=== PATIENT | female | born 1965 | race Caucasian/White ===

== ENCOUNTER 2021-01-21 08:14 | Inpatient (IN) | payer OTHER, SELFPAY ==
[2021-01-21] VITALS (15 sets, daily range): BP systolic 80–120; BP diastolic 40–107; PULSE 58–74; RESP 11–18; TEMP 36.5–37.2; O2SAT 92–100; BMI 29.1
--- NOTE | ~2021-01-21 | CT_ITS ---
EXAMINATION: CT abdomen pelvis wo con DATE: 01/22/2021 17:19 INDICATION: Acute renal failure. 1 cm shadowing stone at lower pole of left kidney and 4 cm masslike at the echogenic region of the spleen on 01/21/2021 renal ultrasound examination TECHNIQUE: Computed tomography (CT) of the abdomen and pelvis was performed without intravenous contr ast. Automated exposure control and iterative reconstruction technique were employed. Exam dose: 699 .74 mGy-cm total exam DLP. COMPARISON: None. FINDINGS: There is mild discoid atelectasis and/or scarring in the lower lung zones. There is mild cardiomegaly. No pericardial or pleural effusion. Status post cholecystectomy. No bile duct or pancreatic duct dilatation. The spleen measures 10.7 cm vertical dimension. No adrenal mass lesion. 2 cm probable right renal cyst. 3 cm mildly hyperdense exophytic lesion along the posterolateral aspect of the mid left kidney. Bilateral high density areas within each kidney with associated streak artifact; these may be renal c alculi or possibly metallic foreign bodies. No ureteral calculus or hydroureteronephrosis. There is a Dalton catheter and a small amount of air within the urinary bladder. Status post hysterectomy. Abdominal aortic and iliac arterial and femoral artery calcifications. No intraperitoneal or retroper itoneal or pelvic mass lesion or adenopathy or ascites. No bowel obstruction or pneumatosis or intraperitoneal free air. There is some fat deposition within the wall of the ascending colon. There is severe degenerative disc disease and grade 2 anterolisthesis at L4-5. Degenerative changes a pophyseal joints. IMPRESSION: Mild cardiomegaly Status post cholecystectomy 2 cm probable right renal cyst. 3 cm hyperdense exophytic left renal indeterminate lesion in the lower Additional renal mass lesions cannot be excluded on this limited noncontrast examination. Further sd luation with CT examination with IV contrast material or MR renal examination is recommended unless p rior CT examinations are available for comparison. Reviewed, dictated and finalized at [facility]. Reviewed, dictated and finalized at location [facility]. IMPRESSION: Mild cardiomegaly Status post cholecystectomy 2 cm probable right renal cyst. 3 cm hyperdense exophytic left renal indeterminate lesion in the lower Additional renal mass lesions cannot be excluded on this limited noncontrast ex amination. Further evaluation with CT examination with IV contrast material or MR renal examination is recommended unless prior CT examinations are available for comparison.
--- NOTE | ~2021-01-21 | XR_ITS ---
XR pelvis 1-2V DATE: 01/22/2021 17:40 INDICATION: Fall. Bilateral hip pain. TECHNIQUE: AP pelvis COMPARISON: 01/22/2021 CT abdomen pelvis FINDINGS: No pelvic fracture or bone destruction. The sacroiliac joints are intact. Joint spaces are symmetric and relatively preserved. Prominent degenerative disc disease at L4-5. 3.9 x 12 mm calcification overlying the lateral left true pelvis, which is apparently a calculus with in the distal left ureter based on correlation with a 01/22/2021 CT abdomen pelvis examination. There is associated mild left hydroureteronephrosis. There is a 7 x 12 mm calcification of the lower pole right kidney.. IMPRESSION: No pelvic fracture is evident 7 x 12 mm lower pole right renal calcified calculus 3.9 x 12 mm calcified calculus of the distal left ureter Reviewed, dictated and finalized at location [facility].
--- NOTE | ~2021-01-21 | XR_ITS ---
EXAMINATION: XR retrograde pyelo w/stent RT DATE: 01/25/2021 14:10 INDICATION: Right internal ureteral stent placement TECHNIQUE: Fluoroscopic images from a right internal ureteral stent placement are submitted for caitlin olguin. 25 seconds of fluoroscopy time. FINDINGS: There is a right double-J internal ureteral stent projecting in expected position, with proximal [place]ford loop at the level of the renal pelvis and distal loop in the pelvis within the bladder lumen. There was a pre-existing left internal ureteral stent. IMPRESSION: 1. Right internal ureteral stent placement. Please refer to real-time procedural findings for detai ls. Reviewed, dictated and finalized at location [facility]. IMPRESSION: 1. Right internal ureteral stent placement. Please refer to real-time procedu ral findings for details.
--- NOTE | ~2021-01-21 | XR_ITS ---
XR femur RT min 2V DATE: 01/22/2021 17:40 INDICATION: Fall. Bilateral hip pain. TECHNIQUE: AP and lateral views COMPARISON: None FINDINGS: No fracture or dislocation, periosteal reaction or bone destruction. Normal alignment at th e right hip and knee joints. IMPRESSION: No fracture or dislocation Reviewed, dictated and finalized at location [facility]. IMPRESSION: No fracture or dislocation
--- NOTE | ~2021-01-21 | US_ITS ---
EXAMINATION: US renal BI DATE: 01/21/2021 15:04 INDICATION: Acute renal failure TECHNIQUE: Multiple ultrasound grayscale images of the kidneys were obtained. COMPARISON: None. FINDINGS: The right kidney measures 10.4 x 6.6 x 6.3 cm. The left kidney measures 10.3 x 5.5 x 5.4 cm. The kidn eys demonstrate normal echogenicity. Anechoic cysts are seen at both kidneys measuring up to 1.9 cm i n maximal diameter on the right and 2.2 cm in maximal diameter on the left. There is an approximately 1 cm echogenic and shadowing stone at the lower pole of the left kidney. There is no hydronephrosis in either kidney. The bladder is normal. Approximately 4 cm echogenic region is indicated by the sono grapher in the spleen however the margins appear to result from acoustic shadowing related to the mor e superficial ribs and the masslike appearance is most likely artifactual. IMPRESSION: 1. Approximately 1 cm shadowing stone at the lower pole of the left kidney. No hydronephrosis. 2. 4 cm masslike echogenic region in the spleen. Suspect this is artifactual appearance resulting fro m rib shadowing but would consider further evaluation with contrast-enhanced CT or MRI for more defin itive determination. Reviewed, dictated and finalized at location B. IMPRESSION: 1. Approximately 1 cm shadowing stone at the lower pole of the left kidney. No hydronephrosis. 2. 4 cm masslike echogenic region in the spleen. Suspect this is artifactual ap pearance resulting from rib shadowing but would consider further evaluation wit h contrast-enhanced CT or MRI for more definitive determination.
--- NOTE | ~2021-01-21 | XR_ITS ---
EXAMINATION: XR abdomen obstructive series DATE: 01/24/2021 09:14 INDICATION: Nausea and vomiting. TECHNIQUE: Supine and upright views of the abdomen. FINDINGS: CT dated 01/22/2021 The visualized lung parenchyma is normal.. There is a nonobstructive bowel gas pattern. There is a st one at the L3-4 level, likely a right UPJ stone measuring 0.3 cm. There are bilateral renal stones. T here is a left internal ureteral stent in expected position. Lung bases unremarkable. Moderate lower lumbar spondylosis. Gas and stool are seen throughout the colon to the level of the rectum. There is no free air. IMPRESSION: 1. Probable 1.3 cm right UPJ stone. 2: Bilateral nephrolithiasis with left internal ureteral stent in expected position. Reviewed, dictated and finalized at location A. IMPRESSION: 1. Probable 1.3 cm right UPJ stone. 2: Bilateral nephrolithiasis with left internal ureteral stent in expected pos ition.
--- NOTE | ~2021-01-21 | XR_ITS ---
XR retrograde pyelo w/stent LT DATE: 01/23/2021 08:39 INDICATION: Left stent placement TECHNIQUE: 6 spot C-arm images of abdomen and pelvis during left retrograde pyelogram procedure 555.6 seconds fluoroscopy time 7342.40 radcm2 COMPARISON: 01/22/2021 CT abdomen pelvis 01/22/2021 pelvis FINDINGS: [employer] spot C-arm image confirms a large distal left ureteral calcified calculus. There is subsequent placement of a left internal urinary stent, proximal pigtail overlying the left r enal pelvis, the pubic distal pigtail overlying left base of the urinary bladder. IMPRESSION: Left internal urinary stent placement Reviewed, dictated and finalized at [facility]. Reviewed, dictated and finalized at location A.
--- NOTE | ~2021-01-21 | XR_ITS ---
EXAMINATION: XR chest 2V DATE: 01/21/2021 08:55 INDICATION: Weakness. TECHNIQUE: Frontal and lateral views of the chest were obtained. COMPARISON: None. FINDINGS: There is mild atelectasis in left lower lung zone. No pleural effusion or pneumothorax. Car diomegaly is noted. Surgical clips in the right upper quadrant are likely from cholecystectomy. IMPRESSION: 1. Mild atelectasis in left lower lung zone. 2. Cardiomegaly. Reviewed, dictated and finalized at location A.
--- NOTE | 2021-01-21 08:31 | ED.WEAKNESS ---
HPI - Weakness General Chief complaint: Weakness Stated complaint: WEAKNESS Time Seen by Provider: 01/21/21 08:19 History of Present Illness HPI Narrative: Patient is a 55-year-old female who presents to the ER with weakness. Patient is a very poor historian and most history was obtained from the . Apparently 4 days ago patient became weak to the point that she was stooling and urinating on herself. He contacted PCP who called in Macrobid as they are concerned she had UTI. Patient has 1 pill left and she still is too weak to stand up and walk. Patient has not been having fevers or chills or sweats. No diarrhea. She has no abdominal pain or chest pain or chest pressure. Patient is scheduled for a sleep study tonight but they have concerns that they will not make it given her condition. Additionally patient was on a Holter monitor for the last 2 weeks which they are turning in today. It is unknown why she had to have the Holter monitor performed. She sees Dr. Hernandez at [facility]. Related Data Home Medications Medication Instructions Recorded Confirmed aspirin 81 mg PO DAILY 01/21/21 01/21/21 buspirone 10 mg PO BID PRN 01/21/21 01/21/21 fenofibrate 150 mg PO DAILY 01/21/21 01/21/21 gabapentin 400 mg PO BID 01/21/21 01/21/21 lisinopril 10 mg PO DAILY 01/21/21 01/21/21 morphine 15 mg PO HS 01/21/21 01/21/21 nifedipine 30 mg PO DAILY 01/21/21 01/21/21 pantoprazole 20 mg PO QPM 01/21/21 01/21/21 ranolazine 500 mg PO BID 01/21/21 01/21/21 ropinirole 0.5 mg PO HS 01/21/21 01/21/21 sertraline 200 mg PO HS 01/21/21 01/21/21 tizanidine 2 mg PO Q8H PRN 01/21/21 01/21/21 Allergies Allergy/AdvReac Type Severity Reaction Status Date / Time No Known Allergies Allergy Verified 01/21/21 08:26 Review of Systems Review of Systems: All systems reviewed & are unremarkable except as noted in HPI and below Constitutional: Constitutional: Denies chills, Denies fever(s) and Reports weakness ENT: Denies nasal congestion and Denies sore throat Cardiovascular: Cardiovascular: Denies chest pain, Denies rapid heart rate and Denies radiating jaw, neck or arm pain Respiratory: Respiratory: Denies cough, Denies dyspnea and Denies wheezing Gastrointestinal: Gastrointestinal: Denies abdominal pain, Denies diarrhea, Denies nausea and Denies vomiting Genitourinary: Genitourinary: Reports nocturia, Denies dysuria and Reports urinary incontinence [facility] Past Medical History Medical History (Updated 01/21/21 @ 19:00 by Reid Duggan MD) Anxiety Arthritis Gastroesophageal reflux disease Hyperlipidemia Hypertension Restless leg syndrome Surgical History Surgical History (Updated 01/21/21 @ 13:18 by Kaycee Brush PA-C) History of section History of cholecystectomy History of hernia repair History of hysterectomy Social History Social History (Updated 01/21/21 @ 13:19 by Kaycee Brush PA-C) Social History: Surrogate decision maker: Code status: Full code. Smoking status: Former smoker Tobacco type: e-cigarettes/vaping and smokeless tobacco Alcohol intake: never Substance use: never Additional living arrangements comments: Resides in [place]. Spiritual care concerns: No Exam Narrative: Exam Narrative: GENERAL: Well-appearing, well-nourished, and in no acute distress. HEAD: Normocephalic, atraumatic. EYES: PERRL and EOMI. CHEST: Clear to auscultation. No respiratory distress. HEART: Regular rate and rhythm. Normal peripheral pulses. ABDOMEN: Soft, nontender, nondistended. EXTREMITIES: Normal range of motion. No edema. SKIN: Warm, dry, no rash. NEURO: Alert and oriented x3. PSYCH: Normal mood and affect. Course Course Emergency Course: Admit to the hospitalist service. Patient is in acute renal failure related to her UTI. She received IV ceftriaxone and additional IV fluid. Additionally she is receiving IV potassium for her hypokale
[2021-01-21] MEDS: SODIUM CHLORIDE 0.9% IV 1,000 ML 999 ML IV CONT ×3 (08:46→18:55)
[2021-01-21 09:08] LABS: Add Urine Microscopic? YES; Appearance Urine Turbid (Clear); Bacteria Urine 4+ /hpf; Bilirubin Urine Negative (Negative); Blood Urine 1+ (Negative); Color Urine Amber (Yellow); Glucose Urine UA Negative (Negative); Hyaline Casts Urine 30-49 /lpf; Ketones Urine Negative (Negative); Leukocyte Esterase Ur 2+ LEU/UL (Negative); Mucus Urine Rare /lpf; Nitrate Urine Negative (Negative); Protein Urine 3+ mg/dL (Negative); RBC Urine 21-50 /hpf (0-2); Specific Grav Ur 1.013 (1.001-1.035); WBC Clumps Urine Present /HPF; WBC Urine >75 /hpf
[2021-01-21 09:49] LABS: Basophils Percent Auto 0.3 % (0.2-1.2); Eosinophils Absolute Auto 0.1 K/mm3 (0-0.3); Eosinophils Percent Auto 1.6 % (0-4.4); Hematocrit 26.3 % (37.0-47.0); Hemoglobin 8.9 g/dL (12.0-15.0); Immature Granulocyte Absolute 0.11 K/mm3 (0.00-0.031); Immature Granulocyte Percent A 1.4 % (0-0.5); Lymphocytes Absolute Auto 0.87 K/mm3 (0.9-3.2); Lymphocytes Percent Auto 11.4 % (18.3-44.2); Mean Corpuscular HGB Conc 33.8 g/dl (32-36); Mean Corpuscular Volume 91.6 fl (80-100); Mean Platelet Volume 11.4 fl (7.4-10.4); Monocytes Absolute Auto 0.6 K/mm3 (0.1-0.6); Monocytes Percent Auto 7.4 % (2.6-8.5); Neutrophils Percent Auto 77.9 % (45.5-73.1); Platelet Count Result 200 k/mm3 (150-375); Red Blood Count 2.87 M/mm3 (4.2-5.4); Red Cell Distribution Width 15.4 % (11.5-14.5); White Blood Count 7.7 K/mm3 (4.5-10.0)
[2021-01-21 10:05] LABS: Lactic Acid Reflex 0.5 mmol/L (0.7-2.1)
[2021-01-21 10:08] LABS: Anion Gap 10 mmol/L (8-16); Blood Urea Nitrogen 90 mg/dL (7-17); Calcium 7.2 mg/dL (8.4-10.2); Carbon Dioxide 20 mmol/L (22-30); Chloride 99 mmol/L (98-107); Estimated CRCL calculation 13 ml/min; Estimated Glomerular Filt Rate 11; Glucose 105 mg/dL (65-105); Potassium 2.8 mmol/L (3.4-5.0); Sodium 129 mmol/L (137-145)
[2021-01-21] MEDS: POTASSIUM CHLORIDE 20 MEQ TABLET 40 MEQ PO (10:24)
[2021-01-21] MEDS: SODIUM CHLORIDE 0.45% 1,000 ML 100 ML IV CONT (10:27)
--- NOTE | 2021-01-21 10:31 | PC.NURSE ---
Pt is alert and oriented at this time.
--- NOTE | 2021-01-21 10:58 | ECG_ITS ---
Measurements Intervals [place] Rate: 59 P: 65 ID: [id number] QRS: -51 QRSD: 155 T: 84 QT: 495 QTc: 493 Interpretive Statements SINUS BRADYCARDIA LEFT AXIS DEVIATION LEFT BUNDLE BRANCH BLOCK BASELINE ARTIFACT- I, II, III, AVR, AVL, AVF ABNORMAL ECG Electronically Signed On 01-21-2021 11:13:14 CDT by Raghu Mccloud D.O.
--- NOTE | 2021-01-21 12:20 | PC.NURSE ---
This patient, Eulalia Salvador, was admitted to Intensive Care Unit-7. Patient/family oriented to hospital policies and general routines including ID bracelet, bed and alarms, visiting hours, pain management, procedures, bathroom and other care routines, personal items, smoking policy, room service/diet, and visiting hours. Information on how to activate the Rapid Response Team has been discussed. Patient/Family are encouraged to report perceived risks to care and to ask questions if they do not understand what they are told or what they should do.
[2021-01-21] MEDS: SODIUM CHLORIDE 0.9% IV 1,000 ML 125 ML IV CONT ×2 (12:47→22:07)
--- NOTE | 2021-01-21 13:30 | PM.IMHP ---
H&P: HPI History of Present Illness Date/Time: 01/21/21 13:30 Chief Complaint: Weakness. Narrative: This is a 55-year-old female with hypertension, depression, anxiety, restless leg syndrome, and chronic pain on morphine who presented to the emergency department earlier today via EMS from home with complaints of weakness. She has not been feeling well for about 5 days and she was prescribed Macrobid on 01/17/2021 by her primary care provider as she was having UTI symptoms. Despite taking the antibiotics she has continued to feel worse, and is to the point where she is sleeping much of the time and is not eating or drinking. This morning she apparently could not even stand up and walk on her own. She has been incontinent of urine and stool and her son called EMS and made her come in today. Blood pressures have been running soft but appear to be responsive to IV fluids. She was found to have an acute kidney injury with a BUN and creatinine of 90 and 4.20 respectively and to her knowledge she has no history of chronic kidney disease. At the time my evaluation she is asleep and difficult to arouse, with frequent myoclonic jerks. Once she was awake she tells me that she was supposed to have a sleep study sometime this week due to concerns for sleep apnea. Additionally she was wearing a Holter monitor for the past couple of weeks and with further questioning she tells me it was because she was having chest pain. With further questioning she apparently had a negative stress test done recently per Dr. Hernandez and he wanted to do the Holter monitor but she is not certain as to why. She denies palpitations and feelings of irregular heartbeat. In any event, she is feeling a bit better at the time my evaluation after receiving IV fluids. She does not think she has had a fever and denies chills and sweats. No abdominal pain or vomiting. Review of Systems Review of Systems: Narrative: Twelve systems were reviewed with pertinent positives and negatives as per HPI. She denies headache. No neck ache. No sinus congestion, rhinorrhea, otalgia, or odynophagia. She is on chronic narcotics for chronic pain, it sounds as though in her back. She denies taking more medication than prescribed. Except as documented, all other systems were reviewed and are negative. ON LICENSE OF [facility] Past Medical History Medical History (Updated 01/21/21 @ 22:35 by Kaycee Brush PA-C) Anxiety Arthritis Gastroesophageal reflux disease Hyperlipidemia Hypertension Restless leg syndrome Surgical History Surgical History (Updated 01/21/21 @ 13:18 by Kaycee Brush PA-C) History of section History of cholecystectomy History of hernia repair History of hysterectomy Family History Family History Other Heart disease Social History Social History (Updated 01/21/21 @ 22:24 by Kaycee Brush PA-C) Social History: Surrogate decision maker: Aristeo Salvador, . Code status: Full code. Full code. Smoking status: Former smoker Tobacco type: e-cigarettes/vaping and smokeless tobacco Alcohol intake: never Substance use: never Additional living arrangements comments: Resides in [place] her . They have 2 children. Additional occupation/education comments: Not employed. Spiritual care concerns: No Meds Home Medications and Allergies Home Medications Medication Instructions Recorded Confirmed Type aspirin 81 mg PO DAILY 01/21/21 01/21/21 History buspirone 10 mg PO BID PRN 01/21/21 01/21/21 History fenofibrate 150 mg PO DAILY 01/21/21 01/21/21 History gabapentin 400 mg PO BID 01/21/21 01/21/21 History lisinopril 10 mg PO DAILY 01/21/21 01/21/21 History morphine 15 mg PO HS 01/21/21 01/21/21 History nifedipine 30 mg PO DAILY 01/21/21 01/21/21 History pantoprazole 20 mg PO QPM 01/21/21 01/21/21 History ranolazine 500 mg PO BID 01/21/21 01/21/21 History ropiniro
[2021-01-21 14:48] LABS: Immature Reticulocyte Fraction 9.4 % (3.0-15.9); Reticulocyte Hemoglobin Conten 27.8 pg (28.2-35.7); Reticulocyte Percent 0.65 % (0.7-4.3); Reticulocytes Absolute 0.02 B/L (32.2-175.7)
[2021-01-21 15:01] LABS: Alanine Aminotransferase 20 U/L (4-35); Albumin Level 2.9 g/dL (3.5-5.1); Alkaline Phosphatase 68 U/L (38-126); Anion Gap 8 mmol/L (8-16); Aspartate Amino Transferase 89 U/L (14-36); Bilirubin Direct 0.4 mg/dL (0-0.3); Bilirubin,Total 1.4 mg/dL (0.2-1.3); Blood Urea Nitrogen 82 mg/dL (7-17); Calcium 7.1 mg/dL (8.4-10.2); Carbon Dioxide 19 mmol/L (22-30); Chloride 104 mmol/L (98-107); Creatine Kinase 1356 U/L (30-135); Estimated CRCL calculation 15 ml/min; Estimated Glomerular Filt Rate 13; Glucose 113 mg/dL (65-105); Magnesium 1.6 mg/dL (1.6-2.3); Potassium 3.7 mmol/L (3.4-5.0); Sodium 131 mmol/L (137-145)
[2021-01-21 15:11] LABS: Complement C3 115 mg/dL (88-165)
[2021-01-21 15:22] LABS: Phosphorus 4.7 mg/dL (2.5-4.5)
[2021-01-21 15:37] LABS: Iron 56 ug/dL (37-170)
[2021-01-21 15:47] LABS: Percent Iron Saturation 28 % (20-50)
[2021-01-21 15:48] LABS: CRP 32.2 mg/dL (<1.0)
[2021-01-21 16:07] LABS: Folic Acid 7.4 ng/mL (2.76->20); Thyroid Stimulating Hormone Reflex 0.197 uIU/mL (0.465-4.68)
[2021-01-21 16:33] LABS: Eosinophil Urine None Seen % (None Seen)
[2021-01-21 17:59] LABS: Total Protein Urine Random 165 mg/dL; Ur Ttl Prot Creatinine Ratio 2.66 mg/mg (0-0.20)
[2021-01-21 18:03] LABS: Sodium Urine Random 29 meq/L
[2021-01-21 20:55] LABS: Alveolar/Arterial O2 Gradient 39.8 mmHg; Base Excess ABG -11.6 mEq/l (+/-2.0); Carboxyhemoglobin 0.3 % THb (0-2.0); Fractional Inspired Oxygen 21 %; HCO3 ABG 14.7 mEq/l (22.0-26.0); Methemoglobin ABG 0.5 %THb (0-1.5); Oxygen Saturation ABG 90.8 % (95.0-100.0); Oxyhemoglobin 90.9 % THb (90.0-100.0); PCO2 ABG 34.8 mmHg (35.0-45.0); PO2 ABG 68.3 mmHg (80.0-100.0); PO2 FiO2 Ratio Arterial Blood 3.25 %; Reduced Hemoglobin 8.3 %THb (0-5.0); Total Hemoglobin 9.3 g/dL (12.0-18.0)
[2021-01-21 20:57] LABS: Device ROOM AIR; Modified Allen's Test Pass; Site Drawn RIGHT BRACHIAL; pH ABG 7.244 (7.350-7.450)
[2021-01-21 21:14] LABS: Amphetamine Screen Urine Negative (Negative); Barbiturate Screen Urine Negative (Negative); Benzodiazepines Screen Urine Negative (Negative); Cannabinoid Screen Urine Negative (Negative); Cocaine Screen Urine Negative (Negative); Methadone Screen Urine Negative (Negative); Opiate Screen Urine Positive (Negative); Phencyclidine Screen Urine Negative (Negative)
[2021-01-21 21:15] LABS: Creatine Kinase 1296 U/L (30-135)
[2021-01-21] MEDS: HEPARIN SODIUM 5,000 UNITS/ML VIAL 5000 UNITS SUB-Q (21:57)
[2021-01-21] MEDS: SODIUM BICARBONATE 8.4% 150 MEQ in DEXTROSE 5% 1,000 ML 950 ML 75 MEQ IV CONT (22:58)
[2021-01-21 23:23] LABS: Free T4 Free Thyroxine Reflex 1.68 ng/dL (0.78-2.19)
[2021-01-22] VITALS (16 sets, daily range): BP systolic 102–133; BP diastolic 57–83; PULSE 67–84; RESP 13–20; TEMP 37–38.1; O2SAT 95–100
[2021-01-22 04:35] LABS: Hematocrit 25.2 % (37.0-47.0); Hemoglobin 8.5 g/dL (12.0-15.0); Mean Corpuscular HGB Conc 33.7 g/dl (32-36); Mean Corpuscular Hemoglobin 30.9 pg (26-34); Mean Corpuscular Volume 91.6 fl (80-100); Mean Platelet Volume 11.2 fl (7.4-10.4); Platelet Count Result 259 k/mm3 (150-375); Red Blood Count 2.75 M/mm3 (4.2-5.4); Red Cell Distribution Width 15.9 % (11.5-14.5); White Blood Count 7.7 K/mm3 (4.5-10.0)
[2021-01-22 04:53] LABS: Anion Gap 7 mmol/L (8-16); Blood Urea Nitrogen 73 mg/dL (7-17); Calcium 7.3 mg/dL (8.4-10.2); Carbon Dioxide 18 mmol/L (22-30); Chloride 109 mmol/L (98-107); Creatine Kinase 1013 U/L (30-135); Estimated CRCL calculation 20 ml/min; Estimated Glomerular Filt Rate 18; Glucose 113 mg/dL (65-105); Magnesium 1.6 mg/dL (1.6-2.3); Phosphorus 3.4 mg/dL (2.5-4.5); Potassium 3.9 mmol/L (3.4-5.0); Sodium 134 mmol/L (137-145)
[2021-01-22] MEDS: HEPARIN SODIUM 5,000 UNITS/ML VIAL 5000 UNITS SUB-Q ×2 (08:25→20:48)
[2021-01-22] MEDS: GABAPENTIN 400 MG CAPSULE PO ×2 (08:26→16:24)
[2021-01-22] MEDS: FENOFIBRATE NANOCRYSTALLIZED 145 MG TABLET PO (08:26)
[2021-01-22] MEDS: ASPIRIN 81 MG ENTERIC TABLET PO (08:26)
[2021-01-22 08:41] LABS: Creatine Kinase 838 U/L (30-135)
[2021-01-22] MEDS: SODIUM BICARBONATE 8.4% 150 MEQ in DEXTROSE 5% 1,000 ML 950 ML 75 MEQ IV CONT (15:03)
[2021-01-22 15:18] LABS: Creatine Kinase 615 U/L (30-135)
--- NOTE | 2021-01-22 16:26 | PM.IMPN ---
Progress Note: A&P Assessment and Plan (1) Acute kidney failure: Code(s): N17.9 - Acute kidney failure, unspecified Status: Acute Assessment and Plan: Patient with acute kidney injury with creatinine at 4.2 BUN 90. FENA is low. Most likely related to dehydration and continued ACI use. Renal ultrasound showing 1 cm shadowing stone lower part of the kidney but no hydronephrosis. She also had a 4 cm masslike echogenic region of the spleen. Cr trending down consistent with NARINDER. Total CK elevated related to falls and NARINDER. Improving. (2) Urinary tract infection: Code(s): N39.0 - Urinary tract infection, site not specified Status: Acute Assessment and Plan: UA noted. UCx noted. Continue Rocephin. (3) Electrolyte abnormality: Code(s): E87.8 - Other disorders of electrolyte and fluid balance, not elsewhere classified Status: Acute Assessment and Plan: Including hyponatremia (sodium 129). Signs of improvement. Na back up to 134. Continue IV fluids. Continue close monitoring of volume status. Potassium 2.8 on admission and this has been replaced. Potassium now 3.9. (4) Confusion: Code(s): R41.0 - Disorientation, unspecified Status: Acute Assessment and Plan: Patient alert but confused. Feels this is metabolic encephalopthy from above. BCx NGTD. Monitor mental status. Start PT/OT (5) Hypertension: Code(s): I10 - Essential (primary) hypertension Status: Inactive Assessment and Plan: Patient's blood pressure was reviewed on 01/22. BP as low as 84/40 in emergency department, improved with IV fluids. Blood pressure remains well controlled now. Will continue current medications. (6) Normocytic anemia: Code(s): D64.9 - Anemia, unspecified Status: Acute Assessment and Plan: Hemoglobin 8.9 admission. This roughly the same on recheck. No baseline values to compare. She may very well have underlying chronic anemia. B12 and folate levels are normal. Iron studies consistent with anemia of chronic disease. Will follow. (7) Suspected sleep apnea: Code(s): R29.818 - Other symptoms and signs involving the nervous system Status: Acute Assessment and Plan: Apnea link done here for 6 hours. AHI was 2.1 and RI was 2.3. Patient was supposed to have a sleep study later this week. She has evidence of myoclonic jerking with sleeping. Continue to monitor. (8) DVT prophylaxis: Code(s): Z29.9 - Encounter for prophylactic measures, unspecified Status: Acute Assessment and Plan: Heparin Subjective Date/time seen: 01/22/21 16:26 Interval history: 55yo female with HTN, RLS and chronic pain on chronic narcotics here for weakness. She has been falling at home. Patient is alert but confused. No CP or abd pain. at bedside and he provided some information. Exam Narrative: Exam Narrative: Tm 100.6 98.8 117/64 74 13 100% ra Gen - NARD Chest - CTA bilaterally, nml RR CV - RRR S1/S2; Tele showing no significant dysrhythmias Abd - Soft, NT/ND, Positive BS, fullness in the suprapubic region - Dalton secured draining clear yellow urine Ext - No pedal edema. Pain the right thigh with flexion extension at the knee with nml right hip internal and external rotation; left knee and hip okay Neuro - Alert but confused. No focal weakness. Psych - Nml mood and affect Skin - Warm and dry Objective Data Vital Signs Vital Signs: Vital Signs - 24 hr 01/21/21 18:00 01/21/21 20:00 01/21/21 21:13 Temperature 98.9 F Pulse Rate 74 68 Respiratory Rate 12 Blood Pressure 90/58 L 100/52 L Pulse Oximetry 96 01/21/21 22:00 01/21/21 23:13 01/22/21 00:00 Temperature Pulse Rate 64 67 Respiratory Rate Blood Pressure Pulse Oximetry 94 01/22/21 00:10 01/22/21 02:00 01/22/21 04:00 Temperature 100.0 F H 100.6 F H P
--- NOTE | 2021-01-22 18:31 | PC.NURSE ---
This patient, Eulalia Salvador, was transferred to [facility] on 01/22/21 at 1831. Personal belongings sent with patient. Report given to Dunia THIBODEAUX. Appropriate documentation sent with patient.
[2021-01-22] MEDS: rOPINIRole HCL 0.5 MG TABLET PO (20:48)
[2021-01-22] MEDS: SERTRALINE HCL 50 MG TABLET 200 MG PO (20:48)
[2021-01-22] MEDS: PANTOPRAZOLE SOD SESQUIHYDRATE 20 MG TAB PO (20:48)
[2021-01-23] VITALS (15 sets, daily range): BP systolic 124–149; BP diastolic 64–91; PULSE 61–102; RESP 14–18; TEMP 36.2–36.9; O2SAT 94–100
[2021-01-23 05:28] LABS: Basophils Percent Auto 0.2 % (0.2-1.2); Eosinophils Absolute Auto 0.1 K/mm3 (0-0.3); Eosinophils Percent Auto 0.9 % (0-4.4); Hematocrit 23.4 % (37.0-47.0); Hemoglobin 8.2 g/dL (12.0-15.0); Immature Granulocyte Absolute 0.25 K/mm3 (0.00-0.031); Immature Granulocyte Percent A 3.1 % (0-0.5); Lymphocytes Absolute Auto 1.02 K/mm3 (0.9-3.2); Lymphocytes Percent Auto 12.7 % (18.3-44.2); Mean Corpuscular Hemoglobin 30.8 pg (26-34); Monocytes Absolute Auto 0.5 K/mm3 (0.1-0.6); Monocytes Percent Auto 6.1 % (2.6-8.5); Neutrophils Absolute Auto 6.2 K/mm3 (1.3-6.7); Platelet Count Result 315 k/mm3 (150-375); Red Blood Count 2.66 M/mm3 (4.2-5.4); Red Cell Distribution Width 14.8 % (11.5-14.5)
[2021-01-23 05:53] LABS: Potassium 3.3 mmol/L (3.4-5.0)
[2021-01-23] MEDS: SODIUM BICARBONATE 8.4% 150 MEQ in DEXTROSE 5% 1,000 ML 950 ML 75 MEQ IV CONT (06:07)
[2021-01-23 06:09] LABS: Albumin Level 2.5 g/dL (3.5-5.1); Anion Gap 4 mmol/L (8-16); Blood Urea Nitrogen 43 mg/dL (7-17); Calcium 7.7 mg/dL (8.4-10.2); Carbon Dioxide 28 mmol/L (22-30); Chloride 105 mmol/L (98-107); Estimated CRCL calculation 42 ml/min; Estimated Glomerular Filt Rate 43; Glucose 127 mg/dL (65-105); Magnesium 1.3 mg/dL (1.6-2.3); Phosphorus 1.9 mg/dL (2.5-4.5); Sodium 137 mmol/L (137-145)
--- NOTE | 2021-01-23 06:51 | WPDANESEPP ---
Anes - Eval Pre Procedure Procedure: cysto, stent placement Date/Time: 01/23/21 06:51 Surgeon: Regan Pre Op Diagnosis: UTI, NARINDER, Hypokalemia Patient Data Age: 55 Gender: F Height: 1.57 m Weight: 75.2 kg Last Vital Signs Temp 36.6 C 01/23/21 06:32 Pulse 88 01/23/21 06:32 Resp 18 01/23/21 06:32 BP 149/75 H 01/23/21 06:32 Pulse Ox 96 01/23/21 06:32 Allergies Allergy/AdvReac Type Severity Reaction Status Date / Time No Known Allergies Allergy Verified 01/21/21 08:26 Home Medications Medication Instructions Recorded Confirmed Type aspirin 81 mg PO DAILY 01/21/21 01/21/21 History buspirone 10 mg PO BID PRN 01/21/21 01/21/21 History fenofibrate 150 mg PO DAILY 01/21/21 01/21/21 History gabapentin 400 mg PO BID 01/21/21 01/21/21 History lisinopril 10 mg PO DAILY 01/21/21 01/21/21 History morphine 15 mg PO HS 01/21/21 01/21/21 History nifedipine 30 mg PO DAILY 01/21/21 01/21/21 History pantoprazole 20 mg PO QPM 01/21/21 01/21/21 History ranolazine 500 mg PO BID 01/21/21 01/21/21 History ropinirole 0.5 mg PO HS 01/21/21 01/21/21 History sertraline 200 mg PO HS 01/21/21 01/21/21 History tizanidine 2 mg PO Q8H PRN 01/21/21 01/21/21 History Laboratory Tests 01/22/21 01/22/21 01/23/21 08:12 15:00 04:50 WBC 8.0 K/mm3 K/mm3 (4.5-10.0) RBC 2.66 M/mm3 L M/mm3 (4.2-5.4) Hgb 8.2 g/dL L g/dL (12.0-15.0) Hct 23.4 % L % (37.0-47.0) MCV 88.0 fl fl (80-100) MCH 30.8 pg pg (26-34) MCHC 35.0 g/dl g/dl (32-36) RDW 14.8 % H % (11.5-14.5) Plt Count 315 k/mm3 k/mm3 (150-375) MPV 11.0 fl H fl (7.4-10.4) Immature Gran % (Auto) 3.1 % H % (0-0.5) Neut % (Auto) 77.0 % H % (45.5-73.1) Lymph % (Auto) 12.7 % L % (18.3-44.2) [place] % (Auto) 6.1 % % (2.6-8.5) Eos % (Auto) 0.9 % % (0-4.4) Baso % (Auto) 0.2 % % (0.2-1.2) Lymph # (Auto) 1.02 K/mm3 K/mm3 (0.9-3.2) [place] # (Auto) 0.5 K/mm3 K/mm3 (0.1-0.6) Eos # (Auto) 0.1 K/mm3 K/mm3 (0-0.3) Baso # (Auto) 0.0 K/mm3 K/mm3 (0.0-0.1) Abs Immat Gran (auto) 0.25 K/mm3 H K/mm3 (0.00-0.031) Absolute Neuts (auto) 6.2 K/mm3 K/mm3 (1.3-6.7) Absolute Nucleated RBC 0.0 K/mm3 K/mm3 (0.0-0.012) Nucleated RBC % 0.0 % % (0.0-0.2) Sodium Potassium Chloride Carbon Dioxide Anion Gap BUN Creatinine Estim Creat Clear Calc Estimated GFR Glucose Calcium Phosphorus Magnesium Total Creatine Kinase 838 U/L H U/L 615 U/L H U/L (30-135) (30-135) Albumin 01/23/21 04:50 WBC RBC Hgb Hct MCV MCH MCHC RDW Plt Count MPV Immature Gran % (Auto) Neut % (Auto) Lymph % (Auto) [place] % (Auto) Eos % (Auto) Baso % (Auto) Lymph # (Auto) [place] # (Auto) Eos # (Auto) Baso # (Auto) Abs Immat Gran (auto) Absolute Neuts (auto) Absolute Nucleated RBC Nucleated RBC % Sodium 137 mmol/L mmol/L (137-145) Potassium 3.3 mmol/L L mmol/L (3.4-5.0) Chloride 105 mmol/L mmol/L (98-107) Carbon Dioxide 28 mmol/L mmol/L (22-30) Anion Gap 4 mmol/L L mmol/L (8-16) BUN 43 mg/dL H D mg/dL (7-17) Creatinine 1.30 mg/dL H mg/dL (0.7-1.0) Estim Creat Clear Calc 42 ml/min ml/min Estimated GFR 43 L (59 - ) Glucose 127 mg/dL H mg/dL (65-105) Calcium 7.7 mg/dL L mg/dL (8.4-10.2) Phosphorus 1.9 mg/dL L mg/dL (2.5-4.5) Magnesium 1.3 mg/dL L mg/dL (1.6-2.3) Total Creatine Kinase Albumin 2.5 g/dL L g/dL (3.5-5.1) Patient hx anesthesia problems:
--- NOTE | 2021-01-23 07:08 | WPDURCON ---
Assessment and Plan Assessment and plan (1) Urinary tract infection: Code(s): N39.0 - Urinary tract infection, site not specified Status: Acute Assessment and Plan: continue IV abx, await C and S. when infection has been treated plan for ureteroscopy (2) Ureteral calculus: Code(s): N20.1 - Calculus of ureter Status: Acute Assessment and Plan: Plan for cystoscopy, left retrograde, left ureter stent placement. risks, benefits, alternatives, nature of procedure and complications discussed. risks including but not limited to bleeding, infection, trauma to surrounding structures, inability to place stent, need for PCN tube, need for additional procedures to treat stones, stent related pain, I emphasized temporary nature of stent and need for removal in near future , in addition to anesthesia and positioning complication of heart attack, stroke , blood clots, , disability and other unforeseen complications. she voiced understanding, all ? answered agreeable to proceed Urology Consult Note HPI Date Seen: 01/23/21 Requesting Physician: Michael Benitez MD Primary Care Provider: Alfonso Weiss, Consult Narrative Narrative: Eulalia Salvador is a 55 year old female admitted with UTI, renal failure. She has been placed on IV antibiotics. CT scan of abd/pelvis was performed and reveal left ureter stone with hydronephrosis. CR was 4 on admission and has downtrended to 1.[address] was performed last pm and she was found to have stone. + fever at home with confusion. + flank pain radiating to LLQ. no prior hx of stones. Her pain is controlled. No personal or family hx of stones or malignancy. Review of Systems Constitutional: Constitutional: Reports no additional constitutional complaints, Denies snoring and Denies weakness Eyes: Eyes: Reports no additional eye complaints ENT: Reports system reviewed and no additional complaints, except as documented, Denies dysphagia, Denies dizziness, Denies dry mouth and Denies ear discharge Respiratory: Respiratory: Reports no additional respiratory complaints, Denies hemoptysis, Denies snoring and Denies wheezing Gastrointestinal: Gastrointestinal: Reports as per HPI, Reports no additional gastrointestinal complaints, Denies dysphagia, Denies loose stools and Denies nausea Genitourinary: Genitourinary: Reports no additional female genitourinary complaints and Reports as per HPI Musculoskeletal: Musculoskeletal: Reports no additional musculoskeletal complaints and Reports as per HPI Integumentary/Breasts: Skin/Breast: Reports system reviewed and no additional complaints, except as docu and Reports as per HPI Neurologic: Reports system reviewed and no additional complaints, except as documented, Reports as per HPI, Denies confusion, Denies dizziness, Denies memory loss and Denies weakness Psychiatric: Psychiatric: Reports no additional psychiatric complaints, Reports as per HPI, Denies confusion, Denies memory loss and Denies mood swings Endocrine: Endocrine: Reports no additional endocrine complaints Hematologic/Lymphatic: Hematologic/Lymphatic: Reports no additional hematologic/lymphatic complaints and Reports as per HPI Allergic/Immunologic: Allergic/Immunologic: Reports no additional allergic/immunologic complaints, Reports as per HPI and Denies wheezing PMFSH Past Medical History Medical History (Updated 01/23/21 @ 07:12 by Alton Spears MD) Anxiety Arthritis Gastroesophageal reflux disease Hyperlipidemia Hypertension Restless leg syndrome Surgical History Surgical History (Updated 01/21/21 @ 13:18 by Kaycee Brush PA-C) History of section History of cholecystectomy History of hernia repair History of hysterectomy Family History Family History Other Heart disease Social History Social History (Updated 01/21/21 @ 22:24 by Kaycee Gray
--- NOTE | 2021-01-23 07:39 | WPDANESEFPP ---
Anes - Eval Final PreProcedure Day of Procedure 01/23/21 07:39 Patient weight: obese Heart: regular rate and rhythm Lungs: clear to auscultation and normal air movement Airway: Mallampati scale class II Neurological: alert and oriented Last oral intake: >/= 8 hours ASA classification: III Emergent: no Anesthetic plan: proceed Anesthesia type and monitoring: general GIVS, LMA and ETT Informed Consent: The patient's anesthetic plan and its attendant risks and benefits were discussed with the patient/family/POA. Questions were solicited and answers provided to the satisfaction of the patient/family/POA.
--- NOTE | 2021-01-23 07:41 | WPDHPUPDATE1 ---
History and Physical Update Update Date/Time: 01/23/21 07:41 History and Physical has been reviewed, including an updated exam of the patient. There are NO changes in the patient's condition. Risks, benefits, and alternatives have been discussed and questions answered. Patient agrees to proceed with procedure.
[2021-01-23] MEDS: LACTATED RINGERS 1,000 ML 30 ML IV CONT (08:00)
--- NOTE | 2021-01-23 08:36 | P.OP_ITS ---
Procedure Note - Detailed Date of procedure: 01/23/21 Pre-op diagnosis: UTI, NARINDER, Hypokalemia ureteral stone Procedure performed: cystoscopy left retrograde pyelogram, left ureter stent placement Description of procedure: Description of procedure: Patient was brought back to the operating room and given a general LMA anesthesia. She was prepped and draped in standard fashion in dorsal lithotomy position. She is on broad spectrum IV antibiotics on the floor. SCD boots on and functional for DVT prophylaxis. Care was taken to not hyperflex or hyperextend any extremity, all bony prominences thoroughly padded. After appropriate time-out and films were displayed, 22 Fr cystoscope was inserted into the bladder. Bladder was grossly normal with no evidence of tumor lesion mass or stone. She had single orthotopic ureteral orifices effluxing clear yellow urine. On special agent in charge fluoroscopy stone was seen in the distal left ureter, I placed a bentson wire which would not pass. I then placed 6 fr open ended cather and a angle tipped glide wire. I was able to navigate the wire passed the stone however the catheter was unable to be advanced past the stone, retrograde pyelography was performed and showed the stone was pushed up into the mid ureter with mild hydronephrosis and hydroureter. I was able to use some diluted contrast with 0.9% saline and lube to gently push the stone in a cephalad fashion to once again get the glide wire back into the kidney. I back-loaded the wire over the scope and with some gentle pressure from the scope I was able to get a 4.8 Fr variable length stent past the stone and into the renal pelvis. Good curl was seen fluoroscopically in the kidney and both fluoroscopically and endoscopically in bladder. All instruments and wires were removed. 16 Fr braun was placed. Pt was awoken and transferred to recovery in stable condition. Family was notified. Implants: left 4.8 variable length double J stent Anesthesia: GLMA Surgeon: Alton Spears MD Drains: Yes (16 fr braun) Pathology: none sent Complications: No immediate complications Condition: stable Disposition: PACU
--- NOTE | 2021-01-23 09:25 | SUR.PHASEI ---
[id number] sbar faxed floor notified
--- NOTE | 2021-01-23 09:51 | PCOTNOTE ---
attempted occupational therapy evaluation- pt down for cystoscopy. Will attempt later.
--- NOTE | 2021-01-23 09:59 | PCPTNOTE ---
Attempted eval...patient at a procedure...will see later as able
--- NOTE | 2021-01-23 10:05 | PC.NURSE ---
Patient arrived from surgery. Report received from Saul
[2021-01-23] MEDS: MAGNESIUM SULF 2 GM/WATER 50ML 2 GM/50 ML BAG IVPB (10:12)
[2021-01-23] MEDS: POTASSIUM CHLORIDE 20 MEQ TABLET 40 MEQ PO (10:13)
[2021-01-23] MEDS: HEPARIN SODIUM 5,000 UNITS/ML VIAL 5000 UNITS SUB-Q ×2 (10:13→20:35)
[2021-01-23] MEDS: FENOFIBRATE NANOCRYSTALLIZED 145 MG TABLET PO (10:14)
[2021-01-23] MEDS: ASPIRIN 81 MG ENTERIC TABLET PO (10:14)
[2021-01-23] MEDS: GABAPENTIN 400 MG CAPSULE PO ×2 (10:14→18:04)
[2021-01-23] MEDS: POTASSIUM PHOS,M-BASIC-D-BASIC 20 MMOL in SODIUM CHLORIDE 0.9% IV 250 ML 62.5 MMOL IVPB (10:32)
[2021-01-23] MEDS: LACTATED RINGERS 1,000 ML 70 ML IV CONT (10:40)
--- NOTE | 2021-01-23 11:51 | PM.IMPN ---
Progress Note: A&P Assessment and Plan (1) Ureteral calculus: Code(s): N20.1 - Calculus of ureter Status: Acute Assessment and Plan: Abnormal renal US so we proceeded with CT A/P. CT showing distal left ureteral calculi with mild left hydronephrosis. Urology consulted. Patietn earlier today underwent a cystoscopy with left retrograde pyelogram and left ureter stent placement. Appreciate urology input. (2) Acute kidney failure: Code(s): N17.9 - Acute kidney failure, unspecified Status: Acute Assessment and Plan: Patient with acute kidney injury with creatinine at 4.2 BUN 90. FENA is low. Most likely related to dehydration and continued ACEI use. Renal ultrasound showing 1 cm shadowing stone lower part of the kidney but no hydronephrosis. She also had a 4 cm masslike echogenic region of the spleen. Cr trending down consistent with NARINDER. Cr 1.3 today. Total CK elevated related to falls and NARINDER. Improving. (3) Urinary tract infection: Code(s): N39.0 - Urinary tract infection, site not specified Status: Acute Assessment and Plan: UA noted. UCx growing Klebsiella sensitive to Rocephin. Continue Rocephin. (4) Electrolyte abnormality: Code(s): E87.8 - Other disorders of electrolyte and fluid balance, not elsewhere classified Status: Acute Assessment and Plan: Hyponatremia on admission with sodium 129. Na better and now normal at 137. Potassium 2.8 on admission and this has been replaced. Potassium now 3.3 and replacement ordered. Mag level 1.3 today. Will replace. Phos low at 1.9 possibly related to refeeding syndrome. Replace. Follow electrolytes. Renal function better so will change IV fluids. (5) Confusion: Code(s): R41.0 - Disorientation, unspecified Status: Acute Assessment and Plan: Patient alert but confused. Feels this is metabolic encephalopathy from above. BCx NGTD. Mental status much better. Continue to monitor. Continue PT/OT (6) Hypertension: Code(s): I10 - Essential (primary) hypertension Status: Inactive Assessment and Plan: Patient's blood pressure was reviewed on 01/23 BP as low as 84/40 in emergency department but improved with IV fluids. Blood pressure remains well controlled now. Will continue to monitor. (7) Normocytic anemia: Code(s): D64.9 - Anemia, unspecified Status: Acute Assessment and Plan: Hemoglobin 8.9 admission. Hgb stable in the 8 range. No baseline values to compare. She may very well have underlying chronic anemia. B12 and folate levels are normal. Iron studies consistent with anemia of chronic disease. Will follow. (8) Suspected sleep apnea: Code(s): R29.818 - Other symptoms and signs involving the nervous system Status: Acute Assessment and Plan: Apnea link here for 6 hours. AHI was 2.1 and RI was 2.3. Patient was supposed to have a sleep study later this week. She has evidence of myoclonic jerking with sleeping. Continue to monitor. (9) DVT prophylaxis: Code(s): Z29.9 - Encounter for prophylactic measures, unspecified Status: Acute Assessment and Plan: Heparin Subjective Date/time seen: 01/23/21 11:51 Interval history: 55yo female with HTN, RLS and chronic pain on chronic narcotics here for weakness. Slept poorly last night. Feels tired. Not been out of bed. No CP. Back from cystoscopy. Exam Narrative: Exam Narrative: AF 97.1 141/68 76 16 94% ra Gen - NARD Chest - few basilar crackles o/w clear, nml RR CV - RRR S1/S2; Tele showing one brief episode of ATach, possibly MAT Abd - Soft, NT/ND, Positive BS - Dalton secured draining clear yellow urine Ext - No pedal edema. Neuro - Alert and oriented. No focal weakness. Psych - unhappy mood Skin - Warm and dry Objective Data Vital Signs Vital Signs: Vital Signs - 24 hr
[2021-01-23] MEDS: PANTOPRAZOLE SOD SESQUIHYDRATE 20 MG TAB PO (18:04)
[2021-01-23] MEDS: SERTRALINE HCL 50 MG TABLET 200 MG PO (20:35)
[2021-01-23] MEDS: rOPINIRole HCL 0.5 MG TABLET PO (20:35)
[2021-01-24] VITALS (12 sets, daily range): BP systolic 97–153; BP diastolic 66–84; PULSE 63–91; RESP 16–20; TEMP 35.9–36.9; O2SAT 94–98
[2021-01-24] MEDS: ONDANSETRON INJ 4 MG/2 ML VIAL IV PUSH ×5 (01:27→20:37)
[2021-01-24 05:36] LABS: Hematocrit 25.6 % (37.0-47.0); Hemoglobin 8.9 g/dL (12.0-15.0); Mean Corpuscular HGB Conc 34.8 g/dl (32-36); Mean Corpuscular Hemoglobin 30.4 pg (26-34); Mean Corpuscular Volume 87.4 fl (80-100); Mean Platelet Volume 10.6 fl (7.4-10.4); Platelet Count Result 459 k/mm3 (150-375); Red Blood Count 2.93 M/mm3 (4.2-5.4); Red Cell Distribution Width 15.4 % (11.5-14.5); White Blood Count 12.2 K/mm3 (4.5-10.0)
[2021-01-24 06:03] LABS: Albumin Level 2.6 g/dL (3.5-5.1); Anion Gap 5 mmol/L (8-16); Blood Urea Nitrogen 28 mg/dL (7-17); Calcium 8.4 mg/dL (8.4-10.2); Carbon Dioxide 28 mmol/L (22-30); Chloride 109 mmol/L (98-107); Estimated CRCL calculation 53 ml/min; Estimated Glomerular Filt Rate 58; Glucose 146 mg/dL (65-105); Magnesium 1.5 mg/dL (1.6-2.3); Phosphorus 2.9 mg/dL (2.5-4.5); Potassium 3.8 mmol/L (3.4-5.0); Sodium 142 mmol/L (137-145)
[2021-01-24] MEDS: LACTATED RINGERS 1,000 ML 70 ML IV CONT (06:33)
--- NOTE | 2021-01-24 06:36 | WPDUROPN2 ---
Progress Note: A&P Assessment and Plan (1) Ureteral calculus: Code(s): N20.1 - Calculus of ureter Status: Acute (2) Acute kidney failure: Code(s): N17.9 - Acute kidney failure, unspecified Status: Acute (3) Urinary tract infection: Code(s): N39.0 - Urinary tract infection, site not specified Status: Acute Assessment and Plan: Seems to be tolerating stent. Will get KUB to check stone/stent position. Urine culture: Klebsiella with diverse sensitivities. Await blood cultures. ESWL in 2-3 weeks (after treatment if UTI). Subjective Subjective Date/Time Seen: 01/24/21 06:36 c/o nausea, no abdominal pain Review of Systems Cardiovascular: Cardiovascular: Denies chest pain, Denies lightheadedness, Denies palpitations and Denies dyspnea Respiratory: Respiratory: Denies dyspnea Gastrointestinal: Gastrointestinal: Denies diarrhea, Reports nausea and Denies vomiting Genitourinary: Genitourinary: Denies hematuria and Denies dysuria Endocrine: Endocrine: Denies palpitations Exam Const: General: no acute distress Resp: Effort & Inspection: normal respiratory effort GI: Inspection: non-distended GI Palp: No abdominal tenderness and No Guarding due to palpation present (GI) Auscultation: normal bowel sounds Objective Data Vital Signs Vital Signs: Vital Signs - 24 hr 01/23/21 08:50 01/23/21 09:05 01/23/21 09:19 Temperature 98.2 F Pulse Rate 83 80 78 Respiratory Rate 14 14 14 Blood Pressure 126/91 H 136/68 142/66 H Pulse Oximetry 100 100 95 01/23/21 09:35 01/23/21 10:21 01/23/21 12:00 Temperature 97.1 F L Pulse Rate 75 76 79 Respiratory Rate 16 16 Blood Pressure 141/84 H 141/68 H Pulse Oximetry 95 94 01/23/21 14:00 01/23/21 16:00 01/23/21 20:00 Temperature 97.1 F L Pulse Rate 77 61 69 Respiratory Rate 16 Blood Pressure 148/74 H Pulse Oximetry 97 01/23/21 20:35 01/23/21 20:51 01/24/21 00:00 Temperature 98.4 F 97.6 F Pulse Rate 73 102 H 76 Respiratory Rate 18 14 Blood Pressure 137/71 124/66 Pulse Oximetry 95 97 01/24/21 01:21 01/24/21 04:00 Temperature 98.0 F Pulse Rate 84 85 Respiratory Rate 16 Blood Pressure 153/66 H Pulse Oximetry 94 Intake/Output Intake/Output: Intake & Output 01/21/21 01/22/21 01/23/21 01/24/21 23:59 23:59 23:59 23:59 Intake Total 3795 1150 2746 1000 Output Total 475 2050 2390 Balance 3320 -457 184 5112 Meds/Results Medications: Active Medications Generic Name Dose Route Start Last Admin Trade Name Freq PRN Reason Stop Dose Admin Acetaminophen 650 mg 01/21/21 10:38 Acetaminophen 325 Mg Tablet PO Q4H PRN Mild Pain (1-3) or Fever Aspirin 81 mg 01/22/21 09:00 01/23/21 10:14 Aspirin 81 Mg Enteric Tablet PO 81 mg QAM NEGIN Administration Buspirone HCl 10 mg 01/21/21 22:43 Buspirone Hcl 10 Mg Tablet PO BID PRN Anxiety Fenofibrate 145 mg 01/22/21 09:00 01/23/21 10:14 Fenofibrate Nanocrystallized 145 Mg Tablet PO 145 mg QAM NEGIN Administration Gabapentin 400 mg 01/22/21 09:00 01/23/21 18:04 Gabapentin 400 Mg Capsule PO 400 mg BID NEGIN Administration Heparin Sodium (Porcine) 5,000 units 01/21/21 21:00 01/23/21 20:35 Heparin Sodium 5,000 Units/Ml Vial SUB-Q 5,000 units Q12HR NEGIN Administration Ceftriaxone Sodium/Dextrose 1 gm in 50 mls @ 100 mls/hr 01/22/21 09:00 01/23/21 11:00 Rocephin 1 Gm/D5w 50 Ml IVPB Infused Q24H NEGIN Infusion Lactated Ringer's 1,000 mls @ 70 mls/hr 01/23/21 07:00 01/24/21 06:33 Lr - Lactated Ringers Iv IV CONT 70 mls/hr .[id number] NEGIN Administration Ondansetron HCl 4 mg 01/21/21 10:38 01/24/21 05:26 Ondansetron Inj 4 Mg/2 Ml Vial IV PUSH 4 mg Q4H PRN Administration Nausea Pantoprazole Sodium 20 mg 01/22/21 21:00 01/23/21 18:04 Pantoprazole Sod Sesquihydrate 20 Mg Tab PO 20 mg QPM NEGIN Administration Ropinirole HCl 0.5 mg 01/21/21 23
--- NOTE | 2021-01-24 08:05 | WPDANESPN ---
Anes - Prog Note Post-Op Date/Time: 01/24/21 08:05 Cardiovascular status: normal Respiratory status: normal Airway patency: baseline Mental status: baseline Post-Op hydration status: normal Vital Signs: Last Vital Signs Temp 36.6 C 01/24/21 06:00 Pulse 79 01/24/21 06:00 Resp 20 01/24/21 06:00 BP 144/73 H 01/24/21 06:00 Pulse Ox 97 01/24/21 06:00 Pain Score (VAS): 0 I/O: Intake & Output 01/23/21 01/24/21 01/24/21 23:59 07:59 15:59 Intake Total 120 1150 Output Total 750 400 Balance -630 750 Laboratory Tests 01/24/21 05:01 01/24/21 05:01 01/24/21 01/24/21 05:01 05:01 WBC 12.2 H RBC 2.93 L Hgb 8.9 L Hct 25.6 L MCV 87.4 MCH 30.4 MCHC 34.8 RDW 15.4 H Plt Count 459 H MPV 10.6 H Sodium 142 Potassium 3.8 Chloride 109 H Carbon Dioxide 28 Anion Gap 5 L BUN 28 H D Creatinine 1.00 Estim Creat Clear Calc 53 Estimated GFR 58 L Glucose 146 H Calcium 8.4 Phosphorus 2.9 Magnesium 1.5 L Albumin 2.6 L Microbiology 01/21/21 08:48 Urine Catheterized Urine Culture - Final Klebsiella pnemoniae Post-procedural complaints: none Patient Feedback: Patient satisfied with anesthetic care.
[2021-01-24] MEDS: MAGNESIUM SULF 2 GM/WATER 50ML 2 GM/50 ML BAG IVPB (08:07)
--- NOTE | 2021-01-24 08:16 | PC.NURSE ---
Patient moaning and c/o severe nausea. Holding emesis bag and vomiting small amounts into bag intermittently. Patient states she has been nauseated all night long and has not received any relief from Zofran (last dose given at 0500). Patient denies acute pain. States she is having chronic pain in her neck and back but unable to take scheduled meds - Gabapentin, etc. Patient also states she feels anxious but unable to tolerate prn Buspar due to nausea. Left voice message for Dr. Benitez regarding all of the above.
[2021-01-24] MEDS: busPIRone HCL 10 MG TABLET PO (09:47)
[2021-01-24] MEDS: HEPARIN SODIUM 5,000 UNITS/ML VIAL 5000 UNITS SUB-Q ×2 (09:48→20:37)
--- NOTE | 2021-01-24 10:54 | PCOTNOTE ---
Attempted to see patient for OT, patient feeling nauseated and declined at this time. Will attempt again later today to see for OT.
--- NOTE | 2021-01-24 13:39 | PCOTNOTE ---
Attempted OT treatment, patient declined therapy at this time, reports feeling nauseous and wants to sleept. will follow and attempt OT treatment in morning.
--- NOTE | 2021-01-24 13:39 | PM.IMPN ---
Progress Note: A&P Assessment and Plan (1) Nausea & vomiting: Code(s): R11.2 - Nausea with vomiting, unspecified Status: Acute Assessment and Plan: Patient has developed nausea and vomiting this morning. No ileus noted by xray. WBC slightly elevated but lab work overall looks better. Mag low so will replace. Related to stone? Monitor for now. RN stated symptoms seem to improve with the Buspar. Called by RN. Patient still with n/v and very upset. Will add phenergan suppositories. Place NGT to LWIS. NPO and start IV fluids. Lorazepam added as well. Felling much better with lorazepam and phenergan but having restlessness. Will stop phenergan. Urology to place stent tomorrow. Couldn't place NG tube. (2) Ureteral calculus: Code(s): N20.1 - Calculus of ureter Status: Acute Assessment and Plan: Abnormal renal US so we proceeded with CT A/P. CT showing distal left ureteral calculi with mild left hydronephrosis. Urology consulted. Patient underwent a cystoscopy with left retrograde pyelogram and left ureter stent placement on 01/23/21. Patient developed n/v today and Abd xray showing possible right UPJ stone. Urology made aware. Will defer to urology about further workup. Appreciate urology input. (3) Acute kidney failure: Code(s): N17.9 - Acute kidney failure, unspecified Status: Acute Assessment and Plan: Patient with acute kidney injury with creatinine at 4.2 BUN 90. FENA is low. Most likely related to dehydration and continued ACEI use. Renal ultrasound showing 1 cm shadowing stone lower part of the kidney but no hydronephrosis. She also had a 4 cm masslike echogenic region of the spleen. Cr trended down consistent with NARINDER. Cr normal 1.0 today. IV fluids stopped but resumed today due to her n/v and NPO status. Total CK elevated related to falls and NARINDER. Improving. (4) Urinary tract infection: Code(s): N39.0 - Urinary tract infection, site not specified Status: Acute Assessment and Plan: UA noted. UCx growing Klebsiella sensitive to Rocephin. Continue Rocephin. (5) Electrolyte abnormality: Code(s): E87.8 - Other disorders of electrolyte and fluid balance, not elsewhere classified Status: Acute Assessment and Plan: Hyponatremia on admission with sodium 129. Na better and now normal at 142. [place] realted to severe dehydration. Potassium 2.8 on admission and this has been replaced. Potassium now 3.8 today. Mag level 1.5 today. Will replace again. Phos was low at 1.9 possibly related to refeeding syndrome. Replaced and Phos better at 2.9. Follow electrolytes. Renal function back to normal (6) Confusion: Code(s): R41.0 - Disorientation, unspecified Status: Acute Assessment and Plan: Patient was alert but confused. Feels this is metabolic encephalopathy from above. BCx NGTD. Mental status much better. Continue to monitor. Continue PT/OT (7) Hypertension: Qualifiers: Hypertension type: essential hypertension Qualified Code(s): I10 - Essential (primary) hypertension Code(s): I10 - Essential (primary) hypertension Status: Inactive Assessment and Plan: Patient's blood pressure was reviewed on 01/24 BP as low as 84/40 in emergency department but improved with IV fluids. Blood pressure remains well controlled now. Will continue to monitor. (8) Normocytic anemia: Code(s): D64.9 - Anemia, unspecified Status: Acute Assessment and Plan: Hemoglobin 8.9 admission. Hgb stable in the 8 range. No baseline values to compare. She may very well have underlying chronic anemia. B12 and folate levels are normal. Iron studies consistent with anemia of chronic disease. Will follow. (9) Suspected sleep apnea: Code(s): R29.818 - Other symptoms and signs involving the nervous system Status: Acute Assessment an
--- NOTE | 2021-01-24 14:40 | PC.NURSE ---
Patient continues to cry and c/o nausea and abdominal pain. Also c/o anxiety. Unable to keep her meds down. Left message at urology office earlier that patient has right sided kidney stone and per office, urologist will be coming to see patient but procedure would most likely not be done until tomorrow if needed. Left voice message for Dr. Benitez regarding continued c/o pain, nausea and anxiety. Awaiting return call.
[2021-01-24] MEDS: SODIUM CHLORIDE 0.9% IV 1,000 ML 100 ML IV CONT (16:50)
[2021-01-24] MEDS: PROMETHAZINE HCL 12.5 MG SUPP.RECT RECTAL (16:51)
[2021-01-24] MEDS: LORazepam INJ (*CRX) 2 MG/ML VIAL 0.5 MG IV PUSH ×2 (16:51→23:52)
--- NOTE | 2021-01-24 18:33 | PC.NURSE ---
Attempted to place NGT. Patient cooperative at first but pulled at tube as soon as it reached her throat. After several attempts by myself and Jodi Lovett RN, patient refused further attempts. Called Dr. Benitez and notified him of same.
[2021-01-24] MEDS: PANTOPRAZOLE SODIUM IV 40 MG VIAL IV PUSH (20:37)
[2021-01-24] MEDS: ACETAMINOPHEN 325 MG TABLET 650 MG PO (21:01)
[2021-01-25] VITALS (20 sets, daily range): BP systolic 99–157; BP diastolic 55–87; PULSE 60–91; RESP 14–20; TEMP 36–37; O2SAT 95–100
[2021-01-25] MEDS: ONDANSETRON INJ 4 MG/2 ML VIAL IV PUSH ×2 (01:36→09:47)
[2021-01-25] MEDS: ACETAMINOPHEN 325 MG TABLET 650 MG PO (01:36)
[2021-01-25] MEDS: SODIUM CHLORIDE 0.9% IV 1,000 ML 100 ML IV CONT ×2 (02:52→17:39)
[2021-01-25] MEDS: MORPHINE SULFATE (*CRX) 2 MG/ML INJ IV PUSH ×2 (04:06→11:51)
[2021-01-25 05:22] LABS: Hematocrit 26.2 % (37.0-47.0); Hemoglobin 8.7 g/dL (12.0-15.0); Mean Corpuscular HGB Conc 33.2 g/dl (32-36); Mean Corpuscular Hemoglobin 30.4 pg (26-34); Mean Corpuscular Volume 91.6 fl (80-100); Mean Platelet Volume 10.6 fl (7.4-10.4); Platelet Count Result 444 k/mm3 (150-375); Red Blood Count 2.86 M/mm3 (4.2-5.4); Red Cell Distribution Width 15.5 % (11.5-14.5); White Blood Count 11.4 K/mm3 (4.5-10.0)
[2021-01-25 05:46] LABS: Alanine Aminotransferase 17 U/L (4-35); Albumin Level 2.6 g/dL (3.5-5.1); Alkaline Phosphatase 49 U/L (38-126); Anion Gap 7 mmol/L (8-16); Aspartate Amino Transferase 43 U/L (14-36); Bilirubin,Total 1.1 mg/dL (0.2-1.3); Blood Urea Nitrogen 24 mg/dL (7-17); Carbon Dioxide 25 mmol/L (22-30); Chloride 109 mmol/L (98-107); Estimated CRCL calculation 59 ml/min; Estimated Glomerular Filt Rate > 60; Glucose 92 mg/dL (65-105); Magnesium 1.6 mg/dL (1.6-2.3); Phosphorus 2.8 mg/dL (2.5-4.5); Potassium 3.5 mmol/L (3.4-5.0); Sodium 141 mmol/L (137-145)
--- NOTE | 2021-01-25 06:38 | WPDUROPN2 ---
Progress Note: A&P Assessment and Plan (1) Ureteral calculus: Code(s): N20.1 - Calculus of ureter Status: Acute Assessment and Plan: Right kidney stone that had been in lower pole calyx/non-obstructing at admission now in right UPJ. Will plan cystoscopy, right stent placement today. Will then need bilat. ESWL [id number]. Subjective Subjective Date/Time Seen: 01/25/21 06:38 Persistent n/v Review of Systems Cardiovascular: Cardiovascular: Denies chest pain, Denies lightheadedness, Denies palpitations and Denies dyspnea Respiratory: Respiratory: Denies dyspnea Gastrointestinal: Gastrointestinal: Denies diarrhea, Reports nausea and Denies vomiting Genitourinary: Genitourinary: Denies hematuria and Denies dysuria Endocrine: Endocrine: Denies palpitations Exam Const: General: no acute distress Resp: Effort & Inspection: normal respiratory effort GI: Inspection: non-distended GI Palp: No abdominal tenderness and No Guarding due to palpation present (GI) Auscultation: normal bowel sounds Objective Data Vital Signs Vital Signs: Vital Signs - 24 hr 01/24/21 08:00 01/24/21 10:00 01/24/21 12:00 Temperature 97.3 F L Pulse Rate 83 78 76 Respiratory Rate 16 Blood Pressure 142/73 H Pulse Oximetry 97 01/24/21 14:00 01/24/21 16:00 01/24/21 18:00 Temperature 96.7 F L 98.5 F Pulse Rate 67 77 91 Respiratory Rate 18 18 Blood Pressure 151/67 H 97/84 L Pulse Oximetry 97 97 01/24/21 20:00 01/24/21 21:17 01/25/21 00:00 Temperature 98.3 F Pulse Rate 63 89 89 Respiratory Rate 16 Blood Pressure 103/81 Pulse Oximetry 98 01/25/21 02:00 01/25/21 04:00 01/25/21 04:15 Temperature 98.1 F 98.1 F Pulse Rate 91 90 Respiratory Rate 18 20 Blood Pressure 99/85 L 129/71 Pulse Oximetry 97 96 Intake/Output Intake/Output: Intake & Output 01/22/21 01/23/21 01/24/21 01/25/21 23:59 23:59 23:59 23:59 Intake Total 1150 2746 1250 1000 Output Total 2049 2390 1150 350 Balance -900 356 100 650 Meds/Results Medications: Active Medications Generic Name Dose Route Start Last Admin Trade Name Freq PRN Reason Stop Dose Admin Acetaminophen 650 mg 01/21/21 10:38 01/25/21 01:36 Acetaminophen 325 Mg Tablet PO 650 mg Q4H PRN Administration Mild Pain (1-3) or Fever Aspirin 81 mg 01/22/21 09:00 01/24/21 09:47 Aspirin 81 Mg Enteric Tablet PO Not Given QAM NEGIN Buspirone HCl 10 mg 01/21/21 22:43 01/24/21 09:47 Buspirone Hcl 10 Mg Tablet PO 10 mg BID PRN Administration Anxiety Fenofibrate 145 mg 01/22/21 09:00 01/24/21 09:48 Fenofibrate Nanocrystallized 145 Mg Tablet PO Not Given QAM NEGIN Gabapentin 400 mg 01/22/21 09:00 01/24/21 09:48 Gabapentin 400 Mg Capsule PO Not Given BID NEGIN Heparin Sodium (Porcine) 5,000 units 01/21/21 21:00 01/24/21 20:37 Heparin Sodium 5,000 Units/Ml Vial SUB-Q 5,000 units Q12HR NEGIN Administration Ceftriaxone Sodium/Dextrose 1 gm in 50 mls @ 100 mls/hr 01/22/21 09:00 01/24/21 10:17 Rocephin 1 Gm/D5w 50 Ml IVPB Infused Q24H NEGIN Infusion Sodium Chloride 1,000 mls @ 100 mls/hr 01/24/21 16:25 01/25/21 02:52 Normal Saline Iv IV CONT 100 mls/hr .Q10H NEGIN Administration Lorazepam 0.5 mg 01/24/21 16:25 01/24/21 23:52 Lorazepam Inj (*Crx) 2 Mg/Ml Vial IV PUSH 0.5 mg Q6H PRN Administration Anxiety Ondansetron HCl 4 mg 01/21/21 10:38 01/25/21 01:36 Ondansetron Inj 4 Mg/2 Ml Vial IV PUSH 4 mg Q4H PRN Administration Nausea Pantoprazole Sodium 20 mg 01/22/21 21:00 01/23/21 18:04 Pantoprazole Sod Sesquihydrate 20 Mg Tab PO 20 mg QPM NEGIN Administration Pantoprazole Sodium 40 mg 01/24/21 21:00 01/24/21 20:37 Pantoprazole Sodium Iv 40 Mg Vial IV PUSH 40 mg Q12HR NEGIN Administration Ropinirole HCl 0.5 mg 01/21/21 23:00 01/23/21 20:35 Ropinirole Hcl 0.5 Mg Tablet PO 0.5 mg HS NEGIN Administration Sert
[2021-01-25] MEDS: PANTOPRAZOLE SODIUM IV 40 MG VIAL IV PUSH ×2 (09:46→20:18)
[2021-01-25] MEDS: LORazepam INJ (*CRX) 2 MG/ML VIAL 0.5 MG IV PUSH ×2 (09:47→17:39)
--- NOTE | 2021-01-25 11:33 | PCOTNOTE ---
Per RN, patient having pain and patient finally sleeping. RN asked JENNINGS to wait to see patient after her kidney stone removal procedure if she is up for it. Will attempt later if appropriate.
--- NOTE | 2021-01-25 11:59 | PM.IMPN ---
Progress Note: A&P Assessment and Plan (1) Nausea & vomiting: Code(s): R11.2 - Nausea with vomiting, unspecified Status: Resolved Assessment and Plan: No nausea and vomiting today. Urology to place stent today, yesterday nausea possibly stone related . (2) Ureteral calculus: Code(s): N20.1 - Calculus of ureter Status: Acute Assessment and Plan: Interval history ;Abnormal renal US, CT showing distal left ureteral calculi with mild left hydronephrosis. Urology consulted. Patient underwent a cystoscopy with left retrograde pyelogram and left ureter stent placement on 01/23/21. Patient developed n/v today and Abd xray showing possible right UPJ stone. Stent placement due today. (3) Acute kidney failure: Code(s): N17.9 - Acute kidney failure, unspecified Status: Acute Assessment and Plan: Patient with acute kidney injury with creatinine at 4.2 BUN 90. CReat is normal now after fluid hydration.Renal ultrasound showing 1 cm shadowing stone lower part of the kidney but no hydronephrosis. She also had a 4 cm masslike echogenic region of the spleen. (4) Urinary tract infection: Code(s): N39.0 - Urinary tract infection, site not specified Status: Acute Assessment and Plan: UA noted. UCx growing Klebsiella sensitive to Rocephin. Continue Rocephin. (5) Electrolyte abnormality: Code(s): E87.8 - Other disorders of electrolyte and fluid balance, not elsewhere classified Status: Acute Assessment and Plan: Hyponatremia on admission with sodium 129. Sodium now 141. (6) Confusion: Code(s): R41.0 - Disorientation, unspecified Status: Acute Assessment and Plan: Pleasantly confused appears to be improving. Possibly due to metabolic encephalopathy (7) Hypertension: Qualifiers: Hypertension type: essential hypertension Qualified Code(s): I10 - Essential (primary) hypertension Code(s): I10 - Essential (primary) hypertension Status: Inactive Assessment and Plan: Bp is 140/65 (8) Normocytic anemia: Code(s): D64.9 - Anemia, unspecified Status: Acute Assessment and Plan: Hemoglobin 8.7. Iron studies consistent with anemia of chronic disease. (9) Suspected sleep apnea: Code(s): R29.818 - Other symptoms and signs involving the nervous system Status: Acute Assessment and Plan: Apnea link here for 6 hours. AHI was 2.1 and RI was 2.3. (10) DVT prophylaxis: Code(s): Z29.9 - Encounter for prophylactic measures, unspecified Status: Acute Assessment and Plan: Heparin Subjective Date/time seen: 01/25/21 11:59 Interval history: 55-year-old female with hypertension, depression, anxiety, restless leg syndrome, and chronic pain on morphine who presented to the emergency department earlier today via EMS from home with complaints of weakness. Ongoing complaints of right lower abdominal pain pt is going for stent placement today. Review of Systems Review of Systems: All systems reviewed & are unremarkable except as noted in HPI and below Exam Narrative: Exam Narrative: Vital Signs Temp Pulse Resp BP Pulse Ox 01/25/21 10:30 36.0 C L 77 16 140/65 100 01/25/21 08:00 73 01/25/21 04:15 36.7 C 96 01/25/21 04:00 90 20 129/71 01/25/21 02:00 36.7 C 91 18 99/85 L 97 01/25/21 00:00 89 01/24/21
--- NOTE | 2021-01-25 12:21 | PC.NURSE ---
To OR via stretcher with OR staff. Rings removed and sent home with .
[2021-01-25] MEDS: LACTATED RINGERS 1,000 ML 30 ML IV CONT (12:40)
--- NOTE | 2021-01-25 13:36 | WPDANESEPPF ---
Anes - Initial Pre Proc Eval Procedure: Operation Date: 01/23/21 07:30 Proposed Procedures p Cysto, RPG, Stone Ext, Stent Placement - Alton Spears MD Operation Date: 01/25/21 13:30 Proposed Procedures p Cystoscopy, Right Stent Placement - Jason Jordan MD Date/Time: 01/25/21 13:36 Surgeon: Michael Benitez MD Pre Op Diagnosis: UTI, NARINDER, Hypokalemia Patient Data Age: 55 Gender: F Height: 5 ft 2 in Weight: 74.9 kg Last Vital Signs Temp 98.6 F 01/25/21 12:28 Pulse 71 01/25/21 12:28 Resp 16 01/25/21 12:28 BP 154/78 H 01/25/21 12:28 Pulse Ox 100 01/25/21 12:28 Allergies Allergy/AdvReac Type Severity Reaction Status Date / Time No Known Allergies Allergy Verified 01/25/21 12:24 Home Medications Medication Instructions Recorded Confirmed Type aspirin 81 mg PO DAILY 01/21/21 01/21/21 History buspirone 10 mg PO BID PRN 01/21/21 01/21/21 History fenofibrate 150 mg PO DAILY 01/21/21 01/21/21 History gabapentin 400 mg PO BID 01/21/21 01/21/21 History lisinopril 10 mg PO DAILY 01/21/21 01/21/21 History morphine 15 mg PO HS 01/21/21 01/21/21 History nifedipine 30 mg PO DAILY 01/21/21 01/21/21 History pantoprazole 20 mg PO QPM 01/21/21 01/21/21 History ranolazine 500 mg PO BID 01/21/21 01/21/21 History ropinirole 0.5 mg PO HS 01/21/21 01/21/21 History sertraline 200 mg PO HS 01/21/21 01/21/21 History tizanidine 2 mg PO Q8H PRN 01/21/21 01/21/21 History Laboratory Tests 01/25/21 01/25/21 05:00 05:00 WBC 11.4 K/mm3 H K/mm3 (4.5-10.0) RBC 2.86 M/mm3 L M/mm3 (4.2-5.4) Hgb 8.7 g/dL L g/dL (12.0-15.0) Hct 26.2 % L % (37.0-47.0) MCV 91.6 fl fl (80-100) MCH 30.4 pg pg (26-34) MCHC 33.2 g/dl g/dl (32-36) RDW 15.5 % H % (11.5-14.5) Plt Count 444 k/mm3 H k/mm3 (150-375) MPV 10.6 fl H fl (7.4-10.4) Sodium 141 mmol/L mmol/L (137-145) Potassium 3.5 mmol/L mmol/L (3.4-5.0) Chloride 109 mmol/L H mmol/L (98-107) Carbon Dioxide 25 mmol/L mmol/L (22-30) Anion Gap 7 mmol/L L mmol/L (8-16) BUN 24 mg/dL H mg/dL (7-17) Creatinine 0.90 mg/dL mg/dL (0.7-1.0) Estim Creat Clear Calc 59 ml/min ml/min Estimated GFR > 60 (59 - ) Glucose 92 mg/dL mg/dL (65-105) Calcium 8.0 mg/dL L mg/dL (8.4-10.2) Phosphorus 2.8 mg/dL mg/dL (2.5-4.5) Magnesium 1.6 mg/dL mg/dL (1.6-2.3) Total Bilirubin 1.1 mg/dL mg/dL (0.2-1.3) AST 43 U/L H U/L (14-36) ALT 17 U/L U/L (4-35) Alkaline Phosphatase 49 U/L U/L (38-126) Total Protein 6.0 g/dL L g/dL (6.3-8.2) Albumin 2.6 g/dL L g/dL (3.5-5.1) Patient hx anesthesia problems: none Family hx anesthesia problems: none PMFSH Past Medical History Medical History (Updated 01/25/21 @ 12:03 by Padma Mckeon MD) Anxiety Arthritis Gastroesophageal reflux disease Hyperlipidemia Hypertension Restless leg syndrome Surgical History Surgical History (Updated 01/21/21 @ 13:18 by Kaycee Brush PA-C) History of section History of cholecystectomy History of hernia repair History of hysterectomy Family History Family History Other Heart disease Social History Social History (Updated 01/21/21 @ 22:24 by Kaycee Brush PA-C) Social History: Surrogate decision maker: Aristeo Salvador, . Code status: Full code. Full code. Smoking status: Former smoker Tobacco type: e-cigarettes/vaping and smokeless tobacco Alcohol intake: never Substance use: never Additional living arrangements comments: Resides in [place] her . They have 2 children. Additional occupation/education comments: Not employed. Spiritual care concerns: No Anes - Eval Final PreProcedure Day of Procedure 01/25/21 13:36 Marly
--- NOTE | 2021-01-25 14:07 | PM.PROC ---
Procedure Note - Detailed Date of procedure: 01/25/21 Pre-op diagnosis: Right ureteral calculus Post-op diagnosis: other (Right renal calculus) Procedure performed: Cystoscopy, right retrograde pyelography, right ureteral stent placement Description of procedure: Patient is brought to the operative suite where she was prepped and draped in routine sterile fashion while in a dorsal lithotomy position. Cystoscopy is undertaken with a 19 F rigid cystoscope. She is an indwelling left ureteral stent and otherwise endoscopically normal bladder. 0.035 in glidewire is advanced into the right renal pelvis under fluoroscopy. Retrograde pyelography is undertaken with the angiographic catheter to outline the collecting system a 4.8 F double-J ureteral stent was positioned with the proximal coil in the renal pelvis and distal coil in the bladder. Scopes and wires were removed she was taken recovery room good condition Anesthesia: GLMA Surgeon: Jason Jordan MD Drains: Yes Packing: No Pathology: none sent Complications: No immediate complications
--- NOTE | 2021-01-25 14:25 | PCPTNOTE ---
The PT treatment was unable to be completed today due to patient out of room in procedure. Will continue per Plan of Care frequency and duration.
--- NOTE | 2021-01-25 15:02 | PCOTNOTE ---
Patient still in surgery to remove kidney stone and unavailable to be seen for OT. Will continue OT plan of care tomorrow, 01/26/21.
--- NOTE | 2021-01-25 15:24 | PC.NURSE ---
Patient returned from OR via stretcher. Transferred to bed. No c/o pain. No distress noted. at bedside.
[2021-01-25] MEDS: MORPHINE SULFATE (*CRX) 15 MG TABCR PO (20:18)
[2021-01-25] MEDS: HEPARIN SODIUM 5,000 UNITS/ML VIAL 5000 UNITS SUB-Q (20:18)
[2021-01-26] VITALS (7 sets, daily range): BP systolic 136–153; BP diastolic 52–78; PULSE 68–109; RESP 16–18; TEMP 36.2–36.9; O2SAT 95–99
[2021-01-26] MEDS: SODIUM CHLORIDE 0.9% IV 1,000 ML 100 ML IV CONT (03:53)
--- NOTE | 2021-01-26 07:43 | WPDANESPN ---
Anes - Prog Note Post-Op Date/Time: 01/26/21 07:43 Cardiovascular status: normal Respiratory status: normal Airway patency: baseline Mental status: baseline Post-Op hydration status: normal Vital Signs: Last Vital Signs Temp 97.6 F 01/26/21 06:00 Pulse 86 01/26/21 06:00 Resp 16 01/26/21 06:00 BP 142/75 H 01/26/21 06:00 Pulse Ox 97 01/26/21 06:00 Pain Score (VAS): 0/10 I/O: Intake & Output 01/25/21 01/25/21 01/26/21 15:59 23:59 07:59 Intake Total 1100 1000 Output Total 1250 950 Balance 1100 -1250 50 Laboratory Tests 01/25/21 05:00 01/25/21 05:00 Post-procedural complaints: none Patient Feedback: Patient satisfied with anesthetic care.
[2021-01-26] MEDS: HEPARIN SODIUM 5,000 UNITS/ML VIAL 5000 UNITS SUB-Q ×2 (08:08→21:52)
[2021-01-26] MEDS: PANTOPRAZOLE SODIUM IV 40 MG VIAL IV PUSH ×2 (08:08→21:11)
[2021-01-26] MEDS: NIFEdipine 30 MG TAB.ER.24 PO (08:08)
--- NOTE | 2021-01-26 11:06 | WPDUROPN2 ---
Progress Note: A&P Assessment and Plan (1) Ureteral calculus: Code(s): N20.1 - Calculus of ureter Status: Acute (2) Urinary tract infection: Code(s): N39.0 - Urinary tract infection, site not specified Status: Acute Assessment and Plan: Culture grew Klebsiella on 01/21/2021, sensitive to Rocephin which she remains on. (3) Acute kidney failure: Code(s): N17.9 - Acute kidney failure, unspecified Status: Acute Assessment and Plan: Improved from 01/23/2021 which was 1.30 and is now 0.90 as of yesterday. (4) Renal calculi: Code(s): N20.0 - Calculus of kidney Status: Acute Assessment and Plan: Will plan to do an ESWL bilaterally on different dates for her, then remove stents down the road. No further evaluation at this time. Subjective Subjective Date/Time Seen: 01/26/21 11:06 POD #1 Cystoscopy, right ureteroscopy with stent placement, retrograde pyelogram. POD #3 Cystoscopy, left ureteroscopy with stent placement, retrograde pyelogram. Patient is asymptomatic for pain and urine is clear and draining to gravity in her braun catheter bag. Review of Systems Cardiovascular: Cardiovascular: Denies chest pain Respiratory: Respiratory: Reports no additional respiratory complaints Gastrointestinal: Gastrointestinal: Denies abdominal pain, Denies nausea and Denies vomiting Genitourinary: Genitourinary: Denies hematuria and Denies flank pain Exam Resp: Effort & Inspection: normal respiratory effort Cardio: Rate: regular rate GI: GI Palp: Yes Soft to palpation and No Tenderness to palpation present (GI) : General: Yes no CVA tenderness Urinary Catheter: Urinary Catheter: patent and draining and urine clear Extrem: General: no edema Objective Data Vital Signs Vital Signs: Vital Signs - 24 hr 01/25/21 12:00 01/25/21 12:28 01/25/21 14:10 Temperature 98.6 F 98 F Pulse Rate 75 71 82 Respiratory Rate 16 18 Blood Pressure 154/78 H 157/72 H Pulse Oximetry 100 100 01/25/21 14:20 01/25/21 14:30 01/25/21 14:45 Temperature Pulse Rate 60 61 62 Respiratory Rate 16 16 14 Blood Pressure 137/62 136/55 L 125/76 Pulse Oximetry 100 100 98 01/25/21 14:55 01/25/21 15:05 01/25/21 15:10 Temperature 97.7 F Pulse Rate 61 69 72 Respiratory Rate 14 16 16 Blood Pressure 141/75 H 117/83 139/60 Pulse Oximetry 97 95 100 01/25/21 15:30 01/25/21 15:45 01/25/21 17:10 Temperature 97.8 F 97.3 F L 97.5 F L Pulse Rate 70 70 76 Respiratory Rate 16 16 16 Blood Pressure 132/62 137/62 122/62 Pulse Oximetry 100 100 98 01/25/21 18:00 01/25/21 21:57 01/26/21 02:00 Temperature 97.5 F L 97.7 F 97.5 F L Pulse Rate 76 81 79 Respiratory Rate 16 16 18 Blood Pressure 150/87 H 156/81 H 152/78 H Pulse Oximetry 98 99 98 01/26/21 06:00 01/26/21 10:00 Temperature 97.6 F 98.4 F Pulse Rate 86 68 Respiratory Rate 16 16 Blood Pressure 142/75 H 138/70 Pulse Oximetry 97 99 Intake/Output Intake/Output: Intake & Output 01/23/21 01/24/21 01/25/21 01/26/21 23:59 23:59 23:59 23:59 Intake Total 2746 1250 2100 1260 Output Total 2390 1150 1600 950 Balance 356 100 500 310 Meds/Results Medications: Active Medications Generic Name Dose Route Start Last Admin Trade Name Freq PRN Reason Stop Dose Admin Acetaminophen 650 mg 01/21/21 10:38 01/25/21 01:36 Acetaminophen 325 Mg Tablet PO 650 mg Q4H PRN Administration Mild Pain (1-3) or Fever Fentanyl Citrate 25 mcg 01/25/21 13:37 Fentanyl Citrate Inj (*Crx) 100 Mcg/2 Ml Vial IV PUSH Q2M PRN Pain Heparin Sodium (Porcine) 5,000 units 01/21/21 21:00 01/26/21 08:08 Heparin Sodium 5,000 Units/Ml Vial SUB-Q 5,000 units Q12HR NEGIN Administration Ceftriaxone Sodium/Dextrose 1 gm in 50 mls @ 100 mls/hr 01/22/21 09:00 01/26/21 08:37 Rocephin 1 Gm/D5w 50 Ml IVPB Infused Q24H NEGIN Infusion Sodium Chloride 1,000 mls @ 100 mls/hr 01/24/21 16:25 01/26/21 03:5
--- NOTE | 2021-01-26 11:12 | PCNFU ---
Nutrition Follow-Up Complete: Predicted suboptimal oral intake related to decreased appetite as evidenced by reported intakes less than usual for the past few days. Patient to consume 75% of meals/supplements or greater. Progressing towards goal. We will continue current goal. Pt current nutrition is clear liquids. Last recorded weight is 70.7 kg, down from 72.3 kg on admit. Bowel Motility:+BM reported / Labs Reviewed:BUN 24,Alb 2.6,Hct 26.2,Hgb 8.7 Meds Noted: Ativan,Procardia,Rocephin,Zofran,Heparin. Additional Notes: Nutrition follow up today. Patient is currently on a clear liquid diet POD #3 Cystoscopy. Recommend advancing diet as tolerated per MD orders. Monitoring: weight, labs, oral intake 5 days.
--- NOTE | 2021-01-26 11:19 | PM.IMPN ---
Progress Note: A&P Assessment and Plan (1) Nausea & vomiting: Code(s): R11.2 - Nausea with vomiting, unspecified Status: Resolved Assessment and Plan: No nausea and vomiting today. Urology to placed stent yesterday. (2) Ureteral calculus: Code(s): N20.1 - Calculus of ureter Status: Acute Assessment and Plan: Interval history ;Abnormal renal US, CT showing distal left ureteral calculi with mild left hydronephrosis. Urology consulted. Patient underwent a cystoscopy with left retrograde pyelogram and left ureter stent placement on 01/23/21. Patient developed n/v today and Abd xray showing possible right UPJ stone. Stent placement yesterday. (3) Acute kidney failure: Code(s): N17.9 - Acute kidney failure, unspecified Status: Resolved Assessment and Plan: Patient with acute kidney injury resolved. Creat is normal now after fluid hydration.Renal ultrasound showing 1 cm shadowing stone lower part of the kidney but no hydronephrosis. She also had a 4 cm masslike echogenic region of the spleen. (4) Urinary tract infection: Code(s): N39.0 - Urinary tract infection, site not specified Status: Acute Assessment and Plan: UA noted. UCx growing Klebsiella sensitive to Rocephin. Continue Rocephin. Wcc improving, hopeful Dc amadeo. (5) Electrolyte abnormality: Code(s): E87.8 - Other disorders of electrolyte and fluid balance, not elsewhere classified Status: Acute Assessment and Plan: Hyponatremia on admission with sodium 129. Sodium now 141. (6) Confusion: Code(s): R41.0 - Disorientation, unspecified Status: Resolved Assessment and Plan: Pt appears less confused. Possibly due to metabolic encephalopathy (7) Hypertension: Qualifiers: Hypertension type: essential hypertension Qualified Code(s): I10 - Essential (primary) hypertension Code(s): I10 - Essential (primary) hypertension Status: Inactive Assessment and Plan: Bp is 138/70 (8) Normocytic anemia: Code(s): D64.9 - Anemia, unspecified Status: Acute Assessment and Plan: Hemoglobin 8.7. Iron studies consistent with anemia of chronic disease. (9) Suspected sleep apnea: Code(s): R29.818 - Other symptoms and signs involving the nervous system Status: Acute Assessment and Plan: Apnea link here for 6 hours. AHI was 2.1 and RI was 2.3. (10) DVT prophylaxis: Code(s): Z29.9 - Encounter for prophylactic measures, unspecified Status: Acute Assessment and Plan: Heparin Subjective Date/time seen: 01/26/21 11:19 Interval history: 55-year-old female with hypertension, depression, anxiety, restless leg syndrome, and chronic pain on morphine who presented to the emergency department earlier today via EMS from home with complaints of weakness. Ongoing complaints of right lower abdominal pain sp stent, pt being treated for K pneumonia UTI. Review of Systems Review of Systems: All systems reviewed & are unremarkable except as noted in HPI and below Exam Narrative: Exam Narrative: Vital Signs Temp Pulse Resp BP Pulse Ox 01/25/21 10:30 36.0 C L 77 16 140/65 100 01/25/21 08:00 73 01/25/21 04:15 36.7 C 96 01/25/21 04:00 90 20 129/71 01/25/21 02:00 36.7 C 91 18 99/85 L 97 01/25/21 00:00 89 01/24/21 21:17 36.8 C 89
[2021-01-26] MEDS: WATER FOR IRRIGATION, STERILE 1,000 ML BOTTLE 1000 ML (12:26)
[2021-01-26] MEDS: ONDANSETRON INJ 4 MG/2 ML VIAL IV PUSH (21:15)
[2021-01-26] MEDS: MORPHINE SULFATE (*CRX) 15 MG TABCR PO (21:52)
[2021-01-27 02:00] VITALS: BP 152/77; PULSE 104; RESP 16; TEMP 36.7; O2SAT 97
[2021-01-27 06:00] VITALS: BP 147/68; PULSE 79; RESP 16; TEMP 36.5; O2SAT 96
--- NOTE | 2021-01-27 09:09 | PM.DS ---
DS: Admitting Diagnosis Admitting Diagnosis Admitting Diagnosis: Weakness. DS: Discharge Diagnosis Discharge Diagnosis (1) Nausea & vomiting: Code(s): R11.2 - Nausea with vomiting, unspecified Status: Resolved Assessment and Plan: No nausea and vomiting today. Urology to placed stent while in hospital. (2) Ureteral calculus: Code(s): N20.1 - Calculus of ureter Status: Acute Assessment and Plan: Interval history ;Abnormal renal US, CT showing distal left ureteral calculi with mild left hydronephrosis. Urology consulted. Patient underwent a cystoscopy with left retrograde pyelogram and left ureter stent placement on 01/23/21. Patient developed n/v today and Abd xray showing possible right UPJ stone. Sp stent placement (3) Acute kidney failure: Code(s): N17.9 - Acute kidney failure, unspecified Status: Resolved Assessment and Plan: Patient with acute kidney injury resolved. Creat is normal now after fluid hydration.Renal ultrasound showing 1 cm shadowing stone lower part of the kidney but no hydronephrosis. She also had a 4 cm masslike echogenic region of the spleen. (4) Urinary tract infection: Code(s): N39.0 - Urinary tract infection, site not specified Status: Acute Assessment and Plan: UA noted. UCx growing Klebsiella sensitive to Rocephin. Continue Rocephin. Wcc improving, discharge on ciprofloxacin orally. (5) Electrolyte abnormality: Code(s): E87.8 - Other disorders of electrolyte and fluid balance, not elsewhere classified Status: Acute Assessment and Plan: Hyponatremia on admission with sodium 129. Sodium now 141. (6) Confusion: Code(s): R41.0 - Disorientation, unspecified Status: Resolved Assessment and Plan: Pt appears less confused. Possibly due to metabolic encephalopathy (7) Hypertension: Qualifiers: Hypertension type: essential hypertension Qualified Code(s): I10 - Essential (primary) hypertension Code(s): I10 - Essential (primary) hypertension Status: Inactive Assessment and Plan: Bp is 147/68 (8) Normocytic anemia: Code(s): D64.9 - Anemia, unspecified Status: Acute Assessment and Plan: Hemoglobin 8.7. Iron studies consistent with anemia of chronic disease. (9) Suspected sleep apnea: Code(s): R29.818 - Other symptoms and signs involving the nervous system Status: Acute Assessment and Plan: Apnea link here for 6 hours. AHI was 2.1 and RI was 2.3. DS: Summary Hospital Course Hospital Course: 55-year-old female with hypertension, depression, anxiety, restless leg syndrome, and chronic pain on morphine who presented to the emergency department earlier today via EMS from home with complaints of weakness. Abdominal pain is better sp stent, pt being treated for K pneumonia UTI. Time Spent with Patient Time attestation: Total time spent providing and/or coordinating discharge services: 40 minutes on day of discharge Exam Narrative: Exam Narrative: Vital Signs Temp Pulse Resp BP Pulse Ox 01/25/21 10:30 36.0 C L 77 16 140/65 100 01/25/21 08:00 73 01/25/21 04:15 36.7 C 96 01/25/21 04:00 90 20 129/71 01/25/21 02:00 36.7 C 91 18 99/85 L 97 01/25/21 00:00 89 01/24/21 21:17 36.8 C 89 16 103/81 98 01/24/21
[2021-01-27] MEDS: PANTOPRAZOLE SODIUM IV 40 MG VIAL IV PUSH (09:37)
[2021-01-27] MEDS: NIFEdipine 30 MG TAB.ER.24 PO (09:37)
[2021-01-27] MEDS: ONDANSETRON INJ 4 MG/2 ML VIAL IV PUSH (09:37)
[2021-01-27] MEDS: HEPARIN SODIUM 5,000 UNITS/ML VIAL 5000 UNITS SUB-Q (09:37)
--- NOTE | 2021-01-27 09:50 | PCOTNOTE ---
Attempted to see patient at this time for skilled OT session. Patient's RN present in room and patient tearful and moaning due to back pain. Patient refused participation at this time stating, I just want to go home. OT practitioner encouraged patient that she wants to help get her back home and that participation will help the process. Patient declined. Will attempt to see patient again this date.
[2021-01-27 10:00] VITALS: BP 144/93; PULSE 80; RESP 16; TEMP 36.6; O2SAT 96
[2021-01-27] MEDS: TIZANIDINE HCL 2 MG TABLET PO (10:57)
[2021-01-27] MEDS: ACETAMINOPHEN 325 MG TABLET 650 MG PO (10:58)
--- NOTE | 2021-01-27 11:45 | PC.NURSE ---
On 01/27/21, the student, [Igor Jacobo ], provided care and completed [facility] documentation on this patient. I have reviewed the student's documentation and agree with the findings.
== END 2021-01-27 11:20 | disposition home or self-care (01) | DRG 659 ==
LOC: ANHED 10:41 → ANHICU 13:16 → ANH2MED 01-24 11:17 → ANHICU 01-28 14:50
PROVIDERS: Physician Assistant; Urology; Admitting Provider Internal Medicine; Emergency Provider Emergency Medicine; PCP Internal Medicine; Visit Provider Family Medicine
PROC: 0T778DZ Dilation of Left Ureter with Intraluminal Device, Via Natural or Artificial Opening Endoscopic (ICD-10-PCS; CPT 52352; principal; 2021-01-23 07:30)
PROC: 0T768DZ Dilation of Right Ureter with Intraluminal Device, Via Natural or Artificial Opening Endoscopic (ICD-10-PCS; CPT 52352; principal; 2021-01-25 13:30)
DX: N13.6 Pyonephrosis (principal); G93.41 Metabolic encephalopathy; E87.1 Hypo-osmolality and hyponatremia; B96.1 Klebsiella pneumoniae [K. pneumoniae] as the cause of diseases classified elsewhere; N17.9 Acute kidney failure, unspecified; D63.8 Anemia in other chronic diseases classified elsewhere; G47.30 Sleep apnea, unspecified; E87.6 Hypokalemia; E86.0 Dehydration; K21.9 Gastro-esophageal reflux disease without esophagitis; M19.90 Unspecified osteoarthritis, unspecified site; I10 Essential (primary) hypertension; G25.81 Restless legs syndrome; F41.8 Other specified anxiety disorders; E78.5 Hyperlipidemia, unspecified; Z90.49 Acquired absence of other specified parts of digestive tract; Z90.710 Acquired absence of both cervix and uterus; Z87.891 Personal history of nicotine dependence; G89.29 Other chronic pain
CPT/HCPCS: 36415; 36600; 51701; 71046; 72170; 73552; 74019; 74176; 74420; 76775; 80048; 80053; 80069; 80076; 80307; 81001; 82375; 82533; 82550; 82570; 82607; 82728; 82746; 82805; 83050; 83540; 83550; 83605; 83735; 84100; 84156; 84300; 84439; 84443; 84480; 85025; 85027; 85046; 85999; 86140; 86160; 87040; 87077; 87086; 87088; 87186; 93005; 94762; 96361; 96365; 96375; 97110; 97116; 97161; 97165; 97530; 97535; 99285; A9270; C1758; C1769; C1887; C2617; C9113; J0696; J1100; J1644; J2060; J2250; J2270; J2405; J2704; J3010; J3475; J3480; J7030; J7050; J7070; J7120; Q9966

== ENCOUNTER 2021-02-06 17:25 | Inpatient (IN) | payer OTHER, SELFPAY ==
[2021-02-06] VITALS (25 sets, daily range): BP systolic 79–161; BP diastolic 43–132; PULSE 53–80; RESP 11–18; TEMP 36–37.2; O2SAT 90–97; BMI 30.4
--- NOTE | ~2021-02-06 | CT_ITS ---
EXAMINATION: CT brain wo con DATE: 02/06/2021 20:26 INDICATION: Confusion. TECHNIQUE: Computed tomography (CT) of the head was performed without intravenous contrast. The mA wa s adjusted according to patient size. Iterative reconstruction technique was employed. The dose-lengt h product was 605.33 mGy-cm. COMPARISON: None FINDINGS: There are scattered areas of low attenuation in the cerebral white matter. There is no intr acranial hemorrhage, acute infarction, or abnormal intracranial mass lesion. The ventricles are beto l in size. The orbits are normal. There is mild mucosal thickening in the ethmoid sinuses. The mastoi d air cells are normal. IMPRESSION: 1. Mild nonspecific cerebral white matter disease, which likely represents chronic small vessel ische paulina disease. Reviewed, dictated and finalized at location A. IMPRESSION: 1. Mild nonspecific cerebral white matter disease, which likely represents chronic specialist rica small vessel ischemic disease.
--- NOTE | ~2021-02-06 | XR_ITS ---
EXAMINATION: XR foot RT min 3V DATE: 02/06/2021 22:29 INDICATION: Right foot pain. Fall. TECHNIQUE: 4 views of right foot were obtained. COMPARISON: None. FINDINGS: There is a comminuted fracture of head and neck of second metatarsal. There is a transverse fracture of neck of third metatarsal with impaction. There are old healed fractures of the necks of the fourth and fifth metatarsals. There is an acute intra-articular oblique fracture of base of fifth metatarsal in near-anatomic alignment. Osteopenia is noted. Joint spaces are normal. There is an ent hesophyte at plantar aspect of calcaneal tuberosity. IMPRESSION: 1. Acute intra-articular oblique fracture of base of fifth metatarsal. 2. Age-indeterminate fractures of distal second and third metatarsals, most likely chronic given the old healed fractures of the necks of fourth and fifth metatarsals. Reviewed, dictated and finalized at location A. IMPRESSION: 1. Acute intra-articular oblique fracture of base of fifth metatarsal. 2. Age-indeterminate fractures of distal second and third metatarsals, most lik deion chronic given the old healed fractures of the necks of fourth and fifth met atarsals.
--- NOTE | ~2021-02-06 | US_ITS ---
EXAMINATION: US retroperitoneal comp DATE: 02/07/2021 09:38 INDICATION: Obstructive uropathy TECHNIQUE: Multiple ultrasound grayscale images of the kidneys were obtained. COMPARISON: CT dated 01/22/2021 and ultrasound dated 01/21/2021. FINDINGS: The right kidney measures 12.9 x 6.7 x 6.3 cm. The left kidney measures 10.0 x 4.5 x 5.9 cm. 1.1 cm e chogenic shadowing stone at the lower pole of the right kidney. There are couple anechoic right renal cysts measuring 2.0 cm and 1.6 mm in maximal diameter. There are couple additional 8-10 mm echogenic and shadowing stones at the lower pole of the left kidney. There is a 3.1 cm hypoechoic lesion at th e mid left kidney without evident internal flow on color Doppler which is nonetheless equivocal for c omplex cyst versus solid neoplasm. There is no hydronephrosis in either kidney. No stones identified . The bladder is is nonvisualized, likely decompressed.. IMPRESSION: 1. Bilateral nonobstructing nephrolithiasis with no hydronephrosis. 2. Indeterminate 3.1 cm hypoechoic lesion at the mid left kidney which demonstrated indeterminate sof t tissue density on prior CT. Differential includes complex hemorrhagic/proteinaceous cyst or solid n eoplasm including renal cell carcinoma. Recommend further evaluation with pre and postcontrast MRI or CT . Reviewed, dictated and finalized at location B. IMPRESSION: 1. Bilateral nonobstructing nephrolithiasis with no hydronephrosis. 2. Indeterminate 3.1 cm hypoechoic lesion at the mid left kidney which demonstr ated indeterminate soft tissue density on prior CT. Differential includes compl ex hemorrhagic/proteinaceous cyst or solid neoplasm including renal cell carcin gary. Recommend further evaluation with pre and postcontrast MRI or CT .
--- NOTE | 2021-02-06 17:28 | ECG_ITS ---
Measurements Intervals [place] Rate: 60 P: 49 MI: 125 QRS: -37 QRSD: 145 T: 127 QT: 460 QTc: 461 Interpretive Statements SINUS RHYTHM ATRIAL PREMATURE COMPLEX LEFT AXIS DEVIATION LEFT BUNDLE BRANCH BLOCK BASELINE ARTIFACT- I, II, III, AVR, AVL, AVF, V4-V6 ABNORMAL ECG Electronically Signed On 02-06-2021 20:02:27 CDT by Raghu Mccloud D.O.
[2021-02-06 17:53] LABS: Basophils Absolute Auto 0.1 K/mm3 (0.0-0.1); Basophils Percent Auto 0.7 % (0.2-1.2); Eosinophils Absolute Auto 0.2 K/mm3 (0-0.3); Eosinophils Percent Auto 2.2 % (0-4.4); Hemoglobin 7.8 g/dL (12.0-15.0); Immature Granulocyte Absolute 0.04 K/mm3 (0.00-0.031); Immature Granulocyte Percent A 0.5 % (0-0.5); Lymphocytes Absolute Auto 0.93 K/mm3 (0.9-3.2); Lymphocytes Percent Auto 12.3 % (18.3-44.2); Mean Corpuscular HGB Conc 32.5 g/dl (32-36); Mean Corpuscular Hemoglobin 30.8 pg (26-34); Mean Corpuscular Volume 94.9 fl (80-100); Mean Platelet Volume 10.7 fl (7.4-10.4); Monocytes Absolute Auto 0.6 K/mm3 (0.1-0.6); Monocytes Percent Auto 7.7 % (2.6-8.5); Neutrophils Absolute Auto 5.8 K/mm3 (1.3-6.7); Neutrophils Percent Auto 76.6 % (45.5-73.1); Platelet Count Result 359 k/mm3 (150-375); Red Blood Count 2.53 M/mm3 (4.2-5.4); Red Cell Distribution Width 15.5 % (11.5-14.5); White Blood Count 7.6 K/mm3 (4.5-10.0)
[2021-02-06 18:05] LABS: Alanine Aminotransferase 12 U/L (4-35); Albumin Level 2.8 g/dL (3.5-5.1); Alkaline Phosphatase 45 U/L (38-126); Anion Gap 6 mmol/L (8-16); Aspartate Amino Transferase 34 U/L (14-36); Blood Urea Nitrogen 37 mg/dL (7-17); Carbon Dioxide 30 mmol/L (22-30); Chloride 97 mmol/L (98-107); Estimated CRCL calculation 13 ml/min; Estimated Glomerular Filt Rate 13; Glucose 122 mg/dL (65-105); Potassium 3.2 mmol/L (3.4-5.0); Sodium 133 mmol/L (137-145)
--- NOTE | 2021-02-06 20:17 | PC.NURSE ---
Patient taken to CT.
--- NOTE | 2021-02-06 20:17 | ED.AMS ---
HPI - Altered Mental Status General Chief Complaint: Altered Mental Status Stated Complaint: ams, uti Time Seen by Provider: 02/06/21 19:56 Source: patient and family Mode of arrival: wheelchair Limitations: altered mental status History of Present Illness HPI narrative: Patient is a 55-year-old female brought in by due to altered mental status, described as confusion, talking out of her head which he states started last week when she was diagnosed with urinary tract infection and kidney stones. states that she had 2 stents placed. Patient denies any headache, dizziness, speech or visual disturbance, focal weakness or numbness, chest pain, shortness of breath, abdominal pain, nausea, vomiting, diarrhea, fever or chills. Related Data Home Medications Medication Instructions Recorded Confirmed aspirin 81 mg PO DAILY 01/21/21 01/21/21 buspirone 10 mg PO BID PRN 01/21/21 01/21/21 fenofibrate 150 mg PO DAILY 01/21/21 01/21/21 gabapentin 400 mg PO BID 01/21/21 01/21/21 lisinopril 10 mg PO DAILY 01/21/21 01/21/21 nifedipine 30 mg PO DAILY 01/21/21 01/21/21 pantoprazole 20 mg PO QPM 01/21/21 01/21/21 ranolazine 500 mg PO BID 01/21/21 01/21/21 ropinirole 0.5 mg PO HS 01/21/21 01/21/21 sertraline 200 mg PO HS 01/21/21 01/21/21 tizanidine 2 mg PO Q8H PRN 01/21/21 01/21/21 Allergies Allergy/AdvReac Type Severity Reaction Status Date / Time No Known Allergies Allergy Verified 01/25/21 12:24 Review of Systems Review of Systems: All systems reviewed & are unremarkable except as noted in HPI and below Constitutional: Constitutional: Denies body ache(s), Denies chills, Denies excessive sweating, Denies fatigue, Denies fever(s), Denies headache(s), Denies lethargy, Denies malaise, Denies weakness and Denies weight loss Eyes: Eyes: Denies blurry vision, Denies change in vision and Denies loss of vision ENT: Denies dizziness, Denies ear discharge, Denies headache(s), Denies lip swelling, Denies epistaxis, Denies nasal congestion, Denies neck pain, Denies throat swelling and Denies tongue swelling Cardiovascular: Cardiovascular: Denies chest pain, Denies chest pain at rest, Denies chest pain with activity, Denies diaphoresis, Denies rapid heart rate, Denies edema, Denies irregular heart rhythm, Denies lightheadedness, Denies palpitations, Denies dyspnea and Denies dyspnea on exertion Respiratory: Respiratory: Denies chest congestion, Denies cough, Denies hemoptysis, Denies dyspnea and Denies dyspnea on exertion Gastrointestinal: Gastrointestinal: Denies abdominal pain, Denies melena, Denies hematochezia, Denies diarrhea, Denies nausea, Denies vomiting and Denies hematemesis Musculoskeletal: Musculoskeletal: Denies joint swelling, Denies neck pain and Denies numbness Comments: Right foot pain Neurologic: Denies Abnormal speech present, Denies dizziness, Denies headache(s), Denies focal weakness, Denies loss of vision, Denies numbness, Denies Other visual disturbances, Denies Sensory deficit (Neuro) and Denies weakness Psychiatric: Psychiatric: Denies confusion, Denies depression, Denies auditory hallucinations, Denies homicidal ideation and Denies suicidal ideation Endocrine: Endocrine: Denies cold intolerance, Denies excessive sweating, Denies fatigue, Denies heat intolerance and Denies palpitations Hematologic/Lymphatic: Hematologic/Lymphatic: Denies easy bleeding and Denies easy bruising Allergic/Immunologic: Allergic/Immunologic: Denies lip swelling, Denies throat swelling and Denies tongue swelling PMFSH Past Medical History Medical History Anxiety Arthritis Gastroesophageal reflux disease Hyperlipidemia Hypertension Restless leg syndrome Surgical History Surgical History History of section History of cholecystectomy History of hernia repair History of hysterectomy Family History Family His
[2021-02-06] MEDS: SODIUM CHLORIDE 0.9% IV 1,000 ML 999 ML IV CONT ×2 (20:40→22:29)
[2021-02-06 21:00] LABS: Add Urine Microscopic? YES; Appearance Urine Cloudy (Clear); Bacteria Urine 1+ /hpf; Bilirubin Urine Negative (Negative); Blood Urine 3+ (Negative); Color Urine Amber (Yellow); Glucose Urine UA Negative (Negative); Ketones Urine Negative (Negative); Leukocyte Esterase Ur 3+ LEU/UL (Negative); Nitrate Urine Negative (Negative); Protein Urine 2+ mg/dL (Negative); RBC Urine >75 /hpf (0-2); Specific Grav Ur 1.012 (1.001-1.035); Squamous Epithelial Cell Urine Rare /hpf (Few); Urobilinogen Urine Negative mg/dL (<2.0); WBC Urine >75 /hpf
[2021-02-06 21:25] LABS: Lactic Acid Reflex 1.1 mmol/L (0.7-2.1)
[2021-02-06] MEDS: POTASSIUM CHLORIDE 20 MEQ PACKET (FOR LIQUID) PO (22:48)
--- NOTE | 2021-02-06 23:12 | PM.IMHP ---
H&P: HPI History of Present Illness Date/Time: 02/06/21 23:12 Chief Complaint: Acute altered mental status Narrative: This is a 55-year-old female with hypertension, depression, anxiety, restless leg syndrome, and chronic pain on morphine who was just discharged from our hospitalist service approximately 1 week ago after she was treated for a renal stone, acute renal failure, and confusion. Rowdy her brought her back to the hospital secondary to worsening confusion. He reports that since she has been discharged she has had ongoing confusion which has only worsened. He describes that she is saying things that do not make any sense. He denies that the patient has had any significant head injuries, syncope, or seizure-like activity. He does report that she has been significantly weak and is known to normally walk with a walker. She has suffered various falls at home recently. Rowdy he was very concerned as it seems that she use just to sick as she was the last time she was in the hospital. On my encounter with the patient delfinajulianne she is alert and oriented to person and place. She denies any pain, fevers, chills, shortness of breath, chest pain, palpitations, abdominal pain, nausea, vomiting, diarrhea, or focal neurological deficits. The patient does appear somewhat confused as she will sporadically say things that do not seem to make sense. Her does report that she has not been drinking fluids as much as normal. She has not been taking any kind of NSAIDs recently. She was evaluated in the emergency room this evening and found to have a grossly abnormal urinalysis and acute renal failure with a creatinine of 3.60. It looks like her baseline creatinine is normally 0.9-1.0. The patient has also been significantly hypotensive in the emergency room rowdy and has received 3 L of normal saline IV bolus. ER provider has assured me that the patient's blood pressure is now stable and the patient is appropriate to be admitted to the medical floor. Her last urine culture grew out a pansensitive Klebsiella species. She has no other complaints at this time we been asked to admit the patient to the hospital for further care. The patient arrived to the floor hypotensive and nursing staff rechecked her blood pressure several times. The patient was given a 500 cc IV bolus and stat labs were obtained which demonstrated an acute worsening of her H&H with a hemoglobin now of 6.9 down from 7.8 earlier this evening. Review of Systems Review of Systems: All systems reviewed & are unremarkable except as noted in HPI and below PMFSH Past Medical History Medical History Anxiety Arthritis Gastroesophageal reflux disease Hyperlipidemia Hypertension Restless leg syndrome Surgical History Surgical History History of section History of cholecystectomy History of hernia repair History of hysterectomy Family History Family History Other Heart disease Social History Social History Social History: Surrogate decision maker: Aristeo Salvador, . Code status: Full code. Full code. Smoking status: Current every day smoker Tobacco type: e-cigarettes/vaping Alcohol intake: unknown Substance use: unknown Additional living arrangements comments: Resides in [place] her . They have 2 children. Additional occupation/education comments: Not employed. Gender identity (if verbalized by the patient): Female Sexual Orientation (if Verbalized by the Patient): Straight or Heterosexual Spiritual care concerns: No Meds Home Medications and Allergies Home Medications Medication Instructions Recorded Confirmed Type aspirin 81 mg PO DAILY 01/21/21 02/06/21 History buspirone 10 mg PO BID P
--- NOTE | 2021-02-06 23:32 | PC.NURSE ---
Dr. Calabrese notified on the admitting blood pressure as Dr. Calabrese had called and requested to be notified. Current BP is 91/71. Patient being placed on telemetry. ABG and HH ordered. Notify Dr. Calabrese of results. Recheck blood pressure in 30mins.
--- NOTE | 2021-02-06 23:38 | ADMGEN ---
This patient, Eulalia Salvador, was admitted to 3 [facility] Surg Room 322-01. Patient/family oriented to hospital policies and general routines including ID bracelet, bed and alarms, visiting hours, pain management, procedures, bathroom and other care routines, personal items, smoking policy, room service/diet, and visiting hours. Information on how to activate the Rapid Response Team has been discussed. Patient/Family are encouraged to report perceived risks to care and to ask questions if they do not understand what they are told or what they should do.
[2021-02-06 23:43] LABS: Alveolar/Arterial O2 Gradient 48.5 mmHg; Base Excess ABG 1.4 mEq/l (+/-2.0); Fractional Inspired Oxygen 32 %; HCO3 ABG 26.1 mEq/l (22.0-26.0); Oxygen Content ABG 11.1 %vol (16.0-22.0); Oxygen Saturation ABG 98.7 % (95.0-100.0); Oxyhemoglobin 97.1 % THb (90.0-100.0); PCO2 ABG 41.3 mmHg (35.0-45.0); PO2 ABG 131.3 mmHg (80.0-100.0); pH ABG 7.418 (7.350-7.450)
[2021-02-06 23:45] LABS: Device NASAL CANNULA; Modified Allen's Test Pass; Site Drawn RIGHT RADIAL; Total Hemoglobin 7.9 g/dL (12.0-18.0)
[2021-02-06 23:55] LABS: Hemoglobin 6.9 g/dL (12.0-15.0)
[2021-02-07] VITALS (23 sets, daily range): BP systolic 73–128; BP diastolic 37–97; PULSE 48–74; RESP 10–17; TEMP 36.2–37.2; O2SAT 91–100; BMI 25.9
--- NOTE | 2021-02-07 00:03 | PC.NURSE ---
Spoke with Dr. Calabrese regarding blood pressure and current ABG and HH result. Dr. Calabrese to speak with ICU doctor and request transfer.
[2021-02-07] MEDS: SODIUM CHLORIDE 0.9% IV 500 ML 999 ML IV CONT (00:15)
--- NOTE | 2021-02-07 01:16 | PC.NURSE ---
4-5-21 [id number] patient arrived to ICU 2.
--- NOTE | 2021-02-07 01:27 | WPDPROCEDUR ---
Procedures Central Line Placement Right Femoral: Central Line Date: 02/07/21 Central Line Time: 01:15 Discussed w/ the patient/family/POA,the placement of a central venous catheter, including its clinical necessity/indication & associated potential risks, benifits and alternatives.: Yes Time Out Performed: Yes Patient Position: supine Patient placed on monitor/pulse ox: Yes Provider Prep: mask, sterile gown, sterile gloves, Max. sterile barrier precautions, cap and hand hygiene with conventional soap/water or alcohol based hand rub Central line prep: 2% Chlorhexidine scrub Local anesthesia used: lidocaine 2% Amount of anesthesia used (ml): 4 Sterile US Technique with sterile gel/sterile probe covers: Yes Central line lumen inserted: triple Tunisian: 7 Length (cm): 20 Depth of Insertion (cm): 20 Post Procedure: sutured in place, good blood return, all ports aspirated, flushed, capped, transparent dressing, securement product and aseptic technique maintained throughout procedure Patient tolerated procedure: well Complications: none Additional comments: Date of service was February 07, 2021 at approximately 1:15 a.m.
[2021-02-07] MEDS: SODIUM CHLORIDE 0.9% IV 250 ML 30 ML IV CONT (01:50)
--- NOTE | 2021-02-07 02:11 | PC.NURSE ---
addendum to transfer note: patient arrived to ICU 3 at 0042. Report received at 1451
[2021-02-07] MEDS: NOREPINEPHRINE 8 MG/D5W 250 ML 8 MG/250 ML BAG 9.38 MG IV CONT (04:52)
[2021-02-07] MEDS: LACTATED RINGERS 1,000 ML 125 ML IV CONT ×3 (05:42→20:57)
[2021-02-07 07:08] LABS: Basophils Percent Auto 0.4 % (0.2-1.2); Eosinophils Absolute Auto 0.2 K/mm3 (0-0.3); Eosinophils Percent Auto 2.1 % (0-4.4); Hematocrit 26.5 % (37.0-47.0); Hemoglobin 8.8 g/dL (12.0-15.0); Immature Granulocyte Absolute 0.05 K/mm3 (0.00-0.031); Immature Granulocyte Percent A 0.6 % (0-0.5); Lymphocytes Absolute Auto 0.75 K/mm3 (0.9-3.2); Lymphocytes Percent Auto 9.7 % (18.3-44.2); Mean Corpuscular HGB Conc 33.2 g/dl (32-36); Mean Corpuscular Hemoglobin 31.4 pg (26-34); Mean Corpuscular Volume 94.6 fl (80-100); Mean Platelet Volume 10.3 fl (7.4-10.4); Monocytes Absolute Auto 0.6 K/mm3 (0.1-0.6); Monocytes Percent Auto 7.9 % (2.6-8.5); Neutrophils Absolute Auto 6.2 K/mm3 (1.3-6.7); Neutrophils Percent Auto 79.3 % (45.5-73.1); Platelet Count Result 269 k/mm3 (150-375); Red Cell Distribution Width 14.6 % (11.5-14.5); White Blood Count 7.8 K/mm3 (4.5-10.0)
[2021-02-07 07:19] LABS: Anion Gap 3 mmol/L (8-16); Blood Urea Nitrogen 31 mg/dL (7-17); Calcium 7.2 mg/dL (8.4-10.2); Carbon Dioxide 26 mmol/L (22-30); Chloride 107 mmol/L (98-107); Estimated CRCL calculation 16 ml/min; Estimated Glomerular Filt Rate 16; Glucose 102 mg/dL (65-105); Magnesium 1.1 mg/dL (1.6-2.3); Potassium 3.5 mmol/L (3.4-5.0); Sodium 136 mmol/L (137-145)
[2021-02-07] MEDS: PANTOPRAZOLE SODIUM IV 40 MG VIAL IV PUSH (09:00)
--- NOTE | 2021-02-07 09:23 | WPDCNINT ---
Assessment and Plan Assessment and plan (1) Complicated UTI (urinary tract infection): Code(s): N39.0 - Urinary tract infection, site not specified Status: Acute Assessment and Plan: Continue ceftriaxone. Follow cultures. She grew Klebsiella on urine culture during her recent admission which was sensitive to ceftriaxone. Ultrasound of kidney ureter bladder has been ordered. (2) Altered mental status: Qualifiers: Altered mental status type: unspecified Qualified Code(s): R41.82 - Altered mental status, unspecified Code(s): R41.82 - Altered mental status, unspecified Status: Acute Assessment and Plan: She was confused at the time of my evaluation but not agitated. Continue to monitor. Delirium precaution. (3) Acute renal failure: Qualifiers: Acute renal failure type: unspecified Qualified Code(s): N17.9 - Acute kidney failure, unspecified Code(s): N17.9 - Acute kidney failure, unspecified Status: Acute Assessment and Plan: Improvement in renal parameters from creatinine of 3.6 to 3.1 today. Urology will be consulted. She had recent bilateral ureteric stent placed for hydronephrosis and kidney stones. (4) Shock: Code(s): R57.9 - Shock, unspecified Status: Acute Assessment and Plan: She is currently on Levophed of 2 micro Gram. Wean pressors if tolerated. Continue monitor hemodynamics closely. Lactate is within normal range. (5) Renal calculi: Code(s): N20.0 - Calculus of kidney Status: Acute Assessment and Plan: Status post left and right ureter placement in January 2021 because of kidney stone. (6) Anemia: Code(s): D64.9 - Anemia, unspecified Status: Acute Assessment and Plan: Her hemoglobin at the time of presentation was 7.8 which decreases to 6.9 after repeat H&H testing in few hours when she became hypotensive. She was given 1 unit of PRBC transfusion and her hemoglobin went up to 8.8. I think that the H&H check of 6.9 was lab error. No obvious source of bleeding other than microscopic hematuria. Check stool guaiac. Continue pantoprazole for now. Additional Plan Full code DVT prophylaxis with SCD boot and heparin GI prophylaxis with pantoprazole NPO for now. Critical care time spent 34 minutes Due to a high probability of clinically significant, life threatening deterioration, the patient required my highest level of preparedness to intervene emergently and I personally spent this critical care time directly and personally managing the patient. This critical care time included obtaining a history; examining the patient; pulse oximetry; ordering and review of studies; arranging urgent treatment with development of a management plan; evaluation of patient's response to treatment; frequent reassessment; and discussions with other providers. It was exclusive of separately billable procedures and treating other patients and teaching time. Please see Assessment and Plan section and the rest of the note for further information on patient assessment and treatment. [employer] Consult Note Consult date: 02/07/21 Time Seen: 10:31 HPI: Eulalia Salvador is a 55 year old female of hypertension, anxiety/depression, restless leg syndrome, chronic pain syndrome who was brought in here to the hospital with altered mental status and confusion. She was also complaining of generalized weakness and had multiple falls at home. She was recently admitted about a week ago for renal stone acute kidney injury and confusion. She was treated with antibiotics. She grew Klebsiella in urine culture. Workup in the emergency department showed acute kidney injury and a drop in H&H. She was given 1 unit of transfusion. She was hypotensive and had to be started on pressors because of blood pressure not improving with IV fluids resuscitation. She has been started on IV antib
[2021-02-07] MEDS: CALCIUM CHLOR 1,000MG/100ML NS 1,000 MG/100 ML BAG 100 MG IVPB (09:51)
[2021-02-07] MEDS: HEPARIN SODIUM 5,000 UNITS/ML VIAL 5000 UNITS SUB-Q ×2 (09:54→20:56)
[2021-02-07] MEDS: MAGNESIUM SULF 2 GM/WATER 50ML 2 GM/50 ML BAG IVPB (09:55)
[2021-02-07] MEDS: MAGNESIUM SULF 4 GM/WATER100ML 4 GM/100 ML BAG IVPB (09:55)
[2021-02-07] MEDS: POTASSIUM CHLORIDE 20 MEQ PACKET (FOR LIQUID) 40 MEQ PO (11:51)
--- NOTE | 2021-02-07 12:27 | WPDURCON ---
Assessment and Plan Assessment and plan (1) Bilateral ureteral calculi: Code(s): N20.1 - Calculus of ureter Status: Acute Assessment and Plan: Bilateral stents were placed last admission. Her renal ultrasound shows no hydronephrosis. Will need definitive stone management with the acute situation resolves (2) Complicated UTI (urinary tract infection): Code(s): N39.0 - Urinary tract infection, site not specified Status: Acute Assessment and Plan: Klebsiella in the past. She is on broad-spectrum antibiotics. Mariaa based on culture. Should probably be on antibiotics such as Bactrim until she has her definitive stone procedure (3) Acute kidney failure: Code(s): N17.9 - Acute kidney failure, unspecified Status: Resolved Assessment and Plan: No hydronephrosis. Has bilateral ureteral stents in place Urology Consult Note HPI Date Seen: 02/07/21 Requesting Physician: Henrique Calabrese MD Primary Care Provider: Alfonso Weiss, Consult Narrative Narrative: Eulalia Salvador is a 55 year old female with history of nephrolithiasis. She was admitted to the hospital several weeks ago with a ureteral stone. A stent was placed. She then unfortunately developed a obstructing stone on the contralateral side. Another stent was placed. Of the time her urine culture was positive for Klebsiella. He states she has had 3 urinary tract infections in the last 6 months. This may be related to the nephrolithiasis. She is now back in the hospital for lethargy and urosepsis. She is admitted to the ICU. Her states she is continue have some mental status changes. She is on broad-spectrum antibiotics. She will still need definitive stone management once the acute situation resolves. Review of Systems Review of Systems: Narrative: I spoke with her . Review of Systems is unable to be obtained as the patient is resting comfortably. All systems reviewed & are unremarkable except as noted in HPI and below PMFSH Past Medical History Medical History Anxiety Arthritis Gastroesophageal reflux disease Hyperlipidemia Hypertension Restless leg syndrome Surgical History Surgical History History of section History of cholecystectomy History of hernia repair History of hysterectomy Family History Family History Other Heart disease Social History Social History Social History: Surrogate decision maker: Aristeo Salvador, . Code status: Full code. Full code. Smoking status: Current every day smoker Tobacco type: e-cigarettes/vaping Alcohol intake: unknown Substance use: unknown Additional living arrangements comments: Resides in [place] her . They have 2 children. Additional occupation/education comments: Not employed. Gender identity (if verbalized by the patient): Female Sexual Orientation (if Verbalized by the Patient): Straight or Heterosexual Spiritual care concerns: No Meds Home Medications and Allergies Home Medications Medication Instructions Recorded Confirmed Type aspirin 81 mg PO DAILY 01/21/21 02/06/21 History buspirone 10 mg PO BID PRN 01/21/21 02/06/21 History fenofibrate 150 mg PO DAILY 01/21/21 02/06/21 History gabapentin 400 mg PO BID 01/21/21 02/06/21 History lisinopril 10 mg PO DAILY 01/21/21 02/06/21 History nifedipine 30 mg PO DAILY 01/21/21 02/06/21 History pantoprazole 20 mg PO QPM 01/21/21 02/06/21 History ranolazine 500 mg PO BID 01/21/21 02/06/21 History ropinirole 0.5 mg PO HS 01/21/21 02/06/21 History sertraline 200 mg PO HS 01/21/21 02/06/21 History tizanidine 2 mg PO Q8H PRN 01/21/21 02/06/21 History morphine 15 mg PO HS 02/06/21 02/06/21 History metoprolol succinate 25 m
--- NOTE | 2021-02-07 13:46 | PM.IMPN ---
Progress Note: A&P Assessment and Plan (1) Complicated UTI (urinary tract infection): Code(s): N39.0 - Urinary tract infection, site not specified Status: Acute Assessment and Plan: The patient has been admitted to the medical floor although we will transfer her to ICU giving her shock. Continue IV antibiotics. Urine culture pending. 02/07/21 13:46 Patient is a 55-year-old female with history of recurrent nephrolithiasis and was recently had bilateral ureteral stones and states as well as UTI with Klebsiella pneumonia pansensitive and was treated with Rocephin however patient was brought emergency depart with a complaint weakness, fatigue, confused and was found to have hypotension patient was given close to 4 L of fluid however her blood pressure was low patient was started on vesopressor and transferred to ICU, patient baseline creatinine is 0.9 on 01/25/21 upon arrival BUN/creatinine was 37/3.6 there is some improved with hydration, kidney ultrasound showed: Bilateral nonobstructing nephrolithiasis with no hydronephrosis. 2. Indeterminate 3.1 cm hypoechoic lesion at the mid left kidney which demonstrated indeterminate soft tissue density on prior CT. Differential includes complex hemorrhagic/proteinaceous cyst or solid neoplasm including renal cell carcinoma. Recommend further evaluation with pre and postcontrast MRI or CT. Patient seen urologist recommended CT scan to further evaluate once patient creatinine is more close to normal, patient urine again showed leukocytosis and concern for UTI however patient denies any complaint dysuria or frequency of urination patient is started Rocephin will follow-up on the culture and further recommendation to follow (2) Shock: Code(s): R57.9 - Shock, unspecified Status: Acute Assessment and Plan: With severely low blood pressure despite adequate IV fluid boluses. Rule out hemorrhagic versus septic shock. The patient will be transferred to the ICU at this time. We will plan to place a central line and start vasopressors to maintain a mean arterial pressure of 65 mm Hg. We will also transfuse 1 unit of packed red blood cells. Blood cultures and urine cultures are pending. I have consulted and discussed the case in detail with our family partner, Dr. Reyes. (3) Normocytic anemia: Code(s): D64.9 - Anemia, unspecified Status: Acute Assessment and Plan: Patient has worsening anemia which is likely secondary to acute blood loss. Source of bleeding may be urinary versus GI. We will check an occult blood stool. Patient's urinalysis showed many red blood cells. The patient will be transfused 1 unit packed red blood cells. Monitor H&H, transfuse p.r.n.. (4) Acute renal failure: Qualifiers: Acute renal failure type: unspecified Qualified Code(s): N17.9 - Acute kidney failure, unspecified Code(s): N17.9 - Acute kidney failure, unspecified Status: Acute Assessment and Plan: Likely pre renal from hypoperfusion. Continue IV fluid challenge. Monitor renal function and urine output. Avoid nephrotoxin agents, renally dose medications. Consider Nephrology consultation in a.m. (5) Acute hypokalemia: Code(s): E87.6 - Hypokalemia Status: Acute Assessment and Plan: Patient has been treated with potassium in the ER (6) Acute encephalopathy: Code(s): G93.40 - Encephalopathy, unspecified Status: Acute Assessment and Plan: Likely metabolic versus infectious. Neuro checks. Continue to treat urinary tract infection. Continue to treat shock. Consider MRI brain and Neurology consultation in a.m.. (7) Hypertension: Qualifiers: Hypertension type: essential hypertension Qualified Code(s): I10 - Essential (primary) hypertension Code(s): I10 - Essential (primary) hypertension Status: Chronic Assessment and Plan: We will hold all antihypertensives as the patient has be
[2021-02-07] MEDS: CENTRAL LINE FLUSH 10 ML IV PUSH ×3 (13:52→20:58)
--- NOTE | 2021-02-07 13:59 | PCOTNOTE ---
OT evaluation attempted. Patient with central line in place at this time. Will attempt OT evaluation when central line is discontinued.
--- NOTE | 2021-02-07 13:59 | PCPTNOTE ---
Attempted PT evaluation completed this date, unable to see today central line still in place.
--- NOTE | 2021-02-07 14:33 | PCSTNOTE ---
Please refer to the Bedside Swallow Evaluation in the EMR. Please note, silent aspiration cannot be ruled out at bedside.
--- NOTE | 2021-02-07 16:18 | PM.CNOR ---
Assessment and Plan Assessment and plan (1) Fracture of fifth metatarsal bone: Qualifiers: Encounter type: initial encounter Fracture type: closed Fracture alignment: displaced Laterality: right Qualified Code(s): S92.351A - Displaced fracture of fifth metatarsal bone, right foot, initial encounter for closed fracture Code(s): S92.353A - Displaced fracture of fifth metatarsal bone, unspecified foot, initial encounter for closed fracture Status: Acute Assessment and Plan: Orthopedic consultation for this 55-year-old female with a history of right foot pain. She has a history of multiple falls, altered mental status and complicated UTI. Radiographs of the right foot as ordered by the primary service reveal an acute intra-articular oblique fracture of base of fifth metatarsal. Radiographs also reveal old fractures of distal second and third metatarsals and necks of fourth and fifth metatarsals. Attempted to discuss fracture type and condition however given patient's altered mental status we are unable to go over the risks and benefits of non operative vs operative treatment. Given patient's current medical condition, recommended non operative treatment at this time. Recommended fitting patient with a fracture boot. She may be protected weight-bearing of the right lower extremity with fracture boot on to mobilize her to a chair when medically stable. Ice, elevation recommended. Pain control. Patient may require surgical intervention in the future if a nonunion occurs. We will continue to monitor patient. We will also follow up with the patient as an outpatient pending medical stability and discharge to monitor radiographs. Thank you for allowing us to assist in the care of this patient. History of Present Illness HPI Consult date: 02/07/21 Requesting physician: Faustina Reyes MD Consult reason: fracture (Right Foot Fracture ) Chief complaint: SEPSIS Narrative: 55-year-old female admitted with altered mental status and UTI with complaints of multiple falls at home. Patient with complaints of right foot pain and radiographs were obtained. Radiographs of the right foot reveal an acute intra-articular oblique fracture of base of fifth metatarsal. Radiographs also reveal old fractures of distal second and third metatarsals and necks of fourth and fifth metatarsals. Patient is a poor historian and mildly confused. She cannot recount how she broke her right foot at this time. Review of Systems Review of Systems: All systems reviewed & are unremarkable except as noted in HPI and below [facility] Past Medical History Medical History (Updated 02/07/21 @ 16:31 by LORRAINE Brady) Anxiety Arthritis Fracture of fifth metatarsal bone Gastroesophageal reflux disease Hyperlipidemia Hypertension Multiple falls Restless leg syndrome Surgical History Surgical History History of section History of cholecystectomy History of hernia repair History of hysterectomy Family History Family History Other Heart disease Social History Social History Social History: Surrogate decision maker: Aristeo Salvador, . Code status: Full code. Full code. Smoking status: Current every day smoker Tobacco type: e-cigarettes/vaping Alcohol intake: unknown Substance use: unknown Additional living arrangements comments: Resides in [place] her . They have 2 children. Additional occupation/education comments: Not employed. Gender identity (if verbalized by the patient): Female Sexual Orientation (if Verbalized by the Patient): Straight or Heterosexual Spiritual care concerns: No Meds Home Medications and Allergies Home Medications Medication Instructions Recorded Confirmed Type aspirin 81 mg PO DAILY 01/21/21
[2021-02-07 16:40] LABS: Hematocrit 25.3 % (37.0-47.0); Hemoglobin 8.3 g/dL (12.0-15.0)
[2021-02-08] VITALS (14 sets, daily range): BP systolic 89–140; BP diastolic 53–99; PULSE 55–80; RESP 10–20; TEMP 36.5–37.2; O2SAT 92–100
[2021-02-08] MEDS: LACTATED RINGERS 1,000 ML 125 ML IV CONT (03:58)
[2021-02-08 04:44] LABS: Hematocrit 25.8 % (37.0-47.0); Hemoglobin 8.5 g/dL (12.0-15.0); Mean Corpuscular HGB Conc 32.9 g/dl (32-36); Mean Corpuscular Volume 94.2 fl (80-100); Platelet Count Result 242 k/mm3 (150-375); Red Blood Count 2.74 M/mm3 (4.2-5.4); Red Cell Distribution Width 15.5 % (11.5-14.5); White Blood Count 5.1 K/mm3 (4.5-10.0)
[2021-02-08 04:57] LABS: Anion Gap 2 mmol/L (8-16); Blood Urea Nitrogen 25 mg/dL (7-17); Calcium 7.8 mg/dL (8.4-10.2); Carbon Dioxide 27 mmol/L (22-30); Chloride 108 mmol/L (98-107); Estimated CRCL calculation 19 ml/min; Estimated Glomerular Filt Rate 19; Glucose 86 mg/dL (65-105); Magnesium 2.5 mg/dL (1.6-2.3); Phosphorus 3.1 mg/dL (2.5-4.5); Potassium 3.6 mmol/L (3.4-5.0); Sodium 137 mmol/L (137-145)
[2021-02-08] MEDS: CENTRAL LINE FLUSH 10 ML IV PUSH (06:05)
--- NOTE | 2021-02-08 06:39 | WPDUROPN2 ---
Progress Note: A&P Assessment and Plan (1) Bilateral ureteral calculi: Code(s): N20.1 - Calculus of ureter Status: Acute Assessment and Plan: Bilateral stents were placed last admission. Her renal ultrasound shows no hydronephrosis. Will need definitive stone management with the acute situation resolves (likely with bilat. ESWL) (2) Complicated UTI (urinary tract infection): Code(s): N39.0 - Urinary tract infection, site not specified Status: Acute Assessment and Plan: Klebsiella in the past. She is on broad-spectrum antibiotics. Mariaa based on culture. Should probably be on antibiotics such as Bactrim until she has her definitive stone procedure. (3) Acute kidney failure: Code(s): N17.9 - Acute kidney failure, unspecified Status: Resolved Assessment and Plan: No hydronephrosis. Has bilateral ureteral stents in place. Creat. slowly improving. Subjective Subjective Date/Time Seen: 02/08/21 06:39 Comfortable Review of Systems Review of Systems: ROS unobtainable: Yes unobtainable due to medical condition and unobtainable due to mental status Exam Const: General: no acute distress Resp: Effort & Inspection: normal respiratory effort GI: Inspection: non-distended GI Palp: No abdominal tenderness and No Guarding due to palpation present (GI) Auscultation: normal bowel sounds Objective Data Vital Signs Vital Signs: Vital Signs - 24 hr 02/07/21 06:45 02/07/21 08:00 02/07/21 09:00 Temperature 98.7 F Pulse Rate 69 64 64 Respiratory Rate 14 Blood Pressure 96/84 L 128/56 L 123/57 L Pulse Oximetry 98 02/07/21 09:50 02/07/21 10:00 02/07/21 12:00 Temperature 98.4 F Pulse Rate 66 62 56 L Respiratory Rate 12 12 Blood Pressure 120/87 113/53 L 100/63 Pulse Oximetry 100 98 02/07/21 14:00 02/07/21 16:00 02/07/21 18:00 Temperature 98.9 F Pulse Rate 51 L 53 L 58 L Respiratory Rate 10 L 12 17 Blood Pressure 90/50 L 106/55 L 110/49 L Pulse Oximetry 93 95 96 02/07/21 20:00 02/07/21 22:00 02/08/21 00:00 Temperature 98.5 F 97.9 F Pulse Rate 54 L 53 L 59 L Respiratory Rate 12 13 14 Blood Pressure 121/71 114/55 L 101/67 Pulse Oximetry 91 95 98 02/08/21 02:00 02/08/21 04:00 02/08/21 06:00 Temperature 98.9 F 98.5 F Pulse Rate 55 L 57 L 58 L Respiratory Rate 12 11 L 10 L Blood Pressure 112/55 L 132/74 120/99 H Pulse Oximetry 98 95 95 Intake/Output Intake/Output: Intake & Output 02/05/21 02/06/21 02/07/21 02/08/21 23:59 23:59 23:59 23:59 Intake Total 1050 3288 1200 Output Total 200 1800 1120 Balance 850 1488 80 Meds/Results Medications: Active Medications Generic Name Dose Route Start Last Admin Trade Name Freq PRN Reason Stop Dose Admin Acetaminophen 650 mg 02/06/21 23:21 Acetaminophen 325 Mg Tablet PO Q4H PRN Mild Pain (1-3) or Fever Heparin Sodium (Porcine) 5,000 units 02/07/21 09:00 02/07/21 20:56 Heparin Sodium 5,000 Units/Ml Vial SUB-Q 5,000 units Q12HR NEGIN Administration Lactated Ringer's 1,000 mls @ 125 mls/hr 02/06/21 22:20 02/08/21 03:58 Lr - Lactated Ringers Iv IV CONT 125 mls/hr .Q8H NEGIN Administration Ceftriaxone Sodium/Dextrose 1 gm in 50 mls @ 100 mls/hr 02/07/21 21:00 02/07/21 20:57 Rocephin 1 Gm/D5w 50 Ml IVPB 100 mls/hr Q24H NEGIN Administration Norepinephrine Bitartrate 8 mg in 250 mls @ 0 mls/hr 02/07/21 01:00 02/07/21 17:27 Levophed 8 Mg/D5w 250 Ml IV CONT 0 mcg/min .Q0M NEGIN 0 mls/hr Titration Protocol Pantoprazole Sodium 40 mg 02/07/21 09:00 02/07/21 09:00 Pantoprazole Sodium Iv 40 Mg Vial IV PUSH 40 mg QAM NEGIN Administration Sodium Chloride 10 ml 02/07/21 14:00 02/08/21 06:05 Central Line Flush IV PUSH 10 ml Q8HR NEGIN Administration Sodium Chloride 10 ml 02/07/21 18:00 02/07/21 16:33 Central Line Flush IV PUSH 10 ml DAILY@1800 NEGIN Administration Sodium Chloride 20 ml 02/07/21
--- NOTE | 2021-02-08 08:36 | PCPTNOTE ---
Continue to hold this AM for PT evaluation secondary to central line still in place, will check back this afternoon.
[2021-02-08] MEDS: KCL 20 MEQ/0.45% NS 1,000 ML 75 ML IV CONT (09:05)
[2021-02-08] MEDS: CALCIUM GLUC 2,000 MG/NS 100ML 2,000 MG/100 ML BAG 100 MG IVPB (09:06)
[2021-02-08] MEDS: HEPARIN SODIUM 5,000 UNITS/ML VIAL 5000 UNITS SUB-Q ×2 (09:06→20:18)
[2021-02-08] MEDS: PANTOPRAZOLE SODIUM IV 40 MG VIAL IV PUSH (09:06)
[2021-02-08] MEDS: POTASSIUM CHLORIDE 20 MEQ PACKET (FOR LIQUID) PO (09:20)
--- NOTE | 2021-02-08 10:43 | WPDINTPN ---
Progress Note: A&P Assessment and Plan (1) Complicated UTI (urinary tract infection): Code(s): N39.0 - Urinary tract infection, site not specified Status: Acute Assessment and Plan: Continue ceftriaxone. Follow cultures which are negative as of now She grew Klebsiella on urine culture during her recent admission which was sensitive to ceftriaxone. Ultrasound of kidney ureter bladder has been ordered. (2) Altered mental status: Qualifiers: Altered mental status type: unspecified Qualified Code(s): R41.82 - Altered mental status, unspecified Code(s): R41.82 - Altered mental status, unspecified Status: Acute Assessment and Plan: Likely toxic metabolic encephalopathy which has improved and patient is not alert oriented x3 Continue to monitor. Delirium precaution. (3) Acute renal failure: Qualifiers: Acute renal failure type: unspecified Qualified Code(s): N17.9 - Acute kidney failure, unspecified Code(s): N17.9 - Acute kidney failure, unspecified Status: Acute Assessment and Plan: Improvement in renal parameters from creatinine to 2.6 today Acceptable urine output Ultrasound showed IMPRESSION: 1. Bilateral nonobstructing nephrolithiasis with no hydronephrosis. 2. Indeterminate 3.1 cm hypoechoic lesion at the mid left kidney which demonstrated indeterminate soft tissue density on prior CT. Differential includes complex hemorrhagic/proteinaceous cyst or solid neoplasm including renal cell carcinoma. Recommend further evaluation with pre and postcontrast MRI or CT . Urology following. She had recent bilateral ureteric stent placed for hydronephrosis and kidney stones. I discussed finding of 3 cm renal mass on her ultrasound and are CT that was done in January of this year with the patient. Patient will need further evaluation which can be done as an outpatient. At this time due to acute kidney injury, for CT examination with contrast will not be possible without further risking her kidneys or she may need MRI. I recommended discussing with her urologist as patient will need definitive treatment for her kidney stones anyways (4) Shock: Code(s): R57.9 - Shock, unspecified Status: Acute Assessment and Plan: Resolved as patient has been off of Levophed Decrease IV fluids (5) Renal calculi: Code(s): N20.0 - Calculus of kidney Status: Acute Assessment and Plan: Status post left and right ureter placement in January 2021 because of kidney stone. Definitive management as per Urology will probably likely be done as an outpatient (6) Anemia: Code(s): D64.9 - Anemia, unspecified Status: Acute Assessment and Plan: Her hemoglobin at the time of presentation was 7.8 which decreases to 6.9 after repeat H&H testing in few hours when she became hypotensive. She was given 1 unit of PRBC transfusion and her hemoglobin went up to 8.8. Hemoglobin now stable and no obvious source of bleeding other than microscopic hematuria. Continue pantoprazole for now. (7) Fracture of fifth metatarsal bone: Qualifiers: Encounter type: initial encounter Fracture type: closed Fracture alignment: displaced Laterality: right Qualified Code(s): S92.351A - Displaced fracture of fifth metatarsal bone, right foot, initial encounter for closed fracture Code(s): S92.353A - Displaced fracture of fifth metatarsal bone, unspecified foot, initial encounter for closed fracture Status: Acute Assessment and Plan: IMPRESSION: 1. Acute intra-articular oblique fracture of base of fifth metatarsal. 2. Age-indeterminate fractures of distal second and third metatarsals, most likely chronic given the old healed fractures of the necks of fourth and fifth metatarsals. Management per orthopedics Additional Plan Full code, PT OT, incentive spirometry, up in chair DVT prophylaxis with SCD boot a
--- NOTE | 2021-02-08 11:57 | PC.NURSE ---
This patient, Eulalia Salvador, was received from [ IMU] on 02/08/21 at 1154. Patient/family oriented to unit policies and routines
--- NOTE | 2021-02-08 12:05 | PC.NURSE ---
This patient, Eulalia Salvador, was transferred to [facility] via bed on 02/08/21 at 1150 with RN and spouse at bedside. Personal belongings sent with patient. Report given to Adam Lim. Appropriate documentation sent with patient.
--- NOTE | 2021-02-08 13:43 | PM.IMPN ---
Progress Note: A&P Assessment and Plan (1) Complicated UTI (urinary tract infection): Code(s): N39.0 - Urinary tract infection, site not specified Status: Acute Assessment and Plan: The patient has been admitted to the medical floor although we will transfer her to ICU giving her shock. Continue IV antibiotics. Urine culture pending. 02/08/21 13:43 Patient is a 55-year-old female with history of recurrent nephrolithiasis and was recently had bilateral ureteral stones and states as well as UTI with Klebsiella pneumonia pansensitive and was treated with Rocephin however patient was brought emergency depart with a complaint weakness, fatigue, confused and was found to have hypotension patient was given close to 4 L of fluid however her blood pressure was low patient was started on vesopressor and transferred to ICU, patient baseline creatinine is 0.9 on 01/25/21 upon arrival BUN/creatinine was 37/3.6 there is some improved with hydration, kidney ultrasound showed: Bilateral nonobstructing nephrolithiasis with no hydronephrosis. 2. Indeterminate 3.1 cm hypoechoic lesion at the mid left kidney which demonstrated indeterminate soft tissue density on prior CT. Differential includes complex hemorrhagic/proteinaceous cyst or solid neoplasm including renal cell carcinoma. Recommend further evaluation with pre and postcontrast MRI or CT. Patient seen urologist recommended CT scan to further evaluate once patient creatinine is more close to normal, patient urine again showed leukocytosis and concern for UTI however patient denies any complaint dysuria or frequency of urination patient is started Rocephin will follow-up on the culture and further recommendation to follow, 02/08 today patient states feeling better, denies any abdominal pain nausea or vomiting fever or chills, denies any dysuria or frequency of urination, patient blood pressure is trending up, urine and blood culture no growth so far, will transfer patient out of ICU to medical floor, will have a PT OT evaluate the patient and further recommendation to follow. (2) Shock: Code(s): R57.9 - Shock, unspecified Status: Acute Assessment and Plan: With severely low blood pressure despite adequate IV fluid boluses. Rule out hemorrhagic versus septic shock. The patient will be transferred to the ICU at this time. We will plan to place a central line and start vasopressors to maintain a mean arterial pressure of 65 mm Hg. We will also transfuse 1 unit of packed red blood cells. Blood cultures and urine cultures are pending. I have consulted and discussed the case in detail with our marketing underwriter, Dr. Reyes. (3) Normocytic anemia: Code(s): D64.9 - Anemia, unspecified Status: Acute Assessment and Plan: Patient has worsening anemia which is likely secondary to acute blood loss. Source of bleeding may be urinary versus GI. We will check an occult blood stool. Patient's urinalysis showed many red blood cells. The patient will be transfused 1 unit packed red blood cells. Monitor H&H, transfuse p.r.n.. (4) Acute renal failure: Qualifiers: Acute renal failure type: unspecified Qualified Code(s): N17.9 - Acute kidney failure, unspecified Code(s): N17.9 - Acute kidney failure, unspecified Status: Acute Assessment and Plan: Likely pre renal from hypoperfusion. Continue IV fluid challenge. Monitor renal function and urine output. Avoid nephrotoxin agents, renally dose medications. Consider Nephrology consultation in a.m. (5) Acute hypokalemia: Code(s): E87.6 - Hypokalemia Status: Acute Assessment and Plan: Patient has been treated with potassium in the ER (6) Acute encephalopathy: Code(s): G93.40 - Encephalopathy, unspecified Status: Acute Assessment and Plan: Likely metabolic versus infectious. Neuro checks. Continue to treat urinary tract infection. Continue to treat shock. C
[2021-02-08 15:15] LABS: IFOB Positive Control Positive; Immunochemical Fecal Occult Bl Negative (N)
--- NOTE | 2021-02-08 15:56 | PM.PNORT ---
Progress Note: A&P Assessment and Plan (1) Fracture of fifth metatarsal bone: Qualifiers: Encounter type: subsequent encounter Fracture type: closed Fracture alignment: displaced Laterality: right Fracture healing: with routine healing Qualified Code(s): S92.351D - Displaced fracture of fifth metatarsal bone, right foot, subsequent encounter for fracture with routine healing Code(s): S92.353A - Displaced fracture of fifth metatarsal bone, unspecified foot, initial encounter for closed fracture Status: Acute Assessment and Plan: Right foot 5th metatarsal fracture, base. Fracture appears to be acute. She has swelling and is tender to palpation there. She also has evidence of previous fractures of the metatarsals on radiographs put patient is unaware of any previous injury. She has fracture boot in place for protected weight-bearing. She can be weight-bearing as tolerated. May be discharged from an orthopedic standpoint with follow-up in the orthopedic office in 4 weeks. Fracture boot may be removed when she is not up or ambulatory. Continue with edema control with ice and elevation. Subjective Subjective Date/Time Seen: 02/08/21 15:56 Patient transferred from intensive care unit to the floor. Patient seen and examined. Patient awake and alert. Mild complaints of right lateral foot pain. She has been fitted with a fracture boot. Exam Const: General: comfortable Nutritional Appearance: average body habitus Orientation/consciousness: oriented to person, oriented to place, No oriented to time and confusion Limitations: altered mental status HENMT: Head: normal to inspection Ears: hearing grossly normal bilaterally General nose exam: Normal external nose present Mouth: Yes Normal oral and palatal mucosa present and Yes other (no teeth ) Eyes: Pupils: Equal, round and reactive pupils present EOM: EOMs intact bilaterally Neck: Neck: normal visual inspection Chest: Chest palpation & inspection: normal inspection of the chest Resp: Effort & Inspection: normal respiratory effort, able to speak in complete sentences and other (NC O2 ) Cardio: Jugular venous distension: no JVD Extrem: Right lower extremity: ankle ( positive ankle dorsiflexion, plantar flexion, inversion and eversion.) and foot Details: normal capillary refill, abnormal to inspection Details: joint swelling ( lateral midfoot), tenderness ( lateral midfoot), abnormal ROM of toe Details: pain with passive ROM Location: of the 5th digit; not of the 2nd digit, not of the 3rd digit and not of the 4th digit, edema Location: at the base of the 5th metatarsal, ecchymosis ( base of the 5th metatarsal) and vascular exam Details: dorsalis pedis pulse present and normal capillary refill Objective Data Vital Signs Vital Signs: Vital Signs - 24 hr 02/07/21 16:00 02/07/21 18:00 02/07/21 20:00 Temperature 98.9 F Pulse Rate 53 L 58 L 54 L Respiratory Rate 12 17 12 Blood Pressure 106/55 L 110/49 L 121/71 Pulse Oximetry 95 96 91 02/07/21 22:00 02/08/21 00:00 02/08/21 02:00 Temperature 98.5 F 97.9 F 98.9 F Pulse Rate 53 L 59 L 55 L Respiratory Rate 13 14 12 Blood Pressure 114/55 L 101/67 112/55 L Pulse Oximetry 95 98 98 02/08/21 04:00 02/08/21 06:00 02/08/21 07:41 Temperature 98.5 F Pulse Rate 57 L 58 L Respiratory Rate 11 L 10 L Blood Pressure 132/74 120/99 H Pulse Oximetry 95 95 98 02/08/21 08:00 02/08/21 10:00 02/08/21 10:46 Temperature 98.0 F Pulse Rate 61 67 Respiratory Rate 14 13 Blood Pressure 140/62 89/53 L Pulse Oximetry 94 99 98 02/08/21 11:02 02/08/21 12:00 02/08/21 14:00 Temperature 98.1 F 97.7 F Pulse Rate 68 65 66 Respiratory Rate 12 20 20 Blood Pressure 92/64 L 133/77 135/71 Pulse Oximetry 100 94 97 Intake/Output Intake/Output: Intake & Output 02/05/21 02/06/21 02/07/21 02/08/21 23:59 23:59 23:59 23:59 Intake Total 1050 3288 2625 Output Total 200 1800 1770 Balance 850 1
[2021-02-09 05:44] VITALS: BP 143/75; PULSE 83; RESP 16; TEMP 36.2; O2SAT 94
--- NOTE | 2021-02-09 06:18 | P.CDI_ITS ---
CDI Query Clarification Request -UTI has been documented -Bilateral ureteral stents has been documented Please clarify if the UTI is: * Due to/ associated with the indwelling ureteral stents * Not due to/associated with the indwelling ureteral stents * Unable to determine
--- NOTE | 2021-02-09 06:18 | WPDCDIQUERY2 ---
CDI Query Clarification Request -UTI has been documented -Bilateral ureteral stents has been documented Please clarify if the UTI is: Due to/ associated with the indwelling ureteral stents Not due to/associated with the indwelling ureteral stents Unable to determine
[2021-02-09 06:21] LABS: Hematocrit 29.4 % (37.0-47.0); Hemoglobin 9.9 g/dL (12.0-15.0); Mean Corpuscular HGB Conc 33.7 g/dl (32-36); Mean Corpuscular Hemoglobin 31.1 pg (26-34); Mean Corpuscular Volume 92.5 fl (80-100); Mean Platelet Volume 10.8 fl (7.4-10.4); Platelet Count Result 301 k/mm3 (150-375); Red Blood Count 3.18 M/mm3 (4.2-5.4); Red Cell Distribution Width 15.4 % (11.5-14.5); White Blood Count 6.3 K/mm3 (4.5-10.0)
[2021-02-09 06:31] LABS: Anion Gap 5 mmol/L (8-16); Blood Urea Nitrogen 24 mg/dL (7-17); Calcium 7.8 mg/dL (8.4-10.2); Carbon Dioxide 24 mmol/L (22-30); Chloride 108 mmol/L (98-107); Estimated CRCL calculation 26 ml/min; Estimated Glomerular Filt Rate 24; Glucose 90 mg/dL (65-105); Magnesium 1.7 mg/dL (1.6-2.3); Phosphorus 2.6 mg/dL (2.5-4.5); Sodium 137 mmol/L (137-145)
[2021-02-09 08:00] VITALS: PULSE 83; RESP 16; O2SAT 94
[2021-02-09] MEDS: PANTOPRAZOLE SODIUM IV 40 MG VIAL IV PUSH (09:52)
[2021-02-09] MEDS: HEPARIN SODIUM 5,000 UNITS/ML VIAL 5000 UNITS SUB-Q ×2 (09:52→21:27)
[2021-02-09] MEDS: ACETAMINOPHEN 325 MG TABLET 650 MG PO (10:01)
[2021-02-09 14:00] VITALS: BP 130/74; PULSE 88; RESP 16; TEMP 36.6; O2SAT 97
[2021-02-09] MEDS: KCL 20 MEQ/0.45% NS 1,000 ML 75 ML IV CONT (18:59)
[2021-02-09 19:00] LABS: Add Urine Microscopic? YES; Appearance Urine Cloudy (Clear); Bacteria Urine Trace /hpf; Bilirubin Urine Negative (Negative); Blood Urine 3+ (Negative); Color Urine Yellow (Yellow); Glucose Urine UA 1+ mg/dL (Negative); Ketones Urine Negative (Negative); Leukocyte Esterase Ur 3+ LEU/UL (Negative); Nitrate Urine Negative (Negative); Protein Urine 1+ mg/dL (Negative); RBC Urine >75 /hpf (0-2); Specific Grav Ur 1.006 (1.001-1.035); Squamous Epithelial Cell Urine Rare /hpf (Few); Transitional Epi Cells Urine Rare /hpf (None Seen); Urobilinogen Urine Negative mg/dL (<2.0); WBC Urine 21-30 /hpf
--- NOTE | 2021-02-09 19:05 | PM.IMPN ---
Progress Note: A&P Assessment and Plan (1) Opiate abuse, episodic: Code(s): F11.10 - Opioid abuse, uncomplicated Status: Acute Assessment and Plan: Patient admitted with acute opiate intoxication which has resolved (2) Anemia: Code(s): D64.9 - Anemia, unspecified Status: Acute Assessment and Plan: Patient with hemoglobin of 6.7 requiring 1 PRBC (3) Bilateral ureteral calculi: Code(s): N20.1 - Calculus of ureter Status: Acute Assessment and Plan: Bilateral ureteral calculi seen by urology recommended discharge home on antibiotic therapy until follow-up for treatment Repeat UA negative for active infection (4) Fracture of fifth metatarsal bone: Qualifiers: Encounter type: subsequent encounter Fracture type: closed Fracture alignment: displaced Laterality: right Fracture healing: with routine healing Qualified Code(s): S92.351D - Displaced fracture of fifth metatarsal bone, right foot, subsequent encounter for fracture with routine healing Code(s): S92.353A - Displaced fracture of fifth metatarsal bone, unspecified foot, initial encounter for closed fracture Status: Acute Assessment and Plan: Seen by orthopedist for fracture 5th metatarsal she has been advised to wear a postop shoe and can weightbear as tolerated. (5) Chronic pain syndrome: Code(s): G89.4 - Chronic pain syndrome Status: Chronic Assessment and Plan: Patient advised to follow-up with pain management and to avoid overuse of opiates (6) Hyperlipidemia: Qualifiers: Hyperlipidemia type: unspecified Qualified Code(s): E78.5 - Hyperlipidemia, unspecified Code(s): E78.5 - Hyperlipidemia, unspecified Status: Chronic Assessment and Plan: Continue home medications (7) Hypertension: Qualifiers: Hypertension type: essential hypertension Qualified Code(s): I10 - Essential (primary) hypertension Code(s): I10 - Essential (primary) hypertension Status: Chronic Assessment and Plan: Continue home medication (8) Acute encephalopathy: Code(s): G93.40 - Encephalopathy, unspecified Status: Acute Assessment and Plan: Acute toxic encephalopathy secondary to use of Zanaflex with morphine now resolved Subjective Date/time seen: 02/09/21 19:05 Patient doing okay sitting up in chair bedside request we going home. She is alert and oriented x3. We agreed to repeat her UA and follow up in the morning if she still has clear mentation she will be able to go home. Patient in agreement Exam Narrative: Exam Narrative: GEN: NAD, AAOx3, cooperative HEENT: NCAT, MMM, EOMI Neck: no JVD Heart: S1S2 RRR Lungs: CTA B/l Abd: soft, NT, ND, bowel sounds normoactive Ext: moves all, no cyanosis, no clubbing, no edema Psych: mood and affect congruent Objective Data Vital Signs Vital Signs: Vital Signs - 24 hr 02/08/21 20:00 02/08/21 21:31 02/08/21 22:00 Temperature 98.2 F Pulse Rate 66 80 Respiratory Rate 20 20 Blood Pressure 133/73 Pulse Oximetry 97 97 92 02/09/21 05:44 02/09/21 08:00 02/09/21 14:00 Temperature 97.2 F L 97.9 F Pulse Rate 83 83 88 Respiratory Rate 16 16 16 Blood Pressure 143/75 H 130/74 Pulse Oximetry 94 94 97 Intake/Output Intake/Output: Intake & Output 02/06/21 02/07/21 02/08/21 02/09/21 23:59 23:59 23:59 23:59 Intake Total 1050 3288 4065 1040 Output Total 200 1800 2620 3950 Balance 850 1488 1445 -2910 Meds/Results Medications: Active Medications Generic Name Dose Route Start Last Admin Trade Name Freq PRN Reason Stop Dose Admin Acetaminophen 650 mg 02/06/21 23:21 02/09/21 10:01 Acetaminophen 325 Mg Tablet PO 650 mg Q4H PRN Administration Mild Pain (1-3) or Fever Heparin Sodium (Porcine) 5,000 units 02/07/21 09:00 02/09/21 09:52 Heparin Sodium 5,000 Units/Ml Vial SUB-Q 5,000 units Q12HR FORMER[facility], 1928–1983 Administrat
[2021-02-09 21:56] VITALS: BP 137/78; PULSE 89; RESP 16; TEMP 36.4; O2SAT 98
[2021-02-10 05:58] VITALS: BP 124/74; PULSE 95; RESP 20; TEMP 36.4; O2SAT 96
[2021-02-10 06:28] LABS: Hemoglobin 10.5 g/dL (12.0-15.0); Mean Corpuscular HGB Conc 33.9 g/dl (32-36); Mean Corpuscular Volume 91.4 fl (80-100); Mean Platelet Volume 10.8 fl (7.4-10.4); Platelet Count Result 317 k/mm3 (150-375); Red Blood Count 3.39 M/mm3 (4.2-5.4); Red Cell Distribution Width 15.7 % (11.5-14.5); White Blood Count 7.1 K/mm3 (4.5-10.0)
[2021-02-10 06:37] LABS: Anion Gap 7 mmol/L (8-16); Blood Urea Nitrogen 20 mg/dL (7-17); Calcium 7.6 mg/dL (8.4-10.2); Carbon Dioxide 23 mmol/L (22-30); Chloride 108 mmol/L (98-107); Estimated CRCL calculation 30 ml/min; Estimated Glomerular Filt Rate 29; Glucose 98 mg/dL (65-105); Magnesium 1.4 mg/dL (1.6-2.3); Phosphorus 2.7 mg/dL (2.5-4.5); Potassium 3.6 mmol/L (3.4-5.0); Sodium 138 mmol/L (137-145)
--- NOTE | 2021-02-10 09:15 | PM.PNORT ---
Progress Note: A&P Assessment and Plan (1) Fracture of fifth metatarsal bone: Qualifiers: Encounter type: subsequent encounter Fracture type: closed Fracture alignment: displaced Laterality: right Fracture healing: with routine healing Qualified Code(s): S92.351D - Displaced fracture of fifth metatarsal bone, right foot, subsequent encounter for fracture with routine healing Code(s): S92.353A - Displaced fracture of fifth metatarsal bone, unspecified foot, initial encounter for closed fracture Status: Acute Assessment and Plan: Continue WBAT with Fracture Boot RLE. May remove fracture boot when in bed. Elevate RLE on pillows. Ice. Pain control. May be discharged from an orthopedic standpoint when medically stable. Follow up appt arranged. Patient aware. Subjective Subjective Date/Time Seen: 02/10/21 09:15 Complaints of stomach issues overnight. Foot pain well controlled. Hopeful to go home today. Review of Systems Review of Systems: All systems reviewed & are unremarkable except as noted in HPI and below Exam Const: General: comfortable Nutritional Appearance: average body habitus Orientation/consciousness: oriented to person, oriented to place, No oriented to time and confusion Limitations: altered mental status HENMT: Head: normal to inspection Ears: hearing grossly normal bilaterally General nose exam: Normal external nose present Mouth: Yes Normal oral and palatal mucosa present and Yes other (no teeth ) Eyes: Pupils: Equal, round and reactive pupils present EOM: EOMs intact bilaterally Neck: Neck: normal visual inspection Chest: Chest palpation & inspection: normal inspection of the chest Resp: Effort & Inspection: normal respiratory effort and able to speak in complete sentences Cardio: Jugular venous distension: no JVD Rate: regular rate Rhythm: regular rhythm Extrem: Right lower extremity: ankle ( positive ankle dorsiflexion, plantar flexion, inversion and eversion.) Details: no edema and normal ROM; no tenderness and no swelling and foot Details: normal capillary refill, abnormal to inspection Details: joint swelling ( lateral midfoot), tenderness ( lateral midfoot), abnormal ROM of toe Details: pain with passive ROM Location: of the 5th digit; not of the 2nd digit, not of the 3rd digit and not of the 4th digit, edema Location: at the base of the 5th metatarsal, ecchymosis ( base of the 5th metatarsal- improved ) and vascular exam Details: dorsalis pedis pulse present and normal capillary refill Objective Data Vital Signs Vital Signs: Vital Signs - 24 hr 02/09/21 14:00 02/09/21 21:56 02/10/21 05:58 Temperature 36.6 C 36.4 C 36.4 C Pulse Rate 88 89 95 Respiratory Rate 16 16 20 Blood Pressure 130/74 137/78 124/74 Pulse Oximetry 97 98 96 Intake/Output Intake/Output: Intake & Output 02/07/21 02/08/21 02/09/21 02/10/21 23:59 23:59 23:59 23:59 Intake Total 3288 4115 1040 200 Output Total 1800 2620 3950 200 Balance 1488 1495 -2910 0 Meds/Results Medications: Active Medications Generic Name Dose Route Start Last Admin Trade Name Freq PRN Reason Stop Dose Admin Acetaminophen 650 mg 02/06/21 23:21 02/09/21 10:01 Acetaminophen 325 Mg Tablet PO 650 mg Q4H PRN Administration Mild Pain (1-3) or Fever Heparin Sodium (Porcine) 5,000 units 02/07/21 09:00 02/09/21 21:27 Heparin Sodium 5,000 Units/Ml Vial SUB-Q 5,000 units Q12HR NEGIN Administration Ceftriaxone Sodium/Dextrose 1 gm in 50 mls @ 100 mls/hr 02/07/21 21:00 02/09/21 21:26 Rocephin 1 Gm/D5w 50 Ml IVPB 100 mls/hr Q24H NEGIN Administration Potassium Chloride/Sodium Chloride 1,000 mls @ 75 mls/hr 02/08/21 08:30 02/09/21 18:59 Kcl 20 Meq/0.45% Ns IV CONT 75 mls/hr .[id number] NEGIN Administration Pantoprazole Sodium 40 mg 02/07/21 09:00 02/09/21 09:52 Pantoprazole Sodium Iv 40 Mg Vial IV PUSH 40 mg QAM NEGIN Administration Sodium Chloride 20 m
[2021-02-10] MEDS: KCL 20 MEQ/0.45% NS 1,000 ML 75 ML IV CONT (09:22)
[2021-02-10] MEDS: HEPARIN SODIUM 5,000 UNITS/ML VIAL 5000 UNITS SUB-Q (09:31)
[2021-02-10] MEDS: PANTOPRAZOLE SODIUM IV 40 MG VIAL IV PUSH (09:31)
--- NOTE | 2021-02-10 15:53 | PM.DS ---
DS: Admitting Diagnosis Admitting Diagnosis Admitting Diagnosis: Acute toxic encephalopathy Opiate overdose DS: Discharge Diagnosis Discharge Diagnosis (1) Fracture of fifth metatarsal bone: Qualifiers: Encounter type: subsequent encounter Fracture alignment: displaced Fracture healing: with routine healing Fracture type: closed Laterality: right Qualified Code(s): S92.351D - Displaced fracture of fifth metatarsal bone, right foot, subsequent encounter for fracture with routine healing Code(s): S92.353A - Displaced fracture of fifth metatarsal bone, unspecified foot, initial encounter for closed fracture Status: Acute (2) Bilateral ureteral calculi: Code(s): N20.1 - Calculus of ureter Status: Acute (3) Anemia: Code(s): D64.9 - Anemia, unspecified Status: Acute (4) Chronic pain syndrome: Code(s): G89.4 - Chronic pain syndrome Status: Chronic (5) Hyperlipidemia: Qualifiers: Hyperlipidemia type: unspecified Qualified Code(s): E78.5 - Hyperlipidemia, unspecified Code(s): E78.5 - Hyperlipidemia, unspecified Status: Chronic (6) Hypertension: Qualifiers: Hypertension type: essential hypertension Qualified Code(s): I10 - Essential (primary) hypertension Code(s): I10 - Essential (primary) hypertension Status: Chronic (7) Normocytic anemia: Code(s): D64.9 - Anemia, unspecified Status: Acute (8) Acute encephalopathy: Code(s): G93.40 - Encephalopathy, unspecified Status: Acute (9) Opiate abuse, episodic: Code(s): F11.10 - Opioid abuse, uncomplicated Status: Acute DS: Summary Hospital Course Reason for hospitalization: Encephalopathy Hospital Course: 55-year-old female with multiple comorbidities admitted with acute altered mental status secondary to overuse misuse of morphine and Zanaflex. Additionally, she was treated for UTI for possible contributing etiology with Rocephin and urology was consulted which recommended her to be discharged home on antibiotic therapy until she could have definitive treatment in the outpatient setting. Patient was found to have a metatarsal fracture and the orthopedist was consulted who recommended her to wear fx boot and weight-bearing as tolerated. Patient counseled extensively on misuse of opiate and muscle relaxers and advised not to take them at the same time. She is discharged home in stable condition with indications to follow up with her primary care physician and Urology after discharge. She has been placed on ciprofloxacin 250 b.i.d. prophylactically until seen by Urology. Repeat urine culture was ordered prior to discharge final results are still pending. Status at Discharge Functional status at discharge: uses cane/walker Time Spent with Patient Time attestation: Total time spent providing and/or coordinating discharge services: 45 minutes Time spent: Greater than 30 minutes Exam Narrative: Exam Narrative: GEN: NAD, AAOx3, cooperative HEENT: NCAT, MMM, EOMI Neck: no JVD Heart: S1S2 RRR Lungs: CTA B/l Abd: soft, NT, ND, bowel sounds normoactive Ext: moves all, no cyanosis, no clubbing, no edema DS: Data Data Completed and Pending Labs on day of discharge: Labs from last 24 hours 02/10/21 02/10/21 02/09/21 05:54 05:54 18:32 WBC 7.1 RBC 3.39 L Hgb 10.5 L Hct 31.0 L MCV 91.4 MCH 31.0 MCHC 33.9 RDW 15.7 H Plt Count 317 MPV 10.8 H Sodium 138 Potassium 3.6 Chloride 108 H Carbon Dioxide 23 Anion Gap 7 L BUN 20 H Creatinine 1.80 H Estim Creat Clear Calc 30 Estimated GFR 29 L Glucose 98 Calcium 7.6 L Phosphorus 2.7 Magnesium 1.4 L Urine Color Yellow Urine Appearance Cloudy H Urine pH 7.0 Ur Specific [place] 1.006 Urine Protein 1+ H Urine Glucose (UA) 1+ H Urine Ketones Negative Ur Blood (Man) 3+ H Urine Nitrate
== END 2021-02-10 12:28 | disposition home health service (06) | DRG 917 ==
LOC: ANHED 22:20 → ANH3MEDSUR 23:51 → ANHICU 02-07 13:03 → ANH3MEDSUR 02-08 14:54 → ANHICU 02-15 12:21
PROVIDERS: Emergency Medicine; Emergency Medicine Emergency Medical Services; Internal Medicine Critical Care Medicine; Admitting Provider Family Medicine; Emergency Provider Emergency Medicine; PCP Internal Medicine; Visit Provider Hospitalist
DX: T42.8X1A Poisoning by antiparkinsonism drugs and other central muscle-tone depressants, accidental (unintentional), initial encounter (principal); G92 Toxic encephalopathy; N39.0 Urinary tract infection, site not specified; N20.1 Calculus of ureter; N17.9 Acute kidney failure, unspecified; R57.9 Shock, unspecified; D62 Acute posthemorrhagic anemia; T40.2X1A Poisoning by other opioids, accidental (unintentional), initial encounter; F11.129 Opioid abuse with intoxication, unspecified; S92.331A Displaced fracture of third metatarsal bone, right foot, initial encounter for closed fracture; S92.351A Displaced fracture of fifth metatarsal bone, right foot, initial encounter for closed fracture; W19.XXXA Unspecified fall, initial encounter; K21.9 Gastro-esophageal reflux disease without esophagitis; M19.90 Unspecified osteoarthritis, unspecified site; E78.5 Hyperlipidemia, unspecified; I10 Essential (primary) hypertension; G25.81 Restless legs syndrome; F17.290 Nicotine dependence, other tobacco product, uncomplicated; E87.6 Hypokalemia; D64.9 Anemia, unspecified; F41.8 Other specified anxiety disorders; G89.4 Chronic pain syndrome; Z90.49 Acquired absence of other specified parts of digestive tract; Z90.710 Acquired absence of both cervix and uterus; Z91.81 History of falling
CPT/HCPCS: 36415; 36430; 36600; 51701; 70450; 73630; 76770; 80048; 80053; 81001; 82274; 82805; 83605; 83735; 84100; 85014; 85018; 85025; 85027; 86140; 86850; 86900; 86901; 86923; 87040; 87086; 92610; 93005; 96360; 97110; 97116; 97161; 97165; 97530; 97535; 99285; A9270; C1751; C9113; J0610; J0696; J1644; J3475; J7030; J7040; J7050; J7120; L2116; P9016

== ENCOUNTER 2021-02-17 10:00 | Outpatient (CLI) | payer OTHER, SELFPAY ==
[2021-02-17 10:37] LABS: INR 1.3; Partial Thromboplastin Time 30.7 SECONDS (22.3-36.8); Prothrombin Time 16.3 Seconds (11.1-14.7)
== END 2021-02-17 10:01 | disposition home or self-care (01) ==
LOC: ANHSURGERY 10:04
PROVIDERS: PCP Internal Medicine; Visit Provider Urology
DX: N20.1 Calculus of ureter (principal)
CPT/HCPCS: 36415; 85610; 85730; 87086; 87088

== ENCOUNTER → 2021-02-22 03:18 | Outpatient (CLI) | payer OTHER, SELFPAY ==
[2021-02-22 20:31] LABS: SARS-CoV-2 RNA PCR Negative
== END ==
PROVIDERS: PCP Internal Medicine; Visit Provider Urology
DX: Z01.812 Encounter for preprocedural laboratory examination (principal); Z20.822 Contact with and (suspected) exposure to COVID-19
CPT/HCPCS: C9803; U0003; U0005

== ENCOUNTER 2021-02-25 01:46 | Day surgery (SDC) | payer OTHER, SELFPAY ==
[2021-02-15 12:16] VITALS: BMI 26.0
--- NOTE | 2021-02-17 08:19 | PM.HPGS ---
History of Present Illness History of Present Illness Consent: Risks, benefits, and alternatives have been discussed and questions answered. Patient agrees to proceed with procedure. Chief complaint: Left Ureteral Stones Narrative: Eulalia Salvador is a 55 year old female who recently presented with an obstructing large left distal ureteral calculus with urinary tract infection. A left ureteral stent was placed in arrangements were being made for left ESWL well treating her infection. Within several days, however, a 13 mm right stone that had been in her kidney dropped into her ureteropelvic junction and caused acute obstruction on the right. She subsequently underwent right ureteral stent placement. She is tolerating stents were reasonably well and presents now for left ESWL. She is aware the risk of this procedure including, but not limited to, adverse cardiopulmonary events, persistent stone fragments retroperitoneal hematoma. Review of Systems Cardiovascular: Cardiovascular: Denies chest pain, Denies lightheadedness, Denies palpitations and Denies dyspnea Respiratory: Respiratory: Denies dyspnea Gastrointestinal: Gastrointestinal: Denies diarrhea, Denies nausea and Denies vomiting Genitourinary: Genitourinary: Denies hematuria and Denies dysuria Endocrine: Endocrine: Denies palpitations [facility] Past Medical History Medical History Anxiety Arthritis Fracture of fifth metatarsal bone Gastroesophageal reflux disease Hyperlipidemia Hypertension Multiple falls Restless leg syndrome Surgical History Surgical History History of section History of cholecystectomy History of hernia repair History of hysterectomy Family History Family History Other Heart disease Social History Social History Social History: Surrogate decision maker: Aristeo Salvador, . Code status: Full code. Full code. Smoking status: Current every day smoker Tobacco type: e-cigarettes/vaping Alcohol intake: never Substance use: never Substance use type: does not use Additional living arrangements comments: Resides in [place] her . They have 2 children. Additional occupation/education comments: Not employed. Gender identity (if verbalized by the patient): Female Spiritual care concerns: No Meds Home Medications and Allergies Home Medications Medication Instructions Recorded Confirmed Type aspirin 81 mg PO DAILY 01/21/21 02/15/21 History buspirone 10 mg PO BID PRN 01/21/21 02/15/21 History fenofibrate 150 mg PO DAILY 01/21/21 02/15/21 History gabapentin 400 mg PO BID 01/21/21 02/15/21 History lisinopril 10 mg PO DAILY 01/21/21 02/15/21 History nifedipine 30 mg PO DAILY 01/21/21 02/15/21 History pantoprazole 20 mg PO QPM 01/21/21 02/15/21 History ranolazine 500 mg PO BID 01/21/21 02/15/21 History ropinirole 0.5 mg PO HS 01/21/21 02/15/21 History sertraline 200 mg PO HS 01/21/21 02/15/21 History metoprolol succinate 25 mg PO DAILY 02/07/21 02/15/21 History morphine 15 mg immediate release 15 mg PO HS #30 tablet MDD pain 02/09/21 02/15/21 Rx tablet ciprofloxacin HCl 250 mg PO BID #30 tablet 02/10/21 02/15/21 Rx cholecalciferol (vitamin D3) 25 mcg PO DAILY 02/15/21 02/15/21 History [Vitamin D3] Allergies Allergy/AdvReac Type Severity Reaction Status Date / Time No Known Allergies Allergy Verified 02/15/21 12:40 Exam Const: General: no acute distress Resp: Effort & Inspection: normal respiratory effort GI: Inspection: non-distended GI Palp: No abdominal tenderness and No Guarding due to palpation present (GI) Auscultation: normal bowel sounds Assessment and Plan Assessment and plan (1) Bilateral ureteral calculi: Code(s): N20.1 - Calculu
--- NOTE | 2021-02-24 10:46 | WPDANESEPPF ---
Anes - Initial Pre Proc Eval Procedure: Operation Date: 02/25/21 14:30 Proposed Procedures p Left Extracorporeal Shock Wave Lithotripsy - Jason Jordan MD Date/Time: 02/24/21 10:46 Surgeon: Jason Jordan MD Pre Op Diagnosis: Left Ureteral Stones Patient Data Age: 55 Gender: F Height: 1.6 m Weight: 66.68 kg Allergies Allergy/AdvReac Type Severity Reaction Status Date / Time No Known Allergies Allergy Verified 02/15/21 12:40 Home Medications Medication Instructions Recorded Confirmed Type aspirin 81 mg PO DAILY 01/21/21 02/15/21 History buspirone 10 mg PO BID PRN 01/21/21 02/15/21 History fenofibrate 150 mg PO DAILY 01/21/21 02/15/21 History gabapentin 400 mg PO BID 01/21/21 02/15/21 History lisinopril 10 mg PO DAILY 01/21/21 02/15/21 History nifedipine 30 mg PO DAILY 01/21/21 02/15/21 History pantoprazole 20 mg PO QPM 01/21/21 02/15/21 History ranolazine 500 mg PO BID 01/21/21 02/15/21 History ropinirole 0.5 mg PO HS 01/21/21 02/15/21 History sertraline 200 mg PO HS 01/21/21 02/15/21 History metoprolol succinate 25 mg PO DAILY 02/07/21 02/15/21 History morphine 15 mg immediate release 15 mg PO HS #30 tablet MDD pain 02/09/21 02/15/21 Rx tablet ciprofloxacin HCl 250 mg PO BID #30 tablet 02/10/21 02/15/21 Rx cholecalciferol (vitamin D3) 25 mcg PO DAILY 02/15/21 02/15/21 History [Vitamin D3] Patient hx anesthesia problems: none Family hx anesthesia problems: none PMFSH Past Medical History Medical History (Updated 02/24/21 @ 10:48 by Titus Cruz MD) Anemia Anxiety Arthritis Chronic narcotic use Chronic pain syndrome COPD (chronic obstructive pulmonary disease) Depression Fracture of fifth metatarsal bone Gastroesophageal reflux disease Hyperlipidemia Hypertension Multiple falls Opiate abuse, episodic DAYNA (obstructive sleep apnea) Renal calculi Restless leg syndrome Surgical History Surgical History History of section History of cholecystectomy History of hernia repair History of hysterectomy Family History Family History Other Heart disease Social History Social History Social History: Surrogate decision maker: Aristeo Salvador, . Code status: Full code. Full code. Smoking status: Current every day smoker Tobacco type: e-cigarettes/vaping Alcohol intake: never Substance use: never Substance use type: does not use Living arrangements: with family Additional living arrangements comments: Resides in [place] her . They have 2 children. Additional occupation/education comments: Not employed. Gender identity (if verbalized by the patient): Female Spiritual care concerns: No Anes - Eval Final PreProcedure Day of Procedure 02/24/21 10:46 Patient weight: overweight Heart: regular rate and rhythm Lungs: clear to auscultation and normal air movement Airway: Mallampati scale class II Neurological: alert and oriented Last oral intake: >/= 8 hours ASA classification: III Emergent: no Anesthetic plan: proceed Anesthesia type and monitoring: general LMA Informed Consent: The patient's anesthetic plan and its attendant risks and benefits were discussed with the patient/family/POA. Questions were solicited and answers provided to the satisfaction of the patient/family/POA.
[2021-02-25] VITALS (7 sets, daily range): BP systolic 107–141; BP diastolic 65–75; PULSE 69–91; RESP 10–20; TEMP 36.3–36.6; O2SAT 100
--- NOTE | ~2021-02-25 | XR_ITS ---
XR abdomen/kub 1V DATE: 02/25/2021 13:07 INDICATION: Lithotripsy TECHNIQUE: AP projection COMPARISON: 01/25/2021 right retrograde pyelogram with stent placement 01/24/2021 obstructive series 01/22/[address] abdomen pelvis FINDINGS: Bilateral internal urinary stents are present in expected position. There are bilateral low er pole nonobstructing left renal calcified calculi. There is a 1.4 cm calcification overlying the left midabdomen which is situated in the anterior abdom inal cavity outside the urinary tract as demonstrated on 01/22/2021 CT abdomen pelvis. Nonspecific bowel gas pattern without evidence of obstruction. Status post cholecystectomy. IMPRESSION: Bilateral internal urinary stents Bilateral lower pole nonobstructive nephrolithiasis Reviewed, dictated and finalized at [facility]. Reviewed, dictated and finalized at [facility].
--- NOTE | 2021-02-25 07:02 | WPDHPUPDATE1 ---
History and Physical Update Update Date/Time: 02/25/21 07:02 History and Physical has been reviewed, including an updated exam of the patient. There are NO changes in the patient's condition. Risks, benefits, and alternatives have been discussed and questions answered. Patient agrees to proceed with procedure.
[2021-02-25] MEDS: LACTATED RINGERS 1,000 ML 30 ML IV CONT (13:45)
[2021-02-25 14:04] LABS: INR 1.2; Prothrombin Time 15.4 Seconds (11.1-14.7)
[2021-02-25] MEDS: ceFAZolin 2 GM/D5W 50 ML 2 GM/50 ML BAG IVPB (14:10)
--- NOTE | 2021-02-25 14:39 | PM.PROC ---
Procedure Note - Detailed Date of procedure: 02/25/21 Pre-op diagnosis: Left Ureteral Stones Post-op diagnosis: same Procedure performed: Left ESWL Description of procedure: The patient was brought to the operative suite where she was placed in the supine position on the Dornier lithotripsy table. The focal point of the lithotripter was placed at a 5x12mm left mid-ureteral calculus. A total of 3000 shocks were delivered at a power setting of 5. There appeared to be good fragmentation of the stone. The patient tolerated the procedure well and was taken to the recovery room in good condition. Anesthesia: GLMA Surgeon: Jason Jordan MD Estimated blood loss (mL): 0 Drains: No Packing: No Pathology: none sent Complications: No immediate complications Condition: stable Disposition: PACU
== END 2021-02-25 16:20 | disposition home or self-care (01) ==
PROVIDERS: PCP Internal Medicine; Visit Provider Urology
PROC: (CPT 50590; principal; 2021-02-25 14:30)
DX: N20.1 Calculus of ureter (principal); M19.90 Unspecified osteoarthritis, unspecified site; E78.5 Hyperlipidemia, unspecified; G25.81 Restless legs syndrome; F17.290 Nicotine dependence, other tobacco product, uncomplicated; Z79.82 Long term (current) use of aspirin; K21.9 Gastro-esophageal reflux disease without esophagitis; F41.8 Other specified anxiety disorders; J44.9 Chronic obstructive pulmonary disease, unspecified; G47.33 Obstructive sleep apnea (adult) (pediatric); I10 Essential (primary) hypertension
CPT/HCPCS: 50590; 36415; 74018; 85610; C9803; J0690; J1100; J2405; J2704; J7120; U0003; U0005

== ENCOUNTER 2021-03-03 05:34 | Emergency (ER) | payer OTHER, SELFPAY ==
--- NOTE | ~2021-03-03 | XR_ITS ---
EXAMINATION: XR chest 1V DATE: 03/03/2021 07:40 INDICATION: Confusion. TECHNIQUE: A single frontal view of the chest was obtained. COMPARISON: Chest 2 views 01/21/2021 FINDINGS: The chest demonstrates clear lungs without pneumonia, pleural effusion, or pneumothorax. Th e heart size is normal. IMPRESSION: 1. No acute cardiopulmonary disease. Reviewed, dictated and finalized at location [facility].
--- NOTE | ~2021-03-03 | CT_ITS ---
EXAMINATION: CT brain wo con DATE: 03/03/2021 07:33 INDICATION: Confusion. TECHNIQUE: Computed tomography (CT) of the head was performed without intravenous contrast. The mA wa s adjusted according to patient size. Iterative reconstruction technique was employed. The dose-lengt h product was 605.33 mGy-cm. COMPARISON: Head CT 02/06/2021 FINDINGS: There are scattered areas of low attenuation in the cerebral white matter. There is no intr acranial hemorrhage, acute infarction, or abnormal intracranial mass lesion. The ventricles are beto l in size. The orbits are normal. The paranasal sinuses are clear. The mastoid air cells are normal. IMPRESSION: 1. Stable mild nonspecific cerebral white matter disease, which likely represents chronic small vesse l ischemic disease. Reviewed, dictated and finalized at location [facility]. IMPRESSION: 1. Stable mild nonspecific cerebral white matter disease, which likely represen ts chronic small vessel ischemic disease.
[2021-03-03 05:51] VITALS: BP 107/74; PULSE 95; RESP 18; TEMP 36; O2SAT 100
--- NOTE | 2021-03-03 07:13 | ECG_ITS ---
Measurements Intervals [place] Rate: 88 P: 75 CO: 127 QRS: -45 QRSD: 137 T: 128 QT: 405 QTc: 492 Interpretive Statements SINUS RHYTHM LEFT AXIS DEVIATION LEFT BUNDLE BRANCH BLOCK ABNORMAL ECG Electronically Signed On 03-03-2021 9:06:30 CDT by Raghu Mccloud D.O.
--- NOTE | 2021-03-03 07:13 | PC.NURSE ---
report to shae hamilton rn
--- NOTE | 2021-03-03 07:31 | ED.GENADULT ---
HPI - General Adult General Chief complaint: Urogenital-Female Stated complaint: Low back pain/nausea/recent UTI Time Seen by Provider: 03/03/21 07:00 Source: patient and family Mode of arrival: ambulatory History of Present Illness HPI narrative: This is a 55 year old female with history of frequent UTIs , chronic back pain who presents for evaluation of change in behavior with her . Her states patient has been intermittently confused for 6 months. He states she normally has a UTI. He states yesterday and today she is acting like she has a UTI. He states she seems to be confused at night. He reports she will wake up screaming sometimes. He also states yesterday she ate very little. She denies nausea, vomiting, fever or urinary symptoms. She reports intermittent lower abdominal pain since her stent placement last week but she denies pain currently. She reports her lower back pain is chronic and it is not different from her previous pain. She states she takes alot of medication and it is includes morphine for pain. She takes her morphine at night. Related Data Home Medications Medication Instructions Recorded Confirmed aspirin 81 mg PO DAILY 01/21/21 02/25/21 buspirone 10 mg PO BID PRN 01/21/21 02/25/21 fenofibrate 150 mg PO DAILY 01/21/21 02/25/21 gabapentin 400 mg PO BID 01/21/21 02/25/21 lisinopril 10 mg PO DAILY 01/21/21 02/25/21 nifedipine 30 mg PO DAILY 01/21/21 02/25/21 pantoprazole 20 mg PO QPM 01/21/21 02/25/21 ranolazine 500 mg PO BID 01/21/21 02/25/21 ropinirole 0.5 mg PO HS 01/21/21 02/25/21 sertraline 200 mg PO HS 01/21/21 02/25/21 metoprolol succinate 25 mg PO DAILY 02/07/21 02/25/21 cholecalciferol (vitamin D3) 25 mcg PO DAILY 02/15/21 02/25/21 [Vitamin D3] Allergies Allergy/AdvReac Type Severity Reaction Status Date / Time No Known Allergies Allergy Verified 03/03/21 05:38 Review of Systems Review of Systems: All systems reviewed & are unremarkable except as noted in HPI and below PMFSH Past Medical History Medical History Anemia Anxiety Arthritis Chronic narcotic use Chronic pain syndrome COPD (chronic obstructive pulmonary disease) Depression Fracture of fifth metatarsal bone Gastroesophageal reflux disease Hyperlipidemia Hypertension Multiple falls Opiate abuse, episodic DAYNA (obstructive sleep apnea) Renal calculi Restless leg syndrome Surgical History Surgical History History of section History of cholecystectomy History of hernia repair History of hysterectomy Family History Family History Other Heart disease Social History Social History Social History: Surrogate decision maker: Aristeo Salvador, . Code status: Full code. Full code. Smoking status: Current every day smoker Tobacco type: e-cigarettes/vaping Alcohol intake: never Substance use: never Substance use type: does not use Additional living arrangements comments: Resides in [place] her . They have 2 children. Additional occupation/education comments: Not employed. Gender identity (if verbalized by the patient): Female Spiritual care concerns: No Exam Const: General: no acute distress and alert Orientation/consciousness: patient oriented x3 HENMT: Head: normocephalic and atraumatic Face and sinus: face symmetric Mouth: Yes Normal oral and palatal mucosa present, Yes lip normal, Yes oropharynx normal and Yes moist mucous membranes Eyes: EOM: EOMs intact bilaterally Resp: Effort & Inspection: normal respiratory effort and no retractions Auscultation: clear to auscultation bilaterally Cardio: Rate: regular rate Rhythm: regular rhythm Heart sounds: no murmurs GI: GI Palp: Yes Soft to palpation, No Tenderne
[2021-03-03] MEDS: LACTATED RINGERS 1,000 ML 999 ML IV CONT (07:47)
[2021-03-03 07:53] VITALS: BP 137/83; PULSE 97; RESP 17; O2SAT 100
[2021-03-03 08:09] LABS: Add Urine Microscopic? YES; Appearance Urine Cloudy (Clear); Bacteria Urine Trace /hpf; Bilirubin Urine Negative (Negative); Blood Urine 2+ (Negative); Color Urine Amber (Yellow); Glucose Urine UA Negative (Negative); Ketones Urine Trace mg/dL (Negative); Leukocyte Esterase Ur 3+ LEU/UL (Negative); Mucus Urine Rare /lpf; Nitrate Urine Negative (Negative); Protein Urine 2+ mg/dL (Negative); RBC Urine >75 /hpf (0-2); Specific Grav Ur 1.016 (1.001-1.035); Urobilinogen Urine Negative mg/dL (<2.0); WBC Urine >75 /hpf
[2021-03-03 08:38] LABS: Basophils Percent Auto 0.3 % (0.2-1.2); Eosinophils Absolute Auto 0.1 K/mm3 (0-0.3); Eosinophils Percent Auto 0.8 % (0-4.4); Hematocrit 31.7 % (37.0-47.0); Hemoglobin 10.2 g/dL (12.0-15.0); Immature Granulocyte Absolute 0.06 K/mm3 (0.00-0.031); Immature Granulocyte Percent A 0.9 % (0-0.5); Lymphocytes Absolute Auto 0.65 K/mm3 (0.9-3.2); Lymphocytes Percent Auto 10.2 % (18.3-44.2); Mean Corpuscular HGB Conc 32.2 g/dl (32-36); Mean Corpuscular Hemoglobin 31.1 pg (26-34); Mean Corpuscular Volume 96.6 fl (80-100); Monocytes Absolute Auto 0.4 K/mm3 (0.1-0.6); Neutrophils Absolute Auto 5.2 K/mm3 (1.3-6.7); Neutrophils Percent Auto 81.8 % (45.5-73.1); Platelet Count Result 258 k/mm3 (150-375); Red Blood Count 3.28 M/mm3 (4.2-5.4); Red Cell Distribution Width 14.5 % (11.5-14.5); White Blood Count 6.4 K/mm3 (4.5-10.0)
[2021-03-03 08:50] LABS: Alanine Aminotransferase 10 U/L (4-35); Albumin Level 2.9 g/dL (3.5-5.1); Alkaline Phosphatase 60 U/L (38-126); Anion Gap 7 mmol/L (8-16); Aspartate Amino Transferase 35 U/L (14-36); Bilirubin,Total 0.6 mg/dL (0.2-1.3); Blood Urea Nitrogen 14 mg/dL (7-17); Calcium 8.4 mg/dL (8.4-10.2); Carbon Dioxide 23 mmol/L (22-30); Chloride 105 mmol/L (98-107); Estimated CRCL calculation 39 ml/min; Estimated Glomerular Filt Rate 47; Glucose 109 mg/dL (65-105); Potassium 3.3 mmol/L (3.4-5.0); Sodium 135 mmol/L (137-145)
[2021-03-03] MEDS: POTASSIUM CHLORIDE 20 MEQ TABLET 40 MEQ PO (09:14)
[2021-03-03 09:53] VITALS: BP 125/82; PULSE 85; RESP 19; O2SAT 100
== END 2021-03-03 09:57 | disposition home or self-care (01) ==
PROVIDERS: Emergency Provider General Practice; PCP Internal Medicine
DX: N39.0 Urinary tract infection, site not specified (principal); E87.6 Hypokalemia; J44.9 Chronic obstructive pulmonary disease, unspecified; F41.9 Anxiety disorder, unspecified; M19.90 Unspecified osteoarthritis, unspecified site; F32.9 Major depressive disorder, single episode, unspecified; K21.9 Gastro-esophageal reflux disease without esophagitis; E78.5 Hyperlipidemia, unspecified; I10 Essential (primary) hypertension; G47.33 Obstructive sleep apnea (adult) (pediatric); G25.81 Restless legs syndrome; D64.9 Anemia, unspecified; Z87.442 Personal history of urinary calculi; Z79.82 Long term (current) use of aspirin; I44.7 Left bundle-branch block, unspecified; F17.290 Nicotine dependence, other tobacco product, uncomplicated
CPT/HCPCS: 36415; 51701; 70450; 71045; 80053; 81001; 85025; 87086; 93005; 96361; 96365; 99284; A9270; J0696; J7120

== ENCOUNTER 2021-03-15 08:40 | Outpatient (CLI) | payer OTHER, SELFPAY ==
--- NOTE | ~2021-03-15 | XR_ITS ---
EXAMINATION: XR abdomen/kub 1V DATE: 03/15/2021 09:02 INDICATION: Bilateral renal stones TECHNIQUE: A supine view of the abdomen on 2 radiographs was obtained. COMPARISON: KUB dated 02/25/[address] dated 01/22/2021 FINDINGS: Bilateral internal ureteral stents remain in expected positions with loops formed of the regions of t he bilateral renal pelvises sees and the bladder. 9 mm stone at the lower pole of the right kidney. N o other right-sided urolithiasis. There is a 12 x 6 mm cluster of smaller stones, the largest measuri ng up to 5 mm at a lower pole calyx of the left kidney. There appears to be a cluster of about 2 5 ad ditional 2-4 mm stones along side the left internal ureteral stent in the region of the left ureterov esicular junction. 1.5 similar paravertebral density along the right side of the L3 vertebral body wh ich appears to correspond to retained contrast within the transverse colon diverticulum on prior CT. Otherwise unremarkable bowel gas pattern. Cholecystectomy clips in right upper quadrant. Severe spond ylosis at L4-L5. Right femoral head bone island. IMPRESSION: 1. Bilateral nephrolithiasis and bilateral internal ureteral stents with cluster of several small sto mike along side the left internal ureteral stent in the region of the left ureterovesicular junction. Reviewed, dictated and finalized at location [facility]. IMPRESSION: 1. Bilateral nephrolithiasis and bilateral internal ureteral stents with cluste r of several small stones along side the left internal ureteral stent in the re gion of the left ureterovesicular junction.
== END 2021-03-15 08:41 | disposition home or self-care (01) ==
LOC: ANHIMG 08:44
PROVIDERS: PCP Internal Medicine; Visit Provider Urology
DX: N20.0 Calculus of kidney (principal)
CPT/HCPCS: 74018

== ENCOUNTER 2021-03-18 10:06 | Outpatient (CLI) | payer OTHER, SELFPAY ==
[2021-03-18 10:41] LABS: INR 1.1; Prothrombin Time 14.6 Seconds (11.1-14.7)
[2021-03-18 10:42] LABS: Partial Thromboplastin Time 33.9 SECONDS (22.3-36.8)
== END 2021-03-18 10:07 | disposition home or self-care (01) ==
PROVIDERS: PCP Internal Medicine; Visit Provider Urology
DX: N20.0 Calculus of kidney (principal); Z01.818 Encounter for other preprocedural examination
CPT/HCPCS: 36415; 85610; 85730; 87086

== ENCOUNTER → 2021-03-22 04:23 | Outpatient (CLI) | payer OTHER, SELFPAY ==
[2021-03-22 20:06] LABS: SARS-CoV-2 RNA PCR Negative
== END ==
PROVIDERS: PCP Internal Medicine; Visit Provider Urology
DX: Z01.812 Encounter for preprocedural laboratory examination (principal); Z20.822 Contact with and (suspected) exposure to COVID-19
CPT/HCPCS: C9803; U0003; U0005

== ENCOUNTER 2021-03-25 04:01 | Day surgery (SDC) | payer OTHER, SELFPAY ==
[2021-03-17 12:53] VITALS: BMI 26.0
--- NOTE | 2021-03-24 12:37 | WPDANESEPPF ---
Anes - Initial Pre Proc Eval Procedure: Operation Date: 03/25/21 13:30 Proposed Procedures p Cystoscopy, Bilateral Stent Removal, Possible Left Ureterscopy With Stone Extraction, - Jason Jordan MD s Right Extracorporeal Shock Wave Lithotripsy - Jason Jordan MD Date/Time: 03/24/21 12:37 Surgeon: Jason Jordan MD Pre Op Diagnosis: bilateral kidney stones, Kidney CA Patient Data Age: 55 Gender: F Height: 1.6 m Weight: 66.68 kg Allergies Allergy/AdvReac Type Severity Reaction Status Date / Time No Known Allergies Allergy Verified 03/25/21 12:00 Home Medications Medication Instructions Recorded Confirmed Type aspirin 81 mg PO DAILY 01/21/21 03/25/21 History buspirone 10 mg PO BID PRN 01/21/21 03/25/21 History fenofibrate 150 mg PO DAILY 01/21/21 03/25/21 History gabapentin 400 mg PO BID 01/21/21 03/25/21 History lisinopril 10 mg PO DAILY 01/21/21 03/25/21 History nifedipine 30 mg PO DAILY 01/21/21 03/25/21 History pantoprazole 20 mg PO DAILY 01/21/21 03/25/21 History ranolazine 500 mg PO BID 01/21/21 03/25/21 History ropinirole 0.5 mg PO HS 01/21/21 03/25/21 History sertraline 200 mg PO HS 01/21/21 03/25/21 History cholecalciferol (vitamin D3) 25 mcg PO DAILY 02/15/21 03/25/21 History [Vitamin D3] cephalexin 500 mg PO DAILY 03/17/21 03/25/21 History morphine 15 mg PO Q12H PRN MDD pain 03/17/21 03/25/21 History Patient hx anesthesia problems: none Family hx anesthesia problems: none PMFSH Past Medical History Medical History (Updated 03/08/21 @ 13:06 by LORRAINE Brady) Anemia Anxiety Arthritis Chronic narcotic use Chronic pain syndrome COPD (chronic obstructive pulmonary disease) Depression Fracture of 4th metatarsal Fracture of 5th metatarsal Fracture of fifth metatarsal bone Gastroesophageal reflux disease Hyperlipidemia Hypertension Multiple falls Opiate abuse, episodic DAYNA (obstructive sleep apnea) Renal calculi Restless leg syndrome Surgical History Surgical History History of section History of cholecystectomy History of hernia repair History of hysterectomy Family History Family History Other Heart disease Social History Social History Social History: Surrogate decision maker: Aristeo Salvador, . Code status: Full code. Full code. Smoking status: Current every day smoker Tobacco type: e-cigarettes/vaping Alcohol intake: never Substance use: never Substance use type: does not use Living arrangements: with family Additional living arrangements comments: Resides in [place] her . They have 2 children. Additional occupation/education comments: Not employed. Gender identity (if verbalized by the patient): Female Spiritual care concerns: No Anes - Eval Final PreProcedure Day of Procedure 03/24/21 12:37 Patient weight: overweight Heart: regular rate and rhythm Lungs: clear to auscultation and normal air movement Airway: Mallampati scale class II Neurological: alert and oriented Last oral intake: >/= 8 hours ASA classification: III Emergent: no Anesthetic plan: proceed Anesthesia type and monitoring: general LMA and standard monitoring Informed Consent: The patient's anesthetic plan and its attendant risks and benefits were discussed with the patient/family/POA. Questions were solicited and answers provided to the satisfaction of the patient/family/POA.
[2021-03-25] VITALS (7 sets, daily range): BP systolic 101–137; BP diastolic 61–94; PULSE 77–87; RESP 12–20; TEMP 36.1–37.5; O2SAT 96–100
--- NOTE | ~2021-03-25 | XR_ITS ---
EXAMINATION: XR abdomen/kub 1V DATE: 03/25/2021 11:52 INDICATION: Kidney stone. Right abdominal pain. TECHNIQUE: A supine view of the abdomen on 2 radiographs was obtained. COMPARISON: Abdomen radiographs 03/15/2021, CT abdomen and pelvis 01/22/2021 FINDINGS: There are no dilated loops of bowel. There are are bilateral internal ureteral stents in ex pected position. There are surgical clips in right abdomen. There is a 10 mm stone in right kidney lo wer pole. There is a cluster of stones in left kidney lower pole with the largest stone measuring 6 m m. A 15 mm calcification overlying the proximal left ureteral stent correlates with an area of chroni c fat necrosis in the peritoneum on the prior CT. There are multiple stones in distal left ureter keyur suring up to 3 mm. IMPRESSION: 1. Stones in the kidneys and distal left ureter with bilateral internal ureteral stents in expected p osition. Reviewed, dictated and finalized at location [facility]. IMPRESSION: 1. Stones in the kidneys and distal left ureter with bilateral internal uretera l stents in expected position.
--- NOTE | 2021-03-25 07:14 | WPDHPUPDATE1 ---
History and Physical Update Update Date/Time: 03/25/21 07:14 History and Physical has been reviewed, including an updated exam of the patient. There are NO changes in the patient's condition. Risks, benefits, and alternatives have been discussed and questions answered. Patient agrees to proceed with procedure.
[2021-03-25] MEDS: LACTATED RINGERS 1,000 ML 30 ML IV CONT (12:30)
[2021-03-25] MEDS: ceFAZolin 2 GM/D5W 50 ML 2 GM/50 ML BAG IVPB (14:33)
--- NOTE | 2021-03-25 15:13 | P.OP_ITS ---
Procedure Note - Detailed Date of procedure: 03/25/21 Pre-op diagnosis: bilateral kidney stones, Kidney CA Post-op diagnosis: same Procedure performed: 1. Cystoscopy with bilateral ureteral stent removal 2. Left ureteroscopy with stone extraction 3. Right retrograde pyelogram 4. Right ESWL Description of procedure: patient brought to the operative suite she has prepped draped in routine sterile fashion while dorsal lithotomy position after the uneventful induction of a general LMA anesthetic. Cystoscopy is undertaken with a 16 F flexible cystoscope. The tip of the indwelling left ureteral stent is grasped and it is removed with ease. A 0.035 in glidewire was advanced in the left renal pelvis and the distal ureter was dilated with an 8 F 10 F dilator. Left ureteroscopy was undertaken with a short tapered semi-rigid ureteral scope. A total of 6 small stone fragments removed from the left distal and mid ureter. Ureteroscopy is undertaken to the ureteropelvic junction and noted no additional stones identified. There is minimal ureteral edema and I opted not to replace the stent. I removed the right ureteral stent performed a right retrograde pyelogram. Patient's us 6-7 mm right renal calculus is in a lower pole calyx. The patient is insistent on stent removal and I opted not to replace on this side either. Right shockwave lithotripsy was undertaken via 2000 shocks at a power setting of 4. There appeared to be good fragmentation. The patient tolerated the procedure well. Anesthesia: GLMA Surgeon: Jason Jordan MD Home Office Claims Examiner: None Drains: No Packing: No Pathology: yes Complications: No immediate complications Condition: stable Disposition: PACU
--- NOTE | 2021-03-25 17:05 | SUR.PHASEII ---
DR GUZMAN WANTS HER TO TAKE ABX 3X A DAY AND THEN GO BACK TO ONCE A DAY.
== END 2021-03-25 17:00 | disposition home or self-care (01) ==
PROVIDERS: PCP Internal Medicine; Visit Provider Urology
PROC: (CPT 52352; principal; 2021-03-25 13:30)
PROC: (CPT 50590; 2021-03-25 13:30)
DX: N20.2 Calculus of kidney with calculus of ureter (principal); I10 Essential (primary) hypertension; E78.5 Hyperlipidemia, unspecified; J44.9 Chronic obstructive pulmonary disease, unspecified; K21.9 Gastro-esophageal reflux disease without esophagitis; D64.9 Anemia, unspecified; F41.8 Other specified anxiety disorders; G89.4 Chronic pain syndrome; G25.81 Restless legs syndrome; Z79.82 Long term (current) use of aspirin; Z79.891 Long term (current) use of opiate analgesic; F17.290 Nicotine dependence, other tobacco product, uncomplicated
CPT/HCPCS: 50590; 52352; 36415; 74018; 82365; 85610; 85730; 87086; 88300; A9270; C1769; C9803; J0690; J1100; J2250; J2370; J2405; J3010; J7120; Q9966; U0003; U0005

== ENCOUNTER 2021-04-12 11:32 | Outpatient (CLI) | payer OTHER, SELFPAY ==
--- NOTE | ~2021-04-12 | XR_ITS ---
XR abdomen/kub 1V 04/12/2021 11:56 Indication: Bilateral kidney stones. Previous lithotripsy. Procedure: KUB Comparison: 03/25/2021 Findings: There are bilateral renal stones, largest in the right kidney measuring up to 11 mm. Status post cholecystectomy. Bowel gas pattern nonobstructive. Moderate colonic fecal loading. There is a r ounded calcification overlying the L3 vertebra, indeterminate. Lung bases unremarkable. Interval dell ed of ureteral stents. Impression: 1: Bilateral nephrolithiasis. Reviewed, dictated and finalized at location [facility]. Impression: 1: Bilateral nephrolithiasis.
== END 2021-04-12 11:33 | disposition home or self-care (01) ==
LOC: ANHIMG 11:34
PROVIDERS: PCP Internal Medicine; Visit Provider Urology
DX: N20.0 Calculus of kidney (principal)
CPT/HCPCS: 74018

== ENCOUNTER 2023-06-27 11:21 | Inpatient (IN) | payer OTHER, SELFPAY ==
--- NOTE | ~2023-06-27 | XR_ITS ---
EXAMINATION: XR hip LT min 2V DATE: 06/28/2023 16:20 INDICATION: Left bipolar hip arthroplasty TECHNIQUE: 2 views left hip FINDINGS: There is a left bipolar hip arthroplasty in expected position. Subcutaneous gas with soft tissue swelling are consistent with recent surgery. Skin genia are noted. IMPRESSION: 1. Recent left bipolar hip arthroplasty. Reviewed, dictated and finalized at location L.
--- NOTE | ~2023-06-27 | XR_ITS ---
XR hip LT 2V w AP pelvis 06/27/2023 12:54 Indication: Left hip pain. Procedure: 3 views left hip including AP pelvis Comparison: 01/22/2021 Findings: There is a mildly displaced left femoral neck fracture. There is osteoarthritis of the hips . Pelvic rings are intact. There is atherosclerosis. Impression: 1: Mildly displaced left femoral neck fracture. Reviewed, dictated and finalized at location B. Impression: 1: Mildly displaced left femoral neck fracture.
[2023-06-27 11:21] VITALS: BP 116/74; PULSE 80; RESP 19; TEMP 37.1; O2SAT 94
[2023-06-27] MEDS: MORPHINE SULFATE (*CRX) 4 MG/ML INJ IV PUSH ×2 (11:40→17:02)
[2023-06-27 12:25] VITALS: BP 108/65; PULSE 68; RESP 16; O2SAT 91
[2023-06-27 12:31] LABS: Basophils Percent Auto 0.1 % (0.2-1.2); Eosinophils Percent Auto 0.1 % (0-4.4); Hematocrit 37.5 % (37.0-47.0); Hemoglobin 12.3 g/dL (12.0-15.0); Immature Granulocyte Absolute 0.05 K/mm3 (0.00-0.031); Immature Granulocyte Percent A 0.7 % (0-0.5); Immature Platelet Fraction Pct 3.5 % (0.9-11.2); Lymphocytes Absolute Auto 0.39 K/mm3 (0.9-3.2); Lymphocytes Percent Auto 5.1 % (18.3-44.2); Mean Corpuscular HGB Conc 32.8 g/dl (32-36); Mean Corpuscular Hemoglobin 31.1 pg (26-34); Mean Corpuscular Volume 94.7 fl (80-100); Monocytes Absolute Auto 0.5 K/mm3 (0.1-0.6); Monocytes Percent Auto 6.5 % (2.6-8.5); Neutrophils Absolute Auto 6.7 K/mm3 (1.3-6.7); Neutrophils Percent Auto 87.5 % (45.5-73.1); Platelet Count Result 130 k/mm3 (150-375); Red Blood Count 3.96 M/mm3 (4.2-5.4); Red Cell Distribution Width 13.7 % (11.5-14.5); White Blood Count 7.7 K/mm3 (4.5-10.0)
[2023-06-27 12:39] LABS: Alanine Aminotransferase 26 U/L (6-35); Albumin Level 3.7 g/dL (3.5-5.1); Alkaline Phosphatase 63 U/L (38-126); Anion Gap 8 mmol/L (8-16); Aspartate Amino Transferase 34 U/L (14-36); Blood Urea Nitrogen 14 mg/dL (7-17); Calcium 8.5 mg/dL (8.4-10.2); Carbon Dioxide 25 mmol/L (22-30); Chloride 99 mmol/L (98-107); Estimated CRCL calculation 53 ml/min; Estimated Glomerular Filt Rate > 60; Glucose 111 mg/dL (65-110); Potassium 3.8 mmol/L (3.4-5.0); Sodium 132 mmol/L (137-145)
[2023-06-27 12:40] LABS: INR 1.1; Prothrombin Time 14.8 Seconds (11.1-14.7)
[2023-06-27 12:41] LABS: Partial Thromboplastin Time 27.3 SECONDS (22.3-36.8)
[2023-06-27 13:09] VITALS: BP 109/61; PULSE 69; RESP 16; O2SAT 91
--- NOTE | 2023-06-27 13:25 | PC.NURSE ---
Pt gave verbal consent for son, Hero, to receive updates on her care. Spoke with son, Hero, regarding pt status. Son requested to be updated on plan of care. Hero: [phone]
--- NOTE | 2023-06-27 13:42 | ED.FALL ---
HPI - Fall General Chief Complaint: Fall Stated Complaint: fall - hip injury Time Seen by Provider: 06/27/23 11:24 History of Present Illness HPI Narrative: Patient is a 57-year-old female with history of neuropathy and debility who presents to the ER after a fall at home. She landed on her left side and had sudden onset pain in her left hip. Unable to get back up. Did not strike head or lose consciousness. No numbness or tingling to the lower extremity. Related Data Home Medications Medication Instructions Recorded Confirmed aspirin 81 mg tablet 81 mg PO DAILY 01/21/21 06/02/21 buspirone 10 mg tablet 10 mg PO BID PRN Anxiety 01/21/21 06/02/21 fenofibrate 150 mg capsule 150 mg PO DAILY 01/21/21 06/02/21 lisinopril 10 mg tablet 10 mg PO DAILY 01/21/21 06/02/21 nifedipine 30 mg tablet,extended 30 mg PO DAILY 01/21/21 06/02/21 release pantoprazole 20 mg tablet,delayed 20 mg PO DAILY 01/21/21 06/02/21 release ranolazine 500 mg tablet,extended 500 mg PO BID 01/21/21 06/02/21 release,12 hr sertraline 100 mg tablet 200 mg PO HS 01/21/21 06/02/21 cholecalciferol (vitamin D3) 25 25 mcg PO DAILY 02/15/21 06/02/21 mcg (1,000 unit) tablet (Vitamin D3) cephalexin 500 mg capsule 500 mg PO DAILY 03/17/21 06/02/21 Allergies Allergy/AdvReac Type Severity Reaction Status Date / Time No Known Allergies Allergy Verified 06/27/23 15:09 Review of Systems Review of Systems: All systems reviewed & are unremarkable except as noted in HPI and below Constitutional: Constitutional: Denies chills, Denies fatigue and Denies fever(s) Cardiovascular: Cardiovascular: Reports no additional cardiovascular complaints Respiratory: Respiratory: Reports no additional respiratory complaints Gastrointestinal: Gastrointestinal: Reports no additional gastrointestinal complaints Musculoskeletal: Musculoskeletal: Denies back pain, Reports arthralgias and Denies joint swelling Neurologic: Reports system reviewed and no additional complaints, except as documented PMFSH Past Medical History Medical History (Updated 06/27/23 @ 18:09 by Reid Duggan MD) Anemia Anxiety Arthritis Chronic narcotic use Chronic pain syndrome COPD (chronic obstructive pulmonary disease) Depression Fracture of 4th metatarsal Fracture of 5th metatarsal Fracture of fifth metatarsal bone Gastroesophageal reflux disease Hyperlipidemia Hypertension Left displaced femoral neck fracture Multiple falls Opiate abuse, episodic DAYNA (obstructive sleep apnea) Renal calculi Restless leg syndrome Surgical History Surgical History History of section History of cholecystectomy History of hernia repair History of hysterectomy Family History Family History Other Heart disease Social History Social History Social History: Surrogate decision maker: Aristeo Salvador, . Code status: Full code. Full code. Smoking status: Former smoker Tobacco type: cigarettes Alcohol intake: never Substance use: never Substance use type: does not use Lack of Transportation: No Lack of Food: Never True Current Housing: I Have Housing Concerned About Future Housing: No Difficulty Paying Gas/Electric Bills: No Difficulty Paying for Meds: No Currently Unemployed: No Education: Don't Know Difficulty w/ Childcare or Family Care: No Living arrangements: with family Additional living arrangements comments: Resides in [place] her . They have 2 children. Additional occupation/education comments: Not employed. Gender identity (if verbalized by the patient): Female Sexual Orientation (if Verbalized by the Patient): Straight or Heterosexual Spiritual care concerns: No Exam Narrative: GENERAL: Well-appearing, well-nourished, and in no acute distre
--- NOTE | 2023-06-27 14:03 | PC.NURSE ---
Spoke with Son, Hero ([phone]) regarding pt gave update about the pt being admitted to the hospital
[2023-06-27 14:43] VITALS: BP 106/64; PULSE 63; RESP 20; TEMP 36.1; O2SAT 92
--- NOTE | 2023-06-27 14:50 | ADMGEN ---
This patient, Eulalia Salvador, was admitted to [facility] Surg Room 328-01. Patient/family oriented to hospital policies and general routines including ID bracelet, bed and alarms, visiting hours, pain management, procedures, bathroom and other care routines, personal items, smoking policy, room service/diet, and visiting hours. Information on how to activate the Rapid Response Team has been discussed. Patient/Family are encouraged to report perceived risks to care and to ask questions if they do not understand what they are told or what they should do.
--- NOTE | 2023-06-27 16:22 | PM.IMHP ---
H&P: HPI History of Present Illness Date/Time: 06/27/23 16:22 Chief Complaint: Fall Narrative: This is a 57-year-old female patient has a history of neuropathy and debility who came to the emergency room after she sustained a fall. The patient stated that she had been sitting in her chair and got up out of her chair and was starting to grab for her walker. She stated everything happened so quickly she could not recall what happened and what caused her to fall. She stated that she did not pass out or lose consciousness. She did not hit her head. She denied any presyncopal symptoms. She had no dizziness. No fever no chills no nausea vomiting. She had no complaints of chest pain. The patient stated that she landed on her left side and had sudden onset of left hip pain patient was not able to get back up off the floor. Hip and pelvis CT was read as mildly displaced left femoral neck fracture. The left leg did not appear to be shortened or externally rotated. A Dalton catheter was placed in the emergency room for the patient's comfort. She was given morphine Tylenol Toradol and Zofran in the emergency room. Ortho has been consulted. The patient is being admitted for observation status on the date of service of 06/27/2023. Review of Systems Review of Systems: All systems reviewed & are unremarkable except as noted in HPI and below Constitutional: Constitutional: Reports as per HPI and Reports no additional constitutional complaints Eyes: Eyes: Reports as per HPI and Reports no additional eye complaints ENT: Reports system reviewed and no additional complaints, except as documented and Reports Normal hearing present Cardiovascular: Cardiovascular: Reports no additional cardiovascular complaints Respiratory: Respiratory: Reports no additional respiratory complaints and Reports no additional respiratory complaints Gastrointestinal: Gastrointestinal: Reports as per HPI and Reports no additional gastrointestinal complaints Musculoskeletal: Musculoskeletal: Reports no additional musculoskeletal complaints Integumentary/Breasts: Skin/Breast: Reports system reviewed and no additional complaints, except as docu and Reports as per HPI Neurologic: Reports system reviewed and no additional complaints, except as documented, Reports as per HPI and Reports Normal hearing present Psychiatric: Psychiatric: Reports no additional psychiatric complaints and Reports as per HPI Endocrine: Endocrine: Reports no additional endocrine complaints Hematologic/Lymphatic: Hematologic/Lymphatic: Reports no additional hematologic/lymphatic complaints Allergic/Immunologic: Allergic/Immunologic: Reports no additional allergic/immunologic complaints [facility] Past Medical History Medical History (Updated 06/28/23 @ 00:04 by Christi Sutherland NP) Anemia Anxiety Arthritis Chronic narcotic use Chronic pain syndrome COPD (chronic obstructive pulmonary disease) Depression Fracture of 4th metatarsal Fracture of 5th metatarsal Fracture of fifth metatarsal bone Gastroesophageal reflux disease Hyperlipidemia Hypertension Left displaced femoral neck fracture Low left ventricular ejection fraction Echo from outside facility on 11/03/2022 was read as an ejection fraction of 35%. Multiple falls Opiate abuse, episodic DAYNA (obstructive sleep apnea) Pacemaker Renal calculi Restless leg syndrome Surgical History Surgical History History of section History of cholecystectomy History of hernia repair History of hysterectomy Family History Family History Other Heart disease Social History Social History (Updated 06/27/23 @ 23:45 by Christi Sutherland NP) Social History: . She lives home alone and is . She has 2 children. She uses a walker to ambulate and is disabled. She still continues to vape. She denies any alcohol or illicit
--- NOTE | 2023-06-27 16:50 | PM.CNOR ---
Assessment and Plan Assessment and plan (1) Left displaced femoral neck fracture: Code(s): S72.002A - Fracture of unspecified part of neck of left femur, initial encounter for closed fracture Status: Acute Assessment and Plan: New patient evaluation for chief complaint left hip fracture. History, physical exam and radiographs reviewed with the patient. Discussed the condition, nature, etiology and course of natural history with the patient. Treatment options including surgical and nonoperative treatment were reviewed. Risks and benefits of each as well as alternatives reviewed. The patient's questions were answered. Conservative treatment ice , pain control, mechanical DVT prophylaxis. patient desires operative treatment. Discussed nonoperative and operative treatment options with the patient. Risks and benefits of each as well as alternatives were reviewed. All of the patient's questions were answered. The risks of surgery reviewed including but not limited to: Neurovascular damage, wound complication, infection, blood clot, pulmonary embolus, stroke, myocardial infarction, and anesthetic risks up to and including . Continued pain and possible dysfunction were explained. Specific risks of the procedure including later recurrence of deformity. No guarantees were offered. If hardware used, discussed risk of failure/ breakage and possible need for removal. If complications occur, the patient understands the need for further treatment, possible further surgery. Patient verbalizes understanding and wishes to proceed. PLAN: Left hip bipolar hemiarthroplasty (2) Lumbar spondylolysis: Code(s): M43.06 - Spondylolysis, lumbar region Status: Acute Assessment and Plan: Previously saw neurologist. C/O low back pain, stable for now. Will reevaluate after surgery. History of Present Illness HPI Consult date: 06/28/23 Requesting physician: Ried Duggan MD Chief complaint: left femoral neck fracture Narrative: 57-year-old woman who lost her balance and fell when trying to get up from a seated position today. Fell onto her left side. Pain in the left hip in difficulty with bearing weight. Presented to the emergency room where radiographs show a femoral neck fracture. Admitted for further care. Review of Systems Constitutional: Constitutional: Denies fever(s) Eyes: Eyes: Denies blurry vision ENT: Reports Normal hearing present Cardiovascular: Cardiovascular: Denies chest pain and Denies dyspnea Respiratory: Respiratory: Denies dyspnea and Denies wheezing Gastrointestinal: Gastrointestinal: Denies abdominal pain Genitourinary: Genitourinary: Denies urinary urgency Musculoskeletal: Musculoskeletal: Reports as per HPI and Denies numbness Integumentary/Breasts: Skin/Breast: Denies changing lesions and Denies sores Neurologic: Reports Normal hearing present, Denies behavioral changes, Denies confusion, Denies numbness and Denies convulsions Psychiatric: Psychiatric: Denies behavioral changes, Denies confusion and Denies hallucinations Endocrine: Endocrine: Denies heat intolerance Hematologic/Lymphatic: Hematologic/Lymphatic: Denies easy bleeding Allergic/Immunologic: Allergic/Immunologic: Denies wheezing PMFSH Past Medical History Medical History (Updated 06/28/23 @ 09:13 by Maximino Olmedo MD) Anemia Anxiety Arthritis Chronic narcotic use Chronic pain syndrome COPD (chronic obstructive pulmonary disease) Depression Fracture of 4th metatarsal Fracture of 5th metatarsal Fracture of fifth metatarsal bone Gastroesophageal reflux disease Hyperlipidemia Hypertension Left displaced femoral neck fracture Low left ventricular ejection fraction Echo from outside facility on 11/03/2022 was read as an ejection fraction of 35%. Lumbar spondylolysis Multiple falls Opiate abuse, episodic DAYNA (obstructive sleep apnea) Pacemaker Renal calculi Restless leg syndrome Surg
[2023-06-27 20:00] VITALS: PULSE 63; RESP 20; O2SAT 92
[2023-06-27] MEDS: ONDANSETRON INJ 4 MG/2 ML VIAL IV PUSH (21:48)
[2023-06-27 22:00] VITALS: BP 110/71; PULSE 67; RESP 18; TEMP 36.3; O2SAT 91
[2023-06-28] VITALS (14 sets, daily range): BP systolic 84–109; BP diastolic 43–79; PULSE 56–88; RESP 11–18; TEMP 36.1–37.1; O2SAT 91–100; BMI 20.5
--- NOTE | 2023-06-28 | ECG_ITS ---
Measurements Intervals [place] Rate: 65 P: 71 DC: 134 QRS: -42 QRSD: 131 T: 125 QT: 456 QTc: 477 Interpretive Statements SINUS RHYTHM MARKED LEFT AXIS DEVIATION [QRS AXIS < -30] LEFT BUNDLE BRANCH BLOCK [120+ ms QRS DURATION, 80+ ms Q/S IN V1/V2, 85+ ms R IN I/aVL/V5/V6] COMPARED TO ECG 03/03/2021 07:53:20 NO SIGNIFICANT CHANGES Electronically Signed On 06-28-2023 11:00:48 CDT by Robert Yeager M.D.
--- NOTE | 2023-06-28 06:26 | PC.NURSE ---
Reported to Dr. Camacho that patient's braun emptied this morning and urine was foul smelling with a lot of sediment. New order received for UA.
[2023-06-28 06:27] LABS: Basophils Percent Auto 0.1 % (0.2-1.2); Hemoglobin 12.4 g/dL (12.0-15.0); Immature Granulocyte Absolute 0.06 K/mm3 (0.00-0.031); Immature Granulocyte Percent A 0.6 % (0-0.5); Lymphocytes Absolute Auto 0.65 K/mm3 (0.9-3.2); Mean Corpuscular HGB Conc 32.6 g/dl (32-36); Mean Corpuscular Hemoglobin 31.2 pg (26-34); Mean Corpuscular Volume 95.7 fl (80-100); Mean Platelet Volume 10.8 fl (7.4-10.4); Monocytes Absolute Auto 0.7 K/mm3 (0.1-0.6); Monocytes Percent Auto 6.8 % (2.6-8.5); Neutrophils Absolute Auto 9.4 K/mm3 (1.3-6.7); Neutrophils Percent Auto 86.5 % (45.5-73.1); Platelet Count Result 136 k/mm3 (150-375); Red Blood Count 3.97 M/mm3 (4.2-5.4); Red Cell Distribution Width 13.7 % (11.5-14.5); White Blood Count 10.9 K/mm3 (4.5-10.0)
[2023-06-28 06:42] LABS: Alanine Aminotransferase 35 U/L (6-35); Albumin Level 3.5 g/dL (3.5-5.1); Alkaline Phosphatase 75 U/L (38-126); Anion Gap 3 mmol/L (8-16); Aspartate Amino Transferase 46 U/L (14-36); Bilirubin,Total 0.6 mg/dL (0.2-1.3); Blood Urea Nitrogen 26 mg/dL (7-17); Calcium 8.6 mg/dL (8.4-10.2); Carbon Dioxide 26 mmol/L (22-30); Chloride 101 mmol/L (98-107); Estimated CRCL calculation 34 ml/min; Estimated Glomerular Filt Rate 42; Glucose 140 mg/dL (65-110); Magnesium 1.8 mg/dL (1.6-2.3); Potassium 3.8 mmol/L (3.4-5.0); Sodium 130 mmol/L (137-145)
[2023-06-28 07:19] LABS: Thyroid Stimulating Hormone Reflex 0.391 uIU/mL (0.465-4.68)
[2023-06-28] MEDS: MORPHINE SULFATE (*CRX) 4 MG/ML INJ IV PUSH ×2 (08:46→12:53)
[2023-06-28] MEDS: NIFEdipine 30 MG TAB.ER.24 PO (08:47)
[2023-06-28] MEDS: lisinopriL 10 MG TABLET PO (08:47)
[2023-06-28] MEDS: PANTOPRAZOLE SOD SESQUIHYDRATE 20 MG TAB PO (08:48)
[2023-06-28] MEDS: RANOLAZINE 500 MG TAB.ER.12H PO ×2 (08:49→20:55)
[2023-06-28 09:03] LABS: Free T4 Free Thyroxine Reflex 1.22 ng/dL (0.78-2.19)
--- NOTE | 2023-06-28 09:15 | WPDHPUPDATE1 ---
History and Physical Update Update Date/Time: 06/28/23 09:15 History and Physical has been reviewed, including an updated exam of the patient. There are NO changes in the patient's condition. Risks, benefits, and alternatives have been discussed and questions answered. Patient agrees to proceed with procedure.
[2023-06-28 10:29] LABS: Total Triiodothyronine (T3) 0.68 NG/ML (0.97-1.69)
[2023-06-28 11:07] LABS: Appearance Urine Turbid (Clear); Bacteria Urine 4+ /hpf; Bilirubin Urine Negative (Negative); Blood Urine 3+ (Negative); Color Urine Dark Yellow (Yellow); Glucose Urine UA Negative (Negative); Hyaline Casts Urine Present /lpf; Ketones Urine Negative (Negative); Leukocyte Esterase Ur 3+ LEU/UL (Negative); Need Manual Microscopic Reviewed; Nitrate Urine Negative (Negative); Non Pathogenic Casts >20; Protein Urine 3+ mg/dL (Negative); RBC Urine 0-2 /hpf (0-2); Specific Grav Ur 1.013 (1.001-1.035); Squamous Epithelial Cell Urine Moderate /hpf (Few); WBC Urine >100 /hpf; pH Urine 5.5 (5.0-9.0)
[2023-06-28 11:08] LABS: Add Urine Microscopic? YES
--- NOTE | 2023-06-28 11:41 | PM.IMPN ---
Progress Note: A&P Assessment and Plan (1) Left displaced femoral neck fracture: Code(s): S72.002A - Fracture of unspecified part of neck of left femur, initial encounter for closed fracture Status: Acute Assessment and Plan: Ortho has been consulted. Patient is agreeable to being a full code while she has surgery, but would like to be a DNR after she has recovered. Left hip bipolar hemiarthroplasty planned 06/28 (2) DAYNA (obstructive sleep apnea): Code(s): G47.33 - Obstructive sleep apnea (adult) (pediatric) Status: Acute Assessment and Plan: Continue with home settings for CPAP. (3) Depression: Code(s): F32.9 - Major depressive disorder, single episode, unspecified Status: Acute Assessment and Plan: Continue with Zoloft and BuSpar (4) COPD (chronic obstructive pulmonary disease): Code(s): J44.9 - Chronic obstructive pulmonary disease, unspecified Status: Acute Assessment and Plan: Encourage incentive spirometer. (5) Hyperlipidemia: Qualifiers: Hyperlipidemia type: unspecified Qualified Code(s): E78.5 - Hyperlipidemia, unspecified Code(s): E78.5 - Hyperlipidemia, unspecified Status: Chronic Assessment and Plan: Continue fenofibrate and atorvastatin (6) Hypertension: Qualifiers: Hypertension type: essential hypertension Qualified Code(s): I10 - Essential (primary) hypertension Code(s): I10 - Essential (primary) hypertension Status: Chronic Assessment and Plan: Continue with lisinopril (7) Low left ventricular ejection fraction: Code(s): R94.30 - Abnormal result of cardiovascular function study, unspecified Status: Acute Assessment and Plan: Last echo 08/01/2022 EF was read as 35% Plan DVT prophylaxis with SCDs GI prophylaxis not indicated Code status full code Subjective Date/time seen: 06/28/23 11:41 Interval history: No overnight events noted. No chest pain or shortness of breath. No nausea, vomiting or diarrhea. No fevers or chills. Review of Systems Review of Systems: 12 point review of systems was assessed and was negative except as noted in the HPI Exam Narrative: General: No acute distress, alert and oriented per baseline HEENT: Atraumatic, normocephalic, mucous membranes moist CV: Regular rate and rhythm, S1, S2 Lungs: Clear to auscultation bilaterally, no rales or crackles noted, no wheezes, good air entry Abdomen: Soft, nontender, nondistended Extremities: Normal to inspection Skin: No rashes noted, no lesions or wounds seen Psych: Euthymic, normal affect Objective Data Vital Signs Vital Signs: Vital Signs - 24 hr 06/27/23 12:25 06/27/23 13:09 06/27/23 14:43 Temperature 96.9 F L Pulse Rate 68 69 63 Respiratory Rate 16 16 20 Blood Pressure 108/65 109/61 106/64 Pulse Oximetry 91 91 92 Oxygen Delivery 06/27/23 20:00 06/27/23 22:00 06/28/23 06:00 Temperature 97.4 F L 97.2 F L Pulse Rate 63 67 68 Respiratory Rate 20 18 18 Blood Pressure 110/71 109/63 Pulse Oximetry 92 91 93 Oxygen Delivery Room Air Intake/Output Intake/Output: Intake & Output 06/25/23 06/26/23 06/27/23 06/28/23 23:59 23:59 23:59 23:59 Intake Total 590 Output Total 450 Balance 590 -450 Meds/Results Medications: Active Medications Generic Name Dose Route Start Last Admin Trade Name Freq PRN Reason Stop Dose Admin Acetaminophen 650 mg 06/27/23 13:47 Acetaminophen 325 Mg Tablet PO Q4H PRN Mild Pain (1-3) or Fever Hydrocodone Bitart/Acetaminophen 1 tab 06/27/23 13:47 Hydrocodone/Acetaminophen (*Crx) 5-325 Mg Tablet PO Q4H PRN Pain Rated 4-6 Albuterol 2.5 mg 06/28/23 00:02 Albuterol Sulfate Neb 2.5 Mg/3 Ml Inh INHALATION Q4HRT PRN Shortness Of Breath Aspirin 81 mg 06/28/23 08:00 06/28/23 10:37 Aspirin 81 Mg [place]
[2023-06-28] MEDS: LACTATED RINGERS 1,000 ML 30 ML IV CONT ×2 (12:35→16:04)
[2023-06-28] MEDS: KETOROLAC 15 MG/ML VIAL (*BKC) IV PUSH (12:37)
[2023-06-28] MEDS: ACETAMINOPHEN 500 MG TABLET 1000 MG PO (12:37)
--- NOTE | 2023-06-28 12:41 | PC.NURSE ---
To OR per bed, IV 1230. Report given to MORELIA Pagan.
--- NOTE | 2023-06-28 13:16 | WPDANESEPPF ---
Anes - Initial Pre Proc Eval Procedure: Operation Date: 06/28/23 12:30 Proposed Procedures p Left Bipolar Hip Replacement - Maximino Olmedo MD Date/Time: 06/28/23 13:16 Surgeon: Mckenzie Fowler DO Pre Op Diagnosis: left femoral neck fracture Patient Data Age: 57 Gender: F Height: 1.57 m Weight: 50.8 kg Last Vital Signs Temp 36.2 C L 06/28/23 06:00 Pulse 68 06/28/23 06:00 Resp 18 06/28/23 06:00 BP 109/63 06/28/23 06:00 Pulse Ox 93 06/28/23 06:00 O2 Del Method Room Air 06/27/23 20:00 Allergies Allergy/AdvReac Type Severity Reaction Status Date / Time No Known Allergies Allergy Verified 06/27/23 15:09 Home Medications Medication Instructions Recorded Confirmed Type aspirin 81 mg tablet 81 mg PO DAILY 01/21/21 06/27/23 History buspirone 10 mg tablet 10 mg PO BID PRN Anxiety 01/21/21 06/27/23 History fenofibrate 150 mg capsule 145 mg PO DAILY 01/21/21 06/27/23 History lisinopril 10 mg tablet 10 mg PO DAILY 01/21/21 06/27/23 History nifedipine 30 mg tablet,extended 30 mg PO DAILY 01/21/21 06/27/23 History release pantoprazole 20 mg tablet,delayed 20 mg PO DAILY 01/21/21 06/27/23 History release ranolazine 500 mg tablet,extended 500 mg PO BID 01/21/21 06/27/23 History release,12 hr sertraline 100 mg tablet 200 mg PO HS 01/21/21 06/27/23 History cholecalciferol (vitamin D3) 25 25 mcg PO DAILY 02/15/21 06/27/23 History mcg (1,000 unit) tablet (Vitamin D3) atorvastatin 10 mg tablet 10 mg PO DAILY 06/27/23 06/27/23 History gabapentin 400 mg capsule 600 mg PO TID 06/27/23 06/27/23 History magnesium oxide 400 mg PO BID 06/27/23 06/27/23 History trazodone 50 mg tablet 50 mg PO DAILY PRN Insomnia 06/27/23 06/27/23 History Laboratory Tests 06/28/23 06/28/2323 00:50 06:15 10:41 WBC 10.9 H K/mm3 (4.5-10.0) RBC 3.97 L M/mm3 (4.2-5.4) Hgb 12.4 g/dL (12.0-15.0) Hct 38.0 % (37.0-47.0) MCV 95.7 fl (80-100) MCH 31.2 pg (26-34) MCHC 32.6 g/dl (32-36) RDW 13.7 % (11.5-14.5) Plt Count 136 L k/mm3 (150-375) MPV 10.8 H fl (7.4-10.4) Immature Gran % (Auto) 0.6 H % (0-0.5) Neut % (Auto) 86.5 H % (45.5-73.1) Lymph % (Auto) 6.0 L % (18.3-44.2) [place] % (Auto) 6.8 % (2.6-8.5) Eos % (Auto) 0.0 % (0-4.4) Baso % (Auto) 0.1 L % (0.2-1.2) Lymph # (Auto) 0.65 L K/mm3 (0.9-3.2) [place] # (Auto) 0.7 H K/mm3 (0.1-0.6) Eos # (Auto) 0.0 K/mm3 (0-0.3) Baso # (Auto) 0.0 K/mm3 (0.0-0.1) Abs Immat Gran (auto) 0.06 H K/mm3 (0.00-0.031) Absolute Neuts (auto) 9.4 H K/mm3 (1.3-6.7) Absolute Nucleated RBC 0.0 K/mm3 (0.0-0.012) Nucleated RBC % 0.0 % (0.0-0.2) Sodium 130 L mmol/L (137-145) Potassium 3.8 mmol/L (3.4-5.0) Chloride 101 mmol/L (98-107) Carbon Dioxide 26 mmol/L (22-30) Anion Gap 3 L mmol/L (8-16) BUN 26 H D mg/dL (7-17) Creatinine 1.30 H mg/dL (0.7-1.0) Estim Creat Clear Calc 34 ml/min Estimated GFR 42 L (59 - ) Glucose 140 H mg/dL (65-110) Lactic Acid 1.0 mmol/L (0.7-2.0) Calcium 8.6 mg/dL (8.4-10.2) Magnesium 1.8 mg/dL (1.6-2.3) Total Bilirubin 0.6 mg/dL (0.2-1.3) AST 46 H U/L (14-36) ALT 35 U/L (6-35) Alkaline Phosphatase 75 U/L (38-126) Total Protein 6.0 L g/dL (6.3-8.2) Albumin 3.5 g/dL (3.5-5.1) TSH (Reflex) 0.391 L uIU/mL (0.465-4.68) Free T4 1.22 ng/dL (0.78-2.19) Total T3 0.68 L NG/ML (0.97-1.69) Urine Color Dark yellow (Yellow) Urine Appearance Turbid H (Clear) Urine pH 5.5 (5.0-9.0) Ur Specific
--- NOTE | 2023-06-28 14:16 | W.PM.PROC2 ---
Procedure Note - Detailed Date of Procedure 06/28/23 Pre-op Diagnosis left femoral neck fracture Post-op Diagnosis Same Procedure Performed LT hip biopolar Surgeon Maximino Olmedo MD Employment Advisor FA Anesthesia General Indications 57yo woman fell and has left hip fracture. Indicated for bipolar. Desires operastive treatment. Description of Procedure After informed consent was given, the operative extremity was marked in the preoperative holding area. The patient received intravenous antibiotics. Patient was brought to the operating room where they underwent a general anesthetic. Positioned in thelateral decubitus position nonop side down and the operative hip up. The left hip was then prepped and draped in the usual sterile surgical fashion using ChloraPrep skin solution. Time-out performed confirming the patient, side of the surgery, and the plan. A longitudinal incision was then made over the lateral side of the hip with the 10-blade knife. Hemostasis was controlled with electrocautery. Dissection was carried down through the fascia, which was incised in line with the skin incision. Subfascial retractor was placed. The abductor musculature was then elevated off the lateral side of the femur leaving a cuff of tissue for repair. The short abductor musculature was then elevated off the capsule and retention sutures were placed at the corner. The capsule was then incised in line with the femoralneck and T'd at the base. This allowed exposure of the fracture. The fracture hematoma was evacuated. Proximal femoral cutting guide was used to make a femoral neck cut at 2 cm above the lesser trochanter. This bone was removed with a rongeur. We then removed the head with a corkscrew. This was measured on the back table. Trialing of the acetabulum was done and a size 44 mm had excellent fit. The acetabulum was thoroughly irrigated and suctioned. Part of the fovea was removed with cautery. The rest of the acetabulum was inspected and noted to be with minimal degenerative changes. The proximal femur was then prepared. A posterior femoral retractor elevator was placed and a box cutting chisel was used to enter the femoral canal. We then used the canal finder. Broaching was then performed sequentially in 1 mm increments from a size 4 up to a size 14. This was noted to have excellent fit. We then trialed the hip. Excellent fit, stability with external and internal rotation at full extension and flexion of his hip and leg shuck were noted. The trial components were then removed. There was thorough irrigation with antibiotic solution of the proximal femur, acetabulum, and the wound. The femoral stem was then impacted into place. Good fit was noted. Trialing was once again performed and a - stem with a mm acetabular cup had excellent stability and range of motion. The trial components were removed and the 28 mm head and 44mm acetabular cup were then impacted onto the femoral stem. The hip was then reduced once again, taken through full range of motion and noted to be stable with the leg extended in full external and internal rotation with the hip flexed to 90 degrees with internal and external rotation. There was equal leg length noted. Wound was thoroughly irrigated with antibiotic solution. The capsule was repaired with #1 Vicryl interrupted suture. The abductors were repaired back with #1 Vicryl interrupted suture. The fascia was repaired with 0 Vicryl running suture. Subcutaneous tissue was repaired in layers with 2-0 Vicryl interrupted suture. Skin repaired with genia. A sterile dressing was placed. A hip abduction pillow was applied. The patient was then returned supine, extubated after awakening from anesthesia, and taken to the recovery room in stable condition. All sponge and instrument counts were correct at the end of the case. Implants [employer] taperlok size 14 , +0 44mm head Estimated Blood Loss 100 Urine Output 450 Drains No Packin
[2023-06-28] MEDS: ceFAZolin 2 GM/D5W 50 ML 2 GM/50 ML BAG IVPB (14:23)
[2023-06-28] MEDS: TRANEXAMIC ACID 1,000MG/ISO100 1,000 MG/100 ML BAG 200 MG IVPB (14:43)
[2023-06-28] MEDS: BUPIVACAINE/EPINEPHRINE 0.5% 50 ML VIAL 20 ML INFILTRATE (14:55)
--- NOTE | 2023-06-28 16:56 | SUR.PHASEI ---
Anesthesia aware of soft BP. No treatment at this time.
--- NOTE | 2023-06-28 17:28 | SUR.PHASEI ---
1721: RN tried to call floor RN and she has to call back.
[2023-06-28] MEDS: SENNA/DOCUSATE SODIUM TABLET 2 TAB PO (18:41)
[2023-06-28] MEDS: GABAPENTIN 300 MG CAPSULE 600 MG PO (18:41)
[2023-06-28] MEDS: MAGNESIUM OXIDE 400 MG TABLET PO (18:42)
[2023-06-28] MEDS: KCL 20 MEQ/D5/0.45% SOD CHL 1,000 ML 80 ML IV CONT (18:42)
--- NOTE | 2023-06-28 20:01 | PC.NURSE ---
Returned from OR per bed at 1740. Report received from MORELIA Varner.
[2023-06-28] MEDS: HYDROcodone/acetaminophen (*CRX) 5-325 MG TABLET 1 TAB PO (20:55)
[2023-06-28] MEDS: SERTRALINE HCL 50 MG TABLET 200 MG PO (20:55)
[2023-06-28] MEDS: ceFAZolin 1 GM/NS 50 ML 1 GM/50 ML BAG IVPB (20:56)
[2023-06-28] MEDS: traZODone HCL 50 MG TABLET PO (21:06)
[2023-06-29] VITALS (10 sets, daily range): BP systolic 78–126; BP diastolic 40–67; PULSE 77–84; RESP 16–18; TEMP 36.4–38.3; O2SAT 90–100; BMI 10.0
[2023-06-29] MEDS: ceFAZolin 1 GM/NS 50 ML 1 GM/50 ML BAG IVPB ×2 (04:59→11:27)
[2023-06-29] MEDS: KCL 20 MEQ/D5/0.45% SOD CHL 1,000 ML 80 ML IV CONT (05:50)
[2023-06-29] MEDS: ACETAMINOPHEN 325 MG TABLET 650 MG PO ×2 (05:51→23:30)
--- NOTE | 2023-06-29 06:06 | PC.NURSE ---
Spoke with Dr. Camacho r/t patient having elevated temp of 100.4. MD says to give PRN tylenol. Then called back to tell MD that patient UO 250 ml for this shift per braun and BP 80's/40's. New order received for NS 1000 ml bolus x1.
[2023-06-29 06:13] LABS: Basophils Percent Auto 0.2 % (0.2-1.2); Eosinophils Absolute Auto 0.1 K/mm3 (0-0.3); Eosinophils Percent Auto 1.3 % (0-4.4); Hematocrit 30.5 % (37.0-47.0); Hemoglobin 10.1 g/dL (12.0-15.0); Immature Granulocyte Absolute 0.04 K/mm3 (0.00-0.031); Immature Granulocyte Percent A 0.9 % (0-0.5); Lymphocytes Absolute Auto 0.33 K/mm3 (0.9-3.2); Lymphocytes Percent Auto 7.3 % (18.3-44.2); Mean Corpuscular HGB Conc 33.1 g/dl (32-36); Mean Corpuscular Hemoglobin 31.8 pg (26-34); Mean Corpuscular Volume 95.9 fl (80-100); Mean Platelet Volume 11.5 fl (7.4-10.4); Monocytes Absolute Auto 0.5 K/mm3 (0.1-0.6); Monocytes Percent Auto 10.5 % (2.6-8.5); Neutrophils Absolute Auto 3.6 K/mm3 (1.3-6.7); Neutrophils Percent Auto 79.8 % (45.5-73.1); Platelet Count Result 100 k/mm3 (150-375); Red Blood Count 3.18 M/mm3 (4.2-5.4); Red Cell Distribution Width 13.9 % (11.5-14.5); White Blood Count 4.6 K/mm3 (4.5-10.0)
[2023-06-29] MEDS: SODIUM CHLORIDE 0.9% IV 1,000 ML 999 ML IV CONT ×3 (06:18→16:12)
[2023-06-29 06:27] LABS: Alanine Aminotransferase 23 U/L (6-35); Albumin Level 2.6 g/dL (3.5-5.1); Alkaline Phosphatase 65 U/L (38-126); Anion Gap 2 mmol/L (8-16); Aspartate Amino Transferase 54 U/L (14-36); Bilirubin,Total 0.5 mg/dL (0.2-1.3); Blood Urea Nitrogen 32 mg/dL (7-17); Calcium 7.4 mg/dL (8.4-10.2); Carbon Dioxide 25 mmol/L (22-30); Chloride 99 mmol/L (98-107); Estimated CRCL calculation 32 ml/min; Estimated Glomerular Filt Rate 39; Glucose 124 mg/dL (65-110); Potassium 3.8 mmol/L (3.4-5.0); Sodium 126 mmol/L (137-145)
[2023-06-29] MEDS: SENNA/DOCUSATE SODIUM TABLET 2 TAB PO (09:08)
[2023-06-29] MEDS: PANTOPRAZOLE SOD SESQUIHYDRATE 20 MG TAB PO (09:09)
[2023-06-29] MEDS: polyethylene glycoL 3350 17 GM POWD.PACK PO (09:09)
[2023-06-29] MEDS: ATORVASTATIN 10 MG TABLET PO (09:10)
[2023-06-29] MEDS: FENOFIBRATE NANOCRYSTALLIZED 145 MG TABLET PO (09:10)
[2023-06-29] MEDS: GABAPENTIN 300 MG CAPSULE 600 MG PO ×3 (09:10→16:13)
[2023-06-29] MEDS: MAGNESIUM OXIDE 400 MG TABLET PO ×2 (09:14→16:13)
[2023-06-29] MEDS: FONDAPARINUX SODIUM 2.5 MG/0.5 ML SYRINGE SUB-Q (09:15)
[2023-06-29] MEDS: ASPIRIN 81 MG CHEWABLE TABLET PO (09:15)
[2023-06-29] MEDS: CHOLECALCIFEROL 1,000 UNITS TABLET 1000 UNITS PO (09:15)
--- NOTE | 2023-06-29 09:41 | PM.PNORT ---
Progress Note: A&P Assessment and Plan (1) Femoral neck fracture: Qualifiers: Encounter type: subsequent encounter Fracture type: closed Laterality: left Fracture healing: with routine healing Qualified Code(s): S72.002D - Fracture of unspecified part of neck of left femur, subsequent encounter for closed fracture with routine healing Code(s): S72.009A - Fracture of unspecified part of neck of unspecified femur, initial encounter for closed fracture Status: Acute Assessment and Plan: postoperative day 1 left hip bipolar. Recovery and rehab may be affected by lumbar spondylosis and peripheral neuropathy. Loose stools this a.m.. Labs reviewed. Mild renal impairment. Will continue to follow. PT/OT with weight-bearing as tolerated. Pain control. DVT prophylaxis with Arixtra. May switch to aspirin at discharge. Subjective Subjective Date/Time Seen: 06/29/23 09:41 Post Op day: 1 Principal diagnosis: Left femoral neck fracture Interval history: patient awake. Episode of loose stool this morning. Complains of left hip pain. Exam Const: General: comfortable; No acute distress Resp: Effort & Inspection: normal respiratory effort and no audible wheezes Extrem: Right lower extremity: lower leg ( Negative Homans sign), ankle Details: normal ROM ( dorsiflexion and plantar flexion intact) and foot Details: vascular exam Details: dorsalis pedis pulse present and normal capillary refill, tendon exam Details: active flexion normal and active extension normal and motor-sensory exam Details: light-touch normal Location: in all toes; no edema Left lower extremity: normal to inspection, ankle Details: normal ROM and foot Details: vascular exam Details: dorsalis pedis pulse present and normal capillary refill and motor-sensory exam light-touch normal in all toes; no edema Other: Left hip dressing clean and dry. Objective Data Vital Signs Vital Signs: Vital Signs - 24 hr 06/28/23 12:45 06/28/23 16:04 06/28/23 16:20 Temperature 98.4 F 98.7 F Pulse Rate 63 88 78 Respiratory Rate 16 14 11 L Blood Pressure 98/51 L 96/58 L 94/54 L Pulse Oximetry 93 100 100 Oxygen Delivery Room Air Simple Face Mask Simple Face Mask Oxygen Flow Rate 8 8 06/28/23 16:35 06/28/23 16:50 06/28/23 17:05 Temperature Pulse Rate 69 66 71 Respiratory Rate 14 12 16 Blood Pressure 94/53 L 85/43 L 84/50 L Pulse Oximetry 100 100 98 Oxygen Delivery Simple Face Mask Room Air Room Air Oxygen Flow Rate 8 06/28/23 17:20 06/28/23 17:33 06/28/23 17:36 Temperature 96.9 F L Pulse Rate 63 61 59 L Respiratory Rate 12 13 14 Blood Pressure 102/79 87/53 L 88/44 L Pulse Oximetry 92 93 93 Oxygen Delivery Room Air Room Air Oxygen Flow Rate 06/28/23 18:06 06/28/23 18:48 06/28/23 20:00 Temperature 96.9 F L 97.7 F Pulse Rate 59 L 56 L Respiratory Rate 14 16 Blood Pressure 106/74 98/62 L Pulse Oximetry 93 91 Oxygen Delivery Room Air Oxygen Flow Rate 06/28/23 19:21 06/28/23 23:21 06/29/23 05:51 Temperature 97.3 F L 97.1 F L 100.4 F H Pulse Rate 61 63 Respiratory Rate 16 16 Blood Pressure 101/59 L 99/54 L Pulse Oximetry 96 97 Oxygen Delivery Oxygen Flow Rate 06/29/23 03:21 06/29/23 08:10 06/29/23 07:10 Temperature 100.4 F H 98.3 F Pulse Rate 79 Respiratory Rate 16 Blood Pressure 84/40 L Pulse Oximetry 96 Oxygen Delivery Room Air Oxygen Flow Rate Intake/Output Intake/Output: Intake & Output 06/26/23 06/27/23 06/28/23 06/29/23 23:59 23:59 23:59 23:59 Intake Total 215 02 8772 Output Total 1225 250 Balance 590 -1174 800 Meds/Results Medications: Active Medications Generic Name Dose Route Start Last Admin Trade Name Freq PRN Reason Stop Dose Admin Acetaminophen 650 mg 06/27/23 13:47 06/29/23 05:51 Acetaminophen 325 Mg Tablet PO 650 mg Q4H PRN Administration Mild Pain (1-3) or Fever Acetaminophen 650 mg 06/28/23
--- NOTE | 2023-06-29 12:48 | PM.IMPN ---
Progress Note: A&P Assessment and Plan (1) Left displaced femoral neck fracture: Code(s): S72.002A - Fracture of unspecified part of neck of left femur, initial encounter for closed fracture Status: Acute Assessment and Plan: Ortho has been consulted. Patient is agreeable to being a full code while she has surgery, but would like to be a DNR after she has recovered. Left hip bipolar hemiarthroplasty 06/28 06/29: POD 1 left hip, pain controlled, PT/OT (2) DAYNA (obstructive sleep apnea): Code(s): G47.33 - Obstructive sleep apnea (adult) (pediatric) Status: Acute Assessment and Plan: Continue with home settings for CPAP (3) Depression: Code(s): F32.9 - Major depressive disorder, single episode, unspecified Status: Acute Assessment and Plan: Continue with Zoloft and BuSpar (4) COPD (chronic obstructive pulmonary disease): Code(s): J44.9 - Chronic obstructive pulmonary disease, unspecified Status: Acute Assessment and Plan: Encourage incentive spirometer. (5) Hyperlipidemia: Qualifiers: Hyperlipidemia type: unspecified Qualified Code(s): E78.5 - Hyperlipidemia, unspecified Code(s): E78.5 - Hyperlipidemia, unspecified Status: Chronic Assessment and Plan: Continue fenofibrate and atorvastatin (6) Hypertension: Qualifiers: Hypertension type: essential hypertension Qualified Code(s): I10 - Essential (primary) hypertension Code(s): I10 - Essential (primary) hypertension Status: Chronic Assessment and Plan: Continue with lisinopril (7) Low left ventricular ejection fraction: Code(s): R94.30 - Abnormal result of cardiovascular function study, unspecified Status: Acute Assessment and Plan: Last echo 08/01/2022 EF was read as 35% Plan DVT prophylaxis with arixtra GI prophylaxis with PPI Code status full code Subjective Date/time seen: 06/29/23 12:48 Interval history: No overnight events noted. No chest pain or shortness of breath. No nausea, vomiting or diarrhea. No fevers or chills. pain controlled. no complaints. POD1 hip, doing well. No BM. Review of Systems Review of Systems: 12 point review of systems was assessed and was negative except as noted in the HPI Exam Narrative: General: No acute distress, alert and oriented per baseline HEENT: Atraumatic, normocephalic, mucous membranes moist CV: Regular rate and rhythm, S1, S2 Lungs: Clear to auscultation bilaterally, no rales or crackles noted, no wheezes, good air entry Abdomen: Soft, nontender, nondistended Extremities: Normal to inspection Skin: No rashes noted, no lesions or wounds seen Psych: Euthymic, normal affect Objective Data Vital Signs Vital Signs: Vital Signs - 24 hr 06/28/23 16:04 06/28/23 16:20 06/28/23 16:35 Temperature 98.7 F Pulse Rate 88 78 69 Respiratory Rate 14 11 L 14 Blood Pressure 96/58 L 94/54 L 94/53 L Pulse Oximetry 100 100 100 Oxygen Delivery Simple Face Mask Simple Face Mask Simple Face Mask Oxygen Flow Rate 8 8 8 06/28/23 16:50 06/28/23 17:05 06/28/23 17:20 Temperature Pulse Rate 66 71 63 Respiratory Rate 12 16 12 Blood Pressure 85/43 L 84/50 L 102/79 Pulse Oximetry 100 98 92 Oxygen Delivery Room Air Room Air Room Air Oxygen Flow Rate 06/28/23 17:33 06/28/23 17:36 06/28/23 18:06 Temperature 96.9 F L 96.9 F L Pulse Rate 61 59 L 59 L Respiratory Rate 13 14 14 Blood Pressure 87/53 L 88/44 L 106/74 Pulse Oximetry 93 93 93 Oxygen Delivery Room Air Oxygen Flow Rate 06/28/23 18:48 06/28/23 20:00 06/28/23 19:21 Temperature 97.7 F 97.3 F L Pulse Rate 56 L 61 Respiratory Rate 16 16 Blood Pressure 98/62 L 101/59 L Pulse Oximetry 91 96 Oxygen Delivery Room Air Oxygen Flow Rate 06/28/23 23:21 06/29/23 05:51 06/29/23 03:21 Temperature 97.1 F L 100.4 F H 100.4 F H Puls
--- NOTE | 2023-06-29 13:42 | WPDANESPN ---
Anes - Prog Note Post-Op Date/Time: 06/29/23 13:42 Cardiovascular status: normal Respiratory status: normal Airway patency: baseline Mental status: baseline Post-Op hydration status: normal Vital Signs: Last Vital Signs Temp 98.3 F 06/29/23 07:10 Pulse 79 06/29/23 03:21 Resp 16 06/29/23 03:21 BP 84/40 L 06/29/23 03:21 Pulse Ox 96 06/29/23 03:21 O2 Del Method Room Air 06/29/23 08:10 O2 Flow Rate 8 06/28/23 16:35 Pain Score (VAS): 6 at rest I/O: Intake & Output 06/28/23 06/29/23 06/29/23 23:59 07:59 15:59 Intake Total 50 1050 1000 Output Total 325 250 Balance -326 236 4079 Laboratory Tests 06/29/23 05:35 06/29/23 05:35 06/29/23 05:35 WBC 4.6 RBC 3.18 L Hgb 10.1 L Hct 30.5 L MCV 95.9 MCH 31.8 MCHC 33.1 RDW 13.9 Plt Count 100 L MPV 11.5 H Immature Gran % (Auto) 0.9 H Neut % (Auto) 79.8 H Lymph % (Auto) 7.3 L [place] % (Auto) 10.5 H Eos % (Auto) 1.3 Baso % (Auto) 0.2 Lymph # (Auto) 0.33 L [place] # (Auto) 0.5 Eos # (Auto) 0.1 Baso # (Auto) 0.0 Abs Immat Gran (auto) 0.04 H Absolute Neuts (auto) 3.6 Absolute Nucleated RBC 0.0 Nucleated RBC % 0.0 Sodium 126 L Potassium 3.8 Chloride 99 Carbon Dioxide 25 Anion Gap 2 L BUN 32 H Creatinine 1.40 H Estim Creat Clear Calc 32 Estimated GFR 39 L Glucose 124 H Calcium 7.4 L Total Bilirubin 0.5 AST 54 H ALT 23 Alkaline Phosphatase 65 Total Protein 5.0 L Albumin 2.6 L Post-procedural complaints: none Patient Feedback: Patient satisfied with anesthetic care.
[2023-06-29] MEDS: traZODone HCL 50 MG TABLET PO (21:42)
[2023-06-29] MEDS: RANOLAZINE 500 MG TAB.ER.12H PO (21:42)
[2023-06-29] MEDS: SERTRALINE HCL 50 MG TABLET 200 MG PO (21:42)
--- NOTE | 2023-06-29 23:14 | PC.NURSE ---
Spoke with Dr. Camacho at this time r/t patient elevated temp of 101 orally and Urine culture Gram -bacilli. Instructed to give tylenol and Dr. Camacho would look in chart to give further orders.
[2023-06-30 01:00] VITALS: TEMP 39.3
[2023-06-30 02:22] VITALS: TEMP 38.8
[2023-06-30 05:59] LABS: Basophils Percent Auto 0.2 % (0.2-1.2); Eosinophils Absolute Auto 0.1 K/mm3 (0-0.3); Eosinophils Percent Auto 1.2 % (0-4.4); Hematocrit 28.5 % (37.0-47.0); Hemoglobin 9.2 g/dL (12.0-15.0); Immature Granulocyte Absolute 0.05 K/mm3 (0.00-0.031); Lymphocytes Absolute Auto 0.62 K/mm3 (0.9-3.2); Lymphocytes Percent Auto 12.3 % (18.3-44.2); Mean Corpuscular HGB Conc 32.3 g/dl (32-36); Mean Corpuscular Hemoglobin 31.6 pg (26-34); Mean Corpuscular Volume 97.9 fl (80-100); Mean Platelet Volume 10.9 fl (7.4-10.4); Monocytes Absolute Auto 0.5 K/mm3 (0.1-0.6); Monocytes Percent Auto 10.5 % (2.6-8.5); Neutrophils Absolute Auto 3.8 K/mm3 (1.3-6.7); Neutrophils Percent Auto 74.8 % (45.5-73.1); Platelet Count Result 112 k/mm3 (150-375); Red Blood Count 2.91 M/mm3 (4.2-5.4); Red Cell Distribution Width 14.1 % (11.5-14.5); White Blood Count 5.1 K/mm3 (4.5-10.0)
[2023-06-30 06:09] LABS: Alanine Aminotransferase 10 U/L (6-35); Albumin Level 2.4 g/dL (3.5-5.1); Alkaline Phosphatase 58 U/L (38-126); Anion Gap 0 mmol/L (8-16); Aspartate Amino Transferase 49 U/L (14-36); Bilirubin,Total 0.3 mg/dL (0.2-1.3); Blood Urea Nitrogen 29 mg/dL (7-17); Calcium 7.2 mg/dL (8.4-10.2); Carbon Dioxide 22 mmol/L (22-30); Chloride 104 mmol/L (98-107); Estimated CRCL calculation 37 ml/min; Estimated Glomerular Filt Rate 46; Glucose 133 mg/dL (65-110); Potassium 3.5 mmol/L (3.4-5.0); Sodium 126 mmol/L (137-145)
[2023-06-30] MEDS: FONDAPARINUX SODIUM 2.5 MG/0.5 ML SYRINGE SUB-Q (09:30)
[2023-06-30] MEDS: FENOFIBRATE NANOCRYSTALLIZED 145 MG TABLET PO (09:31)
[2023-06-30] MEDS: RANOLAZINE 500 MG TAB.ER.12H PO ×2 (09:31→21:38)
[2023-06-30] MEDS: GABAPENTIN 300 MG CAPSULE 600 MG PO ×3 (09:31→16:59)
[2023-06-30] MEDS: MAGNESIUM OXIDE 400 MG TABLET PO ×2 (09:31→16:59)
[2023-06-30] MEDS: ASPIRIN 81 MG CHEWABLE TABLET PO (09:31)
[2023-06-30] MEDS: NIFEdipine 30 MG TAB.ER.24 PO (09:31)
[2023-06-30] MEDS: CHOLECALCIFEROL 1,000 UNITS TABLET 1000 UNITS PO (09:31)
[2023-06-30] MEDS: ATORVASTATIN 10 MG TABLET PO (09:31)
[2023-06-30] MEDS: PANTOPRAZOLE SOD SESQUIHYDRATE 20 MG TAB PO (09:31)
[2023-06-30] MEDS: lisinopriL 10 MG TABLET PO (09:31)
--- NOTE | 2023-06-30 10:29 | PM.PNORT ---
Progress Note: A&P Assessment and Plan (1) Femoral neck fracture: Qualifiers: Encounter type: subsequent encounter Fracture healing: with routine healing Fracture type: closed Laterality: left Qualified Code(s): S72.002D - Fracture of unspecified part of neck of left femur, subsequent encounter for closed fracture with routine healing Code(s): S72.009A - Fracture of unspecified part of neck of unspecified femur, initial encounter for closed fracture Status: Acute Assessment and Plan: postoperative day 2 left hip bipolar. Recovery and rehab may be affected by lumbar spondylosis and peripheral neuropathy. Labs reviewed. Renal function mildly improved. Will continue to follow. PT/OT with weight-bearing as tolerated. Discontinue hip pillow due to soiling. Pain control. DVT prophylaxis with Arixtra. May switch to aspirin at discharge. Subjective Subjective Date/Time Seen: 06/30/23 10:29 Post Op day: 2 Principal diagnosis: Left femoral neck fracture Interval history: No overnight events noted. No chest pain or shortness of breath. No nausea. Exam Const: General: comfortable; No acute distress or confusion Orientation/consciousness: No confusion Chest: Chest palpation & inspection: normal inspection of the chest Resp: Effort & Inspection: normal respiratory effort and no audible wheezes Cardio: Rate: regular rate Rhythm: regular rhythm Extrem: General: capillary refill normal Right upper extremity: normal to inspection Left upper extremity: normal to inspection Right lower extremity: normal to inspection, hip/thigh Details: normal to inspection and normal ROM; no tenderness and no swelling, knee Details: no tenderness and no swelling, lower leg ( Negative Homans sign), ankle Details: normal ROM ( dorsiflexion and plantar flexion intact) and foot Details: vascular exam Details: dorsalis pedis pulse present and normal capillary refill, tendon exam Details: active flexion normal and active extension normal and motor-sensory exam Details: light-touch normal Location: in all toes; no edema Left lower extremity: normal to inspection, hip/thigh Details: tenderness Location: of the hip Location: laterally and anteriorly, swelling Location: of the hip and abnormal ROM Details: pain with passive ROM (Full motion deferred secondary to fracture) Details: with flexion, with internal rotation and with external rotation, ankle Details: normal ROM and foot Details: vascular exam Details: dorsalis pedis pulse present and normal capillary refill and motor-sensory exam light-touch normal in all toes; no edema Other: Left hip dressing clean and dry. Objective Data Vital Signs Vital Signs: Vital Signs - 24 hr 06/29/23 11:21 06/29/23 15:21 06/29/23 19:21 Temperature 97.6 F 97.7 F Pulse Rate 84 78 Respiratory Rate 16 16 Blood Pressure 93/58 L 95/45 L 107/67 Pulse Oximetry 100 92 Oxygen Delivery 06/29/23 20:00 06/29/23 23:30 06/29/23 22:00 Temperature 101 F H 101 F H Pulse Rate 80 Respiratory Rate 18 Blood Pressure 126/50 L Pulse Oximetry 96 Oxygen Delivery Room Air 06/30/23 01:00 06/30/23 02:22 Temperature 102.8 F H 102 F H Pulse Rate Respiratory Rate Blood Pressure Pulse Oximetry Oxygen Delivery Intake/Output Intake/Output: Intake & Output 06/27/23 06/28/23 06/29/23 06/30/23 23:59 23:59 23:59 23:59 Intake Total 103 19 4308 400 Output Total 1225 250 Balance 590 -1175 3760 400 Meds/Results Medications: Active Medications Generic Name Dose Route Start Last Admin Trade Name Freq PRN Reason Stop Dose Admin Acetaminophen 650 mg 06/27/23 13:47 06/29/23 23:30 Acetaminophen 325 Mg Tablet PO 650 mg Q4H PRN Administration Mild Pain (1-3) or Fever Acetaminophen 650 mg 06/28/23 17:36 Acetaminophen 325 Mg Tablet PO Q6H PRN Mild Pain (1-3) or Fever Hydrocodone Bitart/Acetaminophen 1 tab 06/27/23
--- NOTE | 2023-06-30 11:41 | PM.IMPN ---
Progress Note: A&P Assessment and Plan (1) Left displaced femoral neck fracture: Code(s): S72.002A - Fracture of unspecified part of neck of left femur, initial encounter for closed fracture Status: Acute Assessment and Plan: Ortho has been consulted. Patient is agreeable to being a full code while she has surgery, but would like to be a DNR after she has recovered. Left hip bipolar hemiarthroplasty 06/28 06/29: POD 1 left hip, pain controlled, PT/OT 06/30: POD 2, doing well, braun placed overnight for urinary retention, pull catheter today and do voiding trials, start flomax (2) DAYNA (obstructive sleep apnea): Code(s): G47.33 - Obstructive sleep apnea (adult) (pediatric) Status: Acute Assessment and Plan: Continue with home settings for CPAP (3) Depression: Code(s): F32.9 - Major depressive disorder, single episode, unspecified Status: Acute Assessment and Plan: Continue with Zoloft and BuSpar (4) COPD (chronic obstructive pulmonary disease): Code(s): J44.9 - Chronic obstructive pulmonary disease, unspecified Status: Acute Assessment and Plan: Encourage incentive spirometer. (5) Hyperlipidemia: Qualifiers: Hyperlipidemia type: unspecified Qualified Code(s): E78.5 - Hyperlipidemia, unspecified Code(s): E78.5 - Hyperlipidemia, unspecified Status: Chronic Assessment and Plan: Continue fenofibrate and atorvastatin (6) Hypertension: Qualifiers: Hypertension type: essential hypertension Qualified Code(s): I10 - Essential (primary) hypertension Code(s): I10 - Essential (primary) hypertension Status: Chronic Assessment and Plan: Continue with lisinopril (7) Low left ventricular ejection fraction: Code(s): R94.30 - Abnormal result of cardiovascular function study, unspecified Status: Acute Assessment and Plan: Last echo 08/01/2022 EF was read as 35% (8) UTI (urinary tract infection): Code(s): N39.0 - Urinary tract infection, site not specified Status: Acute Assessment and Plan: Urine culture from 06/28 shows de dios sens e coli > 100K CFU, start rocephin Plan DVT prophylaxis with arixtra GI prophylaxis with PPI Code status full code Subjective Date/time seen: 06/30/23 11:41 Interval history: Braun placed overnight for urinary retention. Also noted to have fevers overnight. Tmax 102.2. No chest pain or shortness of breath. No nausea, vomiting or diarrhea. No fevers or chills. Pain controlled. + BM. Review of Systems Review of Systems: 12 point review of systems was assessed and was negative except as noted in the HPI Exam Narrative: General: No acute distress, alert and oriented per baseline HEENT: Atraumatic, normocephalic, mucous membranes moist CV: Regular rate and rhythm, S1, S2 Lungs: Clear to auscultation bilaterally, no rales or crackles noted, no wheezes, good air entry Abdomen: Soft, nontender, nondistended Extremities: Normal to inspection Skin: No rashes noted, no lesions or wounds seen Psych: Euthymic, normal affect Objective Data Vital Signs Vital Signs: Vital Signs - 24 hr 06/29/23 15:21 06/29/23 19:21 06/29/23 20:00 Temperature 97.7 F Pulse Rate 78 Respiratory Rate 16 Blood Pressure 95/45 L 107/67 Pulse Oximetry 92 Oxygen Delivery Room Air 06/29/23 23:30 06/29/23 22:00 06/30/23 01:00 Temperature 101 F H 101 F H 102.8 F H Pulse Rate 80 Respiratory Rate 18 Blood Pressure 126/50 L Pulse Oximetry 96 Oxygen Delivery 06/30/23 02:22 Temperature 102 F H Pulse Rate Respiratory Rate Blood Pressure Pulse Oximetry Oxygen Delivery Intake/Output Intake/Output: Intake & Output 06/27/23 06/28/23 06/29/23 06/30/23 23:59 23:59 23:59 23:59 Intake Total 328 57 4848 520 Output Total 1225 250 Balance 590 -3477 3010 520
[2023-06-30 12:00] VITALS: BP 131/63; PULSE 66; RESP 16; TEMP 37.2; O2SAT 98
[2023-06-30 16:00] VITALS: BP 132/64; PULSE 68; RESP 16; TEMP 37.1; O2SAT 98
--- NOTE | 2023-06-30 19:00 | PC.NURSE ---
On 06/30/23, the RESEARCH DEVELOPMENT MANAGER, Citlaly, provided care and completed [employer] documentation on this patient. I have reviewed the RESEARCH DEVELOPMENT MANAGER's documentation and agree with the findings.
[2023-06-30 20:00] VITALS: BP 99/66; PULSE 70; RESP 16; TEMP 37.1; O2SAT 100
[2023-06-30] MEDS: SERTRALINE HCL 50 MG TABLET 200 MG PO (21:38)
[2023-07-01] VITALS: BP 108/40; PULSE 72; RESP 16; TEMP 37.1; O2SAT 95
[2023-07-01 04:00] VITALS: BP 121/65; PULSE 71; RESP 16; TEMP 37.3; O2SAT 91
--- NOTE | 2023-07-01 04:41 | ADMGEN ---
This patient, Eulalia Salvador, was admitted to [facility] Surg Room 328-01. Patient/family oriented to hospital policies and general routines including ID bracelet, bed and alarms, visiting hours, pain management, procedures, bathroom and other care routines, personal items, smoking policy, room service/diet, and visiting hours. Information on how to activate the Rapid Response Team has been discussed. Patient/Family are encouraged to report perceived risks to care and to ask questions if they do not understand what they are told or what they should do.
[2023-07-01 05:59] LABS: Basophils Percent Auto 0.1 % (0.2-1.2); Eosinophils Absolute Auto 0.1 K/mm3 (0-0.3); Eosinophils Percent Auto 1.3 % (0-4.4); Hematocrit 27.4 % (37.0-47.0); Hemoglobin 9.1 g/dL (12.0-15.0); Immature Granulocyte Absolute 0.06 K/mm3 (0.00-0.031); Immature Granulocyte Percent A 0.9 % (0-0.5); Lymphocytes Percent Auto 11.7 % (18.3-44.2); Mean Corpuscular HGB Conc 33.2 g/dl (32-36); Mean Corpuscular Hemoglobin 31.4 pg (26-34); Mean Corpuscular Volume 94.5 fl (80-100); Mean Platelet Volume 11.3 fl (7.4-10.4); Monocytes Absolute Auto 0.6 K/mm3 (0.1-0.6); Monocytes Percent Auto 8.2 % (2.6-8.5); Neutrophils Absolute Auto 5.3 K/mm3 (1.3-6.7); Neutrophils Percent Auto 77.8 % (45.5-73.1); Platelet Count Result 147 k/mm3 (150-375); Red Cell Distribution Width 14.1 % (11.5-14.5); White Blood Count 6.8 K/mm3 (4.5-10.0)
[2023-07-01 06:10] LABS: Alanine Aminotransferase 10 U/L (6-35); Albumin Level 2.4 g/dL (3.5-5.1); Alkaline Phosphatase 58 U/L (38-126); Anion Gap 0 mmol/L (8-16); Aspartate Amino Transferase 56 U/L (14-36); Bilirubin,Total 0.4 mg/dL (0.2-1.3); Blood Urea Nitrogen 27 mg/dL (7-17); Calcium 7.6 mg/dL (8.4-10.2); Carbon Dioxide 24 mmol/L (22-30); Chloride 104 mmol/L (98-107); Estimated CRCL calculation 43 ml/min; Estimated Glomerular Filt Rate 57; Glucose 110 mg/dL (65-110); Sodium 128 mmol/L (137-145)
[2023-07-01 08:00] VITALS: BP 131/78; PULSE 80; RESP 14; TEMP 37.3; O2SAT 95
--- NOTE | 2023-07-01 08:04 | PM.DS ---
DS: Admitting Diagnosis Discharge Date 07/01/23 Admitting Diagnosis femoral fracture DS: Discharge Diagnosis Discharge Diagnosis (1) Left displaced femoral neck fracture: Code(s): S72.002A - Fracture of unspecified part of neck of left femur, initial encounter for closed fracture Status: Acute Assessment and Plan: Ortho has been consulted. Patient is agreeable to being a full code while she has surgery, but would like to be a DNR after she has recovered. Left hip bipolar hemiarthroplasty 06/28 06/29: POD 1 left hip, pain controlled, PT/OT 06/30: POD 2, doing well, braun placed overnight for urinary retention, pull catheter today and do voiding trials, start flomax (2) DAYNA (obstructive sleep apnea): Code(s): G47.33 - Obstructive sleep apnea (adult) (pediatric) Status: Acute Assessment and Plan: Continue with home settings for CPAP (3) Depression: Code(s): F32.9 - Major depressive disorder, single episode, unspecified Status: Acute Assessment and Plan: Continue with Zoloft and BuSpar (4) COPD (chronic obstructive pulmonary disease): Code(s): J44.9 - Chronic obstructive pulmonary disease, unspecified Status: Acute Assessment and Plan: Encourage incentive spirometer. (5) Hyperlipidemia: Qualifiers: Hyperlipidemia type: unspecified Qualified Code(s): E78.5 - Hyperlipidemia, unspecified Code(s): E78.5 - Hyperlipidemia, unspecified Status: Chronic Assessment and Plan: Continue fenofibrate and atorvastatin (6) Hypertension: Qualifiers: Hypertension type: essential hypertension Qualified Code(s): I10 - Essential (primary) hypertension Code(s): I10 - Essential (primary) hypertension Status: Chronic Assessment and Plan: Continue with lisinopril (7) Low left ventricular ejection fraction: Code(s): R94.30 - Abnormal result of cardiovascular function study, unspecified Status: Acute Assessment and Plan: Last echo 08/01/2022 EF was read as 35% (8) UTI (urinary tract infection): Code(s): N39.0 - Urinary tract infection, site not specified Status: Acute Assessment and Plan: Urine culture from 06/28 shows de dios sens e coli > 100K CFU, start rocephin Plan DVT prophylaxis with arixtra GI prophylaxis with PPI Code status full code DS: Summary Hospital Course Hospital Course: 57-year-old female here with displaced femoral neck fracture status post left hip bipolar hemiarthroplasty 06/28. Did quite well. Postoperatively, had minimal hyponatremia with acute kidney injury that resolved with IV fluid administration. She also had an episode of urinary retention. Flomax was initiated and symptoms resolved. Please see above and med rec for details. Time Spent with Patient Time attestation: Total time spent providing and/or coordinating discharge services: Exam Narrative: General: No acute distress, alert and oriented per baseline HEENT: Atraumatic, normocephalic, mucous membranes moist CV: Regular rate and rhythm, S1, S2 Lungs: Clear to auscultation bilaterally, no rales or crackles noted, no wheezes, good air entry Abdomen: Soft, nontender, nondistended Extremities: Normal to inspection Skin: No rashes noted, no lesions or wounds seen Psych: Euthymic, normal affect DS: Data Data Completed and Pending Labs on day of discharge: Labs from last 24 hours 07/01/23 05:28 WBC 6.8 RBC 2.90 L Hgb 9.1 L Hct 27.4 L MCV 94.5 MCH 31.4 MCHC 33.2 RDW 14.1 Plt Count 147 L MPV 11.3 H Immature Gran % (Auto) 0.9 H Neut % (Auto) 77.8 H Lymph % (Auto) 11.7 L [place] % (Auto) 8.2 Eos % (Auto) 1.3 Baso % (Auto) 0.1 L Lymph # (Auto) 0.80 L [place] # (Auto) 0.6 Eos # (Auto) 0.1 Baso # (Auto) 0.0 Abs Immat Gran (auto) 0.06 H Absolute Neuts (auto) 5.3 Absolute Nucleated RBC 0.0 Nucleated RBC
[2023-07-01] MEDS: HYDROcodone/acetaminophen (*CRX) 5-325 MG TABLET 1 TAB PO ×2 (09:03→20:45)
[2023-07-01] MEDS: TAMSULOSIN HCL 0.4 MG CAPSULE PO (09:04)
[2023-07-01] MEDS: FONDAPARINUX SODIUM 2.5 MG/0.5 ML SYRINGE SUB-Q (09:04)
[2023-07-01] MEDS: ASPIRIN 81 MG CHEWABLE TABLET PO (09:05)
[2023-07-01] MEDS: FENOFIBRATE NANOCRYSTALLIZED 145 MG TABLET PO (09:05)
[2023-07-01] MEDS: NIFEdipine 30 MG TAB.ER.24 PO (09:05)
[2023-07-01] MEDS: PANTOPRAZOLE SOD SESQUIHYDRATE 20 MG TAB PO (09:05)
[2023-07-01] MEDS: lisinopriL 10 MG TABLET PO (09:05)
[2023-07-01] MEDS: GABAPENTIN 300 MG CAPSULE 600 MG PO ×3 (09:05→17:37)
[2023-07-01] MEDS: ATORVASTATIN 10 MG TABLET PO (09:05)
[2023-07-01] MEDS: MAGNESIUM OXIDE 400 MG TABLET PO ×2 (09:06→17:37)
[2023-07-01] MEDS: CHOLECALCIFEROL 1,000 UNITS TABLET 1000 UNITS PO (09:06)
[2023-07-01] MEDS: RANOLAZINE 500 MG TAB.ER.12H PO ×2 (10:54→20:46)
[2023-07-01 16:00] VITALS: BP 78/44; PULSE 60; RESP 14; TEMP 36.1; O2SAT 99
[2023-07-01] MEDS: SERTRALINE HCL 50 MG TABLET 200 MG PO (20:46)
[2023-07-01 21:28] VITALS: BP 90/72; PULSE 63; RESP 22; TEMP 36.7; O2SAT 98
[2023-07-02 06:00] VITALS: BP 95/53; PULSE 64; RESP 20; TEMP 37.4; O2SAT 96
[2023-07-02 06:34] LABS: Basophils Percent Auto 0.3 % (0.2-1.2); Eosinophils Absolute Auto 0.2 K/mm3 (0-0.3); Eosinophils Percent Auto 3.5 % (0-4.4); Hematocrit 28.2 % (37.0-47.0); Hemoglobin 9.3 g/dL (12.0-15.0); Immature Granulocyte Absolute 0.11 K/mm3 (0.00-0.031); Immature Granulocyte Percent A 1.8 % (0-0.5); Lymphocytes Absolute Auto 1.08 K/mm3 (0.9-3.2); Lymphocytes Percent Auto 17.9 % (18.3-44.2); Mean Corpuscular Hemoglobin 31.4 pg (26-34); Mean Corpuscular Volume 95.3 fl (80-100); Mean Platelet Volume 10.7 fl (7.4-10.4); Monocytes Absolute Auto 0.6 K/mm3 (0.1-0.6); Monocytes Percent Auto 9.3 % (2.6-8.5); Neutrophils Absolute Auto 4.1 K/mm3 (1.3-6.7); Neutrophils Percent Auto 67.2 % (45.5-73.1); Platelet Count Result 171 k/mm3 (150-375); Red Blood Count 2.96 M/mm3 (4.2-5.4); Red Cell Distribution Width 14.2 % (11.5-14.5); White Blood Count 6.1 K/mm3 (4.5-10.0)
[2023-07-02 06:46] LABS: Alanine Aminotransferase 12 U/L (6-35); Albumin Level 2.5 g/dL (3.5-5.1); Alkaline Phosphatase 55 U/L (38-126); Anion Gap 1 mmol/L (8-16); Aspartate Amino Transferase 56 U/L (14-36); Bilirubin,Total 0.4 mg/dL (0.2-1.3); Blood Urea Nitrogen 26 mg/dL (7-17); Calcium 7.9 mg/dL (8.4-10.2); Carbon Dioxide 26 mmol/L (22-30); Chloride 104 mmol/L (98-107); Estimated CRCL calculation 48 ml/min; Estimated Glomerular Filt Rate > 60; Glucose 90 mg/dL (65-110); Sodium 131 mmol/L (137-145)
--- NOTE | 2023-07-02 08:51 | PM.IMPN ---
Progress Note: A&P Assessment and Plan (1) Left displaced femoral neck fracture: Code(s): S72.002A - Fracture of unspecified part of neck of left femur, initial encounter for closed fracture Status: Acute Assessment and Plan: Ortho has been consulted. Patient is agreeable to being a full code while she has surgery, but would like to be a DNR after she has recovered. Left hip bipolar hemiarthroplasty 06/28 06/29: POD 1 left hip, pain controlled, PT/OT 06/30: POD 2, doing well, braun placed overnight for urinary retention, pull catheter today and do voiding trials, start flomax (2) DAYNA (obstructive sleep apnea): Code(s): G47.33 - Obstructive sleep apnea (adult) (pediatric) Status: Acute Assessment and Plan: Continue with home settings for CPAP (3) Depression: Code(s): F32.9 - Major depressive disorder, single episode, unspecified Status: Acute Assessment and Plan: Continue with Zoloft and BuSpar (4) COPD (chronic obstructive pulmonary disease): Code(s): J44.9 - Chronic obstructive pulmonary disease, unspecified Status: Acute Assessment and Plan: Encourage incentive spirometer. (5) Hyperlipidemia: Qualifiers: Hyperlipidemia type: unspecified Qualified Code(s): E78.5 - Hyperlipidemia, unspecified Code(s): E78.5 - Hyperlipidemia, unspecified Status: Chronic Assessment and Plan: Continue fenofibrate and atorvastatin (6) Hypertension: Qualifiers: Hypertension type: essential hypertension Qualified Code(s): I10 - Essential (primary) hypertension Code(s): I10 - Essential (primary) hypertension Status: Chronic Assessment and Plan: Blood pressure reviewed 07/02, still on the low side, discontinue lisinopril (7) Low left ventricular ejection fraction: Code(s): R94.30 - Abnormal result of cardiovascular function study, unspecified Status: Acute Assessment and Plan: Last echo 08/01/2022 EF was read as 35% Appears to be euvolemic, consider repeat echo as an outpatient (8) UTI (urinary tract infection): Code(s): N39.0 - Urinary tract infection, site not specified Status: Acute Assessment and Plan: Urine culture from 06/28 shows de dios sens e coli > 100K CFU, start rocephin 06/30, end date 07/06 Plan DVT prophylaxis with arixtra GI prophylaxis with PPI Code status full code Subjective Date/time seen: 07/02/23 08:51 Interval history: Braun placed overnight for urinary retention. Also noted to have fevers overnight. Tmax 102.2. No chest pain or shortness of breath. No nausea, vomiting or diarrhea. No fevers or chills. Pain controlled. + BM. Review of Systems Review of Systems: 12 point review of systems was assessed and was negative except as noted in the HPI Exam Narrative: General: No acute distress, alert and oriented per baseline HEENT: Atraumatic, normocephalic, mucous membranes moist CV: Regular rate and rhythm, S1, S2 Lungs: Clear to auscultation bilaterally, no rales or crackles noted, no wheezes, good air entry Abdomen: Soft, nontender, nondistended Extremities: Normal to inspection Skin: No rashes noted, no lesions or wounds seen Psych: Euthymic, normal affect Objective Data Vital Signs Vital Signs: Vital Signs - 24 hr 07/01/23 09:05 07/01/23 16:00 07/01/23 21:28 Temperature 97.0 F L 98.1 F Pulse Rate 60 63 Respiratory Rate 14 22 H Blood Pressure 78/44 L 90/72 L Pulse Oximetry 99 98 Oxygen Delivery Room Air 07/02/23 06:00 Temperature 99.4 F Pulse Rate 64 Respiratory Rate 20 Blood Pressure 95/53 L Pulse Oximetry 96 Oxygen Delivery Intake/Output Intake/Output: Intake & Output 06/29/23 06/30/23 07/01/23 07/02/23 23:59 23:59 23:59 23:59 Intake Total 4010 2640 1730 100 Output Total 471 042 9552 Balance 3760 2040 330 100 Meds/Results Medications:
[2023-07-02] MEDS: HYDROcodone/acetaminophen (*CRX) 5-325 MG TABLET 1 TAB PO (09:14)
[2023-07-02] MEDS: FENOFIBRATE NANOCRYSTALLIZED 145 MG TABLET PO (09:15)
[2023-07-02] MEDS: GABAPENTIN 300 MG CAPSULE 600 MG PO ×2 (09:15→12:17)
[2023-07-02] MEDS: MAGNESIUM OXIDE 400 MG TABLET PO (09:15)
[2023-07-02] MEDS: CHOLECALCIFEROL 1,000 UNITS TABLET 1000 UNITS PO (09:15)
[2023-07-02] MEDS: PANTOPRAZOLE SOD SESQUIHYDRATE 20 MG TAB PO (09:15)
[2023-07-02] MEDS: RANOLAZINE 500 MG TAB.ER.12H PO (09:15)
[2023-07-02] MEDS: ATORVASTATIN 10 MG TABLET PO (09:15)
[2023-07-02] MEDS: NIFEdipine 30 MG TAB.ER.24 PO (09:15)
[2023-07-02] MEDS: ASPIRIN 81 MG CHEWABLE TABLET PO (09:16)
[2023-07-02] MEDS: FONDAPARINUX SODIUM 2.5 MG/0.5 ML SYRINGE SUB-Q (09:20)
--- NOTE | 2023-07-02 10:13 | P.CDI_ITS ---
CDI Query Clarification Request BMI 20.5 Nutritional Diagnostic Statement Moderate protein calorie malnutrition related to inadequate energy intake as evidenced by self reported with loss x 1 year of -20%, inadequate po intake for greater than 1 month. Please refer to the comprehensive nutrition assessment for further information. Please clarify severity of protein calorie malnutrition if known: * Mild * Moderate * Severe * Other/Unspecified <Linnea Garcia RN - Last Filed: 07/02/23 10:18> Clarified Diagnosis Clarified Diagnosis: moderate <Mckenzie Fowler DO - Last Filed: 07/02/23 11:00>
--- NOTE | 2023-07-02 11:48 | PCOTNOTE ---
The patient treatment was not able to be completed prior to lunch patient unavailable. Will follow up after lunch. Communicated with patient on time frame. Will plan to continue treatment per plan of care.
[2023-07-02 13:11] LABS: SARS-CoV-2 RNA PCR Negative (Negative)
[2023-07-02 14:00] VITALS: BP 95/47; PULSE 64; RESP 16; TEMP 36.4; O2SAT 98
== END 2023-07-02 15:50 | DRG 323 ==
LOC: ANHED 13:58 → ANH3MEDSUR 14:08
PROVIDERS: Nurse Practitioner; Orthopaedic Surgery; Admitting Provider Student in an Organized Health Care Education/Training Program; Emergency Provider Emergency Medicine; PCP Internal Medicine; Visit Provider Student in an Organized Health Care Education/Training Program
PROC: 0SRS01A Replacement of Left Hip Joint, Femoral Surface with Metal Synthetic Substitute, Uncemented, Open Approach (ICD-10-PCS; CPT 27125; principal; 2023-06-28 12:30)
DX: S72.002A Fracture of unspecified part of neck of left femur, initial encounter for closed fracture (principal); N17.8 Other acute kidney failure; E44.0 Moderate protein-calorie malnutrition; E87.1 Hypo-osmolality and hyponatremia; N39.0 Urinary tract infection, site not specified; B96.20 Unspecified Escherichia coli [E. coli] as the cause of diseases classified elsewhere; D64.9 Anemia, unspecified; G25.81 Restless legs syndrome; Z20.822 Contact with and (suspected) exposure to COVID-19; M19.90 Unspecified osteoarthritis, unspecified site; J44.9 Chronic obstructive pulmonary disease, unspecified; W19.XXXA Unspecified fall, initial encounter; F32.A Depression, unspecified; K21.9 Gastro-esophageal reflux disease without esophagitis; E78.5 Hyperlipidemia, unspecified; I10 Essential (primary) hypertension; F41.9 Anxiety disorder, unspecified; F32.9 Major depressive disorder, single episode, unspecified; M43.06 Spondylolysis, lumbar region; R94.30 Abnormal result of cardiovascular function study, unspecified; G47.33 Obstructive sleep apnea (adult) (pediatric); G62.9 Polyneuropathy, unspecified; Z66 Do not resuscitate; R33.8 Other retention of urine; Z90.49 Acquired absence of other specified parts of digestive tract; Z90.710 Acquired absence of both cervix and uterus; Z87.891 Personal history of nicotine dependence; Z79.82 Long term (current) use of aspirin; Z68.20 Body mass index [BMI] 20.0-20.9, adult
CPT/HCPCS: 36415; 73502; 80053; 81001; 83605; 83735; 84439; 84443; 84480; 85025; 85055; 85610; 85730; 86850; 86900; 86901; 87077; 87086; 87088; 87186; 87635; 93005; 96374; 96375; 97110; 97116; 97161; 97166; 97530; 97535; 99285; A9270; C1776; G0378; J0690; J0696; J1170; J1652; J1885; J2250; J2270; J2371; J2405; J2704; J3010; J3480; J7030; J7120

== ENCOUNTER 2025-05-02 10:12 | Emergency (ER) | payer MEDICAID, SELFPAY ==
[2025-05-02 10:14] VITALS: BP 130/82; PULSE 67; RESP 16; TEMP 36.8; O2SAT 98
--- NOTE | 2025-05-02 11:10 | PC.NURSE ---
patient reports that the wait time looks to be too long and that they are going to Urgent Care. patient left ED without difficulty and in no distress at this time.
== END 2025-05-02 11:10 | disposition left against medical advice (07) ==
PROVIDERS: PCP Internal Medicine
DX: H92.01 Otalgia, right ear (principal)
CPT/HCPCS: 99199

== ENCOUNTER 2025-05-22 16:01 | Emergency (ER) | payer MEDICARE, MEDICAID, SELFPAY ==
[2025-05-22 16:02] VITALS: BP 103/63; PULSE 62; RESP 16; TEMP 36.7; O2SAT 92
--- OUTSIDE RECORDS SUMMARY | 2025-05-22 16:04 | XMS_ITS | Continuity of Care Document ---
Author Organization [place] - [facility] [employer], [facility] Internal Med [facility] Address [address] [facility] [place] [address] Assessment No assessment recorded. Plan of Treatment Reminders Order Date Submit Date Provider Last Modified By Organization Details Last Modified Time Details Appointments Any 2024 10:30A M ETIENNE Richards Not available Not available Not available Any 15 2024 03:15P M Alfonso Weiss MD Not available Not available Not available Lab None recorded. Referral None recorded. Procedures None recorded. Surgeries None recorded. Imaging None recorded. Medication Orders amoxicill in 875 mg-potass ium clavulana te 125 mg tablet 2024 025 [facility]/Pharmacy #[id number], [address], [place], [address], 05/22/2025 11:32:00 Patient TargetsNo targets recorded. Patient Instructions Encounter Date Encounter Id Patient Instructions Last Modified By Organization Details Last Modified Time 05/22/2025 [id number] Discussed the importance of antibiotic therapy compliance. Patient needs to take medication as prescribed, including completing entire course even if symptoms improve/resolve. Discussed possible side effects of medication. Instructed patient to take medication with food to prevent stomach upset and increase daily water intake. Patient will follow up in 3-4 days if symptoms are not improving or worsen while taking antibiotics. [email or web address] Not available 05/22/2025 11:42:11 Reason for Referral None Reported. Problems Name Problem SNOMED Code Status Onset Date Resolution Date Notes Provider Name and Address Organization Details Recorded Time Chronic back pain 039026510 Active pain manageme nt Not Available [facility] 4 10:19:21 Liver enzymes outside referenc e range 084995677 Completed Not Available [facility] 3 04:53:17 Chronic depressi on 364492983 Active Not Available [facility] 4 10:19:21 Chronic diarrhea 130652902 Active Not Available [facility] 4 10:19:21 Menopaus e present 904228085 Completed Not Available [facility] 3 04:53:18 Hypertri glycerid emia 320937488 Active Not Available [facility] 4 10:19:21 Vitamin D deficien cy 61073106 Active Not Available [facility] 4 10:19:21 Depressi ve disorder 04489260 Completed Not Available [facility] 3 04:53:19 Anxiety 79153592 Active Not Available [facility] 4 10:19:21 Essentia l hyperten gus 37030763 Active Not Available [facility] 4 10:19:22 Female stress incontin ence 45476318 Active s/p surgery Not Available [facility] 4 10:19:22 Liver enzymes outside referenc e range 718014327 Completed 201604/12/2018 Not Available [facility] 3 04:53:17 Overacti ve urinary bladder 911031754 Active 2019 Not Available [facility] 4 10:19:22 Ureteric stone 32050112 Active 2020 Not Available [facility] 4 10:19:21 Kidney stone 55097039 Active 2020 Not Available [facility] 4 10:19:22 Otalgia of right ear 8809755328 Completed 202107/12/2022 Not Available [facility] 3 04:53:17 Ventricu lar prematur e beats 63167495 Active 2021 Not Available [facility] 4 10:19:21 Urinary symptoms 569489238 Completed 202107/12/2022 Delmi mcqueen, RMA null, [place] [facility] 4 11:56:56 Peripher al vascular disease 653700803 Active 2021 Not Available [facility] 4 10:19:21 Acute urinary tract infectio n 710479948 Completed 202107/12/2022 Alfonso Weiss MD [address] [facility] [address], [place], [address] , [facility] 4 10:50:22 Urinary symptoms 688056593 Completed 202111/08/2022 Delmi mcqueen, RMA null, [place] [facility] 4 11:56:56 Restless legs 90286969 Active 2021 Not Available [facility] 4 10:19:21 Syncope 370618801 Active 2021 Not Available [facility] 4 10:19:21 Chest pain 01817117 Active 2021 Not Available [facility] 4 10:19:21 Acute upper respirat ory infectio n 28056358 Completed 202211/08/2022 Not Available [facility] 3 04:53:19 Nonische paulina congesti ve cardiomy opathy 15027110526 4 Active 2022 Not Available [facility] 4 10:19:21 Bronchit is 84133735 Active 2022 Not Available [facility] 4 10:19:21 Hyperlip idemia 90261619 Active 2022 Not Available [facility] 4 10:19:21 Upper respirat ory infectio n 62524562 Active 2022 Not Available [facility] 4 10:19:21 Rhinitis 16404899 Active 2022 Not Available [facility] 4 10:19:22 Insomnia 145723780 Active 2022 Not Available [facility] 4 10:19:21 Fracture of femur 74015496 Active 2022 Not Available [facility] 4 10:19:22 Neuropat hy 056741953 Active 2022 Not Available [facility] 4 10:19:21 Osteopor osis 91846701 Active 2023 Salina Tsai LPN null, [place] [facility] 4 10:17:41 Dysuria 82604821 Active 2023 Tatum Avila MA null, [place] [facility] 4 16:03:37 Low back pain 574682979 Active 2023 Delmi mcqueen RMA null, [facility] 4 10:38:47 Acute urinary tract infectio n 735145982 Active 2023 Alfonso Weiss MD [address], [address], [place], [address] , [facility] 4 10:50:22 Urinary symptoms 022198051 Active 2023 Delmi mcqueen RMA null, [facility] 4 11:56:56 Acute otitis externa 97791665 Active 2023 Alfonso Weiss MD [address], [address], [place], [address] , [facility] 4 15:46:31 Cardiomy opathy 50177716 Active 2023 Alfonso Weiss MD [address], [address], [place], [address] , [facility] 4 11:29:24 Impairme nt of balance 907844698 Active 2023 Alfonso Weiss MD [address], [address], [place], [address] , [facility] 4 11:30:37 Platelet count outside referenc e range 625602106 Active 2023 Salina Tsai LPN null, [place] [facility] 4 14:26:54 Microsco pic hematuri a 509538973 Active 2024 Tatum Avila MA null, [facility] 5 16:32:26 Infectio n of right ear 93712757859 50807 Active 2024 ETIENNE Richards [address], [place], [address] , [facility] 5 11:29:51 Problem Notes None recorded. 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 Procedure Notes None recorded. Medical Equipment None Reported. Allergies Allergen ID Allergen Name Allergen Category Reaction Reaction Severity Criticality Documentation Date Start Date Code Code System Note Provider Name and Address Organization Details Recorded Time 8538 codeine medicatio n Not available Not available Not available 01/03/2023 2670 RxNorm Not Available [facility] 05:05:21 Medications Name Sig Start Date Stop Date Status Note LastModified by Organization Details LastModified Time nifedipin e ER 30 mg tablet,ex tended release 24 hr TAKE 1 TABLET BY MOUTH ONCE DAILY 06/28 completed Not Available Not Available Not Available amoxicill in 500 mg capsule Take 1 capsule 3 times a day by oral route for 7 days. 03/13 completed Not Available Not Available Not Available neomycin- polymyxin -hydrocor t 3.5 mg/mL-10, 000 unit/mL-1 % ear solution INSTILL 4 DROPS INTO AFFECTED EAR(S) BY OTIC ROUTE 3 TIMES PER DAY 06/17 completed Not Available Not Available Not Available carvedilo l 6.25 mg tablet TAKE 1 TABLET BY MOUTH TWICE DAILY active Not Available Not Available No t Available gabapenti n 600 mg tablet TAKE 1 TABLET BY MOUTH THREE TIMES DAILY active Not Available Not Available No t Available trazodone 50 mg tablet TAKE 1 TABLET BY MOUTH ONCE DAILY NEEDED active Not Available Not Available No t Available atorvasta tin 10 mg tablet TAKE 1 TABLET BY MOUTH ONCE DAILY active Not Available Not Available No t Available cefpodoxi me 200 mg tablet TAKE 1 TABLET BY MOUTH TWICE DAILY WITH FOOD 03/18 completed Not Available Not Available Not Available cephalexi n 250 mg capsule TAKE 1 CAPSULE BY MOUTH THREE TIMES DAILY 10/16 completed Not Available Not Available Not Available meloxicam 15 mg tablet Take 1 tablet twice a day by oral route. 2012 active Not Available Not Available Not Avai lable lisinopri l 20 mg tablet TAKE 1 TABLET BY MOUTH ONCE DAILY 2023 active Not Available Not Available Not Avai lable ondansetr on HCl 4 mg tablet Take 1 tablet 4 times a day by oral route as needed. 11/08 completed Not Available Not Available Not Available Medrol (Eliel) 4 mg tablets in a dose pack take as directed on the package 03/13 completed Not Available Not Available Not Available isosorbid e mononitra te ER 30 mg tablet,ex tended release 24 hr TAKE 1 TABLET BY MOUTH ONCE DAILY active Not Available Not Available No t Available alendrona te 70 mg tablet Take 1 tablet every week by oral route. 2023 active Not Available Not Available Not Avai lable gabapenti n 400 mg capsule TAKE 1 CAPSULE BY MOUTH THREE TIMES DAILY active Not Available Not Available No t Available sertralin e 100 mg tablet TAKE 2 TABLETS BY MOUTH AT BEDTIME active Not Available Not Available No t Available ciproflox acin 500 mg tablet TAKE 1 TABLET BY MOUTH EVERY 12 HOURS 03/18 completed Not Available Not Available Not Available oxycodone 15 mg tablet TK 1 T PO Q 8 H PRN active Not Available Not Available No t Available pantopraz ole 20 mg tablet,de layed release TAKE 1 TABLET BY MOUTH ONCE DAILY 02/18 completed Not Available Not Available Not Available Macrobid 100 mg capsule Take 1 capsule twice a day by oral route for 5 days. 02/17 completed Not Available Not Available Not Available meloxicam 7.5 mg tablet TAKE 1 TABLET BY MOUTH TWICE DAILY IN THE MORNING AND AT BEDTIME 02/18 completed Not Available Not Available Not Available magnesium oxide 400 mg (241.3 mg magnesium ) tablet TAKE 1 TABLET BY MOUTH TWICE DAILY 03/08 completed Not Available Not Available Not Available estradiol 1 mg tablet Take 1 tablet every day by oral route. 10/07 completed Not Available Not Available Not Available cephalexi n 500 mg capsule TAKE 1 CAPSULE BY MOUTH ONCE DAILY 06/02 completed Not Available Not Available Not Available ropinirol e 0.5 mg tablet TAKE 1 TABLET BY MOUTH IN THE EVENING AND AT BEDTIME active Not Available Not Available No t Available buspirone 10 mg tablet TAKE 1 TABLET BY MOUTH EVERY 12 HOURS NEEDED active Not Available Not Available No t Available lisinopri l 10 mg tablet TAKE 1 TABLET BY MOUTH ONCE DAILY 02/18 completed increase d to 20 mg Not Available Not Available Not Available flecainid e 50 mg tablet TAKE 1 TABLET BY MOUTH TWICE DAILY 07/14 completed Not Available Not Available Not Available flecainid e 100 mg tablet TAKE 1 TABLET BY MOUTH TWICE DAILY 03/08 completed Not Available Not Available Not Available metoprolo l tartrate 50 mg tablet TAKE ONE TABLET BY MOUTH TWICE DAILY 11/08 completed Not Available Not Available Not Available gabapenti n 300 mg capsule Take 1 capsule 3 times a day by oral route. 2012 active Not Available Not Available Not Avai lable monteluka st 10 mg tablet Take 1 tablet every day by oral route. 03/26 completed Not Available Not Available Not Available morphine ER 15 mg tablet,ex tended release TAKE 1 TABLET BY MOUTH EVERY 12 HOURS NEEDED FOR PAIN 02/27 completed Not Available Not Available Not Available hydrocodo ne 5 mg-acetam inophen 500 mg tablet Take 1 tablet twice a day by oral route. 01/21 completed Not Available Not Available Not Available lisinopri l 5 mg tablet 07/23 completed Not Available Not Available Not Available estradiol 0.5 mg tablet TAKE ONE TABLET BY MOUTH ONCE DAILY 05/25 completed Not Available Not Available Not Available metoprolo l succinate ER 25 mg tablet,ex tended release 24 hr 02/18 completed Not Available Not Available Not Available ergocalci ferol (vitamin D2) 1,250 mcg (50,000 unit) capsule Take 1 capsule every week by oral route for 90 days. 02/17 completed Not Available Not Available Not Available Requip 0.25 mg tablet Take 1 tablet every day by oral route. 2013 active Not Available Not Available Not Avai lable Cipro 250 mg tablet Take 1 tablet twice a day by oral route for 5 days. 02/18 completed Not Available Not Available Not Available morphine 15 mg immediate release tablet TAKE 1 TABLET BY MOUTH AT BEDTIME FOR PAIN 04/15 completed Not Available Not Available Not Available fluticaso ne propionat e 50 mcg/actua tion nasal spray,jessica pension USE 1 SPRAY(S) IN EACH NOSTRIL ONCE DAILY active Not Available Not Available No t Available amoxicill in 875 mg-potass ium clavulana te 125 mg tablet TAKE 1 TABLET BY MOUTH EVERY 12 HOURS FOR 10 DAYS 2024 active Not Available Not Available Not Avai lable ciproflox acin 0.3 %-dexamet hasone 0.1 % ear drops,jessica pension INSTILL 4 DROPS INTO AFFECTED EAR 2 TIMES DAILY FOR 7 DAYS. active Not Available Not Available No t Available metoprolo l tartrate 25 mg tablet 11/08 completed Not Available Not Available Not Available tizanidin e 2 mg capsule TAKE 1 CAPSULE BY MOUTH EVERY 8 HOURS 02/18 completed Not Available Not Available Not Available Aspir-81 QD 2012 active Not Available Not Available Not Avai lable ranolazin e ER 500 mg tablet,ex tended release,1 2 hr TAKE 1 TABLET BY MOUTH TWICE DAILY active Not Available Not Available No t Available fenofibra te nanocryst allized 145 mg tablet Take 1 tablet by mouth once daily 02/26/ 2024 active Not Available Not Available Not Avai lable Vitamin D2 2021 active Not Available Not Available Not Avai lable magnesium 400 mg (as magnesium oxide) capsule Take 1 capsule twice a day by oral route. active Not Available Not Available No t Available Eliquis 5 mg tablet TAKE 1 TABLET BY MOUTH TWICE DAILY DIRECTED 03/08 completed Not Available Not Available Not Available Fluvirin 45 mcg (15 mcg x 3)/0.5 mL intramusc ular suspensio n ADM 0.5ML UTD 05/27 completed Not Available Not Available Not Available Entresto 24 mg-26 mg tablet TAKE 1 TABLET BY MOUTH TWICE DAILY active Not Available Not Available No t Available magnesium 400 mg (as magnesium oxide) tablet TAKE 1 TABLET BY MOUTH TWICE DAILY active Not Available Not Available No t Available Afluria Qd (36 mos up)(PF)60 mcg (15 mcg x4)/0.5 mL IM syringe ADM 0.5ML IM UTD 10/20 completed Not Available Not Available Not Available Vitals Date Recorded Body height Body mass index (BMI) Body weight Body temperature Heart rate Respiratory rate Oxygen saturation Oxygen saturation in Arterial blood by Pulse oximetry Systolic And Diastolic Provider Name and Address Organization Details Last Updated DateTime 5 160.02 cm 23.6 kg/m2 46822.7 9 g 97.8 [degF] 88 /min 16 /min 93 % 93 % 136/82 mm[Hg] Tatum Avila MA [facility] 5 11:24:04 Social History Question Answer Notes LastModified by Organizat ion Details LastModified Time Tobacco Smoking Status Former Smoker Laura Rothman RN null, [facility] 10/16/2024 10:40:36 Do You Have An Advance Directive? No [id number] Information not available 01/03/2023 Do You Wear A Helmet When Biking? No MIGRATION.97409 [id number] Information not available 01/03/2023 What Is Your Level Of Caffeine Consumption? Occasional MIGRATION.09272 [id number] Information not available 01/03/2023 How Much Tobacco Do You Chew? None MIGRATION.58061 71713 Information not available 01/03/2023 What Type Of Diet Are You Following? REGULAR MIGRATION.04006 [id number] Information not available 01/03/2023 Which Illicit Or Recreational Drugs Have You Used? None MIGRATION.95967 [id number] Information not available 01/03/2023 What Is The Highest Grade Or Level Of School You Have Completed Or The Highest Degree You Have Received? [id number] MIGRATION.32941 90801 Information not available 01/03/2023 Have There Been Any Changes To Your Family Or Social Situation? No MIGRATION.52083 84480 Information not available 01/03/2023 What Is The Fluoride Status Of Your Home? Fluoridated [email or web address] Information not available 10/16/2024 When Did You Quit Smoking? 1-5yearssincelastci pradeep Quit 06/2023 [email or web address] Information not available 10/16/2024 Are There Any Guns Present In Your Home? No [email or web address] Information not available 10/16/2024 Do You Use Insect Repellent Routinely? Yes [email or web address] Information not available 10/16/2024 Where Do You Live? [place] MIGRATION.32347 [id number] Information not available 01/03/2023 Do You Have A Medical Power Of Transcription Specialist? Yes [email or web address] Information not available 10/16/2024 What Was The Date Of Your Most Recent Tobacco Screening? 10/16/2024 [email or web address] Information not available 10/16/2024 How Many Children Do You Have? 2 [email or web address] Information not available 10/16/2024 Do You Have Any Pets? Yes MIGRATION.91779 62379 Information not available 01/03/2023 What Is Your Relationship Status? [email or web address] Information not available 10/16/2024 Do You Use Your Seat Belt Or Car Seat Routinely? Yes MIGRATION.99208 31231 Information not available 01/03/2023 Do You Have Smoke And Carbon Monoxide Detectors In Your Home? Yes MIGRATION.49089 43476 Information not available 01/03/2023 At What Age Did You Start Smoking Tobacco? 16 MIGRATION.50855 76333 Information not available 01/03/2023 Are You Passively Exposed To Smoke? No MIGRATION.36013 07205 Information not available 01/03/2023 Are There Any Smokers In Your House? No MIGRATION.85059 93230 Information not available 01/03/2023 How Much Tobacco Do You Smoke? 1 PPD [email or web address] Information not available 10/16/2024 Do You Use Sunscreen Routinely? No MIGRATION.98689 88083 Information not available 01/03/2023 How Many Years Have You Smoked Tobacco? 42 [email or web address] Information not available 10/16/2024 Have You Recently Traveled Abroad? No MIGRATION.01042 91211 Information not available 01/03/2023 Do You Have Any Dietary Restrictions? No MIGRATION.34698 90993 Information not available 01/03/2023 How Many Years Have You Used E-cigarettes Or Vape? 5 [email or web address] Information not available 10/16/2024 Sex: Female Functional Status Question Answer Note LastModified by [employer] Details LastModified Time Do you use any illicit or recreational drugs? No [email or web address] Information not available 10/16/2024 Do you or have you ever used any other forms of tobacco or nicotine? Yes [email or web address] Information not available 10/16/2024 What is your level of alcohol consumption? None MIGRATION.451576 9733 Information not available 01/03/2023 Are you currently employed? No [email or web address] Information not available 10/16/2024 What is your occupation? DISABLED MIGRATION.195504 9221 Information not available 01/03/2023 Do you or have you ever used e-cigarettes or vape? Former user of electronic cigarettes [email or web address] Information not available 10/16/2024 What is your exercise level? None MIGRATION.308080 0325 Information not available 01/03/2023 Mental Status Question Answer Note LastModified by [employer] ion Details LastModified Time Do you feel stressed (tense, restless, nervous, or anxious, or unable to sleep at night)? [id number] MIGRATION.[id number] Information not available 01/03/2023 Family History Relationship Description Onset Age of this Age Resolved Age Notes LastModified by Organization Details LastModified Time Paternal Grandfather Malignant neoplasm of prostate [id number] Not available 01/03/2023 04:42:57 Father Diabetes mellitus [id number] [id number] Not available 01/03/2023 04:42:57 Maternal Grandfather Leukemia MIGRATION.[id number] Not available 01/03/2023 04:42:57 Mother Essential hypertension [id number] Not available 01/03/2023 04:42:57 Medical History Condition Response HYPERTENSION Y Gynecological HistoryNo gynecological history recorded. Obstetrics History GPAL:G 0 P 0 0 0 0 Immunizations Vaccine Type Date Status Note Provider Nam e and Address Organization Details Recorded Time SARS-COV-2 (COVID-19) vaccine, UNSPECIFIED 1 completed Not Available [facility] 11/13/2023 10:19:23 SARS-COV-2 (COVID-19) vaccine, UNSPECIFIED 1 completed Not Available [facility] 11/13/2023 10:19:23 Influenza, split virus, quadrivalent, preservative 0 completed Not Available [facility] 11/13/2023 10:19:23 Influenza, high-dose, trivalent, PF 4 completed Not Available [facility] 11/13/2023 10:19:23 Influenza, high-dose, trivalent, PF 3 completed Not Available [facility] 11/13/2023 10:19:23 Influenza, split virus, quadrivalent, preservative 6 completed Not Available [facility] 11/13/2023 10:19:23 Influenza, split virus, quadrivalent, preservative 9 completed Not Available [facility] 11/13/2023 10:19:23 Influenza, split virus, trivalent, preservative 5 completed Not Available [facility] 11/13/2023 10:19:23 Influenza, high-dose, quadrivalent, PF 3 completed SEVERIANO Paredes, [facility] 08/28/2023 09:00:15 pneumococcal polysaccharide PPV23 4 completed Alfonso Weiss MD [address], [address], [place], [address], [facility] 06/17/2024 16:16:15 Influenza, high-dose, trivalent, PF 4 completed Alfonso Weiss MD [address], [address], [place], [address], [facility] 10/22/2024 17:19:25 Past Encounters Encounter ID Performer Location Encounter Start Date Encounter Closed Date Diagnosis/Indication Diagnosis SNOMED-CT Code Diagnosis ICD10 Code Diagnosis Note [id number] Alfonso Weiss MD [facility] [address] [place] [address] 05/22/2025 11:14:29 05/22/2025 11:35:51 Infection of right ear 1123035407 134514 H66.91 Health Concerns Section Related Observation LastModified by Organization Detai ls LastModified Time None Recorded Concern Status LastModified by Organization Details LastModified Time None Recorded Payers Encounter Date Sequence Insurance Name Policy Number Policy Rodriguez Covered Member ID Rodriguez Member ID Guarantor Name 05/22/2025 2 [place] [facility] Eulalia Salvador [id number] Eulalia Salvador 05/22/2025 1 [place] Eulalia Salvador [id number] Eulalia Salvador Notes Date Note Type Note Provider Name and Address Organization Details Recorded Time 05/22/2025 text/html Patient is a 59y /o female who is here for right ear pain. She reports she had gone to urgent care two weeks ago and was treated with amoxicillin and drops. She states that it has gotten worse with no improvements. She denies fever, oral pain, discharge, headaches, blurred vision or recent illness. Madeline Costa, LORRAINE-C [address], [place], [address], [facility] 05/22/2025 11:42:28 OBGyn Episode No OBEpisode recorded.
--- OUTSIDE RECORDS SUMMARY | 2025-05-22 16:04 | XMS_ITS | Clinical Summary ---
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 Name Role Phone Alfonso Weiss MD Primary Care Provider [phone] Social History Tobacco Use Types Packs/Day Years Used Date Smoking Tobacco: Never Assessed Comments Unknown Sex and Gender Information Value Date Recorded Sex Assigned at Not on file Legal Sex Female 8:05 PM CDT Gender Identity Not on file Sexual Orientation Not on file Plan of Treatment Health Maintenance Due Date Last Done Comments Cervical Cancer Screening Pa p Smear (Age 30 to 64) Every 3 Years 1965 Colorectal Cancer Screening Colonoscopy (10 Years) 1965 Annual Physical 1968 Hepatitis C 1983 DTaP, Tdap and Td Vaccines ( 1 - Tdap) 1984 Cervical Cancer Screening Pa p with HPV Testing (Age 30 to 64) Every 5 Years 1995 Cervical Cancer Screening with HPV 1995 Mammogram Screening 2005 Pneumococcal Vaccine: 50+ Ye ars (1 of 1 - PCV) 2015 Zoster Vaccines (1 of 2) 2015 COVID-19 Vaccine (2023-2 5 season) 2024 Meningococcal B Vaccine Aged Out No l onger eligible based on patient's age to complete this topic Meningococcal Vaccine Aged Out No diana saira eligible based on patient's age to complete this topic RSV Immunizations Under 20 Months Aged Out No longer eligible based on patient's age to complete this topic Care Teams 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
--- OUTSIDE RECORDS SUMMARY | 2025-05-22 16:05 | XMS_ITS | Data Portability ---
Author Organization [place] [facility], Main Office Address [address] [place] [address] Assessment No assessment recorded. Plan of Treatment Reminders Order Date Submit Date Provider Last Modified By Organization Details Last Modified Time Details Appointments Any 30 2024 10:30A ETIENNE Cheng Not available Not available Not available Any 15 2024 03:15P M Alfonso Weiss MD Not available Not available Not available Lab lipid panel, serum 2023 024 [facility], [address] [place], [address], 10/16/2024 20:17:59 vitamin D, 25-hydrox y, total, serum [address], [address] [place] [address], [address], 10/23/2024 08:10:10 CBC w/ auto diff 2023 024 [facility], [address] [place], [address], 10/16/2024 19:43:35 vitamin D, 25-hydrox y, total, serum [address], [address] [place], [address], 10/23/2024 08:09:54 urinalysi s, complete [address], [address] [place], [address], 10/23/2024 08:10:04 CMP, serum or plasma 2023 024 [facility], [address] [place] [address], [address], 10/16/2024 20:17:56 lipid panel, serum [address], [address] [place] [address], [address], 07/08/2024 10:00:23 CBC w/ auto diff [address], [address] [place] [address], [address], 07/08/2024 10:00:24 vitamin D, 25-hydrox y, total, serum [address], [address] [place] [address], [address], 07/08/2024 10:00:23 CMP, serum or plasma [address], [address] [place] [address], [address], 07/08/2024 10:00:23 Referral None recorded. Procedures None recorded. Surgeries None recorded. Imaging None recorded. Medication Orders amoxicill in 875 mg-potass ium clavulana te 125 mg tablet 2024 025 [facility][id number], [address], [place], [address], 05/22/2025 11:32:00 buspirone 10 mg tablet 2023 024 [facility], [address] [facility], [place], [address], 06/17/2024 11:31:43 ropinirol e 0.5 mg tablet 2023 024 [facility], [address] [place] [address], [address], 06/17/2024 11:31:41 lisinopri l 20 mg tablet 2023 024 [facility], [address] [place] [address], [address], 06/17/2024 11:31:46 neomycin- polymyxin -hydrocor t 3.5 mg/mL-10, 000 unit/mL-1 % ear solution 2023 024 [email or web address] [facility], [address] [place] [address], [address], 06/17/2024 10:43:23 Patient TargetsNo targets recorded. Patient Instructions Encounter Date Encounter Id Patient Instructions Last Modified By Organization Details Last Modified Time 10/16/2024 [id number] dementia rating scale-2* Not available 10/22/2024 17:19:24 alcohol misuse* Not available 10/22/2024 17:19:24 depression screening* Not available 10/22/2024 17:19:24 multi-dimensiona l health assessment questionnaire* Not available 10/22/2024 17:19:25 advance directiv es: care instructions Not available 10/22/2024 17:19:24 advance care planning: care instructions Not available 10/22/2024 17:19:25 [place] Advance Directives Not available 10/22/2024 17:19:24 Personalized [facility] lt Plan and Screening Recommendations Advance Directives - Do you have one? No I recommend consulting with an Cfd Engineer, family member, or friend to assist you. Advance Directives - Do we have your advance directive on file in your health record? No, please bring in a copy at your earliest convenience Primary Prevention/Interven tion (prevents or decreases the chance of common diseases from occurring) Smoking Risk: Non Smoker Alcohol Misuse Screening: Negative Weight: Appropriate Physical activity: Appropriate physical activity Nutrition: Average Fall Risk (screened today): Intermediate Recommend regular use of cane or walker Vaccines Pneumococcal: Your next one in 2024 Influenza: Your next one in the fall of 2024 Chronic Disease Risks Stroke: Intermediate Risk Active diagnosis, Continue current treatment plan Heart Attack: Intermediate Risk Active diagnosis, Continue current treatment plan Clogging of the Arteries: Intermediate Risk Active diagnosis, Continue current treatment plan Diabetes: Low Risk I have no recommendations Secondary Prevention/Interven tion (detects treatable diseases before they may cause symptoms, disability, or ) Breast Cancer Screening with mammogram: Recommended today, but you have declined Cervical/Uterine/Ov barbara Cancer Screening: Recommended today, but you have declined Osteoporosis Screening: Your next DEXA in 2024 Date Screening Last Performed: 2023_ Colon Cancer Screening: Recommended today, but you have declined Date Screening Last Performed: Eye Disease Screening: Your next exam in: Dementia Risk: Low I have no recommendations Depression Screening: Positive Recommend follow appointment to further evaluate [email or web address] Not available 10/16/2024 14:02:49 05/22/2025 [id number] Discussed the importance of antibiotic therapy compliance. Patient needs to take medication as prescribed, including completing entire course even if symptoms improve/resolve. Discussed possible side effects of medication. Instructed patient to take medication with food to prevent stomach upset and increase daily water intake. Patient will follow up in 3-4 days if symptoms are not improving or worsen while taking antibiotics. [email or web address] Not available 05/22/2025 11:42:11 Reason for Referral None Reported. Results Created Date Observation Date Name Description Value Unit Range Abnormal Flag Note LastModifiedBy Organization Detail LastModifiedTime 10/16/20 24 10/16/2024 CBC/C OMPLE TE BLD COUNT W/DIF F white blood cells 5.0 x10'3 /uL 4.2-10 .8 Not Available [facility] (Lab) [address] [place], [address], 10/16/2024 19:43:35 10/16/20 24 10/16/2024 CBC/C OMPLE TE BLD COUNT W/DIF F red blood cells 4.22 x10'6 /uL 3.80-5 .20 Not Available [facility] (Lab) [address] [place], [address], 10/16/2024 19:43:35 10/16/20 24 10/16/2024 CBC/C OMPLE TE BLD COUNT W/DIF F hemoglobin 13.3 g/dL 12.0-1 5.6 Not Available [facility] (Lab) [address] [place], [address], 10/16/2024 19:43:35 10/16/20 24 10/16/2024 CBC/C OMPLE TE BLD COUNT W/DIF F hematocrit 40.9 % 35.7-4 5.7 Not Available [facility] (Lab) [address] [place], [address], 10/16/2024 19:43:35 10/16/20 24 10/16/2024 CBC/C OMPLE TE BLD COUNT W/DIF F mean red cell volume 96.9 fL 82.0-9 9.0 Not Available [facility] (Lab) [address] [place], [address], 10/16/2024 19:43:35 10/16/20 24 10/16/2024 CBC/C OMPLE TE BLD COUNT W/DIF F mean red cell hemoglobin 31.5 pg 27.0-3 3.0 Not Available [facility] (Lab) [address] [place], [address], 10/16/2024 19:43:35 10/16/20 24 10/16/2024 CBC/C OMPLE TE BLD COUNT W/DIF F mean RBC HGB concentratio n 32.5 g/dL 31.0-3 6.0 Not Available [facility] (Lab) [address] [place], [address], 10/16/2024 19:43:35 10/16/20 24 10/16/2024 CBC/C OMPLE TE BLD COUNT W/DIF F red cell distribution width 13.8 % 11.8-1 5.5 Not Available [facility] (Lab) [address] [place], [address], 10/16/2024 19:43:35 10/16/20 24 10/16/2024 CBC/C OMPLE TE BLD COUNT W/DIF F platelets 123 x10'3 /uL 150-40 0 low Not Available [facility] (Lab) [address] [place], [address], 10/16/2024 19:43:35 10/16/20 24 10/16/2024 CBC/C OMPLE TE BLD COUNT W/DIF F mean platelet volume 11.5 fL 9.0-12 .4 Not Available [facility] (Lab) [address] [place], [address], 10/16/2024 19:43:35 10/16/20 24 10/16/2024 CBC/C OMPLE TE BLD COUNT W/DIF F neutrophils 76.3 % 39.0-7 2.0 high Not Available [facility] (Lab) [address] [place], [address], 10/16/2024 19:43:35 10/16/20 24 10/16/2024 CBC/C OMPLE TE BLD COUNT W/DIF F lymphocytes 16.5 % 16.0-4 7.0 Not Available [facility] (Lab) [address] [place], [address], 10/16/2024 19:43:35 10/16/20 24 10/16/2024 CBC/C OMPLE TE BLD COUNT W/DIF F monocytes 5.8 % 5.0-12 .0 Not Available [facility] (Lab) [address] [place], [address], 10/16/2024 19:43:35 10/16/20 24 10/16/2024 CBC/C OMPLE TE BLD COUNT W/DIF F eosinophils 0.6 % 1.0-7. 0 low Not Available [facility] (Lab) [address] [place], [address], 10/16/2024 19:43:35 10/16/20 24 10/16/2024 CBC/C OMPLE TE BLD COUNT W/DIF F basophils 0.4 % 0.0-2. 0 Not Available [facility] (Lab) [address] [place], [address], 10/16/2024 19:43:35 10/16/20 24 10/16/2024 CBC/C OMPLE TE BLD COUNT W/DIF F immature granulocytes 0.4 % 0.00-0 .50 Not Available [facility] (Lab) [address] [place], [address], 10/16/2024 19:43:35 10/16/20 24 10/16/2024 CBC/C OMPLE TE BLD COUNT W/DIF F neutrophils, absolute count 3.84 x10'3 /uL 1.5-8. 0 Not Available [facility] (Lab) [address] [place], [address], 10/16/2024 19:43:35 10/16/20 24 10/16/2024 CBC/C OMPLE TE BLD COUNT W/DIF F lymphocytes, absolute count 0.83 x10'3 /uL 1.07-3 .43 low Not Available [facility] (Lab) [address] [place], [address], 10/16/2024 19:43:35 10/16/20 24 10/16/2024 CBC/C OMPLE TE BLD COUNT W/DIF F monocytes, absolute count 0.29 x10'3 /uL 0.29-0 .99 Not Available [facility] (Lab) [address] [place], [address], 10/16/2024 19:43:35 10/16/20 24 10/16/2024 CBC/C OMPLE TE BLD COUNT W/DIF F eosinophils, absolute count 0.03 x10'3 /uL 0.02-0 .53 Not Available [facility] (Lab) [address] [place], [address], 10/16/2024 19:43:35 10/16/20 24 10/16/2024 CBC/C OMPLE TE BLD COUNT W/DIF F basophils, absolute count 0.02 x10'3 /uL 0.01-0 .08 Not Available [facility] (Lab) [address] [place], [address], 10/16/2024 19:43:35 10/16/20 24 10/16/2024 CBC/C OMPLE TE BLD COUNT W/DIF F immature granulocytes ,absolute 0.02 x10'3 /uL 0.00-0 .05 Not Available [facility] (Lab) [address] [place], [address], 10/16/2024 19:43:35 10/16/20 24 10/16/2024 CBC/C OMPLE TE BLD COUNT W/DIF F nucleated red blood cells 0.0 % -0 Not Available [facility] (Lab) [address] [place], [address], 10/16/2024 19:43:35 10/16/20 24 10/16/2024 CBC/C OMPLE TE BLD COUNT W/DIF F NRBC# 0.00 x10'3 /uL Not Available [facility] (Lab) [address] [place], [address], 10/16/2024 19:43:35 10/16/20 24 10/16/2024 URINA LYSIS COMPL ETE, IRIS color YELLOW Not Available [facility] (Lab) [address] [place], [address], 10/16/2024 19:50:57 10/16/20 24 10/16/2024 URINA LYSIS COMPL ETE, IRIS appear EXTRA TURBID abnormal Not Available [facility] (Lab) [address] [place], [address], 10/16/2024 19:50:57 10/16/20 24 10/16/2024 URINA LYSIS COMPL ETE, IRIS specific gravity 1.012 1.001- 1.030 Not Available [facility] (Lab) [address] [place], [address], 10/16/2024 19:50:57 10/16/20 24 10/16/2024 URINA LYSIS COMPL ETE, IRIS pH 6.5 pH_un its 5.0-9. 0 Not Available [facility] (Lab) [address] [place], [address], 10/16/2024 19:50:57 10/16/20 24 10/16/2024 URINA LYSIS COMPL ETE, IRIS leukocytes >/=500 anthony/u L negati ve- abnormal Not Available [facility] (Lab) [address] [place], [address], 10/16/2024 19:50:57 10/16/20 24 10/16/2024 URINA LYSIS COMPL ETE, IRIS nitrite NEGATI VE negati ve- Not Available [facility] (Lab) [address] [place], [address], 10/16/2024 19:50:57 10/16/20 24 10/16/2024 URINA LYSIS COMPL ETE, IRIS protein 50 mg/dL negati ve- abnormal Not Available [facility] (Lab) [address] [place], [address], 10/16/2024 19:50:57 10/16/20 24 10/16/2024 URINA LYSIS COMPL ETE, IRIS glucose NORMAL mg/dL normal - Not Available [facility] (Lab) [address] [place], [address], 10/16/2024 19:50:57 10/16/20 24 10/16/2024 URINA LYSIS COMPL ETE, IRIS ketones NEGATI VE mg/dL negati ve- Not Available [facility] (Lab) [address] [place], [address], 10/16/2024 19:50:57 10/16/20 24 10/16/2024 URINA LYSIS COMPL ETE, IRIS urobilinogen NORMAL mg/dL normal - Not Available [facility] (Lab) [address] [place], [address], 10/16/2024 19:50:57 10/16/20 24 10/16/2024 URINA LYSIS COMPL ETE, IRIS bilirubin NEGATI VE mg/dL negati ve- Not Available [facility] (Lab) [address] [place], [address], 10/16/2024 19:50:57 10/16/20 24 10/16/2024 URINA LYSIS COMPL ETE, IRIS blood 0.06 mg/dL negati ve- abnormal Not Available [facility] (Lab) [address] [place], [address], 10/16/2024 19:50:57 10/16/20 24 10/16/2024 URINA LYSIS COMPL ETE, IRIS white blood cells >100 /i??h pfi?? 0-8 abnormal Not Available [facility] (Lab) [address] [place], [address], 10/16/2024 19:50:57 10/16/20 24 10/16/2024 URINA LYSIS COMPL ETE, IRIS white blood cell clumps PACKED FIELD /i??h pfi?? none seen- abnormal Not Available [facility] (Lab) [address] [place], [address], 10/16/2024 19:50:57 10/16/20 24 10/16/2024 URINA LYSIS COMPL ETE, IRIS red blood cells 5-10 /i??h pfi?? 0-4 abnormal Not Available [facility] (Lab) [address] [place], [address], 10/16/2024 19:50:57 10/16/20 24 10/16/2024 URINA LYSIS COMPL ETE, IRIS bacteria OCCASI ONAL abnormal Not Available [facility] (Lab) [address] [place], [address], 10/16/2024 19:50:57 10/16/20 24 10/16/2024 URINA LYSIS COMPL ETE, IRIS mucous OCCASI ONAL /i??l pfi?? abnormal Not Available [facility] (Lab) [address] [place], [address], 10/16/2024 19:50:57 10/16/20 24 10/16/2024 URINA LYSIS COMPL ETE, IRIS squamous epithelial MANY /i??l pfi?? abnormal Not Available [facility] [address] [facility] [place], [address], 10/16/2024 19:50:57 10/16/20 24 10/16/2024 URINA LYSIS COMPL ETE, IRIS calcium oxalate crystal FEW /i??h pfi?? none seen- abnormal Not Available [facility] (Lab) [address] [place], [address], 10/16/2024 19:50:57 10/16/20 24 10/16/2024 COMPR EHENS PADMINI METAB OLIC PANEL sodium 137 mmol/ L 137-14 5 Not Available [facility] [address] [facility] [place], [address], 10/16/2024 23:50:22 10/16/20 24 10/16/2024 COMPR EHENS PADMINI METAB OLIC PANEL potassium 4.1 mmol/ L 3.5-5. 1 Not Available [facility] (Lab) [address] [place], [address], 10/16/2024 23:50:22 10/16/20 24 10/16/2024 COMPR EHENS PADMINI METAB OLIC PANEL chloride 107 mmol/ L 98-107 Not Available [facility] (Lab) [address] [place], [address], 10/16/2024 23:50:22 10/16/20 24 10/16/2024 COMPR EHENS PADMINI METAB OLIC PANEL carbon dioxide 29 mmol/ L 22-30 Not Available [facility] (Lab) [address] [place], [address], 10/16/2024 23:50:22 10/16/20 24 10/16/2024 COMPR EHENS PADMINI METAB OLIC PANEL anion gap 5.1 mmol/ L 14-22 low Not Available [facility] (Lab) [address] [place], [address], 10/16/2024 23:50:22 10/16/20 24 10/16/2024 COMPR EHENS PADMINI METAB OLIC PANEL glucose 90 mg/dL 70-99 Not Available [facility] (Lab) [address] [place], [address], 10/16/2024 23:50:22 10/16/20 24 10/16/2024 COMPR EHENS PADMINI METAB OLIC PANEL BUN 16 mg/dL 8-19 Not Available [facility] (Lab) [address] [place], [address], 10/16/2024 23:50:22 10/16/20 24 10/16/2024 COMPR EHENS PADMINI METAB OLIC PANEL creatinine 0.97 mg/dL 0.66-1 .25 Not Available [facility] (Lab) [address] [place], [address], 10/16/2024 23:50:22 10/16/20 24 10/16/2024 COMPR EHENS PADMINI METAB OLIC PANEL GFR 59 Refer ence Range : [place] ge GFR Healt hy Adult : >60 mL/mi n/1.7 3 m2 Chron ic Kidne y Disea se: 15-60 mL/mi n/1.7 3 m2 Kidne y Failu re: <15/m L/min /1.73 m2 www.n iddk. nih.g ov The MDRD study equat ion has not been valid ated in child shelly <18 years of age; pregn ant women ; the elder ly >85 years of age; or in some racia l or ethni c subgr oups, such as Hispa nics. Outsi de the valid ated alison eters , estim ated GFR is less accur ate, requi ring clini marcelo judgm ent on a case- by-ca se basis . Clini marcelo inter preta tion for other races and ages must be made by the clini jahaira. The MDRD study equat ion has not been valid ated for the evalu ation of serum creat inine relat ed to nutri erika l statu s or medic ation usage . For perso ns <18 years of age, a pedia tric GFR calcu lator is avail able on the [facility] websi te: https ://jerrica blanco.roberto shipman/fran clark s/quano qi/gf r_cal culat or Not Available [facility] (Lab) [address] [place], [address], 10/16/2024 23:50:22 10/16/20 24 10/16/2024 COMPR EHENS PADMINI METAB OLIC PANEL alkaline phosphatase 90 U/L 38-126 Not Available [facility] (Lab) [address] [place], [address], 10/16/2024 23:50:22 10/16/20 24 10/16/2024 COMPR EHENS PADMINI METAB OLIC PANEL alanine aminotransfe rase 21 U/L 0-35 Not Available [facility] (Lab) [address] [place], [address], 10/16/2024 23:50:22 10/16/20 24 10/16/2024 COMPR EHENS PADMINI METAB OLIC PANEL aspartate aminotransfe rase 35 U/L 15-37 Not Available [facility] (Lab) [address] [place], [address], 10/16/2024 23:50:22 10/16/20 24 10/16/2024 COMPR EHENS PADMINI METAB OLIC PANEL bilirubin, total 0.90 mg/dL 0.20-1 .30 Not Available [facility] (Lab) [address] [place], [address], 10/16/2024 23:50:22 10/16/20 24 10/16/2024 COMPR EHENS PADMINI METAB OLIC PANEL calcium 9.1 mg/dL 8.4-10 .2 Not Available [facility] (Lab) [address] [place], [address], 10/16/2024 23:50:22 10/16/20 24 10/16/2024 COMPR EHENS PADMINI METAB OLIC PANEL total protein 6.8 g/dL 6.3-8. 2 Not Available [facility] (Lab) [address] [place], [address], 10/16/2024 23:50:22 10/16/20 24 10/16/2024 COMPR EHENS PADMINI METAB OLIC PANEL albumin 3.7 g/dL 3.4-5. 0 Not Available [facility] (Lab) [address] [place], [address], 10/16/2024 23:50:22 10/16/20 24 10/16/2024 COMPR EHENS PADMINI METAB OLIC PANEL globulin 3.1 g/dL 2.6-4. 2 Not Available [facility] (Lab) [address] [place], [address], 10/16/2024 23:50:22 10/16/20 24 10/16/2024 COMPR EHENS PADMINI METAB OLIC PANEL A/G ratio 1.2 ratio 1.0-2. 0 Not Available [facility] (Lab) [address] [place], [address], 10/16/2024 23:50:22 10/16/20 24 10/16/2024 LIPID PANEL cholesterol 141 mg/dL 140-19 9 NIH CHEL NSUS RECOM MENDA TION FOR DESIRE STERO L: ADULT CHILD LOW RISK: <200 <170 BORDE RLINE : <200- 239 ----- HIGH RISK: >240 >200 Not Available [facility] (Lab) [address] [place] [address], [address], 10/16/2024 21:20:05 10/16/20 24 10/16/2024 LIPID PANEL triglyceride s 126 mg/dL 0-150 NIH CHEL NSUS REPOR T RECOM MENDA TION FOR TRIGL YCERI MARIOLA: ADULT CHILD LOW RISK: <150 ----- BODER LINE: 150-1 99 ----- HIGH RISK: >200 ----- Not Available [facility] (Lab) [address] [place] [address], [address], 10/16/2024 21:20:05 10/16/20 24 10/16/2024 LIPID PANEL HDL cholesterol 67 mg/dL 40- Not Available [facility] (Lab) [address] [place] [address], [address], 10/16/2024 21:20:05 10/16/20 24 10/16/2024 LIPID PANEL LDL cholesterol, calculated 49 mg/dL 0-130 NIH CHEL NSUS REPOR T RECOM MENDA TIONS FOR LDL: ADULT CHILD LOW RISK <130 <110 (OPTI MAL LDL) <100 ----- BORDE RLINE : 130-1 59 ----- HIGH RISK: >160 >130 A TRIGL YCERI DE RESUL T >400 INVAL IDATE S THE CALCU LATIO N FOR LDL FRACT IONAT ION - THE LDL RESUL T WILL NOT BE REPOR ANMOL. Not Available [facility] (Lab) [address] [place], [address], 10/16/2024 21:20:05 10/16/20 24 10/16/2024 VITAM IN D 25-HY DROXY [id number] 16.3 NG/mL 30-100 low Vitam in D Statu s: Defic ient: <20 ng/mL Insuf ficie nt: 20-29 ng/mL Suffi cient : 30-10 0 ng/mL Not Available [facility] (Lab) [address] [place], [address], 10/16/2024 20:27:04 01/30/20 25 01/29/2025 CBC/C OMPLE TE BLD COUNT W/DIF F white blood cells 5.6 x10'3 /uL 4.2-10 .8 Not Available [facility] (Lab) [address] [place], [address], 01/29/2025 19:05:05 01/30/20 25 01/29/2025 CBC/C OMPLE TE BLD COUNT W/DIF F red blood cells 4.43 x10'6 /uL 3.80-5 .20 Not Available [facility] (Lab) [address] [place], [address], 01/29/2025 19:05:05 01/30/20 25 01/29/2025 CBC/C OMPLE TE BLD COUNT W/DIF F hemoglobin 13.9 g/dL 12.0-1 5.6 Not Available [facility] (Lab) [address] [place], [address], 01/29/2025 19:05:05 01/30/20 25 01/29/2025 CBC/C OMPLE TE BLD COUNT W/DIF F hematocrit 43.4 % 35.7-4 5.7 Not Available [facility] (Lab) [address] [place], [address], 01/29/2025 19:05:05 01/30/20 25 01/29/2025 CBC/C OMPLE TE BLD COUNT W/DIF F mean red cell volume 98.0 fL 82.0-9 9.0 Not Available [facility] (Lab) [address] [place], [address], 01/29/2025 19:05:05 01/30/20 25 01/29/2025 CBC/C OMPLE TE BLD COUNT W/DIF F mean red cell hemoglobin 31.4 pg 27.0-3 3.0 Not Available [facility] (Lab) [address] [place], [address], 01/29/2025 19:05:05 01/30/20 25 01/29/2025 CBC/C OMPLE TE BLD COUNT W/DIF F mean RBC HGB concentratio n 32.0 g/dL 31.0-3 6.0 Not Available [facility] (Lab) [address] [place], [address], 01/29/2025 19:05:05 01/30/20 25 01/29/2025 CBC/C OMPLE TE BLD COUNT W/DIF F red cell distribution width 14.5 % 11.8-1 5.5 Not Available [facility] (Lab) [address] [place], [address], 01/29/2025 19:05:05 01/30/20 25 01/29/2025 CBC/C OMPLE TE BLD COUNT W/DIF F platelets 162 x10'3 /uL 150-40 0 Not Available [facility] (Lab) [address] [place], [address], 01/29/2025 19:05:05 01/30/20 25 01/29/2025 CBC/C OMPLE TE BLD COUNT W/DIF F mean platelet volume 12.1 fL 9.0-12 .4 Not Available [facility] (Lab) [address] [place], [address], 01/29/2025 19:05:05 01/30/20 25 01/29/2025 CBC/C OMPLE TE BLD COUNT W/DIF F neutrophils 62.2 % 39.0-7 2.0 Not Available [facility] (Lab) [address] [place], [address], 01/29/2025 19:05:05 01/30/20 25 01/29/2025 CBC/C OMPLE TE BLD COUNT W/DIF F lymphocytes 29.2 % 16.0-4 7.0 Not Available [facility] (Lab) [address] [place], [address], 01/29/2025 19:05:05 01/30/20 25 01/29/2025 CBC/C OMPLE TE BLD COUNT W/DIF F monocytes 6.7 % 5.0-12 .0 Not Available [facility] (Lab) [address] [place], [address], 01/29/2025 19:05:05 01/30/2001/29/2025 CBC/C OMPLE TE BLD COUNT W/DIF F eosinophils 1.3 % 1.0-7. 0 Not Available [facility] (Lab) [address] [place], [address], 01/29/2025 19:05:05 01/30/20 25 01/29/2025 CBC/C OMPLE TE BLD COUNT W/DIF F basophils 0.4 % 0.0-2. 0 Not Available [facility] (Lab) [address] [place], [address], 01/29/2025 19:05:05 01/30/2001/29/2025 CBC/C OMPLE TE BLD COUNT W/DIF F immature granulocytes 0.2 % 0.00-0 .50 Not Available [facility] (Lab) [address] [place], [address], 01/29/2025 19:05:05 01/30/20 25 01/29/2025 CBC/C OMPLE TE BLD COUNT W/DIF F neutrophils, absolute count 3.46 x10'3 /uL 1.5-8. 0 Not Available [facility] (Lab) [address] [place], [address], 01/29/2025 19:05:05 01/30/20 25 01/29/2025 CBC/C OMPLE TE BLD COUNT W/DIF F lymphocytes, absolute count 1.62 x10'3 /uL 1.07-3 .43 Not Available [facility] (Lab) [address] [place], [address], 01/29/2025 19:05:05 01/30/20 25 01/29/2025 CBC/C OMPLE TE BLD COUNT W/DIF F monocytes, absolute count 0.37 x10'3 /uL 0.29-0 .99 Not Available [facility] (Lab) [address] [place], [address], 01/29/2025 19:05:05 01/30/20 25 01/29/2025 CBC/C OMPLE TE BLD COUNT W/DIF F eosinophils, absolute count 0.07 x10'3 /uL 0.02-0 .53 Not Available [facility] (Lab) [address] [place], [address], 01/29/2025 19:05:05 01/30/20 25 01/29/2025 CBC/C OMPLE TE BLD COUNT W/DIF F basophils, absolute count 0.02 x10'3 /uL 0.01-0 .08 Not Available [facility] (Lab) [address] [place], [address], 01/29/2025 19:05:05 01/30/20 25 01/29/2025 CBC/C OMPLE TE BLD COUNT W/DIF F immature granulocytes ,absolute 0.01 x10'3 /uL 0.00-0 .05 Not Available [facility] (Lab) [address] [place], [address], 01/29/2025 19:05:05 01/30/20 25 01/29/2025 CBC/C OMPLE TE BLD COUNT W/DIF F nucleated red blood cells 0.0 % -0 Not Available [facility] (Lab) [address] [facility] [place], [address], 01/29/2025 19:05:05 01/30/20 25 01/29/2025 CBC/C OMPLE TE BLD COUNT W/DIF F NRBC# 0.00 x10'3 /uL Not Available [facility] (Lab) [address] [place], [address], 01/29/2025 19:05:05 01/30/20 25 01/29/2025 URINA LYSIS COMPL ETE, IRIS color YELLOW Not Available [facility] (Lab) [address] [place], [address], 01/29/2025 19:17:00 01/30/20 25 01/29/2025 URINA LYSIS COMPL ETE, IRIS appear EXTRA TURBID abnormal Not Available [facility] (Lab) [address] [place], [address], 01/29/2025 19:17:00 01/30/20 25 01/29/2025 URINA LYSIS COMPL ETE, IRIS specific gravity 1.011 1.001- 1.030 Not Available [facility] (Lab) [address] [place], [address], 01/29/2025 19:17:00 01/30/20 25 01/29/2025 URINA LYSIS COMPL ETE, IRIS pH 6.0 pH_un its 5.0-9. 0 Not Available [facility] (Lab) [address] [place], [address], 01/29/2025 19:17:00 01/30/20 25 01/29/2025 URINA LYSIS COMPL ETE, IRIS leukocytes >/=500 anthony/u L negati ve- abnormal Not Available [facility] (Lab) [address] [place], [address], 01/29/2025 19:17:00 01/30/20 25 01/29/2025 URINA LYSIS COMPL ETE, IRIS nitrite NEGATI VE negati ve- Not Available [facility] (Lab) [address] [place], [address], 01/29/2025 19:17:00 01/30/20 25 01/29/2025 URINA LYSIS COMPL ETE, IRIS protein 30 mg/dL negati ve- abnormal Not Available [facility] (Lab) [address] [place], [address], 01/29/2025 19:17:00 01/30/20 25 01/29/2025 URINA LYSIS COMPL ETE, IRIS glucose NORMAL mg/dL normal - Not Available [facility] (Lab) [address] [place], [address], 01/29/2025 19:17:00 01/30/20 25 01/29/2025 URINA LYSIS COMPL ETE, IRIS ketones NEGATI VE mg/dL negati ve- Not Available [facility] (Lab) [address] [place], [address], 01/29/2025 19:17:00 01/30/20 25 01/29/2025 URINA LYSIS COMPL ETE, IRIS urobilinogen NORMAL mg/dL normal - Not Available [facility] (Lab) [address] [place], [address], 01/29/2025 19:17:00 01/30/20 25 01/29/2025 URINA LYSIS COMPL ETE, IRIS bilirubin NEGATI VE mg/dL negati ve- Not Available [facility] (Lab) [address] [place], [address], 01/29/2025 19:17:00 01/30/20 25 01/29/2025 URINA LYSIS COMPL ETE, IRIS blood 0.06 mg/dL negati ve- abnormal Not Available [facility] (Lab) [address] [place], [address], 01/29/2025 19:17:00 01/30/20 25 01/29/2025 URINA LYSIS COMPL ETE, IRIS white blood cells PACKED /i??h pfi?? 0-8 abnormal Not Available [facility] (Lab[facility] [address] [facility] [place], [address], 01/29/2025 19:17:00 01/30/20 25 01/29/2025 URINA LYSIS COMPL ETE, IRIS white blood cell clumps PACKED FIELD /i??h pfi?? none seen- abnormal Not Available [facility] (Lab) [address] [place], [address], 01/29/2025 19:17:00 01/30/20 25 01/29/2025 URINA LYSIS COMPL ETE, IRIS red blood cells 11-20 /i??h pfi?? 0-4 abnormal Not Available [facility] (Lab) [address] [place], [address], 01/29/2025 19:17:00 01/30/20 25 01/29/2025 URINA LYSIS COMPL ETE, IRIS bacteria PACKED FIELD abnormal Not Available [facility] (Lab) [address] [place], [address], 01/29/2025 19:17:00 01/30/20 25 01/29/2025 URINA LYSIS COMPL ETE, IRIS squamous epithelial PACKED FIELD /i??l pfi?? abnormal Not Available [facility] (Lab) [address] [place], [address], 01/29/2025 19:17:00 Result Notes None recorded. Problems Name Problem SNOMED Code Status Onset Date Resolution Date Notes Provider Name and Address Organization Details Recorded Time Chronic back pain 020580885 Active pain manageme nt Not Available [facility] 4 10:19:21 Liver enzymes outside referenc e range 509126878 Completed Not Available [facility] 3 04:53:17 Chronic depressi on 791458218 Active Not Available [facility] 4 10:19:21 Chronic diarrhea 586752231 Active Not Available [facility] 4 10:19:21 Menopaus e present 641892459 Completed Not Available Counts include 234 beds at the [facility] 3 04:53:18 Hypertri glycerid emia 883317384 Active Not Available [facility] 4 10:19:21 Vitamin D deficien cy 00726178 Active Not Available [facility] 4 10:19:21 Depressi ve disorder 23397763 Completed Not Available [facility] 3 04:53:19 Anxiety 53444350 Active Not Available Counts include 234 beds at the [facility] 4 10:19:21 Essentia l hyperten gus 34110070 Active Not Available Counts include 234 beds at the [facility] 4 10:19:22 Female stress incontin ence 00893655 Active s/p surgery Not Available [facility] 4 10:19:22 Liver enzymes outside referenc e range 177919193 Completed 201604/12/2018 Not Available [facility] 3 04:53:17 Overacti ve urinary bladder 049695419 Active 2019 Not Available [facility] 4 10:19:22 Ureteric stone 74979910 Active 2020 Not Available [facility] 4 10:19:21 Kidney stone 85953008 Active 2020 Not Available [facility] 4 10:19:22 Otalgia of right ear 2862878297 Completed 202107/12/2022 Not Available [facility] 3 04:53:17 Ventricu lar prematur e beats 49386187 Active 2021 Not Available [facility] 4 10:19:21 Urinary symptoms 414652491 Completed 202107/12/2022 Delmi mcqueen RMA null, [facility] 4 11:56:56 Peripher al vascular disease 637170052 Active 2021 Not Available [facility] 4 10:19:21 Acute urinary tract infectio n 632972521 Completed 202107/12/2022 Alfonso Weiss MD [address] [place] [address], [address] , [facility], [facility] 4 10:50:22 Urinary symptoms 796916272 Completed 202111/08/2022 Delmi mcqueen RMA null, [facility] 4 11:56:56 Restless legs 17251054 Active 2021 Not Available [facility] 4 10:19:21 Syncope 126518363 Active 2021 Not Available [facility] 4 10:19:21 Chest pain 35403702 Active 2021 Not Available [facility] 4 10:19:21 Acute upper respirat ory infectio n 65687706 Completed 202211/08/2022 Not Available [facility] 3 04:53:19 Nonische paulina congesti ve cardiomy opathy 41531288423 4 Active 2022 Not Available [facility] 4 10:19:21 Bronchit is 47706538 Active 2022 Not Available [facility] 4 10:19:21 Hyperlip idemia 15590788 Active 2022 Not Available [facility] 4 10:19:21 Upper respirat ory infectio n 83533463 Active 2022 Not Available [facility] 4 10:19:21 Rhinitis 89117303 Active 2022 Not Available [facility] 4 10:19:22 Insomnia 386157629 Active 2022 Not Available [facility] 4 10:19:21 Fracture of femur 11750299 Active 2022 Not Available Counts include 234 beds at the [facility] 4 10:19:22 Neuropat hy 244894409 Active 2022 Not Available Counts include 234 beds at the [facility] 4 10:19:21 Osteopor osis 84219071 Active 2023 Salina Tsai LPN null, [place] - [facility] 4 10:17:41 Dysuria 40338634 Active 2023 Tatum Avila MA null, [place] [facility] 4 16:03:37 Low back pain 840210117 Active 2023 Delmi mcqueen RMSurekha null, [place] [facility] 4 10:38:47 Acute urinary tract infectio n 798970961 Active 2023 Alfonso Weiss MD [address], [address], [place], [address] , [facility], [facility] 4 10:50:22 Urinary symptoms 892747072 Active 2023 Delmi mcqueen RMA null, [place] [facility] 4 11:56:56 Acute otitis externa 97907362 Active 2023 Alfonso Weiss MD [address], [address], [place], [address] , [facility] - [facility] 4 15:46:31 Cardiomy opathy 61845493 Active 2023 Alfonso Weiss MD [address], [address], [place], [address] , [facility] 4 11:29:24 Impairme nt of balance 003866775 Active 2023 Alfonso Weiss MD [address], [address], [place], [address] , [facility], [place] [facility] 4 11:30:37 Platelet count outside referenc e range 192362386 Active 2023 Salina Tsai LPN null, [facility] 4 14:26:54 Microsco pic hematuri a 636148084 Active 2024 Tatum Avila MA null, [facility] 5 16:32:26 Infectio n of right ear 48672310004 57845 Active 2024 ETIENNE Richards [address], [place], [address] , [facility], [place] [facility] 5 11:29:51 Problem Notes None recorded. Procedures Surgical History Date Name Laterality Status Provider Name and Address Organization Details Recorded Time 10/16/20 24 Medicare Wellness CPT Code, subsequent completed Laura Rothman RN [facility] 10/16/2024 13:39:49 10/16/20 24 Advanced Care Planning completed Laura Rothman RN [facility] 10/16/2024 13:44:19 03/10/20 05 CLINICAL INFORMATICS DIRECTOR Procedure completed Not Available Counts include 234 beds at the [facility] 01/03/2023 04:42:50 02/05/20 04 Hernia Repair completed Not Available Counts include 234 beds at the [facility] 01/03/2023 04:42:50 section completed Not Available Counts include 234 beds at the [facility] 01/03/2023 04:42:50 Hysterectomy completed Not Available Counts include 234 beds at the [facility] 01/03/2023 04:42:50 cholecystectomy completed Not Available Counts include 234 beds at the [facility] 01/03/2023 04:42:50 ENT Surgery completed Not Available Counts include 234 beds at the [facility] 01/03/2023 04:42:50 Imaging Results None recorded. Procedure Notes None recorded. Medical Equipment None Reported. Allergies Allergen ID Allergen Name Allergen Category Reaction Reaction Severity Criticality Documentation Date Start Date Code Code System Note Provider Name and Address Organization Details Recorded Time 8538 codeine medicatio n Not available Not available Not available 01/03/2023 2670 RxNorm Not Available Counts include 234 beds at the [facility] 3 05:05:21 Medications Name Sig Start Date Stop [...] Take 1 tablet by mouth once daily 2023 active Not Available Not Available Not [...] (BMI) Body weight Body temperature Heart rate Systolic And Diastolic Provider Name and Address Organization Details Last Updated DateTime 5 160.02 cm 23.6 kg/m2 67983.7 9 g 97.3 [degF] 87 /min 140/86 mm[Hg] Diana rao [facility] 5 09:32:12 Date Recorded Body height Body mass index (BMI) Body weight Heart rate Oxygen saturation Oxygen saturation in Arterial blood by Pulse oximetry Systolic And Diastolic Provider Name and Address Organization Details Last Updated DateTime 4 160.02 cm 22.5 kg/m2 53613.2 3 g 72 /min 89 % 89 % 140/90 mm[Hg] SEVERIANO Howard [facility] 4 15:03:59 Date Recorded Body height Body mass index (BMI) Body weight Body temperature Heart rate Respiratory rate Oxygen saturation Oxygen saturation in Arterial blood by Pulse oximetry Systolic And Diastolic Provider Name and Address Organization Details Last Updated DateTime 5 160.02 cm 23.6 kg/m2 42141.7 9 g 97.8 [degF] 88 /min 16 /min 93 % 93 % 136/82 mm[Hg] Tatum Avila MA [facility] 5 11:24:04 Date Recorded Body height Body mass index (BMI) Body weight Oxygen saturation Oxygen saturation in Arterial blood by Pulse oximetry Heart rate Body temperature Systolic And Diastolic Provider Name and Address Organization Details Last Updated DateTime 4 160.02 cm 22.5 kg/m2 31119.2 3 g 96 % 96 % 70 /min 97.7 [degF] 136/82 mm[Hg] Kalli Angulo [facility] [employer] [facility] 4 10:41:40 Date Recorded Body height Body mass index (BMI) Body weight Body temperature Heart rate Respiratory rate Oxygen saturation Oxygen saturation in Arterial blood by Pulse oximetry Systolic And Diastolic Provider Name and Address Organization Details Last Updated DateTime 4 160.02 cm 23.4 kg/m2 09519.1 9 g 97 [degF] 73 /min 16 /min 97 % 97 % 138/88 mm[Hg] Tatum Avila MA [facility] 4 09:49:04 Social History Question Answer Notes LastModified by Organizat ion Details LastModified Time Tobacco Smoking Status Former Smoker Laura Rothman RN [facility], [facility] 10/16/2024 10:40:36 Do You Have An Advance Directive? No [id number] Information not available 01/03/2023 Do You Wear A Helmet When Biking? No MIGRATION.35439 38270 Information not available 01/03/2023 What Is Your Level Of Caffeine Consumption? Occasional MIGRATION.34553 75479 Information not available 01/03/2023 How Much Tobacco Do You Chew? None MIGRATION.63769 18067 Information not available 01/03/2023 What Type Of Diet Are You Following? REGULAR MIGRATION.65293 80540 Information not available 01/03/2023 Which Illicit Or Recreational Drugs Have You Used? None MIGRATION.71141 94562 Information not available 01/03/2023 What Is The Highest Grade Or Level Of School You Have Completed Or The Highest Degree You Have Received? IG20410-1 MIGRATION.78707 79454 Information not available 01/03/2023 Have There Been Any Changes To Your Family Or Social Situation? No MIGRATION.90124 05537 Information not available 01/03/2023 What Is The Fluoride Status Of Your Home? Fluoridated [email or web address] Information not available 10/16/2024 When Did You Quit Smoking? 1-5yearssincelastci pradeep Quit 06/2023 [email or web address] Information not available 10/16/2024 Are There Any Guns Present In Your Home? No [email or web address] Information not available 10/16/2024 Do You Use Insect Repellent Routinely? Yes [email or web address] Information not available 10/16/2024 Where Do You Live? [place]House MIGRATION.78203 47420 Information not available 01/03/2023 Do You Have A Medical Power Of Cfd Engineer? Yes [email or web address] Information not available 10/16/2024 What Was The Date Of Your Most Recent Tobacco Screening? 10/16/2024 [email or web address] Information not available 10/16/2024 How Many Children Do You Have? 2 [email or web address] Information not available 10/16/2024 Do You Have Any Pets? Yes MIGRATION.10705 45849 Information not available 01/03/2023 What Is Your Relationship Status? [email or web address] Information not available 10/16/2024 Do You Use Your Seat Belt Or Car Seat Routinely? Yes MIGRATION.96221 29828 Information not available 01/03/2023 Do You Have Smoke And Carbon Monoxide Detectors In Your Home? Yes MIGRATION.24194 35984 Information not available 01/03/2023 At What Age Did You Start Smoking Tobacco? 16 MIGRATION.91780 51254 Information not available 01/03/2023 Are You Passively Exposed To Smoke? No MIGRATION.78688 14306 Information not available 01/03/2023 Are There Any Smokers In Your House? No MIGRATION.59972 64480 Information not available 01/03/2023 How Much Tobacco Do You Smoke? 1 PPD [email or web address] Information not available 10/16/2024 Do You Use Sunscreen Routinely? No MIGRATION.96430 85769 Information not available 01/03/2023 How Many Years Have You Smoked Tobacco? 42 [email or web address] Information not available 10/16/2024 Have You Recently Traveled Abroad? No MIGRATION.24219 18849 Information not available 01/03/2023 Do You Have Any Dietary Restrictions? No MIGRATION.10172 67504 Information not available 01/03/2023 How Many Years Have You Used E-cigarettes Or Vape? 5 [email or web address] Information not available 10/16/2024 Sex: Female Functional Status Question Answer Note LastModified by Organizat ion Details LastModified Time Do you use any illicit or recreational drugs? No [email or web address] Information not available 10/16/2024 Do you or have you ever used any other forms of tobacco or nicotine? Yes [email or web address] Information not available 10/16/2024 What is your level of alcohol consumption? None MIGRATION.800070 5890 Information not available 01/03/2023 Are you currently employed? No [email or web address] Information not available 10/16/2024 What is your occupation? DISABLED MIGRATION.150427 3389 Information not available 01/03/2023 Do you or have you ever used e-cigarettes or vape? Former user of electronic cigarettes [email or web address] Information not available 10/16/2024 What is your exercise level? None MIGRATION.174270 0185 Information not available 01/03/2023 Mental Status Question Answer Note LastModified by Organizat ion Details LastModified Time Do you feel stressed (tense, restless, nervous, or anxious, or unable to sleep at night)? [id number] MIGRATION.[id number] 6 Information not available 01/03/2023 Family History Relationship Description Onset Age of this Age Resolved Age Notes LastModified by Organization Details LastModified Time Paternal Grandfather Malignant neoplasm of prostate MIGRATION.097 [id number] Not available 01/03/2023 04:42:57 Father Diabetes mellitus MIGRATION.504 [id number] Not available 01/03/2023 04:42:57 Maternal Grandfather Leukemia MIGRATION.741 [id number] Not available 01/03/2023 04:42:57 Mother Essential hypertension MIGRATION.189 [id number] Not available 01/03/2023 04:42:57 Medical History Condition Response HYPERTENSION Y Gynecological HistoryNo gynecological history recorded. Obstetrics History GPAL:G 0 P 0 0 0 0 Immunizations Vaccine Type Date Status Note Provider Nam e and Address Organization Details Recorded Time SARS-COV-2 (COVID-19) vaccine, UNSPECIFIED 1 completed Not Available Counts include 234 beds at the [facility] 11/13/2023 10:19:23 SARS-COV-2 (COVID-19) vaccine, UNSPECIFIED 1 completed Not Available Counts include 234 beds at the [facility] 11/13/2023 10:19:23 Influenza, split virus, quadrivalent, preservative 0 completed Not Available Counts include 234 beds at the [facility] 11/13/2023 10:19:23 Influenza, high-dose, trivalent, PF 4 completed Not Available Counts include 234 beds at the [facility] 11/13/2023 10:19:23 Influenza, high-dose, trivalent, PF 3 completed Not Available Counts include 234 beds at the [facility] 11/13/2023 10:19:23 Influenza, split virus, quadrivalent, preservative 6 completed Not Available Counts include 234 beds at the [facility] 11/13/2023 10:19:23 Influenza, split virus, quadrivalent, preservative 9 completed Not Available Counts include 234 beds at the [facility] 11/13/2023 10:19:23 Influenza, split virus, trivalent, preservative 5 completed Not Available Counts include 234 beds at the [facility] 11/13/2023 10:19:23 Influenza, high-dose, quadrivalent, PF 3 completed SEVERIANO Paredes, [facility] 08/28/2023 09:00:15 pneumococcal polysaccharide PPV23 4 completed Alfonso Weiss MD [address], [facility] [address], [place], [address], [employer] [facility] 06/17/2024 16:16:15 Influenza, high-dose, trivalent, PF 4 completed Alfonso Weiss MD [address], [address], [place], [address], [employer] [facility] 10/22/2024 17:19:25 Past Encounters Encounter ID Performer Location Encounter Start Date Encounter Closed Date Diagnosis/Indication Diagnosis SNOMED-CT Code Diagnosis ICD10 Code Diagnosis Note [id number] Alfonso Weiss MD [facility] [place] [facility] [address] [facility] [place] [place] [address] 02/18/2021 00:00:00 02/18/2021 15:34:40 [id number] Alfonso Weiss MD [facility] Internal [address] [place] [address] 03/18/2021 00:00:00 03/18/2021 10:30:35 [id number] Alfonso Weiss MD [facility] Internal [address] [place] [address] 04/15/2021 00:00:00 04/15/2021 10:58:07 [id number] MD JOANA [facility] Internal Med [address] [facility] [place] [address] 06/28/2021 00:00:00 06/28/2021 12:18:28 [id number] MD DIXIE [facility] Internal Med [address] [facility] [place] [place] [address] 10/31/2021 00:00:00 10/31/2021 16:08:36 [id number] MD DIXIE [facility] Internal Med [address] [facility] [place] [place] [address] 11/08/2021 00:00:00 11/08/2021 10:35:39 [id number] MD JOANA [facility] Internal Med [address] [facility] [place] [place] [address] 03/08/2022 00:00:00 03/08/2022 10:50:48 [id number] MD JOANA [facility] Internal Med [address] [place] [address] 03/21/2022 00:00:00 03/21/2022 15:33:56 [id number] Alfonso Weiss MD [facility] Internal [address] [facility] [place] [place] [address] 07/14/2022 00:00:00 07/14/2022 10:28:39 [id number] MD JOANA [facility] Internal [facility] [address] [facility] [place] [place] [address] 07/24/2022 00:00:00 07/24/2022 15:00:02 [id number] Alfonso Weiss MD [facility] Internal Med [address] [facility] [place] [place] [address] 11/13/2022 00:00:00 11/13/2022 12:53:24 [id number] Alfonso Weiss MD [facility] Internal Med [address] [facility] [place] [place] [address] 02/05/2023 14:45:51 02/05/2023 15:52:19 Upper respiratory infection 82526485 J06.9 [id number] Alfonso Weiss MD [facility] Internal [address] [facility] [place] [place] [address] 03/13/2023 09:50:07 03/13/2023 10:29:17 Essential hypertension 85593650 I10 under control Anxiety 43103862 F41.9 under control Chronic back pain 701584 002 G89.29 otc Chronic depression 31175 0009 F34.1 under control Hypertriglyceridemia 302 419638 E78.1 on meds Vitamin D deficiency 347 68473 E55.9 otc Overactive urinary bladder 735199122 N32.81 stable Kidney stone 41551996 N2 0.0 no recurrence Peripheral vascular disease 279041856 I73.9 s/p stent Restless legs 94384496 G 25.81 meds help Hyperlipidemia 37821464 E78.5 on meds Nonischemi c congestive cardiomyopathy 7258537515 04 I42.0 s/p AICD Adult heal th examination 354747752 Z00.00 Colonoscop y- NEVER, does not wantMammog marion- NEVER, does not wantDEXA- NEVER, does not wantFLU- 2020COVID- 01/04/21, 01/26/21 Rhinitis 87927179 J00 Insomnia 735543866 G47.0 0 [id number] Alfonso Weiss MD [facility] Internal Med [facility] [address] [facility] [place] [place] [address] 07/17/2023 09:54:46 07/17/2023 10:48:02 Essential hypertension 87479981 I10 under control Anxiety 75582805 F41.9 under control with meds Chronic back pain 490110 002 G89.29 otc Chronic depression 93367 0009 F34.1 under control Hypertriglyceridemia 302 627825 E78.1 labs good Vitamin D deficiency 347 43363 E55.9 otc Overactive urinary bladder 720243723 N32.81 stable Kidney stone 00143122 N2 0.0 no recurrence Peripheral vascular disease 108959433 I73.9 s/p stent Restless legs 37228257 G 25.81 meds help Hyperlipidemia 97756227 E78.5 on meds Nonischemi c congestive cardiomyopathy 6699118861 04 I42.0 s/p AICD Adult heal th examination 731142253 Z00.00 Colonoscop y- NEVER, does not wantMammog marion- NEVER, does not wantDEXA- NEVER, does not wantFLU- 2020COVID- 01/04/21, 01/26/21 Rhinitis 77371087 J00 otc Insomnia 940443720 G47.0 0 better with meds Fracture of femur 495103 00 S72.90XA Postmenopausal state 764 06943 Z78.0 [id number] Alfonso Weiss MD [facility] Internal Med [address] [facility] [place] [place] [address] 10/16/2023 10:29:43 10/16/2023 11:01:41 Essential hypertension 87931444 I10 under control Anxiety 59725670 F41.9 under control with meds Chronic back pain 818393 002 G89.29 otc Chronic depression 63893 0009 F34.1 under control , cut down the dose to 150 mg qd Hypertriglyceridemia 302 737968 E78.1 labs good Vitamin D deficiency 347 67780 E55.9 otc Overactive urinary bladder 940153743 N32.81 stable Kidney stone 51611897 N2 0.0 no recurrence Peripheral vascular disease 391280828 I73.9 s/p stent Restless legs 58152430 G 25.81 meds help Hyperlipidemia 01660247 E78.5 on meds Nonischemi c congestive cardiomyopathy 2627213557 04 I42.0 s/p AICD Rhinitis 68471527 J00 otc Insomnia 451333580 G47.0 0 better with meds Adult heal th examination 924185423 Z00.00 Colonoscop y- NEVER, does not wantMammog marion- NEVER, does not wantDEXA- NEVER, does not wantFLU- 2019, OVID- 01/04/21, 01/26/21 Postmenopausal state 764 57159 Z78.0 Neuropathy 235307456 G62 .9 meds help [id number] Alfonso Weiss MD [facility] Internal [address] [facility] [place] [place] [address] 02/19/2024 10:02:30 02/19/2024 10:50:18 Essential hypertension 81181522 I10 NOT under control , not taking med for months Anxiety 70914454 F41.9 under control with meds Chronic back pain 954116 002 G89.29 otc Chronic depression 38216 0009 F34.1 under control , Hypertriglyceridemia 302 717859 E78.1 labs good Vitamin D deficiency 347 86373 E55.9 otc Overactive urinary bladder 829387393 N32.81 stable Kidney stone 27062994 N2 0.0 no recurrence Peripheral vascular disease 469146105 I73.9 s/p stent Restless legs 24000339 G 25.81 meds help Hyperlipidemia 74955609 E78.5 on meds Nonischemi c congestive cardiomyopathy 1431283706 04 I42.0 s/p AICD Rhinitis 49187183 J00 otc Insomnia 492014247 G47.0 0 better with meds Adult [facility] examination 806342277 Z00.00 Colonoscop y- NEVER, does not wantMammog marion- NEVER, does not wantDEXA- 11/13/2023 FLU- OVID- 01/04/21, 01/26/21 Neuropathy 448024271 G62 .9 meds help Low back pain 326361124 M54.50 Acute urin kathy tract infection 689779321 N39.0 [id number] Alfonso Weiss MD [facility] [place] [facility] [address] [facility] [place] [place] [address] 04/21/2024 14:59:09 04/21/2024 15:45:03 Acute otitis externa 53792311 H60.047 [id number] Alfonso Weiss MD [facility] [address] [place] [address] 06/17/2024 10:27:34 06/17/2024 11:44:10 Essential hypertension 15972359 I10 under control , Anxiety 91446066 F41.9 under control with meds Chronic back pain 887047 002 G89.29 otc Chronic depression 21029 0009 F34.1 under control with meds Hypertriglyceridemia 302 050843 E78.1 labs good Vitamin D deficiency 347 71515 E55.9 otc Overactive urinary bladder 660871358 N32.81 stable Kidney stone 82180986 N2 0.0 no recurrence Peripheral vascular disease 724685071 I73.9 s/p stent Restless legs 93835022 G 25.81 meds help Hyperlipidemia 88574634 E78.5 on meds Nonischemi c congestive cardiomyopathy 2144956951 04 I42.0 s/p AICD Rhinitis 39998871 J00 otc Insomnia 244397757 G47.0 0 better with meds Adult heal th examination 536234778 Z00.00 Colonoscop y- NEVER, does not wantMammog marion- NEVER, does not wantPneumo vax 23 today 06/28DEXA- 11/13/2023 FLU- 2020, OVID- 01/04/21, 01/26/21 Neuropathy 370118390 G62 .9 meds help Cardiomyopathy 71488334 I42.9 EF 35%, no symptoms Ex-smoker 3770410 Z87.89 1 Impairment of balance 38 9280945 R26.89 using walker Administra tion of pneumococcal vaccine 25980194 Z23 [id number] Alfonso Weiss MD [facility] [address] [place] [address] 10/16/2024 09:43:26 10/16/2024 10:43:04 Essential hypertension 66986146 I10 under control , Anxiety 17127692 F41.9 under control with meds Chronic back pain 437697 002 G89.29 otc still gets pain but does not want to see pain management Chronic depression 62657 0009 F34.1 under control with meds Hypertriglyceridemia 302 235397 E78.1 labs Vitamin D deficiency 347 59040 E55.9 otc Overactive urinary bladder 827661819 N32.81 stable Kidney stone 72331829 N2 0.0 no recurrence Peripheral vascular disease 802308750 I73.9 s/p stent Restless legs 26951832 G 25.81 meds help Hyperlipidemia 15112954 E78.5 on meds, check labs Nonischemi c congestive cardiomyopathy 5082145752 04 I42.0 s/p AICD Rhinitis 76730964 J00 otc Insomnia 575664558 G47.0 0 better with meds Adult heal th examination 611553857 Z00.00 Colonoscop y- NEVER, does not wantMammog marion- NEVER, does not wantPneumo vax 23 today 06/28DEXA- 11/13/2023 FLU- 2020, OVID- 01/04/21, 01/26/21 Neuropathy 855870462 G62 .9 meds help Cardiomyopathy 15956116 I42.9 EF 35%, no symptoms Ex-smoker 7275337 Z87.89 1 Impairment of balance 38 2266594 R26.89 using walker Long-term drug therapy 631790490 Z79.891 Screening for disorder 086261859 Z13.9 [id number] Alfonso Weiss MD [facility] [address] [facility] [place] [place] [address] 02/17/2025 09:19:55 02/17/2025 10:14:31 Essential hypertension 95250670 I10 under control , Anxiety 65888708 F41.9 under control with meds Chronic back pain 970070 002 G89.29 otc still gets pain but does not want to see pain management Chronic depression 51724 0009 F34.1 under control with meds Hypertriglyceridemia 302 795304 E78.1 better Vitamin D deficiency 347 43417 E55.9 otc Overactive urinary bladder 019980041 N32.81 stable Kidney stone 19308870 N2 0.0 no recurrence Peripheral vascular disease 839705836 I73.9 s/p stent Restless legs 41068748 G 25.81 meds help Hyperlipidemia 92497114 E78.5 under control Nonischemi c congestive cardiomyopathy 5437105959 04 I42.0 s/p AICD Rhinitis 38365512 J00 otc Insomnia 589574907 G47.0 0 better with meds Adult heal th examination 798625378 Z00.00 Colonoscop y- NEVER, does not wantMammog marion- NEVER, does not wantPneumo vax 23 today 06/28DEXA- 11/13/2023 FLU- 2019, 2022, OVID- 01/04/21, 01/26/21 Neuropathy 169477428 G62 .9 meds help Cardiomyopathy 47441881 I42.9 EF improving Ex-smoker 6524137 Z87.89 1 Impairment of balance 38 3054033 R26.89 using walker [id number] Alfonso Weiss MD [facility] [address] [place] [address] 05/22/2025 11:14:29 05/22/2025 11:35:51 Infection of right ear 9840697289 022751 H66.91 Health Concerns Section Related Observation LastModified by Organization Detai ls LastModified Time None Recorded Concern Status LastModified by Organization Details LastModified Time None Recorded Advance Directives Directive N: Payers Insurance Date Sequence Insurance Name Policy Number Policy Rodriguez Covered Member ID Rodriguez Member ID Guarantor Name 05/22/2025 1 [place] Eulalia Salvador [id number] Eulalia Salvador 05/22/2025 2 [place] Eulalia Salvador [id number] Eulalia Salvador 10/16/2023 2 [place] Eulalia Salvador [id number] Eulalia Salvador 06/18/2024 3 [employer] [place] - [place] ON [place] AFTER 2020 (MEDICAID REPLACEMENT - HMO) Eulalia Salvador [id number] Eulalia Salvador Notes Date Note Type Note Provider Name and Address Organization Details Recorded Time 04/21/2024 text/html She is here toda y with right ear pain. Has been going on for a couple weeks. Left ear is goodno fever Alfonso Weiss MD [address] [facility], [place], [address], [place] [facility] 04/21/2024 15:48:01 06/17/2024 text/html Pt here for 4 mo f/u. Pt reports doing fine. compliant to medications, no side affects, HTN- under controlMeds- Lisinopril 20 mg dailyHyperlipidemia- diet is under control, Trig were high, labs 09/27Meds- Fenofibrate 145 mg daily , Atorvastatin 10 mg qdNeuropathy-meds helpMeds- Gabapentin 600 mg TID,RLS- symptoms controlled with medsMeds- Ropinirole 0.5 mg dailyAbn Liver enzymes- now nlChronic back pain- Had epidurals for back pain, was seeing pain management, pain is better, OFF medsMeds- was on Morphine, by dr Gio Long def- advised to take otcEx- smoker, quit yrs ago,Chest pain- s/p cardiac cath 06/20/21, Dr Justice, Dr Kerr, no cpMeds- Ranolazine 500 mg BIDCHF/ Cardiomyopathy- has loop recorder, had EP studies, had ablation, EF 35%, implantable defib due to recurrent syncopeDr SahetaPVD- stents in the groin both sides and right neck Neuropathy-meds help , does not have good balanceMeds- Gabapentin 600 mg TID,Depression- under control, mood is stable, no anxietyMeds- Sertraline 100 mg 2 tabs HS, Buspirone prnRLS- symptoms controlled with medsMeds- Ropinirole 0.5 mg dailyAnxiety-meds helpMeds- Buspirone 10 mg PRN Insomnia- trazodone helps Recurrent falls- using walker all the times Alfonso Weiss MD [address] [facility], [facility] [address], [place], [address], [facility] [employer] 06/17/2024 16:16:24 10/16/2024 text/html Pt here for 4 mo f/u. Pt reports doing fine. compliant to medications, no side affects, HTN- under controlMeds- Lisinopril 20 mg dailyHyperlipidemia- diet is under control, Trig were high, labs 09/27Meds- Fenofibrate 145 mg daily , Atorvastatin 10 mg qdNeuropathy-meds helpMeds- Gabapentin 600 mg TID,RLS- symptoms controlled with medsMeds- Ropinirole 0.5 mg dailyAbn Liver enzymes- now nlChronic back pain- Had epidurals for back pain, was seeing pain management, pain is off and on, OFF medsMeds- was on Morphine, by dr Gio Long def- advised to take otcEx- smoker, quit yrs ago,Chest pain- s/p cardiac cath 06/20/21, Dr Justice, Dr Kerr, no cpMeds- Ranolazine 500 mg BIDCHF/ Cardiomyopathy- has loop recorder, had EP studies, had ablation, EF 35%, implantable defib due to recurrent syncopeDr SahetaPVD- stents in the groin both sides and right neck Neuropathy-meds help , does not have good balanceMeds- Gabapentin 600 mg TID,Depression- under control, mood is stable, no anxietyMeds- Sertraline 100 mg 2 tabs HS, Buspirone prnRLS- symptoms controlled with medsMeds- Ropinirole 0.5 mg dailyAnxiety-meds helpMeds- Buspirone 10 mg PRN Insomnia- trazodone helps Recurrent falls- using walker all the times Alfonso Weiss MD [address] [facility], [facility] [address], [place], [address], [place] [facility] [employer] 10/22/2024 17:19:38 02/17/2025 text/html Pt here for 4 mo f/u. Pt reports doing fine. compliant to medications, no side affects, Pt is fasting Medicare HTN- under controlMeds- Lisinopril 20 mg dailyHyperlipidemia- diet is under control, labs Meds- Fenofibrate 145 mg daily , Atorvastatin 10 mg qdNeuropathy-meds helpMeds- Gabapentin 600 mg TID,RLS- symptoms controlled with medsMeds- Ropinirole 0.5 mg dailyAbn Liver enzymes- improvedChronic back pain- Had epidurals for back pain, was seeing pain management, pain is off and on, OFF medsMeds- was on Morphine, by dr Gio Long def- advised to take otcEx- smoker, quit yrs ago,Angina- s/p cardiac cath 06/20/21, Dr Justice, Dr Kerr, no cpMeds- Ranolazine 500 mg BIDCHF/ Cardiomyopathy- has loop recorder, had EP studies, had ablation, EF 35% now 45 % on echo done 01/27 implantable defib due to recurrent syncopeDr SahetaPVD- stents in the groin both sides and right neck Neuropathy-meds help , does not have good balanceMeds- Gabapentin 600 mg TID,Depression- under control, mood is stable, no anxietyMeds- Sertraline 100 mg 2 tabs HS, Buspirone prnRLS- symptoms controlled with medsMeds- Ropinirole 0.5 mg dailyAnxiety-meds helpMeds- Buspirone 10 mg PRN Insomnia- trazodone helps h/o Recurrent falls- using walker all the times, no recent fall Alfonso Weiss MD [address], [place], [address], [employer] 02/17/2025 09:52:41 05/22/2025 text/html Patient is a 59y /o female who is here for right ear pain. She reports she had gone to urgent care two weeks ago and was treated with amoxicillin and drops. She states that it has gotten worse with no improvements. She denies fever, oral pain, discharge, headaches, blurred vision or recent illness. ETIENNE Richards [address], [place], [address], [employer] 05/22/2025 11:42:28 OBGyn Episode No OBEpisode recorded.
[2025-05-22 19:47] VITALS: BP 116/64; PULSE 89; RESP 20; TEMP 37; O2SAT 95
--- NOTE | 2025-05-22 19:49 | ED.GENADULT ---
HPI - General Adult General Chief complaint: Ear Stated complaint: R ear pain, dizziness Time Seen by Provider: 05/22/25 19:24 History of Present Illness HPI narrative: 59-year-old female presents to the emergency department for evaluation for recurrent right ear pain. Patient has had right ear pain for the last 3 weeks. Patient was initially started on ear drops that did not help, then she was on a course of amoxicillin that also did not help patient was started on Augmentin today. Patient has been taking aspirin for pain control. Patient states she cannot take ibuprofen. Patient does not been taking Tylenol for pain control. Patient has had follow-up with urgent care but is not have follow-up with ENT. Related Data Home Medications ?Medication ?Instructions ?Recorded ?Confirmed ?Last Taken ?Type aspirin 81 mg tablet 81 mg PO DAILY 01/21/21 08/08/23 Unknown History buspirone 10 mg tablet 10 mg PO BID PRN Anxiety 01/21/21 08/08/23 03/24/21 History fenofibrate 150 mg capsule 145 mg PO DAILY 01/21/21 08/08/23 03/24/21 History lisinopril 10 mg tablet 10 mg PO DAILY 01/21/21 08/08/23 03/24/21 History nifedipine 30 mg tablet,extended 30 mg PO DAILY 01/21/21 08/08/23 03/24/21 History release pantoprazole 20 mg tablet,delayed 20 mg PO DAILY 01/21/21 08/08/23 03/24/21 History release ranolazine 500 mg tablet,extended 500 mg PO BID 01/21/21 08/08/23 03/24/21 History release,12 hr sertraline 100 mg tablet 200 mg PO HS 01/21/21 08/08/23 03/24/21 History cholecalciferol (vitamin D3) 25 25 mcg PO DAILY 02/15/21 08/08/23 03/22/21 History mcg (1,000 unit) tablet (Vitamin D3) atorvastatin 10 mg tablet 10 mg PO DAILY 06/27/23 08/08/23 Unknown History gabapentin 400 mg capsule 600 mg PO TID 06/27/23 08/08/23 Unknown History magnesium oxide 400 mg PO BID 06/27/23 08/08/23 Unknown History trazodone 50 mg tablet 50 mg PO DAILY PRN Insomnia 06/27/23 08/08/23 Unknown History Allergies Allergy/AdvReac Type Severity Reaction Status Date / Time No Known Allergies Allergy Verified 05/02/25 10:15 Review of Systems Review of Systems: All systems reviewed & are unremarkable except as noted in HPI and below PMFSH Past Medical History Medical History Anemia Anxiety Arthritis Chronic narcotic use Chronic pain syndrome COPD (chronic obstructive pulmonary disease) Depression Fracture of 4th metatarsal Fracture of 5th metatarsal Fracture of fifth metatarsal bone Gastroesophageal reflux disease History of partial replacement of left hip joint using bipolar prosthesis Hyperlipidemia Hypertension Left displaced femoral neck fracture Low left ventricular ejection fraction Echo from outside facility on 11/03/2022 was read as an ejection fraction of 35%. Lumbar spondylolysis Multiple falls Opiate abuse, episodic DAYNA (obstructive sleep apnea) Pacemaker Renal calculi Restless leg syndrome Surgical History Surgical History History of section History of cholecystectomy History of hernia repair History of hysterectomy Family History Family History Other Heart disease Social History Social History Social History: . She lives home alone and is . She has 2 children. She uses a walker to ambulate and is disabled. She still continues to vape. She denies any alcohol or illicit drugs. Code status: Full code. Full code. Smoking status: Former smoker Tobacco type: cigarettes Alcohol intake: never Substance use: never Substance use type: does not use Lack of Transportation: No Lack of Food: Never True Current Housing: I Have Housing Concerned About Future Housing: No Difficulty Paying Gas/Electric Bills: No Difficulty Paying for Meds: No Currently Unemployed: No Education: Don't Know Difficulty w/ Childcare or Family Care: No Living arrangements: with family Additional living arrangements comments: Resides in [place] her . They have 2 children. Additional occupation/education comments: Not employed. Gender identity (if verbalized by the patient): Female Sexual Orientation (if Verbalized by the Patient): Straight or Heterosexual Spiritual care concerns: No Exam Narrative: APPEARANCE: Well appearing, no pain, no distress, well-nourished. HEAD: normocephalic, atraumatic. EYES: PERRLA/EOMI, conjunctivae clear. NOSE: Normal no drainage EARS: Purulent discharge from left ear, purulent spine TMs THROAT: Pharynx clear, no exudate. NECK: Supple. No adenopathy, no masses. RESPIRATORY: Airway patent, respirations nonlabored. Clear to auscultation bilaterally, no rales, rhonchi, wheezing. CARDIOVASCULAR: Regular rate and rhythm without murmurs rubs or gallops. ABDOMINAL: Soft, nontender, nondistended, normal bowel sounds MUSCULOSKELETAL: Moves all extremities. Strength/ROM intact, No edema, No calf tenderness. NEURO: Alert. Cranial nerves II through XII intact. Good gait. Good coordination SKIN: Warm, dry. Normal Color Course Vital Signs Vital signs: Vital Signs Temperature 98.1 F 05/22/25 16:02 Pulse Rate 62 05/22/25 16:02 Respiratory Rate 16 05/22/25 16:02 Blood Pressure 103/63 05/22/25 16:02 Pulse Oximetry 92 05/22/25 16:02 Oxygen Delivery Room Air 05/22/25 16:02 Temperature 97.6 F 05/22/25 20:40 Pulse Rate 76 05/22/25 20:40 Respiratory Rate 20 05/22/25 20:40 Blood Pressure 112/63 05/22/25 20:40 Pulse Oximetry 97 05/22/25 20:40 Oxygen Delivery Room Air 05/22/25 16:02 Medical Decision Making MDM Narrative Medical decision making narrative: 59-year-old female presents emergency department for evaluation for persistent right ear pain. Patient had already been started on antibiotics prior to arrival. In the emergency department provided medications for pain control. Differential Diagnosis Differential Diagnosis: Otalgia, otitis media, otitis externa, pain management Vital Signs Vital Signs: Vital Signs Temperature 98.1 F 05/22/25 16:02 Pulse Rate 62 05/22/25 16:02 Respiratory Rate 16 05/22/25 16:02 Blood Pressure 103/63 05/22/25 16:02 Pulse Oximetry 92 05/22/25 16:02 Oxygen Delivery Room Air 05/22/25 16:02 Temperature 97.6 F 05/22/25 20:40 Pulse Rate 76 05/22/25 20:40 Respiratory Rate 20 05/22/25 20:40 Blood Pressure 112/63 05/22/25 20:40 Pulse Oximetry 97 05/22/25 20:40 Oxygen Delivery Room Air 05/22/25 16:02 Discharge Plan Discharge Clinical Impression: Otitis media Patient Disposition: Home Condition: Stable Instructions: Antibiotic Form, Ear Infection (GEN) Additional Instructions: Continue your Augmentin as directed until completed. Cook Sta as needed for pain control. Have close follow-up with ENT. If you have any worsening symptoms then please call or return to the emergency department. Patient Language: [place] Prescriptions: New hydrocodone-acetaminophen 5-325 mg tablet 1 tablet PO Q12H PRN (Reason: pain) Qty: 14 0RF No Action sertraline 100 mg Tablet 200 mg PO HS nifedipine 30 mg Tablet Extended Release 30 mg PO DAILY buspirone 10 mg Tablet 10 mg PO BID PRN (Reason: Anxiety) lisinopril 10 mg Tablet 10 mg PO DAILY aspirin 81 mg Tablet 81 mg PO DAILY ranolazine 500 mg Tablet Extended Release 12 Hr 500 mg PO BID fenofibrate 150 mg Capsule 145 mg PO DAILY pantoprazole 20 mg tablet,delayed release (DR/EC) 20 mg PO DAILY cholecalciferol (vitamin D3) [Vitamin D3] 25 mcg (1,000 unit) Tablet 25 mcg PO DAILY trazodone 50 mg tablet 50 mg PO DAILY PRN (Reason: Insomnia) atorvastatin 10 mg Tablet 10 mg PO DAILY magnesium oxide 400 mg magnesium tablet 400 mg PO BID gabapentin 400 mg capsule 600 mg PO TID Rx Instructions: TAKE 1 CAPSULE BY MOUTH THREE TIMES DAILY cephalexin 500 mg capsule 500 mg PO Q8H 5 Days Qty: 15 0RF tamsulosin [Flomax] 0.4 mg capsule 0.4 mg PO DAILY 30 Days Qty: 30 0RF Follow-up/Referrals: Elpidio Parker MD [Physician] - [facility],Alfonso Yoo MD [Primary Care Provider] -
[2025-05-22] MEDS: HYDROcodone/acetaminophen (*CRX) 7.5-325 MG TABLET 1 TAB PO (19:54)
--- OUTSIDE RECORDS SUMMARY | 2025-05-22 20:15 | XMS_ITS | Clinical Summary ---
Author Organization [facility] Address [address] [place] [address] Care Team Providers Care Clinic Physician Name Role Phone Alfonso Weiss MD Primary Care Provider [phone] Social History Tobacco Use Types Packs/Day Years [...] age to complete this topic Care Teams Clinic Physician Relationship Specialty Start Date End Date Alfonso Weiss MD PCP - General 06/02/15
[2025-05-22 20:40] VITALS: BP 112/63; PULSE 76; RESP 20; TEMP 36.4; O2SAT 97
== END 2025-05-22 20:40 | disposition home or self-care (01) ==
PROVIDERS: Emergency Provider Emergency Medicine; PCP Internal Medicine
DX: H66.91 Otitis media, unspecified, right ear (principal); I10 Essential (primary) hypertension; J44.9 Chronic obstructive pulmonary disease, unspecified; E78.5 Hyperlipidemia, unspecified; K21.9 Gastro-esophageal reflux disease without esophagitis; M19.90 Unspecified osteoarthritis, unspecified site; G47.33 Obstructive sleep apnea (adult) (pediatric); G89.4 Chronic pain syndrome; G25.81 Restless legs syndrome; F32.A Depression, unspecified; F41.9 Anxiety disorder, unspecified; F17.290 Nicotine dependence, other tobacco product, uncomplicated; Z95.0 Presence of cardiac pacemaker; Z87.442 Personal history of urinary calculi; Z86.2 Personal history of diseases of the blood and blood-forming organs and certain disorders involving the immune mechanism; Z90.49 Acquired absence of other specified parts of digestive tract; Z90.710 Acquired absence of both cervix and uterus; Z79.82 Long term (current) use of aspirin; Z79.899 Other long term (current) drug therapy
CPT/HCPCS: 99283; A9270

== ENCOUNTER 2025-06-19 17:02 | Outpatient (CLI) | payer MEDICARE, MEDICAID, SELFPAY ==
--- NOTE | ~2025-06-19 | XR_ITS ---
Right foot Technique: AP, oblique, and lateral views were obtained. Clinical History: Pain Findings: No acute fracture or dislocation is seen. Old, healed fracture deformity is at the second, third, fourth, fifth metatarsal necks are noted. Osseous alignment is anatomic. Joint spaces are pres erved without erosive or degenerative change. Soft tissues are unremarkable. Impression: No acute abnormality. Old, healed fracture deformities of the second through fifth metatarsal necks. Reviewed, dictated and finalized at location M. Impression: No acute abnormality. Old, healed fracture deformities of the second through fi fth metatarsal necks.
--- OUTSIDE RECORDS SUMMARY | 2025-06-19 17:09 | XMS_ITS | Clinical Summary ---
Author Organization [facility] Address [address] [place] [address] Care Team Providers Care Office Technician Name Role Phone Alfonso Weiss MD Primary Care Provider [phone] Social History Tobacco Use Types Packs/Day Years [...] age to complete this topic Care Teams Office Technician Relationship Specialty Start Date End Date Alfonso Weiss MD PCP - General 06/02/15
== END 2025-06-19 17:03 | disposition home or self-care (01) ==
LOC: ANHIMG 17:07
PROVIDERS: PCP Internal Medicine
DX: M79.671 Pain in right foot (principal)
CPT/HCPCS: 73630

== ENCOUNTER 2025-06-20 21:50 | Observation (INO) | payer MEDICARE, MEDICAID, SELFPAY ==
[2025-06-20] VITALS (9 sets, daily range): BP systolic 128–152; BP diastolic 67–97; PULSE 87–110; RESP 16–29; TEMP 36.3; O2SAT 96–100
--- NOTE | ~2025-06-20 | CT_ITS ---
Clinical Indication: Chest pain, shortness of breath CT Scan of the Chest with Contrast: Technique: Contiguous sections were acquired throughout the chest after intravenous administration of 100 cc of Omnipaque 350. Dose reduction technique was used on this scan by utilizing automated expos ure control and iterative reconstruction technique. The dose-length product (DLP) was 260.66 mGy-cm. Findings: There is no evidence of any significant mediastinal, hilar or axillary lymphadenopathy. There is no f illing defect in the pulmonary arterial tree to suggest pulmonary embolus. There is no evidence of ao rtic dissection or aneurysm.) Right subclavian artery noted. There is no evidence of pleural or pericardial effusion. The lungs are clear. No pulmonary nodules or infiltrates are noted. Images through the upper abdomen reveal splenomegaly with multiple probable hypodense splenic masses present, largest measuring approximately 4.2 cm in diameter. There is mild compression deformity of t he superior endplate of T12. Impression: No evidence of pulmonary embolus, aortic dissection, or aortic aneurysm. Clear lungs. Multiple hypodense splenic masses, as detailed above with associated splenomegaly, indeterminate. Reviewed, dictated and finalized at location . Impression: No evidence of pulmonary embolus, aortic dissection, or aortic aneurysm. Clear lungs. Multiple hypodense splenic masses, as detailed above with associated splenomega ly, indeterminate.
--- NOTE | ~2025-06-20 | XR_ITS ---
Portable chest x-ray Comparison: 03/03/2021 Clinical History: Shortness of breath, chest pain Findings: Lungs are clear, without focal consolidation or pleural effusion. Probable COPD. Cardiome diastinal silhouette is stable, with pacemaker. Bones and soft tissues are unremarkable. Impression: Clear lungs. Probable COPD. Reviewed, dictated and finalized at location . Impression: Clear lungs. Probable COPD.
--- NOTE | 2025-06-20 21:57 | ECG_ITS ---
Test Date: 2025-06-20 22:10:04 Measurements Intervals [place] Rate: 97 P: 81 HI: 124 QRS: -36 QRSD: 127 T: 105 QT: 373 QTc: 475 Interpretive Statements SINUS RHYTHM LEFT AXIS DEVIATION LEFT BUNDLE BRANCH BLOCK BASELINE ARTIFACT- I, II, III, AVR, AVL, AVF ABNORMAL ECG No previous ECG available for comparison Electronically Signed On 06-21-2025 07:34:20 CDT by Raghu Mccloud D.O.
[2025-06-20 22:31] LABS: Hematocrit 36.7 % (37.0-47.0); Hemoglobin 11.9 g/dL (12.0-15.0); Immature Granulocyte Percent A 3.2 % (0-0.5); Lymphocytes Absolute Auto 1.06 K/mm3 (0.9-3.2); Mean Corpuscular HGB Conc 32.4 g/dl (32-36); Mean Corpuscular Hemoglobin 31.2 pg (26-34); Mean Corpuscular Volume 96.3 fl (80-100); Nucleated Red Blood Cells Absolute Auto 0.000 K/mm3 (0.0-0.012); Nucleated Red Blood Cells Perc 0.0 % (0.0-0.2); Platelet Count Result 216 k/mm3 (150-375); Red Blood Count 3.81 M/mm3 (4.2-5.4); White Blood Count 6.0 K/mm3 (4.5-10.0)
[2025-06-20 22:43] LABS: INR 1.1; Prothrombin Time 14.3 Seconds (11.1-14.7)
[2025-06-20 22:44] LABS: Partial Thromboplastin Time 31.3 Seconds (22.3-36.8)
[2025-06-20 22:50] LABS: Alanine Aminotransferase 32 U/L (6-35); Albumin Level 3.3 g/dL (3.5-5.1); Alkaline Phosphatase 73 U/L (38-126); Anion Gap 9 mmol/L (4-12); Aspartate Amino Transferase 51 U/L (14-36); Bilirubin,Total 0.6 mg/dL (0.2-1.3); Blood Urea Nitrogen 16 mg/dL (7-17); Calcium 8.8 mg/dL (8.4-10.2); Carbon Dioxide 24 mmol/L (22-30); Chloride 109 mmol/L (98-107); Estimated CRCL calculation 47 ml/min; Estimated Glomerular Filt Rate > 60; Glucose 119 mg/dL (65-110); Lipase 59 U/L (23-300); Potassium 3.7 mmol/L (3.4-5.0); Sodium 142 mmol/L (137-145); Total Protein 6.5 g/dL (6.3-8.2)
[2025-06-20 22:57] LABS: NT Pro B Type Natriuretic Pept 1050 pg/mL (19.9-100); Troponin I 0.019 ng/mL (0.000-0.034)
--- OUTSIDE RECORDS SUMMARY | 2025-06-20 22:57 | XMS_ITS | Clinical Summary ---
Author Organization [facility] Address [address] [place] [address] Care Team Providers Care Arborer Name Role Phone Alfonso Weiss MD Primary Care Provider [phone] Social History Tobacco Use Types Packs/Day Years [...] age to complete this topic Care Teams Arborer Relationship Specialty Start Date End Date Alfonso Weiss MD PCP - General 06/02/15
[2025-06-20] MEDS: ONDANSETRON INJ 4 MG/2 ML VIAL IV PUSH (23:33)
[2025-06-20] MEDS: MORPHINE SULFATE (*CRX) 2 MG/ML INJ IV PUSH (23:34)
[2025-06-21] VITALS (34 sets, daily range): BP systolic 108–138; BP diastolic 52–80; PULSE 66–88; RESP 10–20; TEMP 36.7–37.3; O2SAT 96–100; BMI 21.2
--- NOTE | 2025-06-21 00:03 | PC.NURSE ---
pt put on purewick. pt resting at this time
--- NOTE | 2025-06-21 00:52 | ED.CHESTPAIN ---
HPI - Chest Pain General Chief Complaint: Chest Pain <CARTER Lacy Last Filed: 06/21/25 03:01> Stated Complaint: CP/Diff breathing <CARTER Lacy Last Filed: 06/21/25 03:01> Time Seen by Provider: 06/20/25 22:05 <CARTER Lacy Last Filed: 06/21/25 03:01> Source: patient <CARTER Lacy Last Filed: 06/21/25 03:01> Mode of arrival: EMS <CARTER Lacy Last Filed: 06/21/25 03:01> Limitations: no limitations <CARTER Lacy Last Filed: 06/21/25 03:01> History of Present Illness HPI narrative: Patient is a 59-year-old female, past medical history of pacemaker, COPD, CHF, who presents to the ED via EMS with report of CP/SOB. Patient reports she developed pain throughout her midsternal chest and difficulty breathing around 1 hour ago. Reports pain her midsternal chest with deep breathing. Patient does report a dry cough for the past 1 month. Denies fevers. Denies pain or swelling in her lower extremities. Denies abdominal pain. She does note that she is currently being treated for a right ear infection with Augmentin. <CARTER Lacy Last Filed: 06/21/25 03:01> Related Data Home Medications: Home Medications ?Medication ?Instructions ?Recorded ?Confirmed ?Last Taken ?Type aspirin 81 mg tablet 81 mg PO DAILY 01/21/21 06/21/25 Unknown History buspirone 10 mg tablet 10 mg PO BID PRN Anxiety 01/21/21 06/21/25 03/24/21 History fenofibrate 150 mg capsule 145 mg PO DAILY 01/21/21 06/21/25 06/20/25 History lisinopril 10 mg tablet 10 mg PO DAILY 01/21/21 06/21/25 06/20/25 History nifedipine 30 mg tablet,extended 30 mg PO DAILY 01/21/21 06/21/25 03/24/21 History release pantoprazole 20 mg tablet,delayed 20 mg PO DAILY 01/21/21 06/21/25 03/24/21 History release ranolazine 500 mg tablet,extended 500 mg PO BID 01/21/21 06/21/25 06/20/25 History release,12 hr sertraline 100 mg tablet 200 mg PO HS 01/21/21 06/21/25 06/20/25 History cholecalciferol (vitamin D3) 25 25 mcg PO DAILY 02/15/21 06/21/25 03/22/21 History mcg (1,000 unit) tablet (Vitamin D3) atorvastatin 10 mg tablet 10 mg PO DAILY 06/27/23 06/21/25 06/20/25 History gabapentin 400 mg capsule 600 mg PO TID 06/27/23 06/21/25 06/20/25 History magnesium oxide 400 mg PO BID 06/27/23 06/21/25 Unknown History trazodone 50 mg tablet 50 mg PO DAILY PRN Insomnia 06/27/23 06/21/25 06/20/25 History amoxicillin 875 mg-potassium tablet ear infection 06/21/25 06/20/25 History clavulanate 125 mg tablet <Madeline Ovalles PA-C - Last Filed: 06/21/25 03:01> Allergies/Adverse Reactions: Allergies Allergy/AdvReac Type Severity Reaction Status Date / Time amoxicillin (From Augmentin) AdvReac Intermediate Vomiting Verified 06/21/25 03:16 clavulanic acid (From AdvReac Intermediate Vomiting Verified 06/21/25 03:16 Augmentin) <Madeline Ovalles PA-C - Last Filed: 06/21/25 03:01> Review of Systems Review of Systems: All systems reviewed & are unremarkable except as noted in HPI. <Madeline Ovalles PA-C - Last Filed: 06/21/25 03:01> All systems reviewed & are unremarkable except as noted in HPI and below <Madeline Ovalles PA-C - Last Filed: 06/21/25 03:01> [facility] Past Medical History Medical History: Medical History History of partial replacement of left hip joint using bipolar prosthesis Lumbar spondylolysis Low left ventricular ejection fraction Echo from outside facility on 11/03/2022 was read as an ejection fraction of 35%. Pacemaker Left displaced femoral neck fracture Fracture of 4th metatarsal Fracture of 5th metatarsal Chronic narcotic use Depression DAYNA (obstructive sleep apnea) COPD (chronic obstructive pulmonary disease) Opiate abuse, episodic Fracture of fifth metatarsal bone Multiple falls Anemia Chronic pain syndrome Renal calculi Restless leg syndrome Arthritis Gastroesophageal reflux disease Anxiety Hyperlipidemia Hypertension <Madeline Ovalles PA-C - Last Filed: 06/21/25 03:01> Surgical History Surgical History: Surgical History History of hysterectomy History of section History of hernia repair History of cholecystectomy <Madeline Ovalles PA-C - Last Filed: 06/21/25 03:01> Family History Family History: Family History Other Heart disease <Madeline Ovalles PA-C - Last Filed: 06/21/25 03:01> Social History Social History: Social History Social History: . She lives home alone and is . She has 2 children. She uses a walker to ambulate and is disabled. She still continues to vape. She denies any alcohol or illicit drugs. Code status: Full code. Full code. Caffeine-soda Smoking packs per day: 1 Smoking cigarettes per day: 20.0 Years smoked: 43 Smoking pack-years: 43.00 Smoking status: Former smoker Tobacco type: cigarettes and e-cigarettes/vaping Second hand tobacco smoke exposure: No Alcohol intake: never Substance use: never Substance use type: does not use Lack of Transportation: No Lack of Food: Never True Current Housing: I Have Housing Concerned About Future Housing: No Difficulty Paying Gas/Electric Bills: No Difficulty Paying for Meds: No Currently Unemployed: No Education: High School Diploma/GED Difficulty w/ Childcare or Family Care: No Living arrangements: with family Additional living arrangements comments: Resides in [place] her . They have 2 children. Additional occupation/education comments: Not employed. Gender identity (if verbalized by the patient): Female Sexual Orientation (if Verbalized by the Patient): Straight or Heterosexual Spiritual care concerns: No <Madeline Ovalles PA-C - Last Filed: 06/21/25 03:01> Exam Narrative: GENERAL: Appears older than stated age, slightly frail, non-toxic, in no acute distress. HEAD: Normocephalic, atraumatic. RESPIRATORY: Airway patent, respirations slightly labored, but lung sounds are fairly clear. No wheezing/focal rhonchi. No stridor CARDIOVASCULAR: Borderline tachycardic with regular rhythm without murmurs, rubs, or gallops. ABDOMINAL: Soft, nontender, nondistended. Normoactive BS. MUSCULOSKELETAL: Moves all extremities. No gross deformities. No peripheral edema. No calf tenderness. SKIN: Warm, dry, normal color. NEURO: A&O X3. Speech clear. Cranial nerves II-XII grossly intact. Steady gait. No ataxic movements. PSYCHIATRIC: Anxious. Normal interaction. <Madeline Ovalles PA-C - Last Filed: 06/21/25 03:01> Course Course Emergency Course: Patient care signed over to by previous provider pending admission. Spoke to the hospitalist and patient's risk factors with elevated delta troponin. Heart score 5. Resting comfortably at this time after interventions and treatment with pain control medications. Vital signs are all normalized. Patient will go to the IMU for further assessment and her pharmacy services representative was consulted for evaluation on a observation admission basis. <Trae Medina MD - Last Filed: 06/21/25 04:46> NET TRAINER/PA Physician Supervision This visit was performed by both a physician and an APC. I performed all aspects of the MDM as documented. <Trae Medina MD - Last Filed: 06/21/25 04:46> Vital Signs Vital signs: Vital Signs Temperature 36.3 C L 06/20/25 21:48 Pulse Rate 105 H 06/20/25 21:48 Respiratory Rate 19 06/20/25 21:48 Blood Pressure 152/97 H 06/20/25 21:48 Pulse Oximetry 97 06/20/25 21:48 Oxygen Delivery Room Air 06/20/25 21:48 Temperature 36.3 C L 06/20/25 21:48 Pulse Rate 81 06/21/25 04:28 Respiratory Rate 12 06/21/25 04:01 Blood Pressure 114/61 06/21/25 04:01 Pulse Oximetry 97 06/21/25 04:01 Oxygen Delivery Room Air 06/21/25 00:44 <Madeline Ovalles PA-C - Last Filed: 06/21/25 03:01> Vital Signs Temperature 36.3 C L 06/20/25 21:48 Pulse Rate 105 H 06/20/25 21:48 Respiratory Rate 19 06/20/25 21:48 Blood Pressure 152/97 H 06/20/25 21:48 Pulse Oximetry 97 06/20/25 21:48 Oxygen Delivery Room Air 06/20/25 21:48 Temperature 36.3 C L 06/20/25 21:48 Pulse Rate 81 06/21/25 04:28 Respiratory Rate 12 06/21/25 04:01 Blood Pressure 114/61 06/21/25 04:01 Pulse Oximetry 97 06/21/25 04:01 Oxygen Delivery Room Air 06/21/25 00:44 <Trae Medina MD - Last Filed: 06/21/25 04:46> MDM - Chest Pain MDM Narrative Medical decision making narrative: Patient presented to ED with approximately 1 hour of chest pain/shortness of breath, pleuritic pain. Patient borderline tachycardic upon arrival, reporting pain with any inspiration, mildly anxious appearing. She is afebrile here. Oxygen is stable on room air. No hypoxia. EKG with sinus rhythm, chronic left bundle, no concerning ST changes. Baseline troponin within normal range, but not undetectable at 0.019. Will obtain 3 hr. BNP was mildly elevated at 1050, however patient does not appear acutely fluid overloaded at this time. She does report history of CHF. I do not see that she is on any diuretics on med rec. CXR w/o acute findings or pulmonary vascular congestion. D-dimer resulted elevated at 2.2. CTA of chest was obtained and also negative, no PE, PNA, pulmonary edema. Patient was given 2 mg dose of morphine. On re-evaluation, she is feeling significantly improved. Resting very comfortably, no further pain. 3 hour EKG without interval changes however 3 hour troponin uptrending to 0.026. Cannot r/o ACS. Patient with HEART score of 5. Will be admitted for further cardiac eval. <Madeline Ovalles PA-C - Last Filed: 06/21/25 03:01> Medical Records Data Attestation: I reviewed the patient's medical records. <Madeline Ovalles PA-C - Last Filed: 06/21/25 03:01> Lab Data Attestation: I reviewed the patient's lab results. <Madeline Ovalles PA-C - Last Filed: 06/21/25 03:01> Result diagrams: 06/20/25 22:24 06/20/25 22:24 <Madeline Ovalles PA-C - Last Filed: 06/21/25 03:01> Labs: Lab Results 06/20/25 06/20/25 06/20/25 Range/Units 22:24 22:24 22:24 WBC 6.0 (4.5-10.0) K/mm3 RBC 3.81 L (4.2-5.4) M/mm3 Hgb 11.9 L (12.0-15.0) g/dL Hct 36.7 L (37.0-47.0) % MCV 96.3 (80-100) fl MCH 31.2 (26-34) pg MCHC 32.4 (32-36) g/dl RDW 15.5 H (11.5-14.5) % Plt Count 216 (150-375) k/mm3 MPV 10.6 H (7.4-10.4) fl Immature Gran % (Auto) 3.2 H (0-0.5) % Neut % (Auto) 71.1 (45.5-73.1) % Lymph % (Auto) 17.8 L (18.3-44.2) % [place] % (Auto) 6.5 (2.6-8.5) % Eos % (Auto) 1.2 (0-4.4) % Baso % (Auto) 0.2 (0.2-1.2) % Lymph # (Auto) 1.06 (0.9-3.2) K/mm3 [place] # (Auto) 0.4 (0.1-0.6) K/mm3 Eos # (Auto) 0.1 (0-0.3) K/mm3 Baso # (Auto) 0.0 (0.0-0.1) K/mm3 Abs Immat Gran (auto) 0.19 H (0.00-0.031) K/mm3 Absolute Neuts (auto) 4.2 (1.3-6.7) K/mm3 Absolute Nucleated RBC 0.000 (0.0-0.012) K/mm3 Nucleated RBC % 0.0 (0.0-0.2) % PT Cancelled 14.3 INR Cancelled 1.1 APTT Cancelled D-Dimer (<0.48) ug/mL Sodium (137-145) mmol/L Potassium (3.4-5.0) mmol/L Chloride (98-107) mmol/L Carbon Dioxide (22-30) mmol/L Anion Gap (4-12) mmol/L BUN (7-17) mg/dL Creatinine (0.7-1.0) mg/dL Estim Creat Clear Calc ml/min Estimated GFR (59 - ) Glucose (65-110) mg/dL Calcium (8.4-10.2) mg/dL Total Bilirubin (0.2-1.3) mg/dL AST (14-36) U/L ALT (6-35) U/L Alkaline Phosphatase (38-126) U/L Troponin I (0.000-0.034) ng/mL NT-Pro-B Natriuret Pep (19.9-100) pg/mL Total Protein (6.3-8.2) g/dL Albumin (3.5-5.1) g/dL Lipase (23-300) U/L 06/20/25 06/21/25 Range/Units 22:24 01:12 WBC (4.5-10.0) K/mm3 RBC (4.2-5.4) M/mm3 Hgb (12.0-15.0) g/dL Hct (37.0-47.0) % MCV (80-100) fl MCH (26-34) pg MCHC (32-36) g/dl RDW (11.5-14.5) % Plt Count (150-375) k/mm3 MPV (7.4-10.4) fl Immature Gran % (Auto) (0-0.5) % Neut % (Auto) (45.5-73.1) % Lymph % (Auto) (18.3-44.2) % [place] % (Auto) (2.6-8.5) % Eos % (Auto) (0-4.4) % Baso % (Auto) (0.2-1.2) % Lymph # (Auto) (0.9-3.2) K/mm3 [place] # (Auto) (0.1-0.6) K/mm3 Eos # (Auto) (0-0.3) K/mm3 Baso # (Auto) (0.0-0.1) K/mm3 Abs Immat Gran (auto) (0.00-0.031) K/mm3 Absolute Neuts (auto) (1.3-6.7) K/mm3 Absolute Nucleated RBC (0.0-0.012) K/mm3 Nucleated RBC % (0.0-0.2) % PT INR APTT 31.3 D-Dimer 2.20 H (<0.48) ug/mL Sodium 142 (137-145) mmol/L Potassium 3.7 (3.4-5.0) mmol/L Chloride 109 H (98-107) mmol/L Carbon Dioxide 24 (22-30) mmol/L Anion Gap 9 (4-12) mmol/L BUN 16 D (7-17) mg/dL Creatinine 0.93 (0.7-1.0) mg/dL Estim Creat Clear Calc 47 ml/min Estimated GFR > 60 (59 - ) Glucose 119 H (65-110) mg/dL Calcium 8.8 (8.4-10.2) mg/dL Total Bilirubin 0.6 (0.2-1.3) mg/dL AST 51 H (14-36) U/L ALT 32 (6-35) U/L Alkaline Phosphatase 73 (38-126) U/L Troponin I 0.019 0.026 D (0.000-0.034) ng/mL NT-Pro-B Natriuret Pep 1050 H (19.9-100) pg/mL Total Protein 6.5 (6.3-8.2) g/dL Albumin 3.3 L (3.5-5.1) g/dL Lipase 59 (23-300) U/L <Madeline Ovalles PA-C - Last Filed: 06/21/25 03:01> Lab Results 06/20/25 06/20/25 06/20/25 Range/Units 22:24 22:24 22:24 WBC 6.0 (4.5-10.0) K/mm3 RBC 3.81 L (4.2-5.4) M/mm3 Hgb 11.9 L (12.0-15.0) g/dL Hct 36.7 L (37.0-47.0) % MCV 96.3 (80-100) fl MCH 31.2 (26-34) pg MCHC 32.4 (32-36) g/dl RDW 15.5 H (11.5-14.5) % Plt Count 216 (150-375) k/mm3 MPV 10.6 H (7.4-10.4) fl Immature Gran % (Auto) 3.2 H (0-0.5) % Neut % (Auto) 71.1 (45.5-73.1) % Lymph % (Auto) 17.8 L (18.3-44.2) % [place] % (Auto) 6.5 (2.6-8.5) % Eos % (Auto) 1.2 (0-4.4) % Baso % (Auto) 0.2 (0.2-1.2) % Lymph # (Auto) 1.06 (0.9-3.2) K/mm3 [place] # (Auto) 0.4 (0.1-0.6) K/mm3 Eos # (Auto) 0.1 (0-0.3) K/mm3 Baso # (Auto) 0.0 (0.0-0.1) K/mm3 Abs Immat Gran (auto) 0.19 H (0.00-0.031) K/mm3 Absolute Neuts (auto) 4.2 (1.3-6.7) K/mm3 Absolute Nucleated RBC 0.000 (0.0-0.012) K/mm3 Nucleated RBC % 0.0 (0.0-0.2) % PT Cancelled 14.3 INR Cancelled 1.1 APTT Cancelled D-Dimer (<0.48) ug/mL Sodium (137-145) mmol/L Potassium (3.4-5.0) mmol/L Chloride (98-107) mmol/L Carbon Dioxide (22-30) mmol/L Anion Gap (4-12) mmol/L BUN (7-17) mg/dL Creatinine (0.7-1.0) mg/dL Estim Creat Clear Calc ml/min Estimated GFR (59 - ) Glucose (65-110) mg/dL Calcium (8.4-10.2) mg/dL Total Bilirubin (0.2-1.3) mg/dL AST (14-36) U/L ALT (6-35) U/L Alkaline Phosphatase (38-126) U/L Troponin I (0.000-0.034) ng/mL NT-Pro-B Natriuret Pep (19.9-100) pg/mL Total Protein (6.3-8.2) g/dL Albumin (3.5-5.1) g/dL Lipase (23-300) U/L 06/20/25 06/21/25 Range/Units 22:24 01:12 WBC (4.5-10.0) K/mm3 RBC (4.2-5.4) M/mm3 Hgb (12.0-15.0) g/dL Hct (37.0-47.0) % MCV (80-100) fl MCH (26-34) pg MCHC (32-36) g/dl RDW (11.5-14.5) % Plt Count (150-375) k/mm3 MPV (7.4-10.4) fl Immature Gran % (Auto) (0-0.5) % Neut % (Auto) (45.5-73.1) % Lymph % (Auto) (18.3-44.2) % [place] % (Auto) (2.6-8.5) % Eos % (Auto) (0-4.4) % Baso % (Auto) (0.2-1.2) % Lymph # (Auto) (0.9-3.2) K/mm3 [place] # (Auto) (0.1-0.6) K/mm3 Eos # (Auto) (0-0.3) K/mm3 Baso # (Auto) (0.0-0.1) K/mm3 Abs Immat Gran (auto) (0.00-0.031) K/mm3 Absolute Neuts (auto) (1.3-6.7) K/mm3 Absolute Nucleated RBC (0.0-0.012) K/mm3 Nucleated RBC % (0.0-0.2) % PT INR APTT 31.3 D-Dimer 2.20 H (<0.48) ug/mL Sodium 142 (137-145) mmol/L Potassium 3.7 (3.4-5.0) mmol/L Chloride 109 H (98-107) mmol/L Carbon Dioxide 24 (22-30) mmol/L Anion Gap 9 (4-12) mmol/L BUN 16 D (7-17) mg/dL Creatinine 0.93 (0.7-1.0) mg/dL Estim Creat Clear Calc 47 ml/min Estimated GFR > 60 (59 - ) Glucose 119 H (65-110) mg/dL Calcium 8.8 (8.4-10.2) mg/dL Total Bilirubin 0.6 (0.2-1.3) mg/dL AST 51 H (14-36) U/L ALT 32 (6-35) U/L Alkaline Phosphatase 73 (38-126) U/L Troponin I 0.019 0.026 D (0.000-0.034) ng/mL NT-Pro-B Natriuret Pep 1050 H (19.9-100) pg/mL Total Protein 6.5 (6.3-8.2) g/dL Albumin 3.3 L (3.5-5.1) g/dL Lipase 59 (23-300) U/L <Trae Medina MD - Last Filed: 06/21/25 04:46> Imaging Data Attestation: I personally reviewed and interpreted this imaging study as follows: <Madeline Ovalles PA-C - Last Filed: 06/21/25 03:01> Radiologist's impression: STAT RAD CXR: No acute pulmonary disease. There are findings suggestive chronic obstructive pulmonary disease. No pulmonary vascular congestion is seen. Pacemaker is noted. The heart is normal size. No incidental findings. STAT RAD CTA Chest: No significant parenchymal lung opacity or infiltrate is noted. No pleural disease is identified. Pacemaker is noted. The heart is normal in size. No evidence of thoracic aortic aneurysm or dissection. No incidental findings. <CARTER Lacy Last Filed: 06/21/25 03:01> ECG Data EKG #1: Attestation: I personally reviewed and interpreted this ECG as follows: <Madeline Ovalles PA-C - Last Filed: 06/21/25 03:01> ECG completion date: 06/21/25 <CRATER Lacy Last Filed: 06/21/25 03:01> ECG completion time: 22:10 <CARTER Lacy Last Filed: 06/21/25 03:01> EKG Interpretation: normal rate (97), sinus rhythm, non-specific ST changes and LBBB (chronic) <CARTER Lacy Last Filed: 06/21/25 03:01> Discharge Plan Discharge Clinical Impression: Chest pain <Madeline Ovalles PA-C - Last Filed: 06/21/25 03:01> Patient Disposition: Still a Patient <CARTER Lacy Last Filed: 06/21/25 03:01> Condition: Stable <Madeline Ovalles PA-C Last Filed: 06/21/25 03:01> Quality HEART score for chest pain patients History: moderately suspicious <CARTER Lacy Last Filed: 06/21/25 03:01> ECG: non specific repolarization disturbance/LBTB/PM <CARTER Lacy Last Filed: 06/21/25 03:01> Age: > 45 and < 65 years <CARTER Lacy Last Filed: 06/21/25 03:01> Risk factors: > or = to 3 risk factors of atherosclerotic disease <CARTER Lacy Last Filed: 06/21/25 03:01> Troponin: < or = to 1x normal limit <CARTER Lacy Last Filed: 06/21/25 03:01> Heart score: 5 <Madeline Ovalles PA-C - Last Filed: 06/21/25 03:01> 5 <Trae Medina MD - Last Filed: 06/21/25 04:46>
--- NOTE | 2025-06-21 01:18 | ECG_ITS ---
Test Date: 2025-06-21 01:19:31 Measurements Intervals [place] Rate: 76 P: 75 NM: 124 QRS: -36 QRSD: 129 T: 104 QT: 431 QTc: 488 Interpretive Statements SINUS RHYTHM WITH OCCASIONAL SUPRAVENTRICULAR PREMATURE COMPLEXES LEFT AXIS DEVIATION LEFT BUNDLE BRANCH BLOCK BASELINE ARTIFACT- II, III, AVR, AVL, AVF ABNORMAL ECG Compared to ECG 06/20/2025 22:10:04 No significant changes Electronically Signed On 06-21-2025 07:46:39 CDT by Raghu Mccloud D.O.
[2025-06-21 01:43] LABS: Troponin I 0.026 ng/mL (0.000-0.034)
--- NOTE | 2025-06-21 04:24 | ADMGEN ---
This patient, Eulalia Salvador, was admitted to IMU Room 200-01 on 06/21/25 at 0422. Patient/family oriented to hospital policies and general routines including ID bracelet, bed and alarms, visiting hours, pain management, procedures, bathroom and other care routines, personal items, smoking policy, room service/diet, and visiting hours. Information on how to activate the Rapid Response Team has been discussed. Patient/Family are encouraged to report perceived risks to care and to ask questions if they do not understand what they are told or what they should do.
[2025-06-21 06:02] LABS: Troponin I 0.022 ng/mL (0.000-0.034)
[2025-06-21] MEDS: ATORVASTATIN 10 MG TABLET PO (10:24)
[2025-06-21] MEDS: SACUBITRIL/VALSARTAN 24-26 MG TABLET 1 TAB PO (10:24)
[2025-06-21] MEDS: ASPIRIN 81 MG ENTERIC TABLET PO (10:24)
[2025-06-21] MEDS: MAGNESIUM OXIDE 400 MG TABLET PO (10:25)
[2025-06-21] MEDS: RANOLAZINE 500 MG TAB.ER.12H PO (10:26)
[2025-06-21] MEDS: CHOLECALCIFEROL (VITAMIN D3) 25 MCG (1,000 UNITS) TABLET PO (10:27)
[2025-06-21] MEDS: GABAPENTIN 300 MG CAPSULE 600 MG PO (10:27)
[2025-06-21] MEDS: ENOXAPARIN 40 MG/0.4 ML SYRINGE SUB-Q (10:40)
--- NOTE | 2025-06-21 11:25 | P.CONCA_ITS ---
Assessment and Plan Assessment and plan (1) Chronic systolic (congestive) heart failure: Code(s): I50.22 - Chronic systolic (congestive) heart failure Status: Acute Assessment and Plan: She has slight exacerbation of acute on chronic systolic congestive heart failure. Will give a dose of furosemide 20 mg IV x1. Will also supplement with some potassium 40 mg p.o. x1. Otherwise she should continue her current regimen of carvedilol, Entresto. Lisinopril should be removed from her medication list. Will add Jardiance 10 mg daily. Will need outpatient follow-up with Dr. Justice. Will order a 2D echocardiogram with Doppler. Patient would like to go home but ideally would like for her to stay until tomorrow however if she does go home, she will need close follow-up with Cardiology this week (2) Hypertension: Qualifiers: Hypertension type: essential hypertension Qualified Code(s): I10 - Essential (primary) hypertension Code(s): I10 - Essential (primary) hypertension Status: Chronic Assessment and Plan: Continue carvedilol and Entresto (3) Chest pain: Code(s): R07.9 - Chest pain, unspecified Status: Acute Assessment and Plan: Uncertain etiology. Troponins remain negative although slight rise from baseline but still not above normal range. She does have a history of microvascular disease. Continue Ranexa (4) Pacemaker: Code(s): Z95.0 - Presence of cardiac pacemaker Status: Acute (5) Nonischemic cardiomyopathy: Code(s): I42.8 - Other cardiomyopathies Status: Acute Assessment and Plan: EF 35% at last evaluation that I am aware of. Follow-up with [facility] History of Present Illness History of Present Illness Consult date/time: 06/21/25 11:25 Requesting physician: Trae Medina MD Consult reason: chest pain Reason For Visit: Chest pain, Elevated troponin Narrative: Reason for consultation: Chest pain Date of service 06/21/2025 Requesting provider: Dr. Medina History: Patient is a 59-year-old female who has a history of nonischemic cardiomyopathy status post Bi V ICD implantation. She does have a history of recurrent syncope. Ejection fraction known to be 30 35% historically. Also has a history of takotsubo cardiomyopathy as well as left bundle-branch block. Came to the hospital because of shortness of breath and chest pain. She states she has had acute onset of shortness of breath walking to the bathroom last night. She then had some anterior chest pain is the summary was standing on her chest. She laid down in bed in symptoms persisted. EMS was called and she was started on oxygen which did help her symptoms. She does have intermittent shortness of breath at baseline but yesterday's episode was much worse. Otherwise no syncope, defibrillations, paroxysmal nocturnal dyspnea, orthopnea, edema or palpitations. D-dimer was elevated but CTA negative for PE. BNP over a 1000. Chest x-ray clear Review of Systems 2 Review of Systems: All systems reviewed & are unremarkable except as noted in HPI and below Constitutional: Constitutional: Denies body ache(s) Eyes: Eyes: Denies blurry vision ENT: Reports Normal hearing present Cardiovascular: Cardiovascular: Reports chest pain Respiratory: Respiratory: Reports dyspnea Gastrointestinal: Gastrointestinal: Denies abdominal pain Genitourinary: Genitourinary: Denies hematuria Musculoskeletal: Musculoskeletal: Denies arthralgias Integumentary/Breasts: Skin/Breast: Denies pruritus Neurologic: Denies Abnormal speech present Psychiatric: Psychiatric: Reports anxiety Endocrine: Endocrine: Denies excessive sweating Hematologic/Lymphatic: Hematologic/Lymphatic: Denies easy bleeding Allergic/Immunologic: Allergic/Immunologic: Denies GI upset with certain foods PMFSH Past Medical History Medical History History of partial replacement of left hip joint using bipolar prosthesis Lumbar spondylolysis Low left ventricular ejection fraction Echo from outside facility on 11/03/2022 was read as an ejection fraction of 35%. Pacemaker Left displaced femoral neck fracture Fracture of 4th metatarsal Fracture of 5th metatarsal Chronic narcotic use Depression DAYNA (obstructive sleep apnea) COPD (chronic obstructive pulmonary disease) Opiate abuse, episodic Fracture of fifth metatarsal bone Multiple falls Anemia Chronic pain syndrome Renal calculi Restless leg syndrome Arthritis Gastroesophageal reflux disease Anxiety Hyperlipidemia Hypertension Surgical History Surgical History History of hysterectomy History of section History of hernia repair History of cholecystectomy Family History Family History Mother Dementia Hypertension Father Myocardial infarct Hypertension Congestive heart failure Diabetes mellitus Social History Social History Social History: . She lives home alone and is . She has 2 children. She uses a walker to ambulate and is disabled. She still continues to vape. She denies any alcohol or illicit drugs. Code status: Full code. Full code. Caffeine-soda Smoking packs per day: 1 Smoking cigarettes per day: 20.0 Years smoked: 43 Smoking pack-years: 43.00 Smoking status: Former smoker Tobacco type: cigarettes and e-cigarettes/vaping Second hand tobacco smoke exposure: No Alcohol intake: never Substance use: never Substance use type: does not use Lack of Transportation: No Lack of Food: Never True Current Housing: I Have Housing Concerned About Future Housing: No Difficulty Paying Gas/Electric Bills: No Difficulty Paying for Meds: No Currently Unemployed: No Education: High School Diploma/GED Difficulty w/ Childcare or Family Care: No Living arrangements: with family Additional living arrangements comments: Resides in [place] her . They have 2 children. Additional occupation/education comments: Not employed. Gender identity (if verbalized by the patient): Female Sexual Orientation (if Verbalized by the Patient): Straight or Heterosexual Spiritual care concerns: No Meds Home Medications and Allergies Home Medications ?Medication ?Instructions ?Recorded ?Confirmed ?Type aspirin 81 mg tablet 81 mg PO DAILY 01/21/21 06/21/25 History buspirone 10 mg tablet 10 mg PO BID PRN Anxiety 01/21/21 06/21/25 History fenofibrate 150 mg capsule 150 mg PO DAILY 01/21/21 06/21/25 History lisinopril 10 mg tablet 10 mg PO DAILY 01/21/21 06/21/25 History ranolazine 500 mg tablet,extended 500 mg PO BID 01/21/21 06/21/25 History release,12 hr sertraline 100 mg tablet 200 mg PO HS 01/21/21 06/21/25 History cholecalciferol (vitamin D3) 25 25 mcg PO DAILY 02/15/21 06/21/25 History mcg (1,000 unit) tablet (Vitamin D3) atorvastatin 10 mg tablet 10 mg PO DAILY 06/27/23 06/21/25 History gabapentin 400 mg capsule 600 mg PO TID 06/27/23 06/21/25 History magnesium oxide 400 mg PO BID 06/27/23 06/21/25 History trazodone 50 mg tablet 50 mg PO HS PRN Insomnia 06/27/23 06/21/25 History fluticasone propionate 50 2 spray intranasal BID #16 mL 06/03/25 06/21/25 Rx mcg/actuation nasal spray,suspension (Flonase Allergy Relief) amoxicillin 875 mg-potassium 1 tablet PO Q12H 06/21/25 06/21/25 History clavulanate 125 mg tablet carvedilol 6.25 mg tablet 6.25 mg PO Q12H 06/21/25 06/21/25 History sacubitril 24 mg-valsartan 26 mg 1 tablet PO BID 06/21/25 06/21/25 History tablet (Entresto) Allergies Allergy/AdvReac Type Severity Reaction Status Date / Time amoxicillin (From Augmentin) AdvReac Intermediate Vomiting Verified 06/21/25 04:49 clavulanic acid (From AdvReac Intermediate Vomiting Verified 06/21/25 04:49 Augmentin) Vital Signs Vital Signs - 24 hr 06/20/25 21:48 06/20/25 22:20 06/20/25 22:26 Temperature 36.3 C L Pulse Rate 105 H 110 H 99 Respiratory Rate 19 20 Blood Pressure 152/97 H Pulse Oximetry 97 98 Oxygen Delivery Room Air 06/20/25 22:38 06/20/25 22:45 06/20/25 22:46 Temperature Pulse Rate 100 99 98 Respiratory Rate 21 H 26 H 29 H Blood Pressure 128/67 Pulse Oximetry 99 99 97 Oxygen Delivery 06/20/25 23:15 06/20/25 23:31 06/20/25 23:46 Temperature Pulse Rate 88 87 96 Respiratory Rate 19 16 20 Blood Pressure Pulse Oximetry 100 100 96 Oxygen Delivery 06/21/25 00:00 06/21/25 00:01 06/21/25 00:19 Temperature Pulse Rate 82 87 82 Respiratory Rate 18 13 17 Blood Pressure 123/79 Pulse Oximetry 97 97 97 Oxygen Delivery 06/21/25 00:30 06/21/25 00:31 06/21/25 00:32 Temperature Pulse Rate 78 82 81 Respiratory Rate 13 13 14 Blood Pressure 115/78 Pulse Oximetry 97 97 98 Oxygen Delivery 06/21/25 00:44 06/21/25 00:53 06/21/25 01:00 Temperature Pulse Rate 75 79 Respiratory Rate 12 11 L Blood Pressure Pulse Oximetry 99 97 Oxygen Delivery Room Air 06/21/25 01:15 06/21/25 01:59 06/21/25 02:00 Temperature Pulse Rate 79 70 75 Respiratory Rate 20 10 L 16 Blood Pressure Pulse Oximetry 100 99 99 Oxygen Delivery 06/21/25 02:17 06/21/25 02:30 06/21/25 02:47 Temperature Pulse Rate 82 74 73 Respiratory Rate 14 11 L 16 Blood Pressure Pulse Oximetry 98 98 98 Oxygen Delivery 06/21/25 03:00 06/21/25 03:15 06/21/25 03:33 Temperature Pulse Rate 74 73 68 Respiratory Rate 15 14 12 Blood Pressure Pulse Oximetry 98 97 97 Oxygen Delivery 06/21/25 03:45 06/21/25 03:46 06/21/25 04:00 Temperature Pulse Rate 68 70 69 Respiratory Rate 10 L 11 L 12 Blood Pressure 113/63 Pulse Oximetry 98 98 97 Oxygen Delivery 06/21/25 04:01 06/21/25 04:22 06/21/25 04:28 Temperature Pulse Rate 68 87 81 Respiratory Rate 12 20 Blood Pressure 114/61 Pulse Oximetry 97 96 Oxygen Delivery Room Air 06/21/25 04:59 06/21/25 05:06 06/21/25 06:00 Temperature 36.7 C Pulse Rate 68 87 66 Respiratory Rate 12 20 Blood Pressure 114/61 138/80 Pulse Oximetry 97 96 Oxygen Delivery 06/21/25 07:59 06/21/25 08:00 06/21/25 08:00 Temperature 36.9 C Pulse Rate 73 74 Respiratory Rate 20 Blood Pressure 128/58 L Pulse Oximetry 98 Oxygen Delivery Room Air 06/21/25 10:00 06/21/25 10:16 06/21/25 10:24 Temperature Pulse Rate 88 75 Respiratory Rate Blood Pressure Pulse Oximetry 96 Oxygen Delivery Room Air Exam 2 Narrative: Awake alert oriented. No acute distress. Appears older than stated age Const: General: comfortable and no acute distress HENMT: Face/Nose/Sinus: Normal nares present Mouth: Yes moist mucous membranes Eyes: Sclera: sclerae normal Neck: Neck: supple and no JVD Chest: Other: No reproducible chest wall pain to palpation Resp: Effort & Inspection: normal respiratory effort Auscultation: d iminished lung sounds Cardio: Rate: regular rate Rhythm: regular rhythm GI: Inspection: non-distended GI Palp: Yes Soft to palpation Skin: General skin exam: normal color Neuro: Speech: normal speech Extrem: General: normal to inspection Psych: Mental Status: mental status grossly normal Affect: normal affect Results Labs and Meds 06/20/25 22:24 06/20/25 22:24 Lab results: Cardiac Enzymes 06/20/25 06/21/25 06/21/25 Range/Units 22:24 01:12 05:21 AST 51 H (14-36) U/L Troponin I 0.019 0.026 D 0.022 (0.000-0.034) ng/mL Coagulation 06/20/25 06/20/25 06/20/25 Range/Units 22:24 22:24 22:24 PT Cancelled 14.3 APTT Cancelled 31.3 CBC 06/20/25 Range/Units 22:24 WBC 6.0 (4.5-10.0) K/mm3 RBC 3.81 L (4.2-5.4) M/mm3 Hgb 11.9 L (12.0-15.0) g/dL Hct 36.7 L (37.0-47.0) % Plt Count 216 (150-375) k/mm3 Lymph # (Auto) 1.06 (0.9-3.2) K/mm3 [place] # (Auto) 0.4 (0.1-0.6) K/mm3 Eos # (Auto) 0.1 (0-0.3) K/mm3 Baso # (Auto) 0.0 (0.0-0.1) K/mm3 Comprehensive Metabolic Panel 06/20/25 Range/Units 22:24 Sodium 142 (137-145) mmol/L Potassium 3.7 (3.4-5.0) mmol/L Chloride 109 H (98-107) mmol/L Carbon Dioxide 24 (22-30) mmol/L BUN 16 D (7-17) mg/dL Creatinine 0.93 (0.7-1.0) mg/dL Glucose 119 H (65-110) mg/dL Calcium 8.8 (8.4-10.2) mg/dL AST 51 H (14-36) U/L ALT 32 (6-35) U/L Alkaline Phosphatase 73 (38-126) U/L Total Protein 6.5 (6.3-8.2) g/dL Albumin 3.3 L (3.5-5.1) g/dL Intake and Output 06/20/25 06/21/25 06/21/25 23:59 07:59 15:59 Intake Total 0 Output Total 100 Balance -100 Intake: Oral 0 Output: Catheter Urine 100 External/Condom 100 Other: # Urine Diapers 1 Number of Bowel Movements Today 0 Patient Weight 06/21/25 23:59 Weight 54.3 kg EKG is personally reviewed and interpreted showing sinus rhythm, left axis deviation, incomplete left bundle-branch block. Abnormal ECG
[2025-06-21] MEDS: POTASSIUM CHLORIDE 20 MEQ ER TABLET 40 MEQ PO (11:49)
[2025-06-21] MEDS: FUROSEMIDE INJ 40 MG/4 ML VIAL 20 MG IV PUSH (11:49)
[2025-06-21] MEDS: EMPAGLIFLOZIN 10 MG TABLET PO (11:49)
--- NOTE | 2025-06-21 12:02 | PM.IMHP ---
H&P: HPI History of Present Illness Date/Time: 06/21/25 12:02 Chief Complaint: Chest pain Narrative: ER-HPI narrative: Patient is a 59-year-old female, past medical history of pacemaker, COPD, CHF, who presents to the ED via EMS with report of CP/SOB. Patient reports she developed pain throughout her midsternal chest and difficulty breathing around 1 hour ago. Reports pain her midsternal chest with deep breathing. Patient does report a dry cough for the past 1 month. Denies fevers. Denies pain or swelling in her lower extremities. Denies abdominal pain. She does note that she is currently being treated for a right ear infection with Augmentin. patient with history of cardiomyopathy presented with c/o CP, her 3 sets of cardic enzyme were normal, patient was seen by the power systems engineer recommended to resume patient home medication, ordered cardiac echo and monitor patient in the hospital and further recommendation to follow. Review of Systems Review of Systems: All systems reviewed & are unremarkable except as noted in HPI and below PMFSH Past Medical History Medical History History of partial replacement of left hip joint using bipolar prosthesis Lumbar spondylolysis Low left ventricular ejection fraction Echo from outside facility on 11/03/2022 was read as an ejection fraction of 35%. Pacemaker Left displaced femoral neck fracture Fracture of 4th metatarsal Fracture of 5th metatarsal Chronic narcotic use Depression DAYNA (obstructive sleep apnea) COPD (chronic obstructive pulmonary disease) Opiate abuse, episodic Fracture of fifth metatarsal bone Multiple falls Anemia Chronic pain syndrome Renal calculi Restless leg syndrome Arthritis Gastroesophageal reflux disease Anxiety Hyperlipidemia Hypertension Surgical History Surgical History History of hysterectomy History of section History of hernia repair History of cholecystectomy Family History Family History Mother Dementia Hypertension Father Myocardial infarct Hypertension Congestive heart failure Diabetes mellitus Social History Social History Social History: . She lives home alone and is . She has 2 children. She uses a walker to ambulate and is disabled. She still continues to vape. She denies any alcohol or illicit drugs. Code status: Full code. Full code. Caffeine-soda Smoking packs per day: 1 Smoking cigarettes per day: 20.0 Years smoked: 43 Smoking pack-years: 43.00 Smoking status: Former smoker Tobacco type: cigarettes and e-cigarettes/vaping Second hand tobacco smoke exposure: No Alcohol intake: never Substance use: never Substance use type: does not use Lack of Transportation: No Lack of Food: Never True Current Housing: I Have Housing Concerned About Future Housing: No Difficulty Paying Gas/Electric Bills: No Difficulty Paying for Meds: No Currently Unemployed: No Education: High School Diploma/GED Difficulty w/ Childcare or Family Care: No Living arrangements: with family Additional living arrangements comments: Resides in [place] her . They have 2 children. Additional occupation/education comments: Not employed. Gender identity (if verbalized by the patient): Female Sexual Orientation (if Verbalized by the Patient): Straight or Heterosexual Spiritual care concerns: No Meds Home Medications and Allergies Home Medications ?Medication ?Instructions ?Recorded ?Confirmed ?Type aspirin 81 mg tablet 81 mg PO DAILY 01/21/21 06/21/25 History buspirone 10 mg tablet 10 mg PO BID PRN Anxiety 01/21/21 06/21/25 History fenofibrate 150 mg capsule 150 mg PO DAILY 01/21/21 06/21/25 History Held on 06/21/25. Instructions: .Provider Order lisinopril 10 mg tablet 10 mg PO DAILY 01/21/21 06/21/25 History ranolazine 500 mg tablet,extended 500 mg PO BID 01/21/21 06/21/25 History release,12 hr sertraline 100 mg tablet 200 mg PO HS 01/21/21 06/21/25 History cholecalciferol (vitamin D3) 25 25 mcg PO DAILY 02/15/21 06/21/25 History mcg (1,000 unit) tablet (Vitamin D3) atorvastatin 10 mg tablet 10 mg PO DAILY 06/27/23 06/21/25 History gabapentin 400 mg capsule 600 mg PO TID 06/27/23 06/21/25 History magnesium oxide 400 mg PO BID 06/27/23 06/21/25 History trazodone 50 mg tablet 50 mg PO HS PRN Insomnia 06/27/23 06/21/25 History fluticasone propionate 50 2 spray intranasal BID #16 mL 06/03/25 06/21/25 Rx mcg/actuation nasal spray,suspension (Flonase Allergy Relief) amoxicillin 875 mg-potassium 1 tablet PO Q12H 06/21/25 06/21/25 History clavulanate 125 mg tablet carvedilol 6.25 mg tablet 6.25 mg PO Q12H 06/21/25 06/21/25 History sacubitril 24 mg-valsartan 26 mg 1 tablet PO BID 06/21/25 06/21/25 History tablet (Entresto) Allergies Allergy/AdvReac Type Severity Reaction Status Date / Time amoxicillin (From Augmentin) AdvReac Intermediate Vomiting Verified 06/21/25 04:49 clavulanic acid (From AdvReac Intermediate Vomiting Verified 06/21/25 04:49 Augmentin) Vital Signs Vital Signs - 24 hr 06/20/25 21:48 06/20/25 22:20 06/20/25 22:26 Temperature 36.3 C L Pulse Rate 105 H 110 H 99 Respiratory Rate 19 20 Blood Pressure 152/97 H Pulse Oximetry 97 98 Oxygen Delivery Room Air 06/20/25 22:38 06/20/25 22:45 06/20/25 22:46 Temperature Pulse Rate 100 99 98 Respiratory Rate 21 H 26 H 29 H Blood Pressure 128/67 Pulse Oximetry 99 99 97 Oxygen Delivery 06/20/25 23:15 06/20/25 23:31 06/20/25 23:46 Temperature Pulse Rate 88 87 96 Respiratory Rate 19 16 20 Blood Pressure Pulse Oximetry 100 100 96 Oxygen Delivery 06/21/25 00:00 06/21/25 00:01 06/21/25 00:19 Temperature Pulse Rate 82 87 82 Respiratory Rate 18 13 17 Blood Pressure 123/79 Pulse Oximetry 97 97 97 Oxygen Delivery 06/21/25 00:30 06/21/25 00:31 06/21/25 00:32 Temperature Pulse Rate 78 82 81 Respiratory Rate 13 13 14 Blood Pressure 115/78 Pulse Oximetry 97 97 98 Oxygen Delivery 06/21/25 00:44 06/21/25 00:53 06/21/25 01:00 Temperature Pulse Rate 75 79 Respiratory Rate 12 11 L Blood Pressure Pulse Oximetry 99 97 Oxygen Delivery Room Air 06/21/25 01:15 06/21/25 01:59 06/21/25 02:00 Temperature Pulse Rate 79 70 75 Respiratory Rate 20 10 L 16 Blood Pressure Pulse Oximetry 100 99 99 Oxygen Delivery 06/21/25 02:17 06/21/25 02:30 06/21/25 02:47 Temperature Pulse Rate 82 74 73 Respiratory Rate 14 11 L 16 Blood Pressure Pulse Oximetry 98 98 98 Oxygen Delivery 06/21/25 03:00 06/21/25 03:15 06/21/25 03:33 Temperature Pulse Rate 74 73 68 Respiratory Rate 15 14 12 Blood Pressure Pulse Oximetry 98 97 97 Oxygen Delivery 06/21/25 03:45 06/21/25 03:46 06/21/25 04:00 Temperature Pulse Rate 68 70 69 Respiratory Rate 10 L 11 L 12 Blood Pressure 113/63 Pulse Oximetry 98 98 97 Oxygen Delivery 06/21/25 04:01 06/21/25 04:22 06/21/25 04:28 Temperature Pulse Rate 68 87 81 Respiratory Rate 12 20 Blood Pressure 114/61 Pulse Oximetry 97 96 Oxygen Delivery Room Air 06/21/25 04:59 06/21/25 05:06 06/21/25 06:00 Temperature 36.7 C Pulse Rate 68 87 66 Respiratory Rate 12 20 Blood Pressure 114/61 138/80 Pulse Oximetry 97 96 Oxygen Delivery 06/21/25 07:59 06/21/25 08:00 06/21/25 08:00 Temperature 36.9 C Pulse Rate 73 74 Respiratory Rate 20 Blood Pressure 128/58 L Pulse Oximetry 98 Oxygen Delivery Room Air 06/21/25 10:00 06/21/25 10:16 06/21/25 10:24 Temperature Pulse Rate 88 75 Respiratory Rate Blood Pressure Pulse Oximetry 96 Oxygen Delivery Room Air 06/21/25 11:40 Temperature 37.3 C Pulse Rate 78 Respiratory Rate 20 Blood Pressure 108/52 L Pulse Oximetry 100 Oxygen Delivery Exam Narrative: Patient is comfortable, NAD HEENT: eyes are clear and none icteric LUNGS:CTA HEART: RR S1S2 ABD: BS+, Soft and nontender Lower extremities: no edema SKIN: nonjaundiced Neuro: grossly intact. H&P: Results Labs Labs: Short CBC 06/20/25 Range/Units 22:24 WBC 6.0 (4.5-10.0) K/mm3 Hgb 11.9 L (12.0-15.0) g/dL Hct 36.7 L (37.0-47.0) % Plt Count 216 (150-375) k/mm3 BMP 06/20/25 22:24 Sodium 142 Potassium 3.7 Chloride 109 H Carbon Dioxide 24 BUN 16 D Creatinine 0.93 Glucose 119 H Calcium 8.8 Cardiac Enzymes 06/20/25 06/21/25 06/21/25 Range/Units 22:24 01:12 05:21 Troponin I 0.019 0.026 D 0.022 (0.000-0.034) ng/mL Liver Function 06/20/25 Range/Units 22:24 Total Bilirubin 0.6 (0.2-1.3) mg/dL AST 51 H (14-36) U/L ALT 32 (6-35) U/L Alkaline Phosphatase 73 (38-126) U/L Albumin 3.3 L (3.5-5.1) g/dL Assessment and Plan Assessment and plan (1) Chronic systolic (congestive) heart failure: Code(s): I50.22 - Chronic systolic (congestive) heart failure Status: Acute (2) Nonischemic cardiomyopathy: Code(s): I42.8 - Other cardiomyopathies Status: Acute (3) Hypertension: Qualifiers: Hypertension type: essential hypertension Qualified Code(s): I10 - Essential (primary) hypertension Code(s): I10 - Essential (primary) hypertension Status: Chronic Plan ER-HPI narrative: Patient is a 59-year-old female, past medical history of pacemaker, COPD, CHF, who presents to the ED via EMS with report of CP/SOB. Patient reports she developed pain throughout her midsternal chest and difficulty breathing around 1 hour ago. Reports pain her midsternal chest with deep breathing. Patient does report a dry cough for the past 1 month. Denies fevers. Denies pain or swelling in her lower extremities. Denies abdominal pain. She does note that she is currently being treated for a right ear infection with Augmentin. patient with history of cardiomyopathy presented with c/o CP, her 3 sets of cardic enzyme were normal, patient was seen by the power systems engineer recommended to resume patient home medication, ordered cardiac echo and monitor patient in the hospital and further recommendation to follow.
--- NOTE | 2025-06-21 14:20 | P.DS_ITS ---
DS: Admitting Diagnosis Discharge Date 06/21/25 Admitting Diagnosis Chest pain DS: Summary Hospital Course Hospital Course: patient left AMA Time Spent with Patient Time attestation: Total time spent providing and/or coordinating discharge services: DS: Data Data Completed and Pending Labs on day of discharge: Labs from last 24 hours 06/21/25 06/21/25 06/20/25 05:21 01:12 22:24 WBC RBC Hgb Hct MCV MCH MCHC RDW Plt Count MPV Immature Gran % (Auto) Neut % (Auto) Lymph % (Auto) [place] % (Auto) Eos % (Auto) Baso % (Auto) Lymph # (Auto) [place] # (Auto) Eos # (Auto) Baso # (Auto) Abs Immat Gran (auto) Absolute Neuts (auto) Absolute Nucleated RBC Nucleated RBC % PT INR APTT 31.3 D-Dimer 2.20 H Sodium 142 Potassium 3.7 Chloride 109 H Carbon Dioxide 24 Anion Gap 9 BUN 16 D Creatinine 0.93 Estim Creat Clear Calc 47 Estimated GFR > 60 Glucose 119 H Calcium 8.8 Total Bilirubin 0.6 AST 51 H ALT 32 Alkaline Phosphatase 73 Troponin I 0.022 0.026 D 0.019 NT-Pro-B Natriuret Pep 1050 H Total Protein 6.5 Albumin 3.3 L Lipase 59 06/20/25 06/20/25 06/20/25 22:24 22:24 22:24 WBC 6.0 RBC 3.81 L Hgb 11.9 L Hct 36.7 L MCV 96.3 MCH 31.2 MCHC 32.4 RDW 15.5 H Plt Count 216 MPV 10.6 H Immature Gran % (Auto) 3.2 H Neut % (Auto) 71.1 Lymph % (Auto) 17.8 L [place] % (Auto) 6.5 Eos % (Auto) 1.2 Baso % (Auto) 0.2 Lymph # (Auto) 1.06 [place] # (Auto) 0.4 Eos # (Auto) 0.1 Baso # (Auto) 0.0 Abs Immat Gran (auto) 0.19 H Absolute Neuts (auto) 4.2 Absolute Nucleated RBC 0.000 Nucleated RBC % 0.0 PT 14.3 Cancelled INR 1.1 Cancelled APTT Cancelled D-Dimer Sodium Potassium Chloride Carbon Dioxide Anion Gap BUN Creatinine Estim Creat Clear Calc Estimated GFR Glucose Calcium Total Bilirubin AST ALT Alkaline Phosphatase Troponin I NT-Pro-B Natriuret Pep Total Protein Albumin Lipase Discharge Plan Discharge Consulting providers: Hero Aguilera; Trae Medina; Raghu Mccloud; Jack Natarajan Patient Disposition: Left Against Medical Advice Patient Instructions: Empagliflozin (By mouth), Angina (DC), Chest Pain (DC) Patient Language: Swedish Discharge Medications: No Action fluticasone propionate [Flonase Allergy Relief] 50 mcg/actuation spray,suspension 2 spray intranasal BID Qty: 16 3RF Rx Instructions: administer into each nostril. Aim back/up/out sertraline 100 mg Tablet 200 mg PO HS buspirone 10 mg Tablet 10 mg PO BID PRN (Reason: Anxiety) lisinopril 10 mg Tablet 10 mg PO DAILY aspirin 81 mg Tablet 81 mg PO DAILY ranolazine 500 mg Tablet Extended Release 12 Hr 500 mg PO BID fenofibrate 150 mg Capsule 150 mg PO DAILY cholecalciferol (vitamin D3) [Vitamin D3] 25 mcg (1,000 unit) Tablet 25 mcg PO DAILY trazodone 50 mg tablet 50 mg PO HS PRN (Reason: Insomnia) atorvastatin 10 mg Tablet 10 mg PO DAILY magnesium oxide 400 mg magnesium tablet 400 mg PO BID gabapentin 400 mg capsule 600 mg PO TID Rx Instructions: TAKE 1 CAPSULE BY MOUTH THREE TIMES DAILY carvedilol 6.25 mg tablet 6.25 mg PO Q12H sacubitril-valsartan [Entresto] 24-26 mg tablet 1 tablet PO BID amoxicillin-pot clavulanate 875-125 mg tablet 1 tablet PO Q12H Date of admission: 06/21/25 03:13 Primary Care Provider: Isela,Alfonso Yoo Admitting Provider: Carolina Burrows Attending physician on admission: Shelton May Condition: Stable
== END 2025-06-21 14:00 | disposition left against medical advice (07) ==
LOC: ANHED 06-21 02:23 → ANHIMU 06-21 12:02
PROVIDERS: Student in an Organized Health Care Education/Training Program; Admitting Provider Internal Medicine; Emergency Provider Physician Assistant; PCP Internal Medicine; Visit Provider Family Medicine
DX: R07.9 Chest pain, unspecified (principal); Z95.0 Presence of cardiac pacemaker; J44.9 Chronic obstructive pulmonary disease, unspecified; I50.9 Heart failure, unspecified; G47.33 Obstructive sleep apnea (adult) (pediatric); F32.A Depression, unspecified; K21.9 Gastro-esophageal reflux disease without esophagitis; E78.5 Hyperlipidemia, unspecified; I11.0 Hypertensive heart disease with heart failure; Z87.891 Personal history of nicotine dependence
CPT/HCPCS: 36415; 71045; 71275; 80053; 83690; 83880; 84484; 85025; 85380; 85610; 85730; 93005; 96372; 96374; 96375; 99285; A9270; G0378; J1650; J1938; J2270; J2405; Q9967

== ENCOUNTER 2025-06-25 16:33 | Emergency (ER) | payer MEDICARE, MEDICAID, SELFPAY ==
[2025-06-25] VITALS (9 sets, daily range): BP systolic 114–131; BP diastolic 65–86; PULSE 81–96; RESP 11–27; TEMP 36.6; O2SAT 95–100
--- NOTE | ~2025-06-25 | XR_ITS ---
EXAMINATION: XR chest 1V portable 06/25/2025 16:54 INDICATION: Shortness of breath. Chest pain TECHNIQUE:A single portable AP upright frontal image of the chest was obtained. COMPARISON: 06/20/2025 FINDINGS: Heart is not enlarged. Left-sided generator with lead. No pneumothorax. No pleural effusion. No free air under the diaphragm. Interstitial opacities in both lungs. IMPRESSION: 1: Interstitial opacities in both lungs. Differential includes interstitial edema, interstitial pneumonia or chronic interstitial changes. Reviewed, dictated and finalized at location Q. IMPRESSION: 1: Interstitial opacities in both lungs. Differential includes interstitial ed latrell, interstitial pneumonia or chronic interstitial changes.
--- NOTE | 2025-06-25 16:36 | ECG_ITS ---
Test Date: 2025-06-25 16:40:27 Measurements Intervals [place] Rate: 89 P: 78 IN: 125 QRS: -43 QRSD: 126 T: 101 QT: 384 QTc: 469 Interpretive Statements SINUS RHYTHM LEFT AXIS DEVIATION LEFT BUNDLE BRANCH BLOCK BASELINE ARTIFACT- I, AVR, AVL, AVF, V5-V6 ABNORMAL ECG Compared to ECG 06/21/2025 01:19:31 No significant changes Electronically Signed On 06-25-2025 18:38:35 CDT by Raghu Mccloud D.O.
--- NOTE | 2025-06-25 17:19 | ED.CHESTPAIN ---
HPI - Chest Pain General Chief Complaint: Chest Pain Stated Complaint: cp Time Seen by Provider: 06/25/25 16:48 History of Present Illness HPI narrative: This is a 59-year-old female with history of AFib status post pacemaker, COPD, hypertension, hyperlipidemia presents to the ED for chest pain and shortness of breath. Patient states that she was sitting at work after she had onset of left-sided chest pain that does not radiate. She also had diaphoresis that has since resolved. She reports shortness of breath as well. She states she had similar symptoms last week when she was admitted to the hospital and cleared by Cardiology. She has a follow-up appointment next week for further evaluation. The patient is a former smoker but quit 2 years ago. No known CAD. Related Data Home Medications ?Medication ?Instructions ?Recorded ?Confirmed ?Last Taken ?Type aspirin 81 mg tablet 81 mg PO DAILY 01/21/21 06/21/25 06/19/25 History buspirone 10 mg tablet 10 mg PO BID PRN Anxiety 01/21/21 06/21/25 06/12/25 History fenofibrate 150 mg capsule 150 mg PO DAILY 01/21/21 06/21/25 06/20/25 History Held on 06/21/25. Instructions: .Provider Order lisinopril 10 mg tablet 10 mg PO DAILY 01/21/21 06/21/25 06/20/25 History ranolazine 500 mg tablet,extended 500 mg PO BID 01/21/21 06/21/25 06/20/25 History release,12 hr sertraline 100 mg tablet 200 mg PO HS 01/21/21 06/21/25 06/19/25 History cholecalciferol (vitamin D3) 25 25 mcg PO DAILY 02/15/21 06/21/25 03/22/21 History mcg (1,000 unit) tablet (Vitamin D3) atorvastatin 10 mg tablet 10 mg PO DAILY 06/27/23 06/21/25 06/20/25 History gabapentin 400 mg capsule 600 mg PO TID 06/27/23 06/21/25 06/20/25 19:00 History magnesium oxide 400 mg PO BID 06/27/23 06/21/25 Unknown History trazodone 50 mg tablet 50 mg PO HS PRN Insomnia 06/27/23 06/21/25 06/20/25 History amoxicillin 875 mg-potassium 1 tablet PO Q12H 06/21/25 06/21/25 06/20/25 History clavulanate 125 mg tablet carvedilol 6.25 mg tablet 6.25 mg PO Q12H 06/21/25 06/21/25 06/20/25 History sacubitril 24 mg-valsartan 26 mg 1 tablet PO BID 06/21/25 06/21/25 06/20/25 19:00 History tablet (Entresto) Allergies Allergy/AdvReac Type Severity Reaction Status Date / Time amoxicillin (From Augmentin) AdvReac Intermediate Vomiting Verified 06/21/25 04:49 clavulanic acid (From AdvReac Intermediate Vomiting Verified 06/21/25 04:49 Augmentin) Review of Systems Review of Systems: Gen.: Denies fevers or chills Eyes: Denies eye pain or visual change ENT: Denies congestion Respiratory: As per HPI CV: As per HPI GI: Denies abdominal pain nausea, emesis or diarrhea denies burning, urgency, frequency or hematuria Musculoskeletal: Denies back pain or muscle pain Neuro: Denies numbness, tingling, weakness or focal weakness Skin: Denies rash Except as documented, all other systems reviewed and negative [facility] Past Medical History Medical History History of partial replacement of left hip joint using bipolar prosthesis Lumbar spondylolysis Low left ventricular ejection fraction Echo from outside facility on 11/03/2022 was read as an ejection fraction of 35%. Pacemaker Left displaced femoral neck fracture Fracture of 4th metatarsal Fracture of 5th metatarsal Chronic narcotic use Depression DAYNA (obstructive sleep apnea) COPD (chronic obstructive pulmonary disease) Opiate abuse, episodic Fracture of fifth metatarsal bone Multiple falls Anemia Chronic pain syndrome Renal calculi Restless leg syndrome Arthritis Gastroesophageal reflux disease Anxiety Hyperlipidemia Hypertension Surgical History Surgical History History of hysterectomy History of section History of hernia repair History of cholecystectomy Family History Family History Mother Dementia Hypertension Father Myocardial infarct Hypertension Congestive heart failure Diabetes mellitus Social History Social History Social History: . She lives home alone and is . She has 2 children. She uses a walker to ambulate and is disabled. She still continues to vape. She denies any alcohol or illicit drugs. Code status: Full code. Full code. Caffeine-soda Smoking packs per day: 1 Smoking cigarettes per day: 20.0 Years smoked: 43 Smoking pack-years: 43.00 Smoking status: Former smoker Tobacco type: cigarettes and e-cigarettes/vaping Second hand tobacco smoke exposure: No Alcohol intake: never Substance use: never Substance use type: does not use Lack of Transportation: No Lack of Food: Never True Current Housing: I Have Housing Concerned About Future Housing: No Difficulty Paying Gas/Electric Bills: No Difficulty Paying for Meds: No Currently Unemployed: No Education: High School Diploma/GED Difficulty w/ Childcare or Family Care: No Living arrangements: with family Additional living arrangements comments: Resides in [place] her . They have 2 children. Additional occupation/education comments: Not employed. Gender identity (if verbalized by the patient): Female Sexual Orientation (if Verbalized by the Patient): Straight or Heterosexual Spiritual care concerns: No Exam Narrative: APPEARANCE: No acute distress, nontoxic, resting in bed EYES: EOMI HEENT: Normocephalic, atraumatic, OMM RESPIRATORY: No respiratory distress. Diminished breath sounds throughout. No wheezes, rales, rhonchi. CARDIOVASCULAR: Regular rate and rhythm without murmurs rubs or gallops. Tenderness to palpation to the left lower anterior chest wall ABDOMINAL: Soft, nontender, nondistended, no rebound or guarding MUSCULOSKELETAl: Moves all extremities. No clubbing, cyanosis or edema. NEURO: Awake and alert. Following commands, speech normal, no focal deficits SKIN:: Warm, dry. No rashes lesions or abrasions PSYCHIATRIC: Normal affect/mood, Course Vital Signs Vital signs: Vital Signs Temperature 97.8 F 06/25/25 16:23 Pulse Rate 96 06/25/25 16:23 Respiratory Rate 27 H 06/25/25 16:23 Blood Pressure 131/86 06/25/25 16:23 Pulse Oximetry 98 06/25/25 16:23 Oxygen Delivery Room Air 06/25/25 16:23 Temperature 97.8 F 06/25/25 16:23 Pulse Rate 81 06/25/25 19:13 Respiratory Rate 12 06/25/25 19:13 Blood Pressure 114/65 06/25/25 19:13 Pulse Oximetry 100 06/25/25 19:13 Oxygen Delivery Room Air 06/25/25 16:38 MDM - Chest Pain MDM Narrative Medical decision making narrative: 59-year-old female who presented to the ED for chest pain and shortness of breath. On initial evaluation, patient was in no acute distress currently afebrile, hemodynamically stable. She has reproducible tenderness to palpation to the left chest. She had diminished breath sounds throughout. She was given a DuoNeb with improvement of breath sounds and in her pain and shortness of breath. She was not requiring any additional oxygen. Initial EKG showed no concerning findings. Troponins negative. Heart score 3. She has a leukocytosis at 12 with a chest xray that revealed suspected interstitial infiltrates. Suspect this is the source of the patient's symptoms. She is already on augmentin at home for otitis media. She will be given doxycycline in addition to this. Patient was advised to follow up with her PCP next week as scheduled. Patient was agreeable to this plan. Given strict return precautions. Differential Diagnosis Differential diagnosis: Likely other (ACS, COPD exacerbation, CHF, pneumonia, viral syndrome, costochondritis) Medical Records Data Attestation: I reviewed the patient's medical records. Lab Data Attestation: I reviewed the patient's lab results. 06/25/25 17:19 06/25/25 17:19 Labs: Lab Results 06/25/25 06/25/25 Range/Units 17:19 20:07 WBC 12.2 H (4.5-10.0) K/mm3 RBC 3.46 L (4.2-5.4) M/mm3 Hgb 11.0 L (12.0-15.0) g/dL Hct 33.2 L (37.0-47.0) % MCV 96.0 (80-100) fl MCH 31.8 (26-34) pg MCHC 33.1 (32-36) g/dl RDW 15.1 H (11.5-14.5) % Plt Count 292 (150-375) k/mm3 MPV 10.4 (7.4-10.4) fl Immature Gran % (Auto) 0.6 H (0-0.5) % Neut % (Auto) 88.0 H (45.5-73.1) % Lymph % (Auto) 5.8 L (18.3-44.2) % [place] % (Auto) 4.7 (2.6-8.5) % Eos % (Auto) 0.7 (0-4.4) % Baso % (Auto) 0.2 (0.2-1.2) % Lymph # (Auto) 0.71 L (0.9-3.2) K/mm3 [place] # (Auto) 0.6 (0.1-0.6) K/mm3 Eos # (Auto) 0.1 (0-0.3) K/mm3 Baso # (Auto) 0.0 (0.0-0.1) K/mm3 Abs Immat Gran (auto) 0.07 H (0.00-0.031) K/mm3 Absolute Neuts (auto) 10.7 H (1.3-6.7) K/mm3 Absolute Nucleated RBC 0.000 (0.0-0.012) K/mm3 Nucleated RBC % 0.0 (0.0-0.2) % PT 15.4 H (11.1-14.7) Seconds INR 1.2 APTT 37.8 H (22.3-36.8) Seconds Sodium 138 (137-145) mmol/L Potassium 3.5 (3.4-5.0) mmol/L Chloride 103 (98-107) mmol/L Carbon Dioxide 26 (22-30) mmol/L Anion Gap 9 (4-12) mmol/L BUN 12 (7-17) mg/dL Creatinine 0.80 (0.7-1.0) mg/dL Estim Creat Clear Calc 55 ml/min Estimated GFR > 60 (59 - ) Glucose 109 (65-110) mg/dL Calcium 8.7 (8.4-10.2) mg/dL Total Bilirubin 0.7 (0.2-1.3) mg/dL AST 31 (14-36) U/L ALT 19 (6-35) U/L Alkaline Phosphatase 73 (38-126) U/L Troponin I < 0.012 < 0.012 (0.000-0.034) ng/mL Total Protein 6.3 (6.3-8.2) g/dL Albumin 3.0 L (3.5-5.1) g/dL Lipase 29 (23-300) U/L Imaging Data Attestation: I personally reviewed and interpreted this imaging study as follows: Radiologist's impression: Impressions Chest X-Ray 06/25/25 16:55 IMPRESSION: 1: Interstitial opacities in both lungs. Differential includes interstitial edema, interstitial pneumonia or chronic interstitial changes. ECG Data EKG #1: Attestation: I personally reviewed and interpreted this ECG as follows: ECG completion date: 06/25/25 ECG completion time: 16:40 Prior ECG tracings: available for review Interpretation: Normal sinus rhythm her rate of 89, left axis deviation, left bundle-branch block, does not meet modified Sgarbossa criteria for STEMI. Comparison 06/21/2025: No significant change EKG #2: Interpretation: Normal sinus rhythm rate of 75, left axis deviation, left bundle-branch block, but does not meet modified Sgarbossa criteria for STEMI. No change from prior. Discharge Plan Discharge Clinical Impression: Community acquired pneumonia Qualifiers: Laterality: unspecified laterality Qualified Code(s): J18.9 - Pneumonia, unspecified organism COPD (chronic obstructive pulmonary disease) Qualifiers: COPD type: unspecified COPD Qualified Code(s): J44.9 - Chronic obstructive pulmonary disease, unspecified Anemia Qualifiers: Anemia type: unspecified type Qualified Code(s): D64.9 - Anemia, unspecified Patient Disposition: Home Condition: Stable Instructions: Antibiotic Form, Community Acquired Pneumonia (ED) Additional Instructions: Continue taking the amoxicillin-clavulanate as prescribed. You were also given a prescription for doxycycline, take this as prescribed. He will also be given prescriptions for Zofran and Lidoderm patches. Follow up with her PCP next week as scheduled. Return to ED for any new or worsening symptoms. Patient Language: Gabonese Prescriptions: New doxycycline hyclate 100 mg capsule 100 mg PO Q12H Qty: 14 0RF lidocaine [Lidoderm] 5 % adhesive patch,medicated 1 patch topical DAILY Qty: 15 0RF Rx Instructions: leave on most painful area for up to 12 hrs ondansetron 4 mg tablet,disintegrating 4 mg PO Q8H PRN (Reason: nausea and vomiting) Qty: 14 0RF No Action fluticasone propionate [Flonase Allergy Relief] 50 mcg/actuation spray,suspension 2 spray intranasal BID Qty: 16 3RF Rx Instructions: administer into each nostril. Aim back/up/out sertraline 100 mg Tablet 200 mg PO HS buspirone 10 mg Tablet 10 mg PO BID PRN (Reason: Anxiety) lisinopril 10 mg Tablet 10 mg PO DAILY aspirin 81 mg Tablet 81 mg PO DAILY ranolazine 500 mg Tablet Extended Release 12 Hr 500 mg PO BID fenofibrate 150 mg Capsule 150 mg PO DAILY cholecalciferol (vitamin D3) [Vitamin D3] 25 mcg (1,000 unit) Tablet 25 mcg PO DAILY trazodone 50 mg tablet 50 mg PO HS PRN (Reason: Insomnia) atorvastatin 10 mg Tablet 10 mg PO DAILY magnesium oxide 400 mg magnesium tablet 400 mg PO BID gabapentin 400 mg capsule 600 mg PO TID Rx Instructions: TAKE 1 CAPSULE BY MOUTH THREE TIMES DAILY carvedilol 6.25 mg tablet 6.25 mg PO Q12H sacubitril-valsartan [Entresto] 24-26 mg tablet 1 tablet PO BID amoxicillin-pot clavulanate 875-125 mg tablet 1 tablet PO Q12H Follow-up/Referrals: Iseal,Alfonso Yoo MD [Primary Care Provider, Unknown]
[2025-06-25 17:26] LABS: Hematocrit 33.2 % (37.0-47.0); Hemoglobin 11.0 g/dL (12.0-15.0); Immature Granulocyte Percent A 0.6 % (0-0.5); Lymphocytes Absolute Auto 0.71 K/mm3 (0.9-3.2); Mean Corpuscular HGB Conc 33.1 g/dl (32-36); Mean Corpuscular Hemoglobin 31.8 pg (26-34); Mean Corpuscular Volume 96.0 fl (80-100); Nucleated Red Blood Cells Absolute Auto 0.000 K/mm3 (0.0-0.012); Nucleated Red Blood Cells Perc 0.0 % (0.0-0.2); Platelet Count Result 292 k/mm3 (150-375); Red Blood Count 3.46 M/mm3 (4.2-5.4); White Blood Count 12.2 K/mm3 (4.5-10.0)
[2025-06-25] MEDS: IPRATROPIUM 0.5 MG/ALBUTEROL SULFATE 2.5 MG AMPUL.NEB 3 ML INHALATION (17:31)
[2025-06-25 17:39] LABS: Alanine Aminotransferase 19 U/L (6-35); Albumin Level 3.0 g/dL (3.5-5.1); Alkaline Phosphatase 73 U/L (38-126); Anion Gap 9 mmol/L (4-12); Aspartate Amino Transferase 31 U/L (14-36); Bilirubin,Total 0.7 mg/dL (0.2-1.3); Blood Urea Nitrogen 12 mg/dL (7-17); Calcium 8.7 mg/dL (8.4-10.2); Carbon Dioxide 26 mmol/L (22-30); Chloride 103 mmol/L (98-107); Estimated CRCL calculation 55 ml/min; Estimated Glomerular Filt Rate > 60; Glucose 109 mg/dL (65-110); Lipase 29 U/L (23-300); Potassium 3.5 mmol/L (3.4-5.0); Sodium 138 mmol/L (137-145); Total Protein 6.3 g/dL (6.3-8.2)
[2025-06-25 17:50] LABS: Troponin I < 0.012 ng/mL (0.000-0.034)
[2025-06-25] MEDS: LIDOCAINE 5% PATCH 1 PATCH TRANSDERM (17:50)
[2025-06-25] MEDS: MORPHINE SULFATE (*CRX) 2 MG/ML INJ IV PUSH (17:51)
--- OUTSIDE RECORDS SUMMARY | 2025-06-25 17:59 | XMS_ITS | Clinical Summary ---
Author Organization [facility] Address [address] [place] [address] Care Team Providers Care Chain Puller Name Role Phone Alfonso Weiss MD Primary Care Provider [phone] Social History Tobacco Use Types Packs/Day Years [...] age to complete this topic Care Teams Chain Puller Relationship Specialty Start Date End Date Alfonso Weiss MD PCP - General 06/02/15
[2025-06-25 18:45] LABS: INR 1.2; Prothrombin Time 15.4 Seconds (11.1-14.7)
[2025-06-25 18:46] LABS: Partial Thromboplastin Time 37.8 Seconds (22.3-36.8)
[2025-06-25] MEDS: DOXYCYCLINE HYCLATE 100 MG TABLET PO (18:47)
--- NOTE | 2025-06-25 19:13 | PC.NURSE ---
Assumed care of patient after receiving bedside report from MORELIA Martinez @ [phone].
--- NOTE | 2025-06-25 20:07 | ECG_ITS ---
Test Date: 2025-06-25 20:11:32 Measurements Intervals [place] Rate: 75 P: 78 ND: 113 QRS: -32 QRSD: 138 T: 103 QT: 450 QTc: 505 Interpretive Statements SINUS RHYTHM WITH SHORT ND INTERVAL LEFT AXIS DEVIATION LEFT BUNDLE BRANCH BLOCK BASELINE ARTIFACT- I, II, III, AVR, AVL, AVF, V1-V4 ABNORMAL ECG Compared to ECG 06/25/2025 16:40:27 Short ND interval now present Electronically Signed On 06-26-2025 06:21:45 CDT by Raghu Mccloud D.O.
[2025-06-25 20:35] LABS: Troponin I < 0.012 ng/mL (0.000-0.034)
== END 2025-06-25 21:20 | disposition home or self-care (01) ==
PROVIDERS: Emergency Medicine; Emergency Provider Student in an Organized Health Care Education/Training Program; PCP Internal Medicine
DX: J18.9 Pneumonia, unspecified organism (principal); D64.9 Anemia, unspecified; I10 Essential (primary) hypertension; I48.91 Unspecified atrial fibrillation; E78.5 Hyperlipidemia, unspecified; J44.9 Chronic obstructive pulmonary disease, unspecified; Z95.0 Presence of cardiac pacemaker; Z87.891 Personal history of nicotine dependence; Z79.82 Long term (current) use of aspirin; G47.33 Obstructive sleep apnea (adult) (pediatric)
CPT/HCPCS: 36415; 71045; 80053; 83690; 84484; 85025; 85610; 85730; 93005; 94640; 96374; 99284; A9270; J2270

== ENCOUNTER 2025-06-26 10:33 | Emergency (ER) | payer MEDICARE, MEDICAID, SELFPAY ==
--- NOTE | ~2025-06-26 | XR_ITS ---
EXAMINATION: XR chest 2V 06/26/2025 11:41 INDICATION: CP TECHNIQUE:Frontal and lateral images of the chest were obtained COMPARISON: 06/25/2025 FINDINGS: The lungs are clear. The cardiomediastinal silhouette is within normal limits. There are no pleural effusions. There is no pneumothorax suspected. Left-sided generator with leads. IMPRESSION: 1: NO ACUTE CARDIOPULMONARY DISEASE. Reviewed, dictated and finalized at location [facility].
--- NOTE | 2025-06-26 10:38 | ECG_ITS ---
Test Date: 2025-06-26 10:43:57 Measurements Intervals [place] Rate: 80 P: 75 [place]: 130 QRS: -42 QRSD: 128 T: 99 QT: 413 QTc: 478 Interpretive Statements SINUS RHYTHM LEFT AXIS DEVIATION LEFT BUNDLE BRANCH BLOCK BASELINE ARTIFACT- I, II, III, AVR, AVL ,AVF, V1-V2 ABNORMAL ECG Compared to ECG 06/25/2025 20:11:32 NO SIGNIFICANT CHANGE Electronically Signed On 06-26-2025 10:52:12 CDT by Raghu Mccloud D.O.
[2025-06-26 10:45] VITALS: BP 117/79; PULSE 85; RESP 20; TEMP 36.4; O2SAT 97
[2025-06-26 10:48] VITALS: BP 117/79; PULSE 85; RESP 16; TEMP 36.4; O2SAT 97
--- OUTSIDE RECORDS SUMMARY | 2025-06-26 10:54 | XMS_ITS | Clinical Summary ---
Author Organization [facility] Address [address] [place] [address] Care Team Providers Care Customer Services Coordinator Name Role Phone Alfonso Weiss MD Primary Care Provider [phone] Social History Tobacco Use Types Packs/Day Years [...] age to complete this topic Care Teams Customer Services Coordinator Relationship Specialty Start Date End Date Alfonso Weiss MD PCP - General 06/02/15
[2025-06-26 11:08] LABS: Hematocrit 35.5 % (37.0-47.0); Hemoglobin 11.5 g/dL (12.0-15.0); Immature Granulocyte Percent A 0.7 % (0-0.5); Lymphocytes Absolute Auto 0.58 K/mm3 (0.9-3.2); Mean Corpuscular HGB Conc 32.4 g/dl (32-36); Mean Corpuscular Hemoglobin 31.0 pg (26-34); Mean Corpuscular Volume 95.7 fl (80-100); Nucleated Red Blood Cells Absolute Auto 0.000 K/mm3 (0.0-0.012); Nucleated Red Blood Cells Perc 0.0 % (0.0-0.2); Platelet Count Result 321 k/mm3 (150-375); Red Blood Count 3.71 M/mm3 (4.2-5.4); White Blood Count 11.9 K/mm3 (4.5-10.0)
--- NOTE | 2025-06-26 11:08 | ED.CHESTPAIN ---
HPI - Chest Pain General Chief Complaint: Chest Pain Stated Complaint: CP/SOB Time Seen by Provider: 06/26/25 10:38 Source: patient Mode of arrival: EMS Limitations: no limitations History of Present Illness HPI narrative: This is a 59-year-old female that presents emergency department for chest pain. Reports this has been intermittently over the last week. Does report some shortness of breath. Reports the pain feels like pressure. Has been evaluated for this and was admitted and signed out AMA. She was evaluated again yesterday and initiated on treatment for pneumonia. Presents again today for recurrent chest pain. Related Data Home Medications ?Medication ?Instructions ?Recorded ?Confirmed ?Last Taken ?Type aspirin 81 mg tablet 81 mg PO DAILY 01/21/21 06/26/25 06/26/25 History buspirone 10 mg tablet 10 mg PO BID PRN Anxiety 01/21/21 06/26/25 06/26/25 History fenofibrate 150 mg capsule 150 mg PO DAILY 01/21/21 06/26/25 06/25/25 History Held on 06/21/25. Instructions: .Provider Order lisinopril 10 mg tablet 10 mg PO DAILY 01/21/21 06/26/25 06/26/25 History ranolazine 500 mg tablet,extended 500 mg PO BID 01/21/21 06/26/25 06/26/25 History release,12 hr sertraline 100 mg tablet 200 mg PO HS 01/21/21 06/26/25 06/26/25 History cholecalciferol (vitamin D3) 25 25 mcg PO DAILY 02/15/21 06/26/25 06/26/25 History mcg (1,000 unit) tablet (Vitamin D3) atorvastatin 10 mg tablet 10 mg PO DAILY 06/27/23 06/26/25 06/26/25 History gabapentin 400 mg capsule 600 mg PO TID 06/27/23 06/26/25 06/26/25 History magnesium oxide 400 mg PO BID 06/27/23 06/26/25 06/26/25 History trazodone 50 mg tablet 50 mg PO HS PRN Insomnia 06/27/23 06/26/25 06/25/25 History amoxicillin 875 mg-potassium 1 tablet PO Q12H 06/21/25 06/26/25 06/25/25 History clavulanate 125 mg tablet carvedilol 6.25 mg tablet 6.25 mg PO Q12H 06/21/25 06/26/25 06/26/25 History sacubitril 24 mg-valsartan 26 mg 1 tablet PO BID 06/21/25 06/26/25 06/26/25 History tablet (Entresto) Allergies Allergy/AdvReac Type Severity Reaction Status Date / Time amoxicillin (From Augmentin) AdvReac Intermediate Vomiting Verified 06/26/25 10:39 clavulanic acid (From AdvReac Intermediate Vomiting Verified 06/26/25 10:39 Augmentin) Review of Systems Review of Systems: All systems reviewed & are unremarkable except as noted in HPI and below PMFSH Past Medical History Medical History History of partial replacement of left hip joint using bipolar prosthesis Lumbar spondylolysis Low left ventricular ejection fraction Echo from outside facility on 11/03/2022 was read as an ejection fraction of 35%. Pacemaker Left displaced femoral neck fracture Fracture of 4th metatarsal Fracture of 5th metatarsal Chronic narcotic use Depression DAYNA (obstructive sleep apnea) COPD (chronic obstructive pulmonary disease) Opiate abuse, episodic Fracture of fifth metatarsal bone Multiple falls Anemia Chronic pain syndrome Renal calculi Restless leg syndrome Arthritis Gastroesophageal reflux disease Anxiety Hyperlipidemia Hypertension Surgical History Surgical History History of hysterectomy History of section History of hernia repair History of cholecystectomy Family History Family History Mother Dementia Hypertension Father Myocardial infarct Hypertension Congestive heart failure Diabetes mellitus Social History Social History Social History: . She lives home alone and is . She has 2 children. She uses a walker to ambulate and is disabled. She still continues to vape. She denies any alcohol or illicit drugs. Code status: Full code. Full code. Caffeine-soda Smoking packs per day: 1 Smoking cigarettes per day: 20.0 Years smoked: 43 Smoking pack-years: 43.00 Smoking status: Former smoker Tobacco type: cigarettes and e-cigarettes/vaping Second hand tobacco smoke exposure: No Alcohol intake: never Substance use: never Substance use type: does not use Lack of Transportation: No Lack of Food: Never True Current Housing: I Have Housing Concerned About Future Housing: No Difficulty Paying Gas/Electric Bills: No Difficulty Paying for Meds: No Currently Unemployed: No Education: High School Diploma/GED Difficulty w/ Childcare or Family Care: No Living arrangements: with family Additional living arrangements comments: Resides in [place] her . They have 2 children. Additional occupation/education comments: Not employed. Gender identity (if verbalized by the patient): Female Sexual Orientation (if Verbalized by the Patient): Straight or Heterosexual Spiritual care concerns: No Exam Narrative: GENERAL: Well-appearing, well-nourished, and in no acute distress. HEAD: Normocephalic, atraumatic. EYES: EOMI. ENT: Nares clear, no rhinorrhea or epistaxis. Mucous membranes moist. Oropharynx without tonsillar hypertrophy exudate or other lesions. CHEST: Clear to auscultation. No respiratory distress. No wheezes rales or rhonchi HEART: Regular rate and rhythm. No murmur heard. Normal peripheral pulses. EXTREMITIES: Normal range of motion. No edema. SKIN: Warm, dry, no rash. NEURO: No focal deficits. Alert and oriented x3. PSYCH: Normal mood and affect Course Consultations Consultation #1: Consulted hospitalist for admission, recommend consult with Cardiology Date: 06/26/25 Consultation #2: Spoke with cardiology. If patient's 3 hour troponin is negative, they recommend further outpatient follow-up Date: 06/26/25 Vital Signs Vital signs: Vital Signs Temperature 97.6 F 06/26/25 10:45 Pulse Rate 85 06/26/25 10:45 Respiratory Rate 20 06/26/25 10:45 Blood Pressure 117/79 06/26/25 10:45 Pulse Oximetry 97 06/26/25 10:45 Temperature 97.6 F 06/26/25 10:48 Pulse Rate 71 06/26/25 13:00 Respiratory Rate 17 06/26/25 13:00 Blood Pressure 111/67 06/26/25 13:00 Pulse Oximetry 96 06/26/25 13:00 Oxygen Delivery Room Air 06/26/25 11:07 MDM - Chest Pain MDM Narrative Medical decision making narrative: Patient presents the emergency department for chest pain. Reports this is been ongoing intermittently over the last week. She has been evaluated at our facility. She was admitted and signed out AMA. She was then evaluated again yesterday found have pneumonia. Is currently on oral antibiotics. Her vitals are stable. CBC with mild leukocytosis to 11.9. Hemoglobin is stable. Metabolic panel without concerning findings. EKG shows a left bundle-branch block, which is chronic. Baseline and 3 hour troponins are negative. Chest x-ray without acute cardiopulmonary abnormality. Consulted hospitalist for admission, recommend consult with Cardiology. Spoke with cardiology. If patient's 3 hour troponin is negative, they recommend further outpatient follow-up. Patient was updated on her workup. Agrees with plan of care. Instructed on close follow-up with her cable braider. She was given warnings to return to the ER Differential Diagnosis Differential diagnosis: Likely stable angina, atypical chest pain, costochondritis and other (Pneumonia) Lab Data Attestation: I reviewed the patient's lab results. 06/26/25 10:55 06/26/25 10:55 Labs: Lab Results 06/26/25 06/26/25 Range/Units 10:55 13:33 WBC 11.9 H (4.5-10.0) K/mm3 RBC 3.71 L (4.2-5.4) M/mm3 Hgb 11.5 L (12.0-15.0) g/dL Hct 35.5 L (37.0-47.0) % MCV 95.7 (80-100) fl MCH 31.0 (26-34) pg MCHC 32.4 (32-36) g/dl RDW 14.9 H (11.5-14.5) % Plt Count 321 (150-375) k/mm3 MPV 10.7 H (7.4-10.4) fl Immature Gran % (Auto) 0.7 H (0-0.5) % Neut % (Auto) 90.0 H (45.5-73.1) % Lymph % (Auto) 4.9 L (18.3-44.2) % [place] % (Auto) 3.9 (2.6-8.5) % Eos % (Auto) 0.3 (0-4.4) % Baso % (Auto) 0.2 (0.2-1.2) % Lymph # (Auto) 0.58 L (0.9-3.2) K/mm3 [place] # (Auto) 0.5 (0.1-0.6) K/mm3 Eos # (Auto) 0.0 (0-0.3) K/mm3 Baso # (Auto) 0.0 (0.0-0.1) K/mm3 Abs Immat Gran (auto) 0.08 H (0.00-0.031) K/mm3 Absolute Neuts (auto) 10.7 H (1.3-6.7) K/mm3 Absolute Nucleated RBC 0.000 (0.0-0.012) K/mm3 Nucleated RBC % 0.0 (0.0-0.2) % PT 15.6 H (11.1-14.7) Seconds INR 1.3 APTT 36.6 (22.3-36.8) Seconds Sodium 135 L (137-145) mmol/L Potassium 3.8 (3.4-5.0) mmol/L Chloride 101 (98-107) mmol/L Carbon Dioxide 24 (22-30) mmol/L Anion Gap 10 (4-12) mmol/L BUN 12 (7-17) mg/dL Creatinine 0.72 (0.7-1.0) mg/dL Estim Creat Clear Calc 60 ml/min Estimated GFR > 60 (59 - ) Glucose 94 (65-110) mg/dL Calcium 8.8 (8.4-10.2) mg/dL Total Bilirubin 1.2 (0.2-1.3) mg/dL AST 50 H (14-36) U/L ALT 28 (6-35) U/L Alkaline Phosphatase 114 (38-126) U/L Troponin I 0.012 < 0.012 (0.000-0.034) ng/mL NT-Pro-B Natriuret Pep 277 H (19.9-100) pg/mL Total Protein 7.3 (6.3-8.2) g/dL Albumin 3.5 (3.5-5.1) g/dL Lipase 40 (23-300) U/L Imaging Data Radiologist's impression: ITS Impressions Chest X-Ray 06/26/25 11:45 IMPRESSION: 1: NO ACUTE CARDIOPULMONARY DISEASE. ECG Data EKG #1: ECG completion date: 06/26/25 EKG Interpretation: normal rate, sinus rhythm and LBBB Critical Care Time Critical Care Time Critical Care Time: No Discharge Plan Discharge Clinical Impression: Chest pain Qualifiers: Chest pain type: unspecified Qualified Code(s): R07.9 - Chest pain, unspecified Patient Disposition: Home Condition: Stable Instructions: Chest Pain (ED) Additional Instructions: Return to the emergency department if you experience fever, worsening chest pain, shortness of breath, or any other symptoms that are concerning to you. Continue your medications as prescribed Follow up with your cable braider Patient Language: Prydeinig Prescriptions: No Action fluticasone propionate [Flonase Allergy Relief] 50 mcg/actuation spray,suspension 2 spray intranasal BID Qty: 16 3RF Rx Instructions: administer into each nostril. Aim back/up/out sertraline 100 mg Tablet 200 mg PO HS buspirone 10 mg Tablet 10 mg PO BID PRN (Reason: Anxiety) lisinopril 10 mg Tablet 10 mg PO DAILY aspirin 81 mg Tablet 81 mg PO DAILY ranolazine 500 mg Tablet Extended Release 12 Hr 500 mg PO BID fenofibrate 150 mg Capsule 150 mg PO DAILY cholecalciferol (vitamin D3) [Vitamin D3] 25 mcg (1,000 unit) Tablet 25 mcg PO DAILY trazodone 50 mg tablet 50 mg PO HS PRN (Reason: Insomnia) atorvastatin 10 mg Tablet 10 mg PO DAILY magnesium oxide 400 mg magnesium tablet 400 mg PO BID gabapentin 400 mg capsule 600 mg PO TID Rx Instructions: TAKE 1 CAPSULE BY MOUTH THREE TIMES DAILY carvedilol 6.25 mg tablet 6.25 mg PO Q12H sacubitril-valsartan [Entresto] 24-26 mg tablet 1 tablet PO BID amoxicillin-pot clavulanate 875-125 mg tablet 1 tablet PO Q12H doxycycline hyclate 100 mg capsule 100 mg PO Q12H Qty: 14 0RF lidocaine [Lidoderm] 5 % adhesive patch,medicated 1 patch topical DAILY Qty: 15 0RF Rx Instructions: leave on most painful area for up to 12 hrs ondansetron 4 mg tablet,disintegrating 4 mg PO Q8H PRN (Reason: nausea and vomiting) Qty: 14 0RF ondansetron 4 mg tablet,disintegrating 4 mg PO Q8H PRN (Reason: nausea and vomiting) Qty: 14 0RF doxycycline hyclate 100 mg capsule 100 mg PO BID 7 Days Qty: 14 0RF lidocaine 5 % adhesive patch,medicated 1 patch topical DAILY Qty: 15 0RF Rx Instructions: leave on most painful area for up to 12 hrs Follow-up/Referrals: Isela,Alfonso Yoo MD [Primary Care Provider, Unknown] Quality HEART score for chest pain patients History: slightly suspicious ECG: non specific repolarization disturbance/LBTB/PM Age: > 45 and < 65 years Risk factors: 1 or 2 risk factors Troponin: < or = to 1x normal limit Heart score: 3
[2025-06-26 11:25] LABS: INR 1.3; Partial Thromboplastin Time 36.6 Seconds (22.3-36.8); Prothrombin Time 15.6 Seconds (11.1-14.7)
[2025-06-26 11:33] LABS: Alanine Aminotransferase 28 U/L (6-35); Albumin Level 3.5 g/dL (3.5-5.1); Anion Gap 10 mmol/L (4-12); Bilirubin,Total 1.2 mg/dL (0.2-1.3); Blood Urea Nitrogen 12 mg/dL (7-17); Calcium 8.8 mg/dL (8.4-10.2); Carbon Dioxide 24 mmol/L (22-30); Chloride 101 mmol/L (98-107); Estimated CRCL calculation 60 ml/min; Estimated Glomerular Filt Rate > 60; Glucose 94 mg/dL (65-110); Lipase 40 U/L (23-300); Sodium 135 mmol/L (137-145); Total Protein 7.3 g/dL (6.3-8.2)
[2025-06-26 11:38] LABS: NT Pro B Type Natriuretic Pept 277 pg/mL (19.9-100); Troponin I 0.012 ng/mL (0.000-0.034)
[2025-06-26 11:39] LABS: Alkaline Phosphatase 114 U/L (38-126); Aspartate Amino Transferase 50 U/L (14-36); Potassium 3.8 mmol/L (3.4-5.0)
[2025-06-26 13:00] VITALS: BP 111/67; PULSE 71; RESP 17; O2SAT 96
[2025-06-26] MEDS: MORPHINE SULFATE (*CRX) 4 MG/ML INJ IV PUSH (13:25)
[2025-06-26] MEDS: ONDANSETRON INJ 4 MG/2 ML VIAL IV PUSH (13:30)
--- NOTE | 2025-06-26 13:31 | ECG_ITS ---
Test Date: 2025-06-26 13:39:51 Measurements Intervals [place] Rate: 68 P: 64 VA: 127 QRS: -38 QRSD: 121 T: 109 QT: 440 QTc: 469 Interpretive Statements SINUS RHYTHM LEFT AXIS DEVIATION LEFT BUNDLE BRANCH BLOCK BASELINE ARTIFACT- I, II, III, AVR, AVL ,AVF, V1-V6 ABNORMAL ECG Compared to ECG 06/26/2025 10:43:57 No significant changes Electronically Signed On 06-26-2025 14:01:02 CDT by Raghu Mccloud D.O.
--- NOTE | 2025-06-26 13:40 | PC.NURSE ---
Pt received 324 mg ASA from EMS en route to [place] this morning. Notified Provider. ASA discontinued.
--- NOTE | 2025-06-26 13:41 | PC.NURSE ---
Pt received ASA 324 mg from EMS while en route to hospital this AM. Provider notified and ASA administration d/c.
[2025-06-26 14:00] VITALS: BP 106/60; PULSE 67; RESP 16; O2SAT 97
[2025-06-26 14:20] LABS: Troponin I < 0.012 ng/mL (0.000-0.034)
[2025-06-26 15:10] VITALS: BP 101/64; PULSE 69; RESP 16; O2SAT 95
== END 2025-06-26 15:10 | disposition home or self-care (01) ==
PROVIDERS: Emergency Provider Physician Assistant; PCP Internal Medicine
DX: R07.9 Chest pain, unspecified (principal); R06.02 Shortness of breath; J18.9 Pneumonia, unspecified organism; I10 Essential (primary) hypertension; E78.5 Hyperlipidemia, unspecified; J44.9 Chronic obstructive pulmonary disease, unspecified; D64.9 Anemia, unspecified; G47.33 Obstructive sleep apnea (adult) (pediatric); G89.4 Chronic pain syndrome; G25.81 Restless legs syndrome; K21.9 Gastro-esophageal reflux disease without esophagitis; F32.A Depression, unspecified; F41.9 Anxiety disorder, unspecified; F17.290 Nicotine dependence, other tobacco product, uncomplicated; Z95.0 Presence of cardiac pacemaker; Z96.642 Presence of left artificial hip joint; Z87.442 Personal history of urinary calculi; Z90.710 Acquired absence of both cervix and uterus; Z90.49 Acquired absence of other specified parts of digestive tract; Z79.899 Other long term (current) drug therapy; I44.7 Left bundle-branch block, unspecified
CPT/HCPCS: 36415; 71046; 80053; 83690; 83880; 84484; 85025; 85610; 85730; 93005; 96374; 96375; 99284; J2270; J2405

== ENCOUNTER 2025-07-20 10:59 | Emergency (ER) | payer MEDICARE, MEDICAID, SELFPAY ==
[2025-07-20] VITALS (10 sets, daily range): BP systolic 139–141; BP diastolic 68–81; PULSE 60–66; RESP 11–19; TEMP 36.6; O2SAT 95–100
--- NOTE | ~2025-07-20 | XR_ITS ---
Examination: XR chest 2V Clinical History: Fall Comparison: 06/26/2025 Technique: PA and Lateral Findings: Left ICD. Cardiomediastinal silhouette normal size and configuration. Lungs clear. Mild hyperinflation. No acute bony abnormality. IMPRESSION: 1. No acute cardiopulmonary findings. Reviewed, dictated and finalized at location R.
--- NOTE | ~2025-07-20 | CT_ITS ---
EXAMINATION: CT brain wo max, 07/20/2025 12:05 CDT HISTORY: Head Injury COMPARISON: No comparisons available. Technique: Axial images obtained of the brain without contrast. One or more of the following dose reduction techniques were used: automated exposure control, adjustment of the mA and/or kV according to patient size, use of iterative reconstruction technique. Findings: No acute infarct or parenchymal hemorrhage. No abnormal mass or mass effect. No midline shift. No extra-axial fluid collections. No hydrocephalus. Mastoid air cells unremarkable. Sinuses and orbits unremarkable. No acute fracture. No significant facial or scalp soft tissue swelling evident. No radiopaque foreign body is seen. Impression: 1.No acute intracranial abnormality. Reviewed, dictated and finalized at location A. Impression: 1.No acute intracranial abnormality.
--- NOTE | ~2025-07-20 | XR_ITS ---
EXAMINATION: XR sacrum coccyx min 2V DATE: 07/20/2025 13:29 INDICATION: Sacrococcygeal pain post fall TECHNIQUE: AP view of the sacrum, AP view of the coccyx and lateral views of the sacrum and coccyx were obtained. COMPARISON: CT abdomen pelvis dated 01/22/2021 FINDINGS: Interval increase in now 1.3 cm anterolisthesis L4 on L5 with severe associated disc height loss with Modic type III sclerotic endplate changes and severe associated facet osteoarthritis. Bone alignment is otherwise normal. No fractures identified. Right hip and bilateral sacroiliac joints. Partially v isualized bipolar bilateral nephrolithiasis. Surgical clips the right hemipelvis. Type left hip hemiarthroplasty. IMPRESSION: 1. No acute osseous adenopathy. 2. Severe spondylosis at L4-L5 with 1.3 cm anterolisthesis L4 on L5. 3. Bilateral nephrolithiasis. Reviewed, dictated and finalized at location A.
[2025-07-20] MEDS: SODIUM CHLORIDE 0.9% IV 1,000 ML 999 ML IV CONT (12:33)
[2025-07-20 12:34] LABS: Hematocrit 37.9 % (37.0-47.0); Hemoglobin 12.1 g/dL (12.0-15.0); Immature Granulocyte Percent A 0.6 % (0-0.5); Lymphocytes Absolute Auto 0.72 K/mm3 (0.9-3.2); Mean Corpuscular HGB Conc 31.9 g/dl (32-36); Mean Corpuscular Hemoglobin 31.0 pg (26-34); Mean Corpuscular Volume 97.2 fl (80-100); Nucleated Red Blood Cells Absolute Auto 0.000 K/mm3 (0.0-0.012); Nucleated Red Blood Cells Perc 0.0 % (0.0-0.2); Platelet Count Result 127 k/mm3 (150-375); Red Blood Count 3.90 M/mm3 (4.2-5.4); White Blood Count 5.0 K/mm3 (4.5-10.0)
[2025-07-20 12:58] LABS: Alanine Aminotransferase 38 U/L (6-35); Albumin Level 3.0 g/dL (3.5-5.1); Alkaline Phosphatase 83 U/L (38-126); Anion Gap 2 mmol/L (4-12); Aspartate Amino Transferase 62 U/L (14-36); Bilirubin,Total 0.8 mg/dL (0.2-1.3); Blood Urea Nitrogen 12 mg/dL (7-17); Calcium 8.3 mg/dL (8.4-10.2); Carbon Dioxide 30 mmol/L (22-30); Chloride 106 mmol/L (98-107); Creatine Kinase 216 U/L (30-135); Estimated CRCL calculation 42 ml/min; Estimated Glomerular Filt Rate 53; Glucose 84 mg/dL (65-110); Potassium 3.2 mmol/L (3.4-5.0); Sodium 138 mmol/L (137-145); Total Protein 6.1 g/dL (6.3-8.2)
--- NOTE | 2025-07-20 13:10 | ED.FALL ---
HPI - Fall General Chief Complaint: Fall Stated Complaint: fall, struck head Time Seen by Provider: 07/20/25 12:01 History of Present Illness HPI Narrative: Patient is a 6-year-old female who presents ER after a fall. She was at home using her chair to table for support when she bent over losing her balance and striking her head. She was not found for 30 minutes and was too weak to get up. She reports that she falls quite often with her last fall being yesterday. No chest pain or chest pressure. No nausea or vomiting. No fevers or chills or sweats. She takes an aspirin daily. Patient does report some pain to her buttock after the fall. Related Data Home Medications ?Medication ?Instructions ?Recorded ?Confirmed ?Last Taken ?Type aspirin 81 mg tablet 81 mg PO DAILY 01/21/21 06/26/25 06/26/25 History buspirone 10 mg tablet 10 mg PO BID PRN Anxiety 01/21/21 06/26/25 06/26/25 History fenofibrate 150 mg capsule 150 mg PO DAILY 01/21/21 06/26/25 06/25/25 History Held on 06/21/25. Instructions: .Provider Order lisinopril 10 mg tablet 10 mg PO DAILY 01/21/21 06/26/25 06/26/25 History ranolazine 500 mg tablet,extended 500 mg PO BID 01/21/21 06/26/25 06/26/25 History release,12 hr sertraline 100 mg tablet 200 mg PO HS 01/21/21 06/26/25 06/26/25 History cholecalciferol (vitamin D3) 25 25 mcg PO DAILY 02/15/21 06/26/25 06/26/25 History mcg (1,000 unit) tablet (Vitamin D3) atorvastatin 10 mg tablet 10 mg PO DAILY 06/27/23 06/26/25 06/26/25 History gabapentin 400 mg capsule 600 mg PO TID 06/27/23 06/26/25 06/26/25 History magnesium oxide 400 mg PO BID 06/27/23 06/26/25 06/26/25 History trazodone 50 mg tablet 50 mg PO HS PRN Insomnia 06/27/23 06/26/25 06/25/25 History amoxicillin 875 mg-potassium 1 tablet PO Q12H 08/06/26/25 06/25/25 History clavulanate 125 mg tablet carvedilol 6.25 mg tablet 6.25 mg PO Q12H 06/21/25 06/26/25 06/26/25 History sacubitril 24 mg-valsartan 26 mg 1 tablet PO BID 06/21/25 06/26/25 06/26/25 History tablet (Entresto) Allergies Allergy/AdvReac Type Severity Reaction Status Date / Time amoxicillin (From Augmentin) AdvReac Intermediate Vomiting Verified 07/20/25 11:09 clavulanic acid (From AdvReac Intermediate Vomiting Verified 07/20/25 11:09 Augmentin) Review of Systems Review of Systems: All systems reviewed & are unremarkable except as noted in HPI and below Constitutional: Constitutional: Reports no additional constitutional complaints ENT: Reports system reviewed and no additional complaints, except as documented Cardiovascular: Cardiovascular: Reports no additional cardiovascular complaints Neurologic: Reports system reviewed and no additional complaints, except as documented [facility] Past Medical History Medical History History of partial replacement of left hip joint using bipolar prosthesis Lumbar spondylolysis Low left ventricular ejection fraction Echo from outside facility on 11/03/2022 was read as an ejection fraction of 35%. Pacemaker Left displaced femoral neck fracture Fracture of 4th metatarsal Fracture of 5th metatarsal Chronic narcotic use Depression DAYNA (obstructive sleep apnea) COPD (chronic obstructive pulmonary disease) Opiate abuse, episodic Fracture of fifth metatarsal bone Multiple falls Anemia Chronic pain syndrome Renal calculi Restless leg syndrome Arthritis Gastroesophageal reflux disease Anxiety Hyperlipidemia Hypertension Surgical History Surgical History History of hysterectomy History of section History of hernia repair History of cholecystectomy Family History Family History Mother Dementia Hypertension Father Myocardial infarct Hypertension Congestive heart failure Diabetes mellitus Social History Social History Social History: . She lives home alone and is . She has 2 children. She uses a walker to ambulate and is disabled. She still continues to vape. She denies any alcohol or illicit drugs. Code status: Full code. Full code. Caffeine-soda Smoking packs per day: 1 Smoking cigarettes per day: 20.0 Years smoked: 43 Smoking pack-years: 43.00 Smoking status: Former smoker Tobacco type: cigarettes and e-cigarettes/vaping Second hand tobacco smoke exposure: No Alcohol intake: never Substance use: never Substance use type: does not use Lack of Transportation: No Lack of Food: Never True Current Housing: I Have Housing Concerned About Future Housing: No Difficulty Paying Gas/Electric Bills: No Difficulty Paying for Meds: No Currently Unemployed: No Education: High School Diploma/GED Difficulty w/ Childcare or Family Care: No Living arrangements: with family Additional living arrangements comments: Resides in [place] her . They have 2 children. Additional occupation/education comments: Not employed. Gender identity (if verbalized by the patient): Female Sexual Orientation (if Verbalized by the Patient): Straight or Heterosexual Spiritual care concerns: No Exam Narrative: GENERAL: Frail-appearing, well-nourished, and in no acute distress. HEAD: Normocephalic, atraumatic. ENT: Mucous membranes moist. CHEST: Clear to auscultation. No respiratory distress. HEART: Regular rate and rhythm. Normal peripheral pulses. ABDOMEN: Soft, nontender, nondistended. EXTREMITIES: Normal range of motion. No edema. SKIN: Warm, dry, no rash. NEURO: Alert and oriented x3. PSYCH: Normal mood and affect. Course Course Emergency Course: Patient received 500 mL of IV fluid. She is up and ambulatory without issue. We will provide 1st dose of antibiotic UTI. She feels comfortable going home. Vital Signs Vital signs: Vital Signs Temperature 97.8 F 07/20/25 11:00 Pulse Rate 63 07/20/25 11:00 Respiratory Rate 17 07/20/25 11:00 Blood Pressure 139/68 07/20/25 11:00 Pulse Oximetry 97 07/20/25 11:00 Oxygen Delivery Room Air 07/20/25 11:00 Temperature 97.8 F 07/20/25 11:00 Pulse Rate 60 07/20/25 12:32 Respiratory Rate 13 07/20/25 12:32 Blood Pressure 141/81 H 07/20/25 12:32 Pulse Oximetry 98 07/20/25 12:32 Oxygen Delivery Room Air 07/20/25 11:00 MDM - Fall Lab Data 07/20/25 12:29 07/20/25 12:29 Labs: Lab Results 07/20/25 07/20/25 Range/Units 12: 13:03 WBC 5.0 (4.5-10.0) K/mm3 RBC 3.90 L (4.2-5.4) M/mm3 Hgb 12.1 (12.0-15.0) g/dL Hct 37.9 (37.0-47.0) % MCV 97.2 (80-100) fl MCH 31.0 (26-34) pg MCHC 31.9 L (32-36) g/dl RDW 16.5 H (11.5-14.5) % Plt Count 127 L D (150-375) k/mm3 MPV 11.5 H (7.4-10.4) fl Immature Gran % (Auto) 0.6 H (0-0.5) % Neut % (Auto) 80.4 H (45.5-73.1) % Lymph % (Auto) 14.4 L (18.3-44.2) % [place] % (Auto) 3.8 (2.6-8.5) % Eos % (Auto) 0.6 (0-4.4) % Baso % (Auto) 0.2 (0.2-1.2) % Lymph # (Auto) 0.72 L (0.9-3.2) K/mm3 [place] # (Auto) 0.2 (0.1-0.6) K/mm3 Eos # (Auto) 0.0 (0-0.3) K/mm3 Baso # (Auto) 0.0 (0.0-0.1) K/mm3 Abs Immat Gran (auto) 0.03 (0.00-0.031) K/mm3 Absolute Neuts (auto) 4.0 (1.3-6.7) K/mm3 Absolute Nucleated RBC 0.000 (0.0-0.012) K/mm3 Nucleated RBC % 0.0 (0.0-0.2) % Sodium 138 (137-145) mmol/L Potassium 3.2 L (3.4-5.0) mmol/L Chloride 106 (98-107) mmol/L Carbon Dioxide 30 (22-30) mmol/L Anion Gap 2 L (4-12) mmol/L BUN 12 (7-17) mg/dL Creatinine 1.05 H (0.7-1.0) mg/dL Estim Creat Clear Calc 42 ml/min Estimated GFR 53 L (59 - ) Glucose 84 (65-110) mg/dL Calcium 8.3 L (8.4-10.2) mg/dL Total Bilirubin 0.8 (0.2-1.3) mg/dL AST 62 H (14-36) U/L ALT 38 H (6-35) U/L Alkaline Phosphatase 83 (38-126) U/L Total Creatine Kinase 216 H (30-135) U/L Total Protein 6.1 L (6.3-8.2) g/dL Albumin 3.0 L (3.5-5.1) g/dL Urine Color Yellow (Yellow) Urine Appearance Cloudy H (Clear) Urine pH 8.0 (5.0-9.0) Ur Specific [place] 1.009 (1.001-1.035) Urine Protein Trace (Negative) mg/dL Urine Glucose (UA) Negative (Negative) mg/dL Urine Ketones Negative (Negative) mg/dL Ur Blood (Man) Negative (Negative) Urine Nitrate Positive H (Negative) Urine Bilirubin Negative (Negative) Urine Urobilinogen 0.2 (<2.0) mg/dL Leukocyte Esterase Rfl 3+ H (Negative) [place]/UL Urine RBC 0-2 (0-2) /hpf Urine WBC >100 H (0-3) /hpf Ur Squamous Epith Cells None seen (Few) /hpf Urine Bacteria 4+ H /hpf Urine Casts 0-2 Imaging Data Radiologist's impression: ITS Impressions Head CT 07/20/25 12:22 Impression: 1.No acute intracranial abnormality. Chest X-Ray 07/20/25 13:05 IMPRESSION: 1. No acute cardiopulmonary findings. Sacrum and Coccyx X-Ray 07/20/25 14:15 IMPRESSION: 1. No acute osseous adenopathy. 2. Severe spondylosis at L4-L5 with 1.3 cm anterolisthesis L4 on L5. 3. Bilateral nephrolithiasis. Discharge Plan Discharge Clinical Impression: UTI (urinary tract infection) Patient Disposition: Home Condition: Stable Instructions: Urinary Tract Infection in Women (ED) Additional Instructions: You should return to the emergency department if you develop severe nausea and vomiting and are unable to keep liquids down, if you develop severe back/flank or stomach pain, or if your symptoms are not clearly improving at home. Patient Language: Greek Prescriptions: New cephalexin 500 mg capsule 500 mg PO Q12H Qty: 14 0RF No Action fluticasone propionate [Flonase Allergy Relief] 50 mcg/actuation spray,suspension 2 spray intranasal BID Qty: 16 3RF Rx Instructions: administer into each nostril. Aim back/up/out sertraline 100 mg Tablet 200 mg PO HS buspirone 10 mg Tablet 10 mg PO BID PRN (Reason: Anxiety) lisinopril 10 mg Tablet 10 mg PO DAILY aspirin 81 mg Tablet 81 mg PO DAILY ranolazine 500 mg Tablet Extended Release 12 Hr 500 mg PO BID fenofibrate 150 mg Capsule 150 mg PO DAILY cholecalciferol (vitamin D3) [Vitamin D3] 25 mcg (1,000 unit) Tablet 25 mcg PO DAILY trazodone 50 mg tablet 50 mg PO HS PRN (Reason: Insomnia) atorvastatin 10 mg Tablet 10 mg PO DAILY magnesium oxide 400 mg magnesium tablet 400 mg PO BID gabapentin 400 mg capsule 600 mg PO TID Rx Instructions: TAKE 1 CAPSULE BY MOUTH THREE TIMES DAILY carvedilol 6.25 mg tablet 6.25 mg PO Q12H sacubitril-valsartan [Entresto] 24-26 mg tablet 1 tablet PO BID amoxicillin-pot clavulanate 875-125 mg tablet 1 tablet PO Q12H doxycycline hyclate 100 mg capsule 100 mg PO Q12H Qty: 14 0RF lidocaine [Lidoderm] 5 % adhesive patch,medicated 1 patch topical DAILY Qty: 15 0RF Rx Instructions: leave on most painful area for up to 12 hrs ondansetron 4 mg tablet,disintegrating 4 mg PO Q8H PRN (Reason: nausea and vomiting) Qty: 14 0RF ondansetron 4 mg tablet,disintegrating 4 mg PO Q8H PRN (Reason: nausea and vomiting) Qty: 14 0RF doxycycline hyclate 100 mg capsule 100 mg PO BID 7 Days Qty: 14 0RF lidocaine 5 % adhesive patch,medicated 1 patch topical DAILY Qty: 15 0RF Rx Instructions: leave on most painful area for up to 12 hrs Follow-up/Referrals: Isela,Alfonso Yoo MD [Primary Care Provider, Unknown] - 1 Week
[2025-07-20 13:14] LABS: Add Urine Microscopic? YES; Glucose Urine UA Negative (Negative); Leukocyte Esterase Ur 3+ LEU/UL (Negative); Nitrate Urine Positive (Negative); Non Pathogenic Casts 0-2; Specific Grav Ur 1.009 (1.001-1.035)
[2025-07-20 13:17] LABS: Appearance Urine Cloudy (Clear)
--- NOTE | 2025-07-20 14:05 | PC.NURSE ---
pt was only given 500ml of NS per EDP Dr. Kruse verbal order
--- OUTSIDE RECORDS SUMMARY | 2025-07-20 14:17 | XMS_ITS | Clinical Summary ---
Author Organization [facility] Address [address] [place] [address] Care Team Providers Care Senior Buyer Name Role Phone Alfonso Weiss MD Primary Care Provider [phone] Social History Tobacco Use Types Packs/Day Years [...] Vaccines (1 of 2) 2015 COVID-19 Vaccine ( - 2023-2 5 season) 2025 RSV Immunization or 60+ Years (1 - 1-dose 75+ series) 2040 Meningococcal B Vaccine Aged Out No l onger eligible based on patient's age to complete this topic Meningococcal Vaccine Aged Out No diana saira eligible based on patient's age to complete this topic RSV Immunizations Under 20 Months Aged Out No longer eligible based on patient's age to complete this topic Care Teams Senior Buyer Relationship Specialty Start Date End Date Alfonso Weiss MD PCP - General 7/29/15
[2025-07-20] MEDS: CEPHALEXIN 500 MG CAPSULE PO (14:34)
== END 2025-07-20 14:44 | disposition home or self-care (01) ==
PROVIDERS: Emergency Provider Emergency Medicine; PCP Internal Medicine
DX: N39.0 Urinary tract infection, site not specified (principal); E78.5 Hyperlipidemia, unspecified; I10 Essential (primary) hypertension; Z87.891 Personal history of nicotine dependence; Z79.82 Long term (current) use of aspirin; W19.XXXA Unspecified fall, initial encounter
CPT/HCPCS: 36415; 70450; 71046; 72220; 80053; 81001; 82550; 85025; 87077; 87086; 87186; 96360; 99284; A9270; J7030